=== PATIENT | female | born 1935 | race Caucasian/White ===

== ENCOUNTER → 2017-01-26 | Outpatient (CLI) | payer OTHER ==
[~2017-01-26] MED LIST: ASCA500 PO; ASPI-461 PO; CHOL100027 PO; CYAN500T PO; GLIP2.5T11 PO; HYDR50TA3 PO; INSDGIPEN SC; LISI-725 PO; LPT40 PO; LSN20 PO; METF1000 PO; METO25TA56 PO; OMEG5CAP PO; PLV75 PO; RANI150T2 PO; SITA1TAB27 PO; ZCRT/40 PO
[2017-01-26 12:43] LABS: BASO % 0.3 %; BASO ABS # 0.02 K/uL (0-0.2); COMPLETE YES; HEMATOCRIT 38.5 % (37-47); IG% 0.3 %; LYMPH % 19.2 %; LYMPH ABS # 1.53 K/uL (1.2-3.4); MEAN CELL VOLUME 87.3 fL (80-100); MEAN CORPUSCULAR HGB CONC 33.2 g/dl (32-36); MEAN PLATELET VOLUME 10.6 fL (7.4-10.4); MONO % 5.7 %; NEUT % 71.5 %; PLATELET COUNT 247 K/uL (130-400); RED BLOOD COUNT 4.41 M/uL (4.2-5.4); WHITE BLOOD COUNT 7.96 K/uL (4.8-10.8)
[2017-01-26 13:46] LABS: ALKALINE PHOSPHATASE 72 U/L (45-117); ALT/SGPT 26 U/L (12-78); AMYLASE 48 U/L (25-115); AST/SGOT 13 U/L (15-37)
== END | disposition home or self-care (01) ==
LOC: C.LAB 11:44
PROVIDERS: ATTEND Nurse Practitioner Family
DX: R07.89 Other chest pain (principal); R14.2 Eructation; R11.0 Nausea

== ENCOUNTER 2017-02-23 18:26 | Inpatient (IN) | payer OTHER ==
[~2017-02-23] VITALS: Ht 165.1 cm; Wt 109.9 kg
[~2017-02-23 18:26] MED LIST changes: -GLIP2.5T11 PO; -INSDGIPEN SC; -LPT40 PO; -LSN20 PO; -PLV75 PO; -RANI150T2 PO
[2017-02-23] MEDS ORDERED: SODIUM CHLORIDE 0.9% 1000ML 1,000 ML IV SCH ×2 (18:42→23:59)
[2017-02-23] MEDS ORDERED: RANI150T2 PO (18:54)
[2017-02-23] MEDS ORDERED: GLIP2.5T11 PO (18:54)
--- NOTE | 2017-02-23 18:55 | EMERGENCY ROOM VISIT NOTE ---
History Report prepared by Marla: Janeen Morrissey Under the Supervision of: Dr. Tobias Ruelas M.D. First contact with patient: 18:36 Chief Complaint: STROKE SYMPTOMS Stated Complaint: LOSS OF SIGHT IN RT EYE, CONFUSION, MEMORY LOSS Nursing Triage Summary: Pts states pt is having a TIA. states pt unable to recall children's names, parents names, wasn't making sense. Pt states blind spot in right eye, now resolved. Mild h/a, now resolved. Episode lasted approx 15 mins. History of Present Illness The patient is an 81 year old female who presents to the Emergency Room with complaints of stroke-like symptoms beginning 40 minutes ago that have resolved. The patient was with her and they were leaving their grandson's house. The patient developed blindness in her right eye that lasted for about 10-15 minutes. She initially thought this was due to the sun and states that she did not feel confused while she was experiencing these visual symptoms. Her blindness resolved, and that is when she became confused. Per , the patient could not remember her parent's names or her children's names. She could recall her birthday and her address. denies any facial droop or weakness while her symptoms lasted. The patient states that she feels better now , but still feels a little "strange" and not completely back to normal. She states that she is feeling weak and has a headache at the base of her head that she describes as "tightness." Her visual symptoms have completely resolved. The patient denies any back pain or abdominal pain. She does not have any personal history of strokes or TIAs. She takes daily aspirin but denies any other blood thinners. 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 Review of Systems All systems have been listed, reviewed, and are negative other than those previously mentioned. Please see Additional Medical History Sheet. Past Medical & Surgical Medical Problems: (1) Arthritis (2) Diabetes mellitus (3) Hypertension (4) Scoliosis (5) TIA (transient ischemic attack) Family History Non-pertinent due to advanced age. Social History Smoking Status: Former Smoker Marital Status: Housing Status: lives with significant other Occupation Status: unemployed Current/Historical Medications Scheduled Ascorbic Acid (Vitamin C), 1,000 MG PO QAM Aspirin (Aspirin), 2 TAB PO QAM Cholecalciferol (Vitamin D 1000 Unit), 1,000 INTER.UNIT PO BID Cyanocobalamin (Vitamin B-12), 1,000 MCG PO BID Glipizide (Glipizide Er), 2.5 MG PO DAILY Hydrochlorothiazide (Hctz), 50 MG PO QPM Lisinopril (Zestril), 20 MG PO QPM Metformin Hcl (Glucophage), 1,000 MG PO BID Metoprolol Tartrate (Lopressor) (Lopressor), 25 MG PO BID [place]-3 Fatty Acids (Fish Oil 1200 mg), 1 CAP PO BID Ranitidine HCl (Ranitidine HCl), 150 MG PO BID Simvastatin (Zocor), 40 MG PO QPM Allergies Coded Allergies: No Known Allergies (Verified , 05/25/16) Physical Exam Vital Signs Date Time Temp Pulse Resp B/P Pulse Ox O2 Delivery O2 Flow Rate FiO2 02/23/17 22:16 36.5 61 19 132/63 92 02/23/17 22:10 132/63 02/23/17 22:01 61 19 92 02/23/17 21:31 72 23 95 02/23/17 21:26 73 21 94 02/23/17 21:20 152/63 02/23/17 20:56 80 20 90 02/23/17 20:31 144/61 02/23/17 20:30 71 20 144/61 94 Room Air 02/23/17 20:26 69 22 95 02/23/17 20:02 136/61 02/23/17 20:00 66 16 136/61 93 Room Air 02/23/17 19:56 78 26 02/23/17 19:38 194/84 02/23/17 19:37 72 18 194/84 94 Room Air 02/23/17 19:30 183/88 02/23/17 19:26 69 19 02/23/17 19:03 74 02/23/17 19:02 Room Air 02/23/17 18:56 170/104 02/23/17 18:30 36.5 74 18 187/88 96 Room Air Physical Exam GENERAL: Patient awake, alert, oriented x 3. Patient follows commands. Patient does not appear toxic. Patient is adequately hydrated and well- nourished. SKIN: No erythema, pallor, cyanosis or rash HEENT: Normal head, pupils equal, reactive to light and accommodation. Oral cavity and posterior pharynx appear normal. Neck: Without adenopathy, no neck vein distention. LUNGS: Clear to auscultation. No wheezes, no rales, no rhonchi. HEART: No murmurs. No gallops. No rubs ABDOMEN: Obese, soft, nontender. EXTREMITIES: No signs of trauma. No pedal or pretibial edema. No calf or thigh tenderness. NEUROLOGIC: Cranial nerves II-XII within normal limits. No gross motor sensory function deficits. No focal deficits. Patient has no facial asymmetry. NIH 0. Medical Decision & Procedures ER Provider Diagnostic Interpretation: Radiology results as stated below per my review and radiologist interpretation: CT SCAN OF THE BRAIN WITHOUT IV CONTRAST CLINICAL HISTORY: Strokelike symptoms. COMPARISON STUDY: No priors. TECHNIQUE: Unenhanced axial CT scan of the brain is performed from the vertex to the skull base. CT DOSE: 709.48 mGy.cm FINDINGS: Brain parenchyma: There are age-related involutional changes noting [id number] patchy subcortical and periventricular microangiopathic change. There is no hemorrhage, mass effect, or evidence of acute territorial ischemia by CT criteria. Toth-white matter is preserved. No extra-axial fluid collection is seen. Ventricles, sulci, cisterns: Prominent secondary to involutional change. Intracranial vasculature: There is atherosclerotic calcification of the cavernous carotid and vertebral arteries. Calvarium: Unremarkable. Sinuses and mastoids: The visualized paranasal sinuses are clear. The mastoid air cells are well pneumatized. Orbits: The bony orbits are grossly intact. There are bilateral ocular lens implants. IMPRESSION: Senescent changes as above with no hemorrhage, mass effect, or evidence of acute territorial ischemia by CT criteria. Electronically signed by: Kevin Argueta M.D. 02/23/2017 6:56 PM Dictated Date/Time: 02/23/2017 6:54 PM Laboratory Results 02/23/17 19:10 Red Blood Count 4.36, Mean Corpuscular Volume 87.4, Mean Corpuscular Hemoglobin 28.2, Mean Corpuscular Hemoglobin Concent 32.3, Mean Platelet Volume 10.1, Neutrophils (%) (Auto) 50.8, Lymphocytes (%) (Auto) 36.3, Monocytes (%) (Auto) 8.0, Eosinophils (%) (Auto) 4.4, Basophils (%) (Auto) 0.2, Neutrophils # (Auto) 4.39, Lymphocytes # (Auto) 3.14, Monocytes # (Auto) 0.69, Eosinophils # (Auto) 0.38, Basophils # (Auto) 0.02 02/23/17 19:10 Test 02/23/17 18:59 02/23/17 19:10 Bedside Glucose 157 mg/dl (70-90) White Blood Count 8.65 K/uL (4.8-10.8) Red Blood Count 4.36 M/uL (4.2-5.4) Hemoglobin 12.3 g/dL (12.0-16.0) Hematocrit 38.1 % (37-47) Mean Corpuscular Volume 87.4 fL (80-100) Mean Corpuscular Hemoglobin 28.2 pg (25-34) Mean Corpuscular Hemoglobin Concent 32.3 g/dl (32-36) Platelet Count 242 K/uL (130-400) Mean Platelet Volume 10.1 fL (7.4-10.4) Neutrophils (%) (Auto) 50.8 % Lymphocytes (%) (Auto) 36.3 % Monocytes (%) (Auto) 8.0 % Eosinophils (%) (Auto) 4.4 % Basophils (%) (Auto) 0.2 % Neutrophils # (Auto) 4.39 K/uL (1.4-6.5) Lymphocytes # (Auto) 3.14 K/uL (1.2-3.4) Monocytes # (Auto) 0.69 K/uL (0.11-0.59) Eosinophils # (Auto) 0.38 K/uL (0-0.5) Basophils # (Auto) 0.02 K/uL (0-0.2) RDW Standard Deviation 44.0 fL (36.4-46.3) RDW Coefficient of Variation 13.9 % (11.5-14.5) Immature Granulocyte % (Auto) 0.3 % Immature Granulocyte # (Auto) 0.03 K/uL (0.00-0.02) Prothrombin Time 10.0 SECONDS (9.0-12.0) Prothromb Time International Ratio 0.9 (0.9-1.1) Activated Partial Thromboplast Time 23.6 SECONDS (21.0-31.0) Partial Thromboplastin Ratio 0.9 Anion Gap 7.0 mmol/L (3-11) Est Creatinine Clear Calc Drug Dose 58.5 ml/min Estimated GFR () 65.6 Estimated GFR (Non- 56.6 BUN/Creatinine Ratio 18.6 (10-20) Calcium Level 9.2 mg/dl (8.5-10.1) Total Creatine Kinase 142 U/L (26-192) Creatine Kinase MB 2.3 ng/ml (0.5-3.6) Creatine Kinase MB Ratio 1.6 (0-3.0) Troponin I 0.020 ng/ml (0-0.045) Laboratory results as stated above per my review. Medications Administered Medications (Trade) Dose Ordered Sig/Stuart Route Start Time Stop Time Status Last Admin Dose Admin Sodium Chloride (Nss 1000ml) 1,000 ml @ 50 mls/hr Q20H IV 02/23/17 18:42 03/25/17 18:41 02/23/17 19:40 50 MLS/HR Labetalol HCl (Normodyne IV) 10 mg ONE ONCE IV 02/23/17 19:45 02/23/17 19:46 DC 02/23/17 19:44 10 MG ECG Indication: altered mental status Rate (beats per minute): 69 Rhythm: sinus with SA Findings: no acute ischemic change, other (normal axis) ED Course 1835: Past medical records reviewed. The patient was evaluated in room B6. A complete history and physical examination was performed. A stroke alert was called in the ED and the patient was moved to room B1. 1841: NSS 1000 ml @ 50 mls/hr IV 8: I reassessed the patient at this time. She is resting comfortably. I discussed the results and treatment plan with the patient and her . I answered all pertaining questions that they had. They expressed understanding and verbalized agreement. 0: I spoke with Dr. Heaton. We discussed the patients results and treatment plan. The patient will be evaluated by the [facility] for further management. 1928: I updated the patient. She is still hypertensive. 1944: Labetalol HCl 10 mg IV Medical Decision Differential diagnoses includes CVA, TIA, complex migraine, dehydration, metabolic disorder. Medication Reconciliation: I attest that I have personally reviewed the patient' s current medication list. Blood Pressure Screening: Patient was found to have an elevated blood pressure and was referred to the hospitalist for recheck and further treatment. Multiple labs, EKG and imaging were obtained on a stat basis. Please see above. The patient is here with transient focal findings and confusion consistent with a TIA. CT was negative for a bleed. NIH stroke score was 0. Patient appears to have had a TIA with complete resolution. Patient's blood pressure was significantly elevated and she was given IV labetalol. She will require further evaluation and most likely carotid ultrasound/MRI. I discussed care with the hospitalist, the patient and her . Consults Time Called: 1909 Consulting Physician: Dr. Heaton Returned Call: [address] Heaton. We discussed the patients results and treatment plan. The patient will be evaluated by the [facility] for further management. Impression Primary Impression: TIA (transient ischemic attack) Critical Care I have personally spent greater than 35 minutes of critical care time in the direct management of this patient. This includes bedside care, interpretation of diagnostic studies, and testing, discussion with consultants, patient, and family members, and other required patient management activities. This 35 minutes is in excess of all separately billable procedures. Scribe Attestation The scribe's documentation has been prepared under my direction and personally reviewed by me in its entirety. I confirm that the note above accurately reflects all work, treatment, procedures, and medical decision making performed by me. Time Last Known Well 1800 Stroke t-PA Criteria Reviewed Does NOT meet criteria for t-PA Reason t-PA Not Given Treatment not indicated Strict Exclusion Criteria Complete resolution of symptoms (NI Departure Information Dispostion Being Evaluated By Hospitalist Referrals Pastor Membreno M.D. (PCP) Patient Instructions My [facility] Problem Qualifiers Primary Impression: TIA (transient ischemic attack) Transient cerebral ischemia type: unspecified Qualified Codes: G45.9 - Transient cerebral ischemic attack, unspecified
--- NOTE | 2017-02-23 18:58 | DIAGNOSTIC IMAGING REPORT ---
CT SCAN OF THE BRAIN WITHOUT IV CONTRAST CLINICAL HISTORY: Strokelike symptoms. COMPARISON STUDY: No priors. TECHNIQUE: Unenhanced axial CT scan of the brain is performed from the vertex to the skull base. CT DOSE: 709.48 mGy.cm FINDINGS: Brain parenchyma: There are age-related involutional changes noting [id number] patchy subcortical and periventricular microangiopathic change. There is no hemorrhage, mass effect, or evidence of acute territorial ischemia by CT criteria. Toth-white matter is preserved. No extra-axial fluid collection is seen. Ventricles, sulci, cisterns: Prominent secondary to involutional change. Intracranial vasculature: There is atherosclerotic calcification of the cavernous carotid and vertebral arteries. Calvarium: Unremarkable. Sinuses and mastoids: The visualized paranasal sinuses are clear. The mastoid air cells are well pneumatized. Orbits: The bony orbits are grossly intact. There are bilateral ocular lens implants. IMPRESSION: Senescent changes as above with no hemorrhage, mass effect, or evidence of acute territorial ischemia by CT criteria. Electronically signed by: Kevin Argueta M.D. 02/23/2017 6:56 PM Dictated Date/Time: 02/23/2017 6:54 PM
[2017-02-23 19:25] LABS: BASO % 0.2 %; BASO ABS # 0.02 K/uL (0-0.2); COMPLETE YES; EOS % 4.4 %; HEMATOCRIT 38.1 % (37-47); IG% 0.3 %; LYMPH % 36.3 %; LYMPH ABS # 3.14 K/uL (1.2-3.4); MEAN CELL VOLUME 87.4 fL (80-100); MEAN CORPUSCULAR HEMOGLOBIN 28.2 pg (25-34); MEAN CORPUSCULAR HGB CONC 32.3 g/dl (32-36); MEAN PLATELET VOLUME 10.1 fL (7.4-10.4); NEUT % 50.8 %; PLATELET COUNT 242 K/uL (130-400); RED BLOOD COUNT 4.36 M/uL (4.2-5.4); WHITE BLOOD COUNT 8.65 K/uL (4.8-10.8)
[2017-02-23 19:39] LABS: INR 0.9 (0.9-1.1); PARTIAL THROMBOPLASTIN RATIO 0.9
[2017-02-23 19:43] LABS: BUN/CREATININE RATIO 18.6 (10-20); CALCIUM 9.2 mg/dl (8.5-10.1); CREATININE 0.95 mg/dl (0.60-1.20)
[2017-02-23] MEDS ORDERED: LABETALOL HCL IV 5 MG/ML 20ML IV ONE (19:45)
[2017-02-23 19:48] LABS: CKMB/CK RATIO 1.6 (0-3.0)
[2017-02-23] MEDS ORDERED: ONDANSETRON INJ 2 MG/ML 2 ML VIAL IV PRN (21:00)
[2017-02-23] MEDS ORDERED: MoRPHine SULFATE 2 MG/ML CARP IV PRN (21:00)
[2017-02-23] MEDS ORDERED: PHARMACIST DISCHARGE MED REC CONSULT PRN (21:00)
[2017-02-23] MEDS ORDERED: NITROGLYCERIN 0.4 MG SL PER TAB CHARGE SL PRN (21:00)
--- NOTE | 2017-02-23 22:57 | DIAGNOSTIC IMAGING REPORT ---
MR ANGIOGRAM OF THE BRAIN CLINICAL HISTORY: Right-sided visual loss. COMPARISON STUDY: CT of the brain dated 02/23/2017. TECHNIQUE: 3-D [id number] MR angiography of the intracranial circulation is performed. 3-D tumble views are created and assessed. IV contrast was not administered for this examination. The Examination is degraded by motion artifact. FINDINGS: The internal carotid arteries are widely patent bilaterally, as are the anterior and middle cerebral arteries. There is atherosclerotic irregularity noted in the cavernous carotid region. The vertebrobasilar system and posterior cerebral arteries are widely patent. The vertebral arteries are codominant. There is no aneurysm, high-grade stenosis, or focal vessel cutoff seen throughout the intracranial circulation. IMPRESSION: Unremarkable MR angiogram of the brain noting a motion degraded examination. Electronically signed by: Kevin Argueta M.D. 02/23/2017 10:56 PM Dictated Date/Time: 02/23/2017 10:53 PM
[2017-02-23] MEDS ORDERED: GADAVIST IV PRN (23:30)
[2017-02-24] VITALS (14 sets, daily range): BP systolic 125–167; BP diastolic 65–112; PULSE 53–86; TEMP 36.6–36.8; O2SAT 94–96; BMI 40.8
--- NOTE | 2017-02-24 00:09 | History and Physical ---
History & Physical Date & Time of Service: February 23, 2017 at 23:50 Chief Complaint: Loss Of Sight In Rt Eye, Confusion, Memory Loss Primary Care Physician: Pastor Membreno M.D. 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 According to the patient she suddenly had a blind spot which 'it looked like a halo with jagged light" in her right eye. There was no accompanying headache and she has never had this before. This lasted approx 10-15 minutes and resolved. After this however she was having increasing difficulty "finding my words". She was asked the names of her children and basic questions and she was unable to do this. She had no weakness / numbness/ vertigo or presyncope during this time. There was concern for a stroke so she was quickly brought to the ED. By the time she arrived the symptoms completely resolved. She has no history of TIA/ Stroke/ AR. she has a history of DM, HTN, elevated chol and severe OA of the neck. A stroke alert was called in the ED and patient had a CT head done. This did not reflect any ischemia or hemorrhage. As symptoms had resolved TPa was deferred and plan was for further evaluation in the hospital. Past Medical/Surgical History Medical Problems: (1) Arthritis Status: Chronic (2) Diabetes mellitus Status: Chronic (3) Hypertension Status: Chronic (4) Scoliosis Status: Chronic Family History Diabetes mellitus Social History Smoking Status: Former Smoker Smokeless Tobacco Use: No Alcohol Use: socially Drug Use: none Marital Status: Housing status: lives with family Occupational Status: unemployed Immunizations History of Influenza Vaccine: N/A History of Tetanus Vaccine?: Yes History of Pneumococcal: Unknown History of Hepatitis B Vaccine: No Multi-Drug Resistant Organisms History of MDRO: No Allergies Coded Allergies: No Known Allergies (Verified , 05/25/16) Home Medications Scheduled Ascorbic Acid (Vitamin C), 1,000 MG PO QAM Aspirin (Aspirin), 2 TAB PO QAM Cholecalciferol (Vitamin D 1000 Unit), 1,000 INTER.UNIT PO BID Cyanocobalamin (Vitamin B-12), 1,000 MCG PO BID Glipizide (Glipizide Er), 2.5 MG PO DAILY Hydrochlorothiazide (Hctz), 50 MG PO QPM Lisinopril (Zestril), 20 MG PO QPM Metformin Hcl (Glucophage), 1,000 MG PO BID Metoprolol Tartrate (Lopressor) (Lopressor), 25 MG PO BID [place]-3 Fatty Acids (Fish Oil 1200 mg), 1 CAP PO BID Ranitidine HCl (Ranitidine HCl), 150 MG PO BID Simvastatin (Zocor), 40 MG PO QPM Review of Systems Constitutional: No fever Eyes: + worsening of vision ENT: No hearing loss Respiratory: No cough, No dyspnea at rest, No dyspnea on exertion, No shortness of breath, No sputum, No wheezing Cardiovascular: No chest pain Abdomen: No constipation, No diarrhea, No nausea, No pain, No vomiting Musculoskeletal: No joint pain, No muscle pain Genitourinary - Female: No dysuria, No hematuria Neurologic: No balance problems, No numbness/tingling, No weakness Psychiatric: No depression symptoms Endocrine: No fatigue Hematologic / Lymphatic: No abnormal bleeding/bruising Integumentary: No rash Physical Exam Vital Signs Date Time Temp Pulse Resp B/P Pulse Ox O2 Delivery O2 Flow Rate FiO2 02/23/17 22:16 36.5 61 19 132/63 92 02/23/17 22:10 132/63 02/23/17 22:01 61 19 92 02/23/17 21:31 72 23 95 02/23/17 21:26 73 21 94 02/23/17 21:20 152/63 02/23/17 20:56 80 20 90 02/23/17 20:31 144/61 02/23/17 20:30 71 20 144/61 94 Room Air 02/23/17 20:26 69 22 95 02/23/17 20:02 136/61 02/23/17 20:00 66 16 136/61 93 Room Air 02/23/17 19:56 78 26 02/23/17 19:38 194/84 02/23/17 19:37 72 18 194/84 94 Room Air 02/23/17 19:30 183/88 02/23/17 19:26 69 19 02/23/17 19:03 74 02/23/17 19:02 Room Air 02/23/17 18:56 170/104 02/23/17 18:30 36.5 74 18 187/88 96 Room Air General Appearance: no apparent distress Head: normocephalic, atraumatic Eyes: normal inspection, PERRL, EOMI, sclerae normal, + pertinent finding (no nystagmus) ENT: normal ENT inspection Neck: supple Respiratory/Chest: normal breath sounds, no respiratory distress, no accessory muscle use Cardiovascular: regular rate, rhythm, no murmur Abdomen/GI: normal bowel sounds, non tender, soft Back: normal inspection Extremities/Musculoskelatal: normal inspection, no calf tenderness, no pedal edema Neurologic/Psych: 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-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 nml as tested, no motor/sensory deficits, alert, normal mood/affect, normal reflexes, oriented x 3, + pertinent finding (no pronator drift, all extremities neurovascularly intact) Skin: normal color, warm/dry, no rash Lymphatic: no adenopathy Diagnostics Laboratory Results Results Past 24 Hours Test 02/23/17 18:59 02/23/17 19:10 Range/Units Bedside Glucose 157 70-90 mg/dl White Blood Count 8.65 4.8-10.8 K/uL Red Blood Count 4.36 4.2-5.4 M/uL Hemoglobin 12.3 12.0-16.0 g/dL Hematocrit 38.1 37-47 % Mean Corpuscular Volume 87.4 80-100 fL Mean Corpuscular Hemoglobin 28.2 25-34 pg Mean Corpuscular Hemoglobin Concent 32.3 32-36 g/dl Platelet Count 242 130-400 K/uL Mean Platelet Volume 10.1 7.4-10.4 fL Neutrophils (%) (Auto) 50.8 % Lymphocytes (%) (Auto) 36.3 % Monocytes (%) (Auto) 8.0 % Eosinophils (%) (Auto) 4.4 % Basophils (%) (Auto) 0.2 % Neutrophils # (Auto) 4.39 1.4-6.5 K/uL Lymphocytes # (Auto) 3.14 1.2-3.4 K/uL Monocytes # (Auto) 0.69 0.11-0.59 K/uL Eosinophils # (Auto) 0.38 0-0.5 K/uL Basophils # (Auto) 0.02 0-0.2 K/uL RDW Standard Deviation 44.0 36.4-46.3 fL RDW Coefficient of Variation 13.9 11.5-14.5 % Immature Granulocyte % (Auto) 0.3 % Immature Granulocyte # (Auto) 0.03 0.00-0.02 K/uL Prothrombin Time 10.0 9.0-12.0 SECONDS Prothromb Time International Ratio 0.9 0.9-1.1 Activated Partial Thromboplast Time 23.6 21.0-31.0 SECONDS Partial Thromboplastin Ratio 0.9 Sodium Level 141 136-145 mmol/L Potassium Level 4.0 3.5-5.1 mmol/L Chloride Level 107 98-107 mmol/L Carbon Dioxide Level 27 21-32 mmol/L Anion Gap 7.0 3-11 mmol/L Blood Urea Nitrogen 18 7-18 mg/dl Creatinine 0.95 0.60-1.20 mg/dl Est Creatinine Clear Calc Drug Dose 58.5 ml/min Estimated GFR () 65.6 Estimated GFR (Non- 56.6 BUN/Creatinine Ratio 18.6 10-20 Random Glucose 167 70-99 mg/dl Calcium Level 9.2 8.5-10.1 mg/dl Total Creatine Kinase 142 26-192 U/L Creatine Kinase MB 2.3 0.5-3.6 ng/ml Creatine Kinase MB Ratio 1.6 0-3.0 Troponin I 0.020 0-0.045 ng/ml Diagnostic Radiology CT SCAN OF THE BRAIN WITHOUT IV CONTRAST CLINICAL HISTORY: Strokelike symptoms. COMPARISON STUDY: No priors. TECHNIQUE: Unenhanced axial CT scan of the brain is performed from the vertex to the skull base. CT DOSE: 709.48 mGy.cm FINDINGS: Brain parenchyma: There are age-related involutional changes noting [id number] patchy subcortical and periventricular microangiopathic change. There is no hemorrhage, mass effect, or evidence of acute territorial ischemia by CT criteria. Toth-white matter is preserved. No extra-axial fluid collection is seen. Ventricles, sulci, cisterns: Prominent secondary to involutional change. Intracranial vasculature: There is atherosclerotic calcification of the cavernous carotid and vertebral arteries. Calvarium: Unremarkable. Sinuses and mastoids: The visualized paranasal sinuses are clear. The mastoid air cells are well pneumatized. Orbits: The bony orbits are grossly intact. There are bilateral ocular lens implants. IMPRESSION: Senescent changes as above with no hemorrhage, mass effect, or evidence of acute territorial ischemia by CT criteria. EKG Sinus rhythm with marked sinus arrhythmia Otherwise normal ECG When compared with ECG of 28-JAN-2016 12:20, Premature ventricular complexes are no longer Present Premature atrial complexes are no longer Present Nonspecific T wave abnormality no longer evident in Lateral leads Impression Assessment and Plan This is an 81 yo f with a h/o DM, HTN, elevated chol that is here for a TIA/ stroke evaluation. TIA; altered vision, aphasia - tele admission - Patient does take 162 mg of ASA daily - Echo - MRI/ MRA of H&N - HBA1C and FLP - Neurochecks per protocol - patient is currently on simvastatin - PT/OT/ Speech - neuro consult DMII - insulin ISS - HBA1C pending - Glipizide and metformin held HTN - continue lisinopril and HCTZ Hypercholesterolemia Will change simvastatin 40 to atorvastatin 40 GERD - cont ranitidine DVt prophylaxis SCD Level of Care Telemetry Resuscitation Status FULL RESUSCITATION VTE Prophylaxis VTE Risk Assessment Done? Y/N: Yes Risk Level: Moderate Given or contraindicated: SCD's Social Service Consult None Apply Note Total Time: Critical Care 30 - 74 minutes Additional Copies To Pastor Membreno M.D. Assessment and Plan Attending Addendum: I have physically seen and examined this patient, have directed their medical care, have supervised the medical residents activities, and agree with the H&P as noted above, with the following changes: NONE
[2017-02-24 06:30] LABS: BASO % 0.1 %; BASO ABS # 0.01 K/uL (0-0.2); COMPLETE YES; EOS % 4.9 %; HEMATOCRIT 32.9 % (37-47); IG% 0.1 %; LYMPH % 38.9 %; MEAN CELL VOLUME 87.3 fL (80-100); MEAN CORPUSCULAR HEMOGLOBIN 28.4 pg (25-34); MEAN CORPUSCULAR HGB CONC 32.5 g/dl (32-36); MEAN PLATELET VOLUME 10.1 fL (7.4-10.4); MONO % 9.3 %; NEUT % 46.7 %; PLATELET COUNT 215 K/uL (130-400); RED BLOOD COUNT 3.77 M/uL (4.2-5.4); WHITE BLOOD COUNT 6.68 K/uL (4.8-10.8)
[2017-02-24 06:37] LABS: ESTIMATED AVERAGE GLUCOSE 203 mg/dl; HA1C FLAG Normal (Normal)
[2017-02-24 07:00] LABS: BUN/CREATININE RATIO 21.3 (10-20); CALCIUM 8.6 mg/dl (8.5-10.1); CREATININE 0.71 mg/dl (0.60-1.20); POTASSIUM 3.5 mmol/L (3.5-5.1)
[2017-02-24 07:06] LABS: CHOLESTEROL/HDL RATIO 1.9
[2017-02-24] MEDS: INSULIN ASPART 100 UNITS/ML 3 ML PEN SC SCH ×4 (07:36→20:59)
--- NOTE | 2017-02-24 08:31 | DIAGNOSTIC IMAGING REPORT ---
NECK MRA HISTORY: Confusion. Stroke TECHNIQUE: [id number] and gadolinium-enhanced MRA of the neck was performed both before and after the intravenous administration of contrast. All measurements were calculated based on NASCET criteria. COMPARISON STUDY: None. FINDINGS: The aortic arch and proximal great vessels are widely patent. The bilateral common carotid and vertebral arteries are widely patent. Possible focal dissection within a 6 mm segment of the mid left internal carotid artery. There is also a slightly focal beaded appearance to the mid right internal carotid artery resulting in mild stenosis. The distal internal carotid arteries are widely patent. IMPRESSION: 1. Possible focal dissection within a 6 mm segment of the mid left internal carotid artery. However, the artery remains widely patent. 2. Slightly focal beaded appearance within the mid right internal carotid artery resulting in the mild stenosis. This favors atherosclerosis disease rather than a vasculitis. 3. Recommend follow-up neck CTA for further evaluation of the questionable left internal carotid artery focal dissection. Electronically signed by: Judson Holman M.D. 02/24/2017 8:30 AM Dictated Date/Time: 02/24/2017 8:19 AM
--- NOTE | 2017-02-24 08:41 | DIAGNOSTIC IMAGING REPORT ---
MRI OF THE BRAIN WITHOUT AND WITH IV CONTRAST CLINICAL HISTORY: Possible stroke. Loss of sight in right eye. Confusion. Memory loss. COMPARISON STUDY: Head CT February 23, 2017. TECHNIQUE: Utilizing a 1.5 Bruna magnet and dedicated coil, multiplanar, multiecho imaging of the brain was performed pre and postcontrast administration. IV administration of 11 mL of Gadavist contrast was uneventful. FINDINGS: This exam is mildly compromised by motion artifact. There are no areas of restricted diffusion. No acute intracranial hemorrhage, midline shift or mass effect is present. Brain volume is normal for age. Ventricular system is normal. Basilar cisterns are patent. There are no extra-axial collections. Flow-voids for the major intracranial vessels are present. There is no intracranial mass or pathologic enhancement. Scattered white matter T2 hyperintense foci suggest moderate small vessel disease. Calvarial signal is maintained. Orbits and sinuses are unremarkable. IMPRESSION: 1. No acute intracranial findings. 2. No intracranial mass or pathologic enhancement. 3. Moderate small vessel disease. 4. Study mildly compromised by motion artifact. Electronically signed by: Cory Alvarado M.D. 02/24/2017 8:39 AM Dictated Date/Time: 02/24/2017 8:36 AM
[2017-02-24] MEDS ORDERED: ASPIRIN 81 MG ECTAB PO SCH ×3 (09:00)
[2017-02-24] MEDS: ATORVASTATIN 40 MG TAB PO SCH (09:28)
[2017-02-24] MEDS: RANITIDINE HCL 150 MG TAB PO SCH ×2 (09:28→20:57)
[2017-02-24] MEDS: METOPROLOL TARTRATE 25 MG TAB PO SCH ×2 (09:28→20:58)
[2017-02-24] MEDS: ASCORBIC ACID 500 MG TAB PO SCH (09:28)
[2017-02-24] MEDS: CHOLECALCIFEROL 1000 INTER.UNIT TAB PO SCH ×2 (09:28→20:58)
[2017-02-24] MEDS: CYANOCOBALAMIN 500 MCG TAB (VIT B-12) PO SCH ×2 (09:28→20:57)
[2017-02-24] MEDS ORDERED: INSULIN GLARGINE SOLOSTAR 100 UNITS/ML 3 ML PEN SC ONE (09:47)
--- NOTE | 2017-02-24 10:15 | Neurology Consultation ---
Neurology Consultation Date of Consultation: February 24, 2017. Attending Physician: Niles Michel D.O. Primary Care Physician: Pastor Membreno M.D. Reason for Consultation: Patient is an 81-year-old, who was asked to see the request of Dr. Heaton and Dr. Carson, for neurologic consultation regarding presumed TIA. History of Present Illness Source: patient, caregiver, clinic records, hospital records This patient has a long-standing history of diabetes and hypertension (he is greater than 10 years) studies along with dyslipidemia and a remote history of atrial fibrillation. She saw Dr. Eckert, cardiology, in November 2016 who diagnosed premature atrial contractions and there was no evidence of atrial fibrillation recently. Patient has never had a stroke before. She has a remote history of some headaches but no true migraines in the past. These headaches disappeared after menopause. She's been on aspirin for the last 2 years. Patient was in her usual state of health when she had an episode sometime early afternoon of February 23 when she was standing in the kitchen and became sweaty for 20-30 minutes. Later that day she went to visit her new grandchild and was doing quite fine. The left somewhere between 4:30 and 5 PM and while driving she noted the sudden onset of some jagged bright lights in her right eye centrally. There was a bit of a halo effect to it and it lasted about 10 minutes. She did not cover one eye or the other to know for was solely in the right eye but she felt that it was in the right only. There was no double vision or loss of vision. The vision issue resolved and never returned. After the 10 minutes with the vision issue resolved she was in the car while her was talking with a friend and dosed off for probably 5-10 minutes. She was awoken by a tapping on the window and she was confused and was unable to figure out how to lower the window at first. For the next 30-45 minutes she had some difficulty getting words out. She was unsure of where she was (they drove to [employer] to get something to eat) and didn't recognize surroundings. She wasn't sure of the words coming out of her mouth sounded right and she was unsure of herself. She could understand what her was saying to her. She couldn't name her children or grandchildren well. Her then drove her to the emergency room where she arrived at 1830 hours. At the ER. Temperature was 36.5, pulse 74 and regular, respiratory rate 18, blood pressure 183/88 and O2 saturation 96%. Later on in the ER blood pressure was 170/104. In the emergency room her neurologic examination was described as unremarkable with no focal findings or mental status changes. Her speech was normal. She noted a headache at the base of her head while in the ER which persisted. She felt weak in general but no focal weakness or numbness. CT scan of the head showed some mild small vessel ischemic disease but no acute changes. EKG showed normal sinus rhythm with PACs. She has been in this rhythm her entire hospitalization and has not been in any atrial fibrillation rhythm. MRA of the brain was unremarkable. MRA of the neck showed a focal 6 mm segment in the left internal carotid artery with possible dissection versus other. MRI of the brain showed no acute stroke. There was mild to moderate generalized atrophy and some mild old vessel ischemic changes only. Profile and CBC were unremarkable except for glucose of 150s to 160s and a hemoglobin A1c of 8.7. Lipid profile was quite normal with a fasting cholesterol 139 this morning. This morning the patient feels back to baseline with symptoms resolved. She has slight frontal headache this morning but this is gone by now. Past Medical/Surgical History Hypertension Diabetes Dyslipidemia Osteoarthritis with cervical spondylosis History of scoliosis. Post bilateral cataract repair by Dr. Arellano in 2015. Left total knee replacement by Dr. Castro in March 2012 Colonic polyp removal, benign, in April [address] Horner Family History Mother age 83 had a stroke at age 75. Father age 81 of probable [place] and had diabetes Social History Patient quit cigarette smoking in 1968. She will have up to 3 drinks of alcohol per week mostly social in the evening. 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 She has 6 children ranging in age from 54-40, 11 grandchildren, and 2 great- grandchildren Smoking Status: Former smoker Smokeless Tobacco Use: No Alcohol Use: socially Drug Use: none Marital Status: Housing Status: lives with significant other Occupation Status: retired Allergies Coded Allergies: No Known Allergies (Verified , 05/25/16) Current Inpatient Medications Current Inpatient Medications Medications (Trade) Dose Ordered Sig/Stuart Route Start Time Stop Time Status Last Admin Dose Admin Ondansetron HCl (Zofran Inj) 4 mg Q6H PRN IV 02/23/17 21:00 03/25/17 20:59 Nitroglycerin (Nitrostat Tab) 0.4 mg UD PRN SL 02/23/17 21:00 03/25/17 20:59 Morphine Sulfate (MoRPHine SULFATE INJ) 2 mg Q30M PRN IV 02/23/17 21:00 03/09/17 20:59 Miscellaneous Information 1 ea 1 ea UD PRN N/A 02/23/17 21:00 03/25/17 20:59 Sodium Chloride (Nss 1000ml) 1,000 ml @ 100 mls/hr Q10H IV 02/23/17 23:59 03/25/17 23:58 02/24/17 00:44 100 MLS/HR Ascorbic Acid (Vitamin C Tab) 1,000 mg QAM PO 02/24/17 09:00 03/26/17 08:59 02/24/17 09:28 1,000 MG Cholecalciferol (Vitamin D Tab) 1,000 inter.unit BID PO 02/24/17 09:00 03/26/17 08:59 02/24/17 09:28 1,000 INTER.UNIT Cyanocobalamin (Vitamin B-12 Tab) 1,000 mcg BID PO 02/24/17 09:00 03/26/17 08:59 02/24/17 09:28 1,000 MCG Hydrochlorothiazide (Hydrochlorothiazide Tab) 50 mg QPM PO 02/24/17 21:00 03/26/17 20:59 Lisinopril (Zestril Tab) 20 mg QPM PO 02/24/17 21:00 03/26/17 20:59 Metoprolol Tartrate (Lopressor Tab) 25 mg BID PO 02/24/17 09:00 03/26/17 08:59 02/24/17 09:28 25 MG Ranitidine HCl (zANTac TAB) 150 mg BID PO 02/24/17 09:00 03/26/17 08:59 02/24/17 09:28 150 MG Insulin Aspart (novoLOG ASPART) SLIDING SCAL... ACHS SC 02/24/17 07:00 03/26/17 06:59 Gadobutrol (Gadavist) 11 mmol UD PRN IV 02/23/17 23:30 02/27/17 23:29 Aspirin (Ecotrin Tab) 162 mg QAM PO 02/24/17 09:00 03/26/17 08:59 02/24/17 09:28 162 MG Atorvastatin Calcium (Lipitor Tab) 40 mg QAM PO 02/24/17 09:00 03/26/17 08:59 02/24/17 09:28 40 MG Review of Systems Constitutional: No fatigue, No weakness Eyes: No diplopia, No worsening of vision ENT: + hearing loss, No tinnitus Respiratory: No cough, No shortness of breath Cardiovascular: No chest pain, No palpitations Abdomen: No nausea, No pain Musculoskeletal: No joint pain, No muscle pain Genitourinary - Female: No dysuria, No urinary incontinence Neurologic: No balance problems, No memory loss, No numbness/tingling, No vertigo, No weakness Psychiatric: No anxiety, No depression symptoms Endocrine: No fatigue Hematologic / Lymphatic: No abnormal bleeding/bruising Integumentary: No rash Allergic / Immunologic: No hives Physical Exam Vital Signs (Past 24 Hrs): Date Time Temp Pulse Resp B/P Pulse Ox O2 Delivery O2 Flow Rate FiO2 02/24/17 07:25 36.7 86 18 164/96 95 Room Air 02/24/17 04:00 95 Room Air 02/24/17 03:10 36.6 72 18 125/71 95 Room Air 02/24/17 00:50 36.7 70 149/65 96 Room Air 02/23/17 22:16 36.5 61 19 132/63 92 02/23/17 22:10 132/63 02/23/17 22:01 61 19 92 02/23/17 21:31 72 23 95 02/23/17 21:26 73 21 94 02/23/17 21:20 152/63 02/23/17 20:56 80 20 90 02/23/17 20:31 144/61 02/23/17 20:30 71 20 144/61 94 Room Air 02/23/17 20:26 69 22 95 02/23/17 20:02 136/61 02/23/17 20:00 66 16 136/61 93 Room Air 02/23/17 19:56 78 26 02/23/17 19:38 194/84 02/23/17 19:37 72 18 194/84 94 Room Air 02/23/17 19:30 183/88 02/23/17 19:26 69 19 02/23/17 19:03 74 02/23/17 19:02 Room Air 02/23/17 18:56 170/104 02/23/17 18:30 36.5 74 18 187/88 96 Room Air patient is left-handed. The patient is awake and alert. Speech is normal without aphasia or dysarthria. Mentation and thought processes are intact with orientation and normal fund of knowledge. Mood and affect are normal and appropriate. Appearance and grooming are normal. The discs are sharp with positive venous pulsations. There are no exudates, hemorrhages, or blood vessel changes seen. Pupils are 3mm bilaterally and reactive to light. Extraocular eye muscles are intact without nystagmus. Visual acuity and visual ruggiero seem normal grossly to confrontation. There are no deficits to sensation of the face bilaterally. Corneal reflexes are positive bilaterally. Facial strength and symmetry is normal bilaterally. Hearing seems decreased to voice and finger rub. Patient has hearing aids. Palate moves well without asymmetry. There is normal sternocleidomastoid and trapezius strength bilaterally. Tongue is midline with good strength bilaterally. Neck is with full range of motion without discomfort. There are no cervical bruits. There are no cranial or ocular bruits. Heart is without murmur. Cervical, thoracic, and lumbar spine are nontender to palpation. Gait is slow and cautious and she limps favoring her back and knees. Stance is reasonable eyes open. With outstretched arms there is no drift. There are no resting, postural, or action tremors. There is no ataxia with [id number] testing. There is good facility in the hands and legs. There are no abnormal involuntary movements noted. Motor strength is 5/5 diffusely in the arms bilaterally including deltoids, biceps, brachioradialis, wrist flexors and extensors, professor of biology, and intrinsic hand muscles. Motor strength is 5/5 diffusely in the legs bilaterally including hip flexors, quadriceps, hamstring, gastrocnemius, tibialis anterior, tibialis posterior, and peroneii muscles bilaterally. Toe extensors are normal and there is good bulk in the extensor digitorum brevis muscle bilaterally. The limbs have good tone without rigidity or spasticity, and there is no atrophy noted. Muscle bulk is normal, there is no tenderness, no myotonia noted to percussion, and no fasciculations seen. Sensory examination is intact to pin and touch throughout all four limbs. Reflexes are 1/4 in the biceps, triceps, brachioradialis, quadriceps, and Achilles tendons bilaterally. Toes are downgoing with plantar stimulation bilaterally. Peripheral pulses are present and of normal quality distally in all four limbs. There is no peripheral edema noted. Laboratory Results Past 24 Hours: 02/24/17 05:47 Red Blood Count 3.77, Mean Corpuscular Volume 87.3, Mean Corpuscular Hemoglobin 28.4, Mean Corpuscular Hemoglobin Concent 32.5, Mean Platelet Volume 10.1, Neutrophils (%) (Auto) 46.7, Lymphocytes (%) (Auto) 38.9, Monocytes (%) (Auto) 9.3, Eosinophils (%) (Auto) 4.9, Basophils (%) (Auto) 0.1, Neutrophils # (Auto) 3.11, Lymphocytes # (Auto) 2.60, Monocytes # (Auto) 0.62, Eosinophils # (Auto) 0.33, Basophils # (Auto) 0.01 02/24/17 05:47 Test 02/23/17 19:10 02/24/17 05:47 02/24/17 06:35 Prothrombin Time 10.0 SECONDS (9.0-12.0) Prothromb Time International Ratio 0.9 (0.9-1.1) Activated Partial Thromboplast Time 23.6 SECONDS (21.0-31.0) Partial Thromboplastin Ratio 0.9 Estimated Average Glucose 203 mg/dl Hemoglobin A1c 8.7 % (4.5-5.6) Total Creatine Kinase 142 U/L (26-192) Creatine Kinase MB 2.3 ng/ml (0.5-3.6) Creatine Kinase MB Ratio 1.6 (0-3.0) White Blood Count 6.68 K/uL (4.8-10.8) Red Blood Count 3.77 M/uL (4.2-5.4) Hemoglobin 10.7 g/dL (12.0-16.0) Hematocrit 32.9 % (37-47) Mean Corpuscular Volume 87.3 fL (80-100) Mean Corpuscular Hemoglobin 28.4 pg (25-34) Mean Corpuscular Hemoglobin Concent 32.5 g/dl (32-36) Platelet Count 215 K/uL (130-400) Mean Platelet Volume 10.1 fL (7.4-10.4) Neutrophils (%) (Auto) 46.7 % Lymphocytes (%) (Auto) 38.9 % Monocytes (%) (Auto) 9.3 % Eosinophils (%) (Auto) 4.9 % Basophils (%) (Auto) 0.1 % Neutrophils # (Auto) 3.11 K/uL (1.4-6.5) Lymphocytes # (Auto) 2.60 K/uL (1.2-3.4) Monocytes # (Auto) 0.62 K/uL (0.11-0.59) Eosinophils # (Auto) 0.33 K/uL (0-0.5) Basophils # (Auto) 0.01 K/uL (0-0.2) RDW Standard Deviation 44.6 fL (36.4-46.3) RDW Coefficient of Variation 14.0 % (11.5-14.5) Immature Granulocyte % (Auto) 0.1 % Immature Granulocyte # (Auto) 0.01 K/uL (0.00-0.02) Anion Gap 6.0 mmol/L (3-11) Est Creatinine Clear Calc Drug Dose 77.1 ml/min Estimated GFR () 93.2 Estimated GFR (Non- 80.4 BUN/Creatinine Ratio 21.3 (10-20) Calcium Level 8.6 mg/dl (8.5-10.1) Troponin I 0.024 ng/ml (0-0.045) Triglycerides Level 134 mg/dl (0-150) Cholesterol Level 139 mg/dl (0-200) HDL Cholesterol 73 mg/dl LDL Cholesterol, Calculated 39 mg/dl VLDL Cholesterol, Calculated 27 mg/dl Cholesterol/HDL Ratio 1.9 Bedside Glucose 117 mg/dl (70-90) Imaging MRI OF THE BRAIN WITHOUT AND WITH IV CONTRAST CLINICAL HISTORY: Possible stroke. Loss of sight in right eye. Confusion. Memory loss. COMPARISON STUDY: Head CT February 23, 2017. TECHNIQUE: Utilizing a 1.5 Bruna magnet and dedicated coil, multiplanar, multiecho imaging of the brain was performed pre and postcontrast administration. IV administration of 11 mL of Gadavist contrast was uneventful. FINDINGS: This exam is mildly compromised by motion artifact. There are no areas of restricted diffusion. No acute intracranial hemorrhage, midline shift or mass effect is present. Brain volume is normal for age. Ventricular system is normal. Basilar cisterns are patent. There are no extra-axial collections. Flow-voids for the major intracranial vessels are present. There is no intracranial mass or pathologic enhancement. Scattered white matter T2 hyperintense foci suggest moderate small vessel disease. Calvarial signal is maintained. Orbits and sinuses are unremarkable. IMPRESSION: 1. No acute intracranial findings. 2. No intracranial mass or pathologic enhancement. 3. Moderate small vessel disease. 4. Study mildly compromised by motion artifact. Electronically signed by: Cory Alvarado M.D. 02/24/2017 8:39 AM Dictated Date/Time: 02/24/2017 8:36 AM MR ANGIOGRAM OF THE BRAIN CLINICAL HISTORY: Right-sided visual loss. COMPARISON STUDY: CT of the brain dated 02/23/2017. TECHNIQUE: 3-D [id number] MR angiography of the intracranial circulation is performed. 3-D tumble views are created and assessed. IV contrast was not administered for this examination. The Examination is degraded by motion artifact. FINDINGS: The internal carotid arteries are widely patent bilaterally, as are the anterior and middle cerebral arteries. There is atherosclerotic irregularity noted in the cavernous carotid region. The vertebrobasilar system and posterior cerebral arteries are widely patent. The vertebral arteries are codominant. There is no aneurysm, high-grade stenosis, or focal vessel cutoff seen throughout the intracranial circulation. IMPRESSION: Unremarkable MR angiogram of the brain noting a motion degraded examination. Electronically signed by: Kevin Argueta M.D. 02/23/2017 10:56 PM NECK MRA HISTORY: Confusion. Stroke TECHNIQUE: [id number] and gadolinium-enhanced MRA of the neck was performed both before and after the intravenous administration of contrast. All measurements were calculated based on NASCET criteria. COMPARISON STUDY: None. FINDINGS: The aortic arch and proximal great vessels are widely patent. The bilateral common carotid and vertebral arteries are widely patent. Possible focal dissection within a 6 mm segment of the mid left internal carotid artery. There is also a slightly focal beaded appearance to the mid right internal carotid artery resulting in mild stenosis. The distal internal carotid arteries are widely patent. IMPRESSION: 1. Possible focal dissection within a 6 mm segment of the mid left internal carotid artery. However, the artery remains widely patent. 2. Slightly focal beaded appearance within the mid right internal carotid artery resulting in the mild stenosis. This favors atherosclerosis disease rather than a vasculitis. 3. Recommend follow-up neck CTA for further evaluation of the questionable left internal carotid artery focal dissection. Electronically signed by: Judson Holman M.D. 02/24/2017 8:30 AM Dictated Date/Time: 02/24/2017 8:19 AM Impression 1. Acute onset of neurologic symptoms February 23 consisting of visual changes followed by speech and language issues (and possibly some confusion). Overall this is consistent with a transient ischemic attack. MRI of the brain showed no evidence of actual stroke. A vasospasm with migraine phenomenon is possible as well. Risk factor for these possibilities would be hypertension. She also has diabetes which is a risk factor for cerebrovascular disease as well as her dyslipidemia and former cigarette smoking Clinically she is doing quite well with no focal neurologic findings, meningeal signs, or encephalopathy. 2. Abnormal left internal carotid artery MRA with possible focal dissection, versus other Otherwise she has no other vascular abnormalities or stenoses. There is no evidence for aneurysm. 3. History of atrial fibrillation in the past. This has not been a recent issue and she has been in normal sinus rhythm with PACs since admission. Plan 1. Awaiting echocardiogram results. 2. Obtain CT angiography of the neck to follow-up left ICA issue. 3. Control blood pressure shooting for mean arterial pressure of proximal Sellers 100 4. Improve fasting glucose and hemoglobin A1c (to less than 7) as able 5. If the patient needs an additional antihypertensive medication, I would strongly consider verapamil SR 180 mg daily. This has the added benefit of preventing vasospasm. 6. Consider clopidogrel 75 mg daily instead of aspirin. I spoke with Daylin Richmond PA-C, regarding his case including differential diagnosis and treatment options.
--- NOTE | 2017-02-24 10:32 | Hospitalist Progress Note ---
Hospitalist Progress Note Date of Service February 24, 2017. Subjective Pt evaluation today including: conversation w/ patient, conversation w/ family , physical exam, chart review, lab review, review of studies, conversation w/ natural remedy consultant (Neurology - Dr. Stern), review of inpatient medication list Patient seen and evaluated. Admitted overnight with resolved visual changes and word finding difficulties. Patient reported she developed jagged halo-like hazy deficit in R eye that was centrally located (has occurred in the past but resolved after cataract removal) After vision changes resolved she fell asleep in the care for approx 5-10 minutes and woke up and could not figure out how to open the car door/window and was aware that she felt like she didn't sound like she was answering her friends questions appropriately. She reports she continued to feel like she did not make sense when talking to her and didn't comprehend things. When in [place] her was asking her questions and she said she knew what she wanted to say but was unable to get the words out. Does not appear to have slurred speech. She does report history of migraines with periods but no chronic headaches/ migraines post-menopausally. Reports having difficulty controlling HTN and DM over the past couple months and difficulty losing weight. Also reporting increased gas and feels like after eating she feels distended and and constipated for a couple days then with have an adequate bowel movement. Constitutional: + sweats (one episode yesterday [employer] (unusual for her per patient)), No chills, No fever Eyes: + problem reported (visual deficits prior to admission resolved), No diplopia, No eye pain, No worsening of vision ENT: + hearing loss (chronic - has hearing aide), No sore throat Respiratory: No cough, No shortness of breath Cardiovascular: No chest pain, No palpitations Abdomen: + constipation (intermittent with increased gas), No diarrhea, No nausea, No pain, No vomiting Musculoskeletal: No calf pain, No swelling Female : No dysuria Neurologic: No balance problems, No memory loss, No numbness/tingling, No vertigo, No weakness Heme: No abnormal bleeding/bruising, No clotting problems Skin: No new/changing skin lesions, No rash Medications Current Inpatient Medications Medications (Trade) Dose Ordered Sig/Stuart Route Start Time Stop Time Status Last Admin Dose Admin Ondansetron HCl (Zofran Inj) 4 mg Q6H PRN IV 02/23/17 21:00 03/25/17 20:59 Nitroglycerin (Nitrostat Tab) 0.4 mg UD PRN SL 02/23/17 21:00 03/25/17 20:59 Morphine Sulfate (MoRPHine SULFATE INJ) 2 mg Q30M PRN IV 02/23/17 21:00 03/09/17 20:59 Miscellaneous Information 1 ea 1 ea UD PRN N/A 02/23/17 21:00 03/25/17 20:59 Sodium Chloride (Nss 1000ml) 1,000 ml @ 100 mls/hr Q10H IV 02/23/17 23:59 03/25/17 23:58 02/24/17 00:44 100 MLS/HR Ascorbic Acid (Vitamin C Tab) 1,000 mg QAM PO 02/24/17 09:00 03/26/17 08:59 02/24/17 09:28 1,000 MG Cholecalciferol (Vitamin D Tab) 1,000 inter.unit BID PO 02/24/17 09:00 03/26/17 08:59 02/24/17 09:28 1,000 INTER.UNIT Cyanocobalamin (Vitamin B-12 Tab) 1,000 mcg BID PO 02/24/17 09:00 03/26/17 08:59 02/24/17 09:28 1,000 MCG Hydrochlorothiazide (Hydrochlorothiazide Tab) 50 mg QPM PO 02/24/17 21:00 03/26/17 20:59 Lisinopril (Zestril Tab) 20 mg QPM PO 02/24/17 21:00 03/26/17 20:59 Metoprolol Tartrate (Lopressor Tab) 25 mg BID PO 02/24/17 09:00 03/26/17 08:59 02/24/17 09:28 25 MG Ranitidine HCl (zANTac TAB) 150 mg BID PO 02/24/17 09:00 03/26/17 08:59 02/24/17 09:28 150 MG Insulin Aspart (novoLOG ASPART) SLIDING SCAL... ACHS SC 02/24/17 07:00 03/26/17 06:59 Gadobutrol (Gadavist) 11 mmol UD PRN IV 02/23/17 23:30 02/27/17 23:29 Aspirin (Ecotrin Tab) 162 mg QAM PO 02/24/17 09:00 03/26/17 08:59 02/24/17 09:28 162 MG Atorvastatin Calcium (Lipitor Tab) 40 mg QAM PO 02/24/17 09:00 03/26/17 08:59 02/24/17 09:28 40 MG Insulin Glargine (Lantus Solostar Pen) 10 unit DAILY SC 02/25/17 09:00 03/27/17 08:59 UNV Insulin Glargine (Lantus Solostar Pen) 10 unit 0947 ONCE SC 02/24/17 09:47 02/24/17 09:48 UNV Objective Vital Signs Date Time Temp Pulse Resp B/P Pulse Ox O2 Delivery O2 Flow Rate FiO2 02/24/17 07:25 36.7 86 18 164/96 95 Room Air 02/24/17 04:00 95 Room Air 02/24/17 03:10 36.6 72 18 125/71 95 Room Air 02/24/17 00:50 36.7 70 149/65 96 Room Air 02/23/17 22:16 36.5 61 19 132/63 92 02/23/17 22:10 132/63 02/23/17 22:01 61 19 92 02/23/17 21:31 72 23 95 02/23/17 21:26 73 21 94 02/23/17 21:20 152/63 02/23/17 20:56 80 20 90 02/23/17 20:31 144/61 02/23/17 20:30 71 20 144/61 94 Room Air 02/23/17 20:26 69 22 95 02/23/17 20:02 136/61 02/23/17 20:00 66 16 136/61 93 Room Air 02/23/17 19:56 78 26 02/23/17 19:38 194/84 02/23/17 19:37 72 18 194/84 94 Room Air 02/23/17 19:30 183/88 02/23/17 19:26 69 19 02/23/17 19:03 74 02/23/17 19:02 Room Air 02/23/17 18:56 170/104 02/23/17 18:30 36.5 74 18 187/88 96 Room Air Physical Exam General Appearance: WD/WN, no apparent distress, + obese Eyes: PERRL, EOMI, sclerae normal ENT: pharynx normal Neck: supple, no JVD, trachea midline Respiratory/Chest: lungs clear, normal breath sounds, no respiratory distress, no accessory muscle use Cardiovascular: regular rate, rhythm, no gallop, no murmur Abdomen: normal bowel sounds, non tender, soft Extremities: no pedal edema, no calf tenderness Neurologic/Psychiatric: no motor/sensory deficits, alert, normal mood/affect, oriented x 3, + pertinent finding (facial movements symmetrical; romberg neg; strength equal bilat diffusely) Skin: normal color, warm/dry Laboratory Results Last 24 Hours Test 02/23/17 18:59 02/23/17 19:10 02/24/17 05:47 02/24/17 06:35 Bedside Glucose 157 mg/dl 117 mg/dl White Blood Count 8.65 K/uL 6.68 K/uL Red Blood Count 4.36 M/uL 3.77 M/uL Hemoglobin 12.3 g/dL 10.7 g/dL Hematocrit 38.1 % 32.9 % Mean Corpuscular Volume 87.4 fL 87.3 fL Mean Corpuscular Hemoglobin 28.2 pg 28.4 pg Mean Corpuscular Hemoglobin Concent 32.3 g/dl 32.5 g/dl Platelet Count 242 K/uL 215 K/uL Mean Platelet Volume 10.1 fL 10.1 fL Neutrophils (%) (Auto) 50.8 % 46.7 % Lymphocytes (%) (Auto) 36.3 % 38.9 % Monocytes (%) (Auto) 8.0 % 9.3 % Eosinophils (%) (Auto) 4.4 % 4.9 % Basophils (%) (Auto) 0.2 % 0.1 % Neutrophils # (Auto) 4.39 K/uL 3.11 K/uL Lymphocytes # (Auto) 3.14 K/uL 2.60 K/uL Monocytes # (Auto) 0.69 K/uL 0.62 K/uL Eosinophils # (Auto) 0.38 K/uL 0.33 K/uL Basophils # (Auto) 0.02 K/uL 0.01 K/uL RDW Standard Deviation 44.0 fL 44.6 fL RDW Coefficient of Variation 13.9 % 14.0 % Immature Granulocyte % (Auto) 0.3 % 0.1 % Immature Granulocyte # (Auto) 0.03 K/uL 0.01 K/uL Prothrombin Time 10.0 SECONDS Prothromb Time International Ratio 0.9 Activated Partial Thromboplast Time 23.6 SECONDS Partial Thromboplastin Ratio 0.9 Sodium Level 141 mmol/L 145 mmol/L Potassium Level 4.0 mmol/L 3.5 mmol/L Chloride Level 107 mmol/L 109 mmol/L Carbon Dioxide Level 27 mmol/L 30 mmol/L Anion Gap 7.0 mmol/L 6.0 mmol/L Blood Urea Nitrogen 18 mg/dl 15 mg/dl Creatinine 0.95 mg/dl 0.71 mg/dl Est Creatinine Clear Calc Drug Dose 58.5 ml/min 77.1 ml/min Estimated GFR () 65.6 93.2 Estimated GFR (Non- 56.6 80.4 BUN/Creatinine Ratio 18.6 21.3 Random Glucose 167 mg/dl 120 mg/dl Estimated Average Glucose 203 mg/dl Hemoglobin A1c 8.7 % Calcium Level 9.2 mg/dl 8.6 mg/dl Total Creatine Kinase 142 U/L Creatine Kinase MB 2.3 ng/ml Creatine Kinase MB Ratio 1.6 Troponin I 0.020 ng/ml 0.024 ng/ml Triglycerides Level 134 mg/dl Cholesterol Level 139 mg/dl HDL Cholesterol 73 mg/dl LDL Cholesterol, Calculated 39 mg/dl VLDL Cholesterol, Calculated 27 mg/dl Cholesterol/HDL Ratio 1.9 Assessment and Plan This is an 81 yo f with a h/o DM, HTN, elevated chol that is here for a TIA/ stroke evaluation. TIA - Visual Deficits and Aphasia: RESOLVED - ASA 162 mg daily - MRI/MRI of Head and Neck - reviewed - Neg for acute CVA, Neck with mid L ICA focal dissection possible but patent and mid R ICA mild stenosis - CTA Neck for further eval of L ICA - Echo - pending - Neuro checks and NIH scale - Neurology following - discussed with Dr. Stern - recommendations reviewed -- Consideration for Verapamil with added benefit of vasospasm prevention -- Consideration for Plavix instead of ASA therapy T2DM: A1c 8.7 - Reporting poor control over past month and struggling with weight gain - never used insulin in the past -- Reporting last A1c was in the 7s -- Previously on Januvia but D/C'd and started Glipizide approx. 1 month ago -- Has been on Metformin for long duration - Lantus 10 mg SC daily may be beneficial to add for basal coverage in addition to oral anti-diabetics - Resume Metformin 1000 mg BID and Glipizide ER 2.5 mg daily - SSI coverage Frequent PACs and Palpitations: - Question of possible A Fib - as patient reporting A Fib - no A Fib on monitor - EKG with sinus arrhythmia - Follows with Dr. Eckert - had Holter preformed with PACs, PVCs, non-sustained SVT but no documented A Fib/Flutter HTN: Poor Control - Metoprolol 25 mg BID and HCTZ 50 mg daily - Will increase Lisinopril from 20 mg to 40 mg daily Hypercholesterolemia: - Lipid panel showing good control - Changed Simvastatin 40 mg daily to Atorvastatin 40 mg daily GERD: - Zantac 150 mg BID DVT Prophylaxis: SCD Disposition: Pending further imaging results - if stable possible D/C tomorrow
--- NOTE | 2017-02-24 15:07 | DIAGNOSTIC IMAGING REPORT ---
NECK CTA HISTORY: Abnormal MRA. Possible carotid dissection. TECHNIQUE: Multiaxial CT images of the neck were performed following the intravenous administration of contrast to evaluate the major cervical vessels. Maximum intensity projection images were also obtained. All measurements were calculated based on NASCET criteria. COMPARISON STUDY: Neck MRA 02/23/2017. FINDINGS: The aortic arch and proximal great vessels are widely patent. Motion artifact. Mild calcified plaque within the bilateral carotid bifurcations. However, this no definite stenosis, occlusion, or aneurysm seen within the bilateral common carotid, internal carotid, or vertebral arteries. Tortuous bilateral mid internal carotid arteries. Degenerative changes within the cervical spine. IMPRESSION: No definite stenosis, occlusion, or dissection identified within the carotid or vertebral arteries. Electronically signed by: Judson Holman M.D. 02/24/2017 3:05 PM Dictated Date/Time: 02/24/2017 2:55 PM
[2017-02-24] MEDS: METFORMIN HCL 500 MG TAB PO SCH (16:41)
--- NOTE | 2017-02-24 17:46 | ECHOCARDIOGRAM REPORT ---
*NOTICE TO RECEIVING DEMOCRAT AGENCY This information is strictly Confidential and protected under [place] law. [place] law prohibits you from making any further disclosure of this information unless further disclosure is expressly permitted by the written consent of the person to whom it pertains or is authorized by law. A general authorization for the release of medical or other information is not sufficient for this purpose. Hospital accepts no responsibility if the information is made available to any other person, INCLUDING THE PATIENT. Interpretation Summary * Name: ELEAZAR MISTRY Study Date: 02/24/2017 06:45 AM BP: 125/71 mmHg * Patient Location: .2E\S\E205\S\1 HR: 72 * : 1935 (M/d/yyy) Gender: Female Height: 65 in * Age: 81 yrs Ethnicity: [place] Weight: 243 lb * Ordering Physician: Maryana Carson * Referring Physician: No Doctor, Assigned * Performed By: Tammy Howe RDCS * * Reason For Study: STROKE * BSA: 2.1 m2 * History: STROKE * Mild mitral and tricuspid regurgitation. * Mild pulmonary hypertension. * No cardiac source of emboli noted. * Normal bi-ventricular function * -- Conclusions -- * Aortic valve sclerosis mild, without significant aortic valvular stenosis. Procedure Details * A saline contrast injection was performed to assess for cardiac shunting. * The injection was performed through an intravenous line in the right arm. * The attending nurse who injected the saline contrast was JORDY BOOGIE RN. * A total of 20 cc of agitated saline was given. Left Ventricle * The left ventricle is normal in size. * There is normal left ventricular wall thickness. * Ejection Fraction = 60-65%. * Left ventricular systolic function is normal. * The left ventricular wall motion is normal. Right Ventricle * The right ventricle is normal in size and function. Atria * The left atrium is mildly dilated. * Right atrial size is normal. * Injection of contrast documented no interatrial shunt. Mitral Valve * There is mild to moderate mitral annular calcification. * There is no mitral valve stenosis. * There is mild mitral regurgitation. Tricuspid Valve * The tricuspid valve is normal. * There is no tricuspid stenosis. * There is mild tricuspid regurgitation. * Right ventricular systolic pressure is elevated at 40-50mmHg. Aortic Valve * The aortic valve is trileaflet. * The aortic valve opens well. * Aortic valve sclerosis mild, without significant aortic valvular stenosis. * Aortic stenosis is absent. * No aortic regurgitation is present. Pulmonic Valve * The pulmonic valve is not well visualized. * The pulmonary valve is inadequately visualized, but the Doppler data is adequate for interpretation. * There is no pulmonic valvular stenosis. * There is no significant pulmonary regurgitation. Great Vessels * The aortic root is normal size. Pericardium/Pleural * There is no pericardial effusion. Great Vessels * Normal inferior vena cava diameter and respiratory variation suggests normal central venous pressure. MMode 2D Measurements and Calculations IVSd 1.1 cm IVSs 1.7 cm LVIDd 3.9 cm LVIDs 2.7 cm LVPWd 1.1 cm LVPWs 1.7 cm IVS/LVPW 0.99 FS 30.7 % EDV(Teich) 66.2 ml ESV(Teich) 27.2 ml EF(Teich) 58.9 % EDV(cubed) 59.6 ml ESV(cubed) 19.8 ml EF(cubed) 66.7 % % IVS thick 55.0 % % LVPW thick 50.6 % LV mass(C)d 138.8 grams LV mass(C)dI 64.6 grams/m\S\2 LV mass(C)s 167.7 grams LV mass(C)sI 78.0 grams/m\S\2 SV(Teich) 39.0 ml SI(Teich) 18.1 ml/m\S\2 SV(cubed) 39.8 ml SI(cubed) 18.5 ml/m\S\2 Ao root diam 2.9 cm Ao root area 6.7 cm\S\2 LA dimension 4.8 cm LA/Ao 1.6 LVAd ap4 26.9 cm\S\2 LVLd ap4 7.4 cm EDV(MOD-sp4) 79.3 ml EDV(sp4-el) 82.7 ml LVAs ap4 15.3 cm\S\2 LVLs ap4 6.1 cm ESV(MOD-sp4) 34.0 ml ESV(sp4-el) 32.9 ml EF(MOD-sp4) 57.2 % EF(sp4-el) 60.2 % LVAd ap2 27.9 cm\S\2 LVLd ap2 7.3 cm EDV(MOD-sp2) 88.4 ml EDV(sp2-el) 90.0 ml LVAs ap2 16.2 cm\S\2 LVLs ap2 6.0 cm ESV(MOD-sp2) 36.8 ml ESV(sp2-el) 37.5 ml EF(MOD-sp2) 58.3 % EF(sp2-el) 58.3 % LVLd %diff -1.35 % EDV(MOD-bp) 85.3 ml LVLs %diff -1.46 % ESV(MOD-bp) 35.5 ml EF(MOD-bp) 58.4 % SV(MOD-sp4) 45.3 ml SI(MOD-sp4) 21.1 ml/m\S\2 SV(MOD-sp2) 51.6 ml SI(MOD-sp2) 24.0 ml/m\S\2 SV(MOD-bp) 49.8 ml SI(MOD-bp) 23.2 ml/m\S\2 SV(sp4-el) 49.8 ml SI(sp4-el) 23.2 ml/m\S\2 SV(sp2-el) 52.5 ml SI(sp2-el) 24.4 ml/m\S\2 Doppler Measurements and Calculations MV E max frank 118.1 cm/sec MV A max frank 102.3 cm/sec MV E/A 1.2 MV dec time 0.18 sec Ao V2 max 214.8 cm/sec Ao max PG 18.4 mmHg Ao max PG (full) 12.2 mmHg LV V1 max PG 6.2 mmHg LV V1 max 124.7 cm/sec TR max frank 300.8 cm/sec
[2017-02-24] MEDS ORDERED: LISINOPRIL 20 MG TAB PO SCH ×2 (21:00)
[2017-02-24] MEDS ORDERED: HYDROCHLOROTHIAZIDE 50 MG TAB PO SCH (21:00)
[2017-02-24] MEDS ORDERED: SIMVASTATIN 40 MG TAB PO SCH (21:00)
[2017-02-25] VITALS: BP 159/82; PULSE 69; TEMP 36.5; O2SAT 95
[2017-02-25 04:00] VITALS: BP 150/81; PULSE 70; TEMP 36.5; O2SAT 95
[2017-02-25 05:47] LABS: BASO % 0.3 %; BASO ABS # 0.02 K/uL (0-0.2); COMPLETE YES; EOS % 5.8 %; HEMATOCRIT 36.1 % (37-47); IG% 0.3 %; LYMPH % 38.2 %; LYMPH ABS # 2.89 K/uL (1.2-3.4); MEAN CELL VOLUME 87.4 fL (80-100); MEAN CORPUSCULAR HEMOGLOBIN 28.3 pg (25-34); MEAN CORPUSCULAR HGB CONC 32.4 g/dl (32-36); MONO % 8.3 %; NEUT % 47.1 %; PLATELET COUNT 238 K/uL (130-400); RED BLOOD COUNT 4.13 M/uL (4.2-5.4); WHITE BLOOD COUNT 7.56 K/uL (4.8-10.8)
[2017-02-25 06:23] LABS: BUN/CREATININE RATIO 15.3 (10-20); CREATININE 0.75 mg/dl (0.60-1.20); POTASSIUM 3.9 mmol/L (3.5-5.1)
[2017-02-25] MEDS: INSULIN ASPART 100 UNITS/ML 3 ML PEN SC SCH (07:00)
--- NOTE | 2017-02-25 07:15 | Medical Student: [facility] ---
Consultation Date of Consultation: February 24, 2017. Requesting Physician: Niles Michel MD Attending Physician: Aubrey Stern MD Reason for Consultation: TIA History of Present Illness Mrs. Schaffer is a left-handed 81-year-old woman who presented to the emergency department yesterday with vision changes and difficulty with language and memory. She was in her usual health yesterday until approximately 4:30pm when she noticed a bright light in her central vision in her right eye while she was a passenger in the car with her . She described it as a "blind spot." Mrs. Schaffer did not cover each eye separately to see if the "blind spot" was in her right, left, or both eyes. This visual disturbance lasted for 10-15 minutes , went away, and did not return. Her stopped by their friend's house while Mrs. Schaffer stayed in the car. She fell asleep for 5-10 minutes and was woken up by her friend tapping on the window. At this point, Mrs. Schaffer had trouble pushing buttons to open the door. After leaving their friend's house, she and her decided to go to [employer] before seeing a movie, but she could not recall what [employer] was or where she was along the car ride to [employer] until she read the sign for the restaurant. While sitting down, her asked her to remember her parents' names, which she could not remember. When asked to what the names of their six children were, she was sure of her oldest child's name but it "didn't sound right to her," remembered the second through fifth children's name, and knew her youngest child's name but could not say it. She denied any weakness, numbness/tingling and said her did not report any slurred speech or facial drooping. At that point, her took her to the emergency department. She had a mild headache in the emergency department that went away and a mild frontal headache this morning that has also subsided. She reports that by the time she was taken in for an MRI at 9:00pm her symptoms had almost fully resolved. Imaging Head CT revealed no acute hemorrahge. Brain MRI revealed no acute hemorrhage, midline shift, or mass effect. Radiology reports some small areas of hyperintense foci from small vessel disease likely due to hypertension. Neck MRA revealed a possible dissection within the left internal carotid artery and a beaded appearance within the right internal carotid artery causing mild stenosis. Brain MRA was unremarkable. Past Medical/Surgical History Medical History: Mrs. Schaffer has a past medical history of diabetes, hypertension, premature atrial contractions, osteoarthritis, and hearing impairment. She has had diabetes for at least 10 years, controlled with metformin. She tolerates metformin well, but reported that within the past month she has struggled to keep her blood sugar down, noting that it has lately ranged from 160-200 mg/dL up from her usual 140 mg/dL. In November 2016 she began seeing a reiki practitioner for what was thought to be atrial fibrillation but turned out to be PACs instead. Throughout her stay in the hospital she has been in sinus rhythm. While she is on lisinopril and hydrochlorothiazide, her blood pressures still remain high with her latest blood pressure at 164/69. Her hearing was adequate enough with hearing aids to carry a conversation with me at a normal volume. Surgical History: Mrs. Schaffer has a history of cataract surgery and total knee replacement. Family History Mrs. Schaffer's mother had a stroke at the age of 75 and "never fully recovered" from it. She at age 83. Her father and sister both have diabetes. 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) Review of Systems Constitutional: + sweats (episode of sweating during hospital stay) Eyes: + see HPI, No worsening of vision, No redness, No discharge, No problem reported Cardiac: + see HPI Neurologic: + see HPI Endo: + see HPI Allergies Coded Allergies: No Known Allergies (Verified , 05/25/16) Medications Current Inpatient Medications Medications (Trade) Dose Ordered Sig/Stuart Route Start Time Stop Time Status Last Admin Dose Admin Ondansetron HCl (Zofran Inj) 4 mg Q6H PRN IV 02/23/17 21:00 03/25/17 20:59 Nitroglycerin (Nitrostat Tab) 0.4 mg UD PRN SL 02/23/17 21:00 03/25/17 20:59 Morphine Sulfate (MoRPHine SULFATE INJ) 2 mg Q30M PRN IV 02/23/17 21:00 03/09/17 20:59 Miscellaneous Information 1 ea 1 ea UD PRN N/A 02/23/17 21:00 03/25/17 20:59 Sodium Chloride (Nss 1000ml) 1,000 ml @ 100 mls/hr Q10H IV 02/23/17 23:59 03/25/17 23:58 02/24/17 00:44 100 MLS/HR Ascorbic Acid (Vitamin C Tab) 1,000 mg QAM PO 02/24/17 09:00 03/26/17 08:59 02/24/17 09:28 1,000 MG Cholecalciferol (Vitamin D Tab) 1,000 inter.unit BID PO 02/24/17 09:00 03/26/17 08:59 02/24/17 09:28 1,000 INTER.UNIT Cyanocobalamin (Vitamin B-12 Tab) 1,000 mcg BID PO 02/24/17 09:00 03/26/17 08:59 02/24/17 09:28 1,000 MCG Hydrochlorothiazide (Hydrochlorothiazide Tab) 50 mg QPM PO 02/24/17 21:00 03/26/17 20:59 Lisinopril (Zestril Tab) 20 mg QPM PO 02/24/17 21:00 03/26/17 20:59 Metoprolol Tartrate (Lopressor Tab) 25 mg BID PO 02/24/17 09:00 03/26/17 08:59 02/24/17 09:28 25 MG Ranitidine HCl (zANTac TAB) 150 mg BID PO 02/24/17 09:00 03/26/17 08:59 02/24/17 09:28 150 MG Insulin Aspart (novoLOG ASPART) SLIDING SCAL... ACHS SC 02/24/17 07:00 03/26/17 06:59 Gadobutrol (Gadavist) 11 mmol UD PRN IV 02/23/17 23:30 02/27/17 23:29 Aspirin (Ecotrin Tab) 162 mg QAM PO 02/24/17 09:00 03/26/17 08:59 02/24/17 09:28 162 MG Atorvastatin Calcium (Lipitor Tab) 40 mg QAM PO 02/24/17 09:00 03/26/17 08:59 02/24/17 09:28 40 MG Physical Exam Date Time Temp Pulse Resp B/P Pulse Ox O2 Delivery O2 Flow Rate FiO2 02/24/17 07:25 36.7 86 18 164/96 95 Room Air 02/24/17 04:00 95 Room Air 02/24/17 03:10 36.6 72 18 125/71 95 Room Air 02/24/17 00:50 36.7 70 149/65 96 Room Air 02/23/17 22:16 36.5 61 19 132/63 92 02/23/17 22:10 132/63 02/23/17 22:01 61 19 92 02/23/17 21:31 72 23 95 02/23/17 21:26 73 21 94 02/23/17 21:20 152/63 02/23/17 20:56 80 20 90 02/23/17 20:31 144/61 02/23/17 20:30 71 20 144/61 94 Room Air 02/23/17 20:26 69 22 95 02/23/17 20:02 136/61 02/23/17 20:00 66 16 136/61 93 Room Air 02/23/17 19:56 78 26 02/23/17 19:38 194/84 02/23/17 19:37 72 18 194/84 94 Room Air 02/23/17 19:30 183/88 02/23/17 19:26 69 19 02/23/17 19:03 74 02/23/17 19:02 Room Air 02/23/17 18:56 170/104 02/23/17 18:30 36.5 74 18 187/88 96 Room Air General Appearance: no apparent distress, + obese Eyes: bilateral eyes normal inspection, bilateral eyes PERRL, bilateral eyes EOMI Mrs. Schaffer was alert and awake. She was very pleasant to talk to. Her speech was normal with no aphasia or dysarthria. Her memory and thought processes were intact. Affect was appropriate. CN II - Vision with corrective lenses was OD 20/50 and OS 20/70. Pupils were equally round and reactive to light. Intact direct and consensual response. CN III, IV, IV - Extraocular movements were intact. CN V and VII - Facial motor and sensory function were normal. Her face was symmetric. CN VIII - She could not hear me rubbing my fingers by her ears on either side and reported that was wearing her hearing aids. CN IX and X - Palate elevated. CN XI - Normal trapezius strength. CN XII - No trouble with tongue protrusion. Midline tongue, no deviation. Normal strength on lateral deviation bilaterally. Motor exam was normal with 5/5 strength in the biceps, triceps, intrinsic hand muscles, and deltoids and in the hip flexors, quadriceps, hamstrings, and tibialis anterior. Tone and bulk are both normal. Sensory exam was normal and symmetric. Patient could feel light touch bilaterally in the upper and lower extremities. Bilateral 2/4 reflexes were elicited in the biceps, brachioradialis, patellar, and Achilles tendon. Bilateral plantar reflex elicited. Finger to nose and heel to lentz testing were normal. She had some trouble with rapid alternating movements in the left hand more so than the right hand. No drift observed with outstretched supinated arms. Gait was slow but normal with toes pointing slightly outward. Patient has a walker and reports difficulty walking due to arthritis. Laboratory Results Last 24 Hours Test 02/23/17 18:59 02/23/17 19:10 02/24/17 05:47 02/24/17 06:35 Bedside Glucose 157 mg/dl 117 mg/dl White Blood Count 8.65 K/uL 6.68 K/uL Red Blood Count 4.36 M/uL 3.77 M/uL Hemoglobin 12.3 g/dL 10.7 g/dL Hematocrit 38.1 % 32.9 % Mean Corpuscular Volume 87.4 fL 87.3 fL Mean Corpuscular Hemoglobin 28.2 pg 28.4 pg Mean Corpuscular Hemoglobin Concent 32.3 g/dl 32.5 g/dl Platelet Count 242 K/uL 215 K/uL Mean Platelet Volume 10.1 fL 10.1 fL Neutrophils (%) (Auto) 50.8 % 46.7 % Lymphocytes (%) (Auto) 36.3 % 38.9 % Monocytes (%) (Auto) 8.0 % 9.3 % Eosinophils (%) (Auto) 4.4 % 4.9 % Basophils (%) (Auto) 0.2 % 0.1 % Neutrophils # (Auto) 4.39 K/uL 3.11 K/uL Lymphocytes # (Auto) 3.14 K/uL 2.60 K/uL Monocytes # (Auto) 0.69 K/uL 0.62 K/uL Eosinophils # (Auto) 0.38 K/uL 0.33 K/uL Basophils # (Auto) 0.02 K/uL 0.01 K/uL RDW Standard Deviation 44.0 fL 44.6 fL RDW Coefficient of Variation 13.9 % 14.0 % Immature Granulocyte % (Auto) 0.3 % 0.1 % Immature Granulocyte # (Auto) 0.03 K/uL 0.01 K/uL Prothrombin Time 10.0 SECONDS Prothromb Time International Ratio 0.9 Activated Partial Thromboplast Time 23.6 SECONDS Partial Thromboplastin Ratio 0.9 Sodium Level 141 mmol/L 145 mmol/L Potassium Level 4.0 mmol/L 3.5 mmol/L Chloride Level 107 mmol/L 109 mmol/L Carbon Dioxide Level 27 mmol/L 30 mmol/L Anion Gap 7.0 mmol/L 6.0 mmol/L Blood Urea Nitrogen 18 mg/dl 15 mg/dl Creatinine 0.95 mg/dl 0.71 mg/dl Est Creatinine Clear Calc Drug Dose 58.5 ml/min 77.1 ml/min Estimated GFR () 65.6 93.2 Estimated GFR (Non- 56.6 80.4 BUN/Creatinine Ratio 18.6 21.3 Random Glucose 167 mg/dl 120 mg/dl Estimated Average Glucose 203 mg/dl Hemoglobin A1c 8.7 % Calcium Level 9.2 mg/dl 8.6 mg/dl Total Creatine Kinase 142 U/L Creatine Kinase MB 2.3 ng/ml Creatine Kinase MB Ratio 1.6 Troponin I 0.020 ng/ml 0.024 ng/ml Triglycerides Level 134 mg/dl Cholesterol Level 139 mg/dl HDL Cholesterol 73 mg/dl LDL Cholesterol, Calculated 39 mg/dl VLDL Cholesterol, Calculated 27 mg/dl Cholesterol/HDL Ratio 1.9 Assessment & Plan Problem List: Diabetes mellitus Hypertension TIA (transient ischemic attack) Assessment 1. Transient ischemic attack This patient likely experienced a TIA. Risk factors include diabetes and hypertension that is not well-controlled. This is also likely given her transient language deficits and confusion with subsequent recovery. Additionally , no focal deficits were found on exam. Her differential diagnosis includes the following: -stroke, from which she may have recovered if it were minor. None were observed on MRI. -migraine, especially with her history of hypertension, which could have induced a vasospasm in a cerebral vessel, and HPI describing visual disturbances preceding onset of all other symptoms. While she does not have an explicit PMH of migraines, she reported having headaches before menopause during her menstrual cycle. Plan 1. Obtain a head CTA. A head CTA should be obtained to better visualize the stenosis and possible dissection in the right and left internal carotid arteries, respectively. As a TIA may herald a future stroke, it is imperative to further investigate possible contributors to a future CVA. 2. Switch from aspirin to clopidogrel. Patient is on 162 mg aspirin at home and should switch to clopidogrel, as it has been shown to be slightly more effective than aspirin in reducing stroke. Patient should not be on both - that would confer a greater risk of bleeding without a reduction in risk of experiencing a CVA. 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 Both are significant risk factors for both TIA and stroke, and given that neither are very well-controlled at the moment, she should work on maintaining lower and more stable blood sugars and lowering her blood pressure. 4. Continue with simvastatin 40 mg. Patient's lipid profile is good and she should continue with taking simvastatin 40 mg, a moderate dose statin. Statins are shown to reduce risk of stroke in patients with history of stroke or TIA due of atherosclerotic origin. However, she is not a candidate for high dose statins, given her age and cholesterol < 150 would increase her risk for intracranial hemorrhage on a high dose statin.
[2017-02-25 07:48] VITALS: BP 124/77; PULSE 86; TEMP 36.8; O2SAT 94
--- NOTE | 2017-02-25 08:37 | Neurology Progress Notes ---
Neurology Progress Note Date of Service Feb 25, 2017. Subjective Patient feels well with no further issues or spells. She has no new weakness or numbness, speech or mentation problems, confusion or dizziness, or incontinence. CT angiography of the neck was unremarkable with no significant carotid issues. There was no evidence for dissection, aneurysm, or stenosis. Echocardiogram was largely unremarkable. Laboratory studies reveal an unremarkable CBC and chem profile with a glucose of about 125. Objective Date Time Temp Pulse Resp B/P (MAP) Pulse Ox O2 Delivery O2 Flow Rate FiO2 02/25/17 07:48 36.8 86 16 124/77 (93) 94 Room Air 02/25/17 04:00 95 Room Air 02/25/17 04:00 36.5 70 22 150/81 (104) 95 Room Air 02/25/17 00:00 36.5 69 159/82 (107) 95 Room Air 02/25/17 00:00 95 Room Air 02/24/17 20:22 36.8 61 18 167/112 (130) 96 Room Air 02/24/17 20:06 95 Room Air 02/24/17 16:08 163/81 (108) 02/24/17 16:00 95 Room Air 02/24/17 15:45 66 156/109 (125) 95 Room Air 02/24/17 15:35 36.7 59 20 96 Room Air 02/24/17 15:35 66 95 02/24/17 14:00 143/69 (93) 02/24/17 12:36 36.7 53 18 167/71 (103) 94 Room Air 02/24/17 12:00 94 Room Air Last 24 Hours Test 02/24/17 11:10 02/24/17 16:12 02/24/17 20:07 02/25/17 05:21 Bedside Glucose 172 mg/dl 130 mg/dl 123 mg/dl White Blood Count 7.56 K/uL Red Blood Count 4.13 M/uL Hemoglobin 11.7 g/dL Hematocrit 36.1 % Mean Corpuscular Volume 87.4 fL Mean Corpuscular Hemoglobin 28.3 pg Mean Corpuscular Hemoglobin Concent 32.4 g/dl Platelet Count 238 K/uL Mean Platelet Volume 10.0 fL Neutrophils (%) (Auto) 47.1 % Lymphocytes (%) (Auto) 38.2 % Monocytes (%) (Auto) 8.3 % Eosinophils (%) (Auto) 5.8 % Basophils (%) (Auto) 0.3 % Neutrophils # (Auto) 3.56 K/uL Lymphocytes # (Auto) 2.89 K/uL Monocytes # (Auto) 0.63 K/uL Eosinophils # (Auto) 0.44 K/uL Basophils # (Auto) 0.02 K/uL RDW Standard Deviation 45.2 fL RDW Coefficient of Variation 14.2 % Immature Granulocyte % (Auto) 0.3 % Immature Granulocyte # (Auto) 0.02 K/uL Sodium Level 144 mmol/L Potassium Level 3.9 mmol/L Chloride Level 107 mmol/L Carbon Dioxide Level 31 mmol/L Anion Gap 6.0 mmol/L Blood Urea Nitrogen 11 mg/dl Creatinine 0.75 mg/dl Est Creatinine Clear Calc Drug Dose 73.2 ml/min Estimated GFR () 87.3 Estimated GFR (Non- 75.3 BUN/Creatinine Ratio 15.3 Random Glucose 125 mg/dl Calcium Level 9.0 mg/dl Test 02/25/17 06:33 Bedside Glucose 129 mg/dl Exam: Patient is awake and alert with normal speech and mentation. There is no evidence of aphasia or dysarthria. Extraocular eye muscles are intact without nystagmus. There is no facial droop. Tongue is midline. Without discharge is no drift. Strength is symmetrical. There are no abnormal involuntary movements. Current Inpatient Medications Medications (Trade) Dose Ordered Sig/Stuart Route Start Time Stop Time Status Last Admin Dose Admin Ondansetron HCl (Zofran Inj) 4 mg Q6H PRN IV 02/23/17 21:00 03/25/17 20:59 Nitroglycerin (Nitrostat Tab) 0.4 mg UD PRN SL 02/23/17 21:00 03/25/17 20:59 Morphine Sulfate (MoRPHine SULFATE INJ) 2 mg Q30M PRN IV 02/23/17 21:00 03/09/17 20:59 Miscellaneous Information (Pharmacist Discharge Med Rec Consult) 1 ea UD PRN N/A 02/23/17 21:00 03/25/17 20:59 Ascorbic Acid (Vitamin C Tab) 1,000 mg QAM PO 02/24/17 09:00 03/26/17 08:59 02/24/17 09:28 1,000 MG Cholecalciferol (Vitamin D Tab) 1,000 inter.unit BID PO 02/24/17 09:00 03/26/17 08:59 02/24/17 20:58 1,000 INTER.UNIT Cyanocobalamin (Vitamin B-12 Tab) 1,000 mcg BID PO 02/24/17 09:00 03/26/17 08:59 02/24/17 20:57 1,000 MCG Hydrochlorothiazide (Hydrochlorothiazide Tab) 50 mg QPM PO 02/24/17 21:00 03/26/17 20:59 02/24/17 20:58 50 MG Metoprolol Tartrate (Lopressor Tab) 25 mg BID PO 02/24/17 09:00 03/26/17 08:59 02/24/17 20:58 25 MG Ranitidine HCl (zANTac TAB) 150 mg BID PO 02/24/17 09:00 03/26/17 08:59 02/24/17 20:57 150 MG Insulin Aspart (novoLOG ASPART) SLIDING SCAL... ACHS SC 02/24/17 07:00 03/26/17 06:59 02/24/17 11:27 1 UNITS Gadobutrol (Gadavist) 11 mmol UD PRN IV 02/23/17 23:30 02/27/17 23:29 Atorvastatin Calcium (Lipitor Tab) 40 mg QAM PO 02/24/17 09:00 03/26/17 08:59 02/24/17 09:28 40 MG Insulin Glargine (Lantus Solostar Pen) 10 unit DAILY SC 02/25/17 09:00 03/27/17 08:59 Metformin HCl (Glucophage Tab) 1,000 mg BIDM PO 02/24/17 16:45 03/26/17 16:44 02/24/17 16:41 1,000 MG Glipizide (GlipiZIDE EXTENDED REL TAB) 2.5 mg QDB PO 02/25/17 07:30 03/27/17 07:29 Lisinopril (Zestril Tab) 40 mg QPM PO 02/24/17 21:00 03/26/17 20:59 02/24/17 20:59 40 MG Clopidogrel Bisulfate (plAVix TAB) 75 mg QAM PO 02/25/17 09:00 03/27/17 08:59 Impression 1. Acute onset of neurologic symptoms February 23 consisting of visual changes followed by speech and language issues (and possibly some confusion). She is currently asymptomatic and has been so for over 24 hours. Overall this is most consistent with a transient ischemic attack. MRI of the brain showed no evidence of actual stroke. A vasospasm with migraine phenomenon is possible as well. Risk factor for these possibilities would be hypertension. She also has diabetes which is a risk factor for cerebrovascular disease as well as her dyslipidemia and former cigarette smoking Clinically she is doing quite well with no focal neurologic findings, meningeal signs, or encephalopathy. 2. Abnormal left internal carotid artery seen on MRA with no abnormalities seen on CT angiography of the neck. Therefore, she has no vascular abnormalities or stenoses in the head or neck. 3. History of atrial fibrillation in the past. This has not been a recent issue and she has been in normal sinus rhythm with PACs since admission. Plan 1. Control blood pressure shooting for mean arterial pressure of about 100 2. Improve fasting glucose and hemoglobin A1c (to less than 7) as able 3. If the patient needs an additional antihypertensive medication, I would strongly consider verapamil SR 180 mg daily. This has the added benefit of preventing vasospasm. 4. Continue clopidogrel 75 mg daily instead of aspirin. I have no further neurologic testing or treatment recommendations to make at this time. Please contact me if I can be of further assistance on this case. I would be happy to follow up this patient as an outpatient, if desired.
[2017-02-25] MEDS: METOPROLOL TARTRATE 25 MG TAB PO SCH (08:51)
[2017-02-25] MEDS: METFORMIN HCL 500 MG TAB PO SCH (08:52)
[2017-02-25] MEDS: RANITIDINE HCL 150 MG TAB PO SCH (08:52)
[2017-02-25] MEDS: ATORVASTATIN 40 MG TAB PO SCH (08:52)
[2017-02-25] MEDS: ASCORBIC ACID 500 MG TAB PO SCH (08:52)
[2017-02-25] MEDS: CYANOCOBALAMIN 500 MCG TAB (VIT B-12) PO SCH (08:52)
[2017-02-25] MEDS ORDERED: INSULIN GLARGINE SOLOSTAR 100 UNITS/ML 3 ML PEN SC SCH (09:00)
[2017-02-25] MEDS ORDERED: CLOPIDOGREL BISULFATE 75 MG TAB PO SCH (09:00)
[2017-02-25] MEDS ORDERED: LPT40 PO (09:36)
[2017-02-25] MEDS ORDERED: LSN20 PO (09:36)
[2017-02-25] MEDS ORDERED: INSDGIPEN SC (09:36)
[2017-02-25] MEDS ORDERED: PLV75 PO (09:36)
--- NOTE | 2017-02-25 09:46 | Discharge Instructions ---
Discharge Instructions Date of Service Feb 25, 2017. Admission Reason for Admission: TIA Discharge Discharge Diagnosis / Problem: Transient Ischemic Attack Discharge Goals Goal(s): Decrease discomfort, Improve function, Increase independence Activity Recommendations Activity Limitations: resume your previous activity . Instructions / Follow-Up Instructions / Follow-Up TIA - Visual Deficits and Aphasia: RESOLVED - Stop your daily aspirin and take PLAVIX 75 MG DAILY - THIS IS AN ANTIPLATELET MEDICATION THAT HELPS THE PLATELETS (CLOTTING ELEMENTS) IN YOUR BLOOD FROM STICKING TOGETHER - Follow-up with Dr. Stern (neurologist) in one month T2DM: A1c 8.7 - Resume Metformin 1000 mg twice a day and Glipizide ER 2.5 mg daily - We have added Lantus 10 units injections daily - this is a basal insulin that will help control you sugars in addition to your oral anti-diabetic medications. -- This medication was chosen to help reduce the risk of low sugar readings which can be dangerous -- Make sure you rotate the site you use for the injection to make sure absorption is good. The abdomen is the best place to use for injections as absorption is the best. Make sure the injections go into the fat tissue and not muscle or just under the skin. - Recommend to continue to monitor your sugar levels and report these to your family doctor Frequent Premature Atrial Contractions and Palpitations: - Follow-up with your supervisor grower as necessary - continue your metoprolol as this will help with heart rate and can reduce the feelings of palpitations Hypertension: - Metoprolol 25 mg twice a day and HCTZ 50 mg daily needs to be continued - We increased your Lisinopril to 40 mg daily and should discuss this with your family doctor - Neurology recommended the addition of Verapamil SR 180 mg daily - discuss this as an option with your family doctor Hypercholesterolemia: - Changed Simvastatin 40 mg daily (STOP THIS MEDICATION) to Atorvastatin 40 mg daily as this has some better efficacy in regards to stroke prevention Follow-Up: - See your family doctor in 7-10 days - our community case manager will help set up an appointment - See neurology in one month for follow-up with Dr. Stern Risk Factors for Stroke: You can reduce your chances of stroke by working with your medical provider to adopt a healthy lifestyle. Some specific ways to lower your chance of stroke are: * If you are a smoker, now is the time to stop smoking cigarettes * If you are diabetic, improve the control of your blood sugars * Avoid excessive amounts of alcohol * Control high blood pressure * Lose weight if you are overweight * Be sure to lead an active lifestyle * Eat a healthy diet low in salt, cholesterol and fat You should know about other risk factors for stroke that you are unable to control. These include: * Age 55 years or older * Male gender * Certain racial groups: , or / * Family History of Stroke, Mini stroke or Heart Attack * Sickle Cell Disease Follow Up: It is important for you to keep your follow up appointments with your medical provider. Current Hospital Diet Patient's current hospital diet: Diabetes Type 2 Diet Discharge Diet Recommended Diet: Diabetes Type 2 Diet Pending Studies Studies pending at discharge: no Laboratory Results Hemoglobin A1c Test 02/23/17 19:10 Range/Units Estimated Average Glucose 203 mg/dl Hemoglobin A1c 8.7 H 4.5-5.6 % Lipid Panel Test 02/24/17 05:47 Range/Units Triglycerides Level 134 0-150 mg/dl Cholesterol Level 139 0-200 mg/dl HDL Cholesterol 73 mg/dl Cholesterol/HDL Ratio 1.9 LDL Cholesterol, Calculated 39 mg/dl Medical Emergencies . Who to Call and When: Medical Emergencies: Call 911 immediately if you experience any of the following warning signs and symptoms of Stroke: * Sudden numbness or weakness of the face, arm or leg, especially on one side of the body * Sudden confusion, trouble speaking or understanding * Sudden trouble seeing in one or both eyes * Sudden trouble walking, dizziness, loss of balance or coordination * Sudden severe headache with no cause Do not delay calling 911 if you experience any warning signs or symptoms of a stroke. Delay in seeking medical attention may affect what treatments can be given to you. . Non-Emergent Contact Non-Emergency issues call your: Primary Care Provider Call Non-Emergent contact if: you have a fever, your pain is concerning you, you have any medication questions . . "Provider Documentation" section prepared by Daylin Richmond. . Stroke Core Measures Reason no t-PA for Stroke: Treatment not indicated (symptoms resolving upon arrival to ED) Reason no antithrom by day 2: Treatment provided - N/A Reason no antithrom at D/C: Treatment provided - N/A Reason no statin at D/C: Treatment provided - N/A Reason no anticoag w/a fib: Treatment not indicated VTE Core Measure Inpt VTE Proph given/why not?: SCD's
[2017-02-25] MEDS: CHOLECALCIFEROL 1000 INTER.UNIT TAB PO SCH (10:00)
--- NOTE | 2017-02-25 10:42 | Pharmacy Progress Note ---
Pharmacist Stroke Counseling Date of Service Feb 25, 2017. Scope Pharmacy has been consulted to provide medication discharge counseling for this patient admitted with ischemic stroke/hemorrhagic stroke/ transient ischemic attack as per the Pharmacist Discharge Counseling for Stroke Patients Protocol. Medications on Discharge New Medications: Atorvastatin (Atorvastatin Calcium) 40 Mg Tab 40 MG PO QAM for 30 Days, #30 TAB Clopidogrel Bisulfate (Clopidogrel) 75 Mg Tab 75 MG PO QAM for 30 Days, #30 TAB Insulin Glargine (Lantus Solostar) 100 Unit/Ml Inj 10 UNIT SC DAILY for 30 Days, #1 BOX 2 Refills Lisinopril (Lisinopril) 20 Mg Tab 40 MG PO QPM for 30 Days, #30 TAB Continued Medications: Ascorbic Acid (Vitamin C) 500 Mg Tab 1000 MG PO QAM Cholecalciferol (Vitamin D 1000 Unit) 1,000 Unit Cap 1000 INTER.UNIT PO BID, CAP Cyanocobalamin (Vitamin B-12) 500 Mcg Tab 1000 MCG PO BID Glipizide (Glipizide Er) 2.5 Mg Tab 2.5 MG PO DAILY, #30 Hydrochlorothiazide (Hctz) 50 Mg Tab 50 MG PO QPM, TAB Metformin Hcl (Glucophage) 1,000 Mg Tab 1000 MG PO BID, TAB Metoprolol Tartrate (Lopressor) (Lopressor) 25 Mg Tab 25 MG PO BID [place]-3 Fatty Acids (Fish Oil 1200 mg) 1 Cap Cap 1 CAP PO BID Ranitidine HCl (Ranitidine HCl) 150 Mg Tab 150 MG PO BID, #60 Discontinued Medications: Aspirin (Aspirin) 81 Mg Tab 2 TAB PO QAM Lisinopril (Zestril) 20 Mg Tab 20 MG PO QPM, TAB Simvastatin (Zocor) 40 Mg Tab 40 MG PO QPM, TAB Action The above medications, specifically ones for stroke treatment/prophylaxis, have been reviewed in detail with the patient and/or patient authorization representative(s) prior to discharge. This includes indication, common adverse reactions, drug interactions, and medication administration. Medication counseling has been employed using the teach-back method to ensure understanding. Outcome The patient and/or patient authorization representative(s) have demonstrated understanding of the medications. Please note, they are aware that the pharmacist will call them within 72 hours post-discharge to confirm that the appropriate medications are being taken and answer any further medication related questions the patient might have at that time. Contact information Individual to be contacted: Richelle Schaffer Relationship to patient (if applicable): pt Phone number: [phone] Best time to call: Anytime Additional comments: none Thank you for allowing pharmacy to be involved in the care of this patient. Please call [phone] with any additional questions
[2017-02-25 11:29] VITALS: BP 140/71; PULSE 65; TEMP 36.6; O2SAT 93
[2017-02-25 12:48] VITALS: Ht 165.1 cm; Wt 109.9 kg
--- NOTE | 2017-02-25 15:45 | Discharge Summary ---
Discharge Summary Date of Service Feb 25, 2017. Discharge Summary Admission Date: February 23, 2017 at 21:13 Discharge Date: Feb 25, 2017 Discharge Disposition: Home Principal Diagnosis: Transient Ischemic Attack Problems/Secondary Diagnoses: 1. Type 2 Diabetes Mellitus 2. Hypertension 3. Hyperlipidemia 4. GERD 5. Premature Atrial Contractions and Palpitations Immunizations: Have You Had Influenza Vaccine: N/A History of Tetanus Vaccine?: Yes History of Pneumococcal: Unknown History of Hepatitis B Vaccine: No Procedures: 1. MRI OF THE BRAIN WITHOUT AND WITH IV CONTRAST FINDINGS: This exam is mildly compromised by motion artifact. There are no areas of restricted diffusion. No acute intracranial hemorrhage, midline shift or mass effect is present. Brain volume is normal for age. Ventricular system is normal. Basilar cisterns are patent. There are no extra-axial collections. Flow-voids for the major intracranial vessels are present. There is no intracranial mass or pathologic enhancement. Scattered white matter T2 hyperintense foci suggest moderate small vessel disease. Calvarial signal is maintained. Orbits and sinuses are unremarkable. IMPRESSION: 1. No acute intracranial findings. 2. No intracranial mass or pathologic enhancement. 3. Moderate small vessel disease. 4. Study mildly compromised by motion artifact. 2. NECK MRA FINDINGS: The aortic arch and proximal great vessels are widely patent. The bilateral common carotid and vertebral arteries are widely patent. Possible focal dissection within a 6 mm segment of the mid left internal carotid artery. There is also a slightly focal beaded appearance to the mid right internal carotid artery resulting in mild stenosis. The distal internal carotid arteries are widely patent. IMPRESSION: 1. Possible focal dissection within a 6 mm segment of the mid left internal carotid artery. However, the artery remains widely patent. 2. Slightly focal beaded appearance within the mid right internal carotid artery resulting in the mild stenosis. This favors atherosclerosis disease rather than a vasculitis. 3. Recommend follow-up neck CTA for further evaluation of the questionable left internal carotid artery focal dissection. 3. MR ANGIOGRAM OF THE BRAIN FINDINGS: The internal carotid arteries are widely patent bilaterally, as are the anterior and middle cerebral arteries. There is atherosclerotic irregularity noted in the cavernous carotid region. The vertebrobasilar system and posterior cerebral arteries are widely patent. The vertebral arteries are codominant. There is no aneurysm, high-grade stenosis, or focal vessel cutoff seen throughout the intracranial circulation. IMPRESSION: Unremarkable MR angiogram of the brain noting a motion degraded examination. 4. NECK CTA FINDINGS: The aortic arch and proximal great vessels are widely patent. Motion artifact. Mild calcified plaque within the bilateral carotid bifurcations. However, this no definite stenosis, occlusion, or aneurysm seen within the bilateral common carotid, internal carotid, or vertebral arteries. Tortuous bilateral mid internal carotid arteries. Degenerative changes within the cervical spine. IMPRESSION: No definite stenosis, occlusion, or dissection identified within the carotid or vertebral arteries. 5. ECHOCARDIOGRAM * Mild mitral and tricuspid regurgitation. * Mild pulmonary hypertension. * No cardiac source of emboli noted. * Normal bi-ventricular function - EF 60-65% * -- Conclusions -- * Aortic valve sclerosis mild, without significant aortic valvular stenosis. Consultations: 1. Neurology 2. PT/OT Medication Reconciliation New Medications: Atorvastatin (Atorvastatin Calcium) 40 Mg Tab 40 MG PO QAM for 30 Days, #30 TAB Clopidogrel Bisulfate (Clopidogrel) 75 Mg Tab 75 MG PO QAM for 30 Days, #30 TAB Insulin Glargine (Lantus Solostar) 100 Unit/Ml Inj 10 UNIT SC DAILY for 30 Days, #1 BOX 2 Refills Lisinopril (Lisinopril) 20 Mg Tab 40 MG PO QPM for 30 Days, #30 TAB Continued Medications: Ascorbic Acid (Vitamin C) 500 Mg Tab 1000 MG PO QAM Cholecalciferol (Vitamin D 1000 Unit) 1,000 Unit Cap 1000 INTER.UNIT PO BID, CAP Cyanocobalamin (Vitamin B-12) 500 Mcg Tab 1000 MCG PO BID Glipizide (Glipizide Er) 2.5 Mg Tab 2.5 MG PO DAILY, #30 Hydrochlorothiazide (Hctz) 50 Mg Tab 50 MG PO QPM, TAB Metformin Hcl (Glucophage) 1,000 Mg Tab 1000 MG PO BID, TAB Metoprolol Tartrate (Lopressor) (Lopressor) 25 Mg Tab 25 MG PO BID [place]-3 Fatty Acids (Fish Oil 1200 mg) 1 Cap Cap 1 CAP PO BID Ranitidine HCl (Ranitidine HCl) 150 Mg Tab 150 MG PO BID, #60 Discontinued Medications: Aspirin (Aspirin) 81 Mg Tab 2 TAB PO QAM Lisinopril (Zestril) 20 Mg Tab 20 MG PO QPM, TAB Simvastatin (Zocor) 40 Mg Tab 40 MG PO QPM, TAB Discharge Exam Review of Systems: Constitutional: No fever, No chills Eyes: No worsening of vision, No eye pain, No diplopia ENT: No nasal symptoms, No sore throat, No trouble swallowing Respiratory: No cough, No shortness of breath Cardiovascular: No chest pain, No palpitations Abdomen: No pain, No nausea, No vomiting, No diarrhea, No constipation Musculoskeletal: No swelling, No calf pain Genitourinary - Female: No dysuria Neurologic: No memory loss, No weakness, No numbness/tingling, No vertigo, No balance problems Hematologic / Lymphatic: No abnormal bleeding/bruising Integumentary: No rash Physical Exam: General Appearance: WD/WN, no apparent distress, + obese Eyes: sclerae normal ENT: hearing grossly normal Neck: supple, no JVD, trachea midline Respiratory/Chest: lungs clear, normal breath sounds, no respiratory distress, no accessory muscle use Cardiovascular: regular rate, rhythm, no gallop, no murmur Abdomen / GI: normal bowel sounds, non tender, soft Extremities: no calf tenderness, no pedal edema Neurologic/Psychiatric: no motor/sensory deficits, alert, normal mood/affect , oriented x 3 Skin: normal color, warm/dry Hospital Course ADMISSION: This is an 81 yo f that is presenting to us with stroke like symptoms which initially started approx 40 min [employer]. According to the patient she suddenly had a blind spot which 'it looked like a halo with jagged light" in her right eye. There was no accompanying headache and she has never had this before. This lasted approx 10-15 minutes and resolved. After this however she was having increasing difficulty "finding my words". She was asked the names of her children and basic questions and she was unable to do this. She had no weakness/ numbness/ vertigo or presyncope during this time. There was concern for a stroke so she was quickly brought to the ED. By the time she arrived the symptoms completely resolved. She has no history of TIA/ Stroke/ AK. she has a history of DM, HTN, elevated chol and severe OA of the neck. A stroke alert was called in the ED and patient had a CT head done. This did not reflect any ischemia or hemorrhage. As symptoms had resolved TPa was deferred and plan was for further evaluation in the hospital. HOSPITAL COURSE: Ms. Schaffer was admitted for TIA after stroke alert called in ED. Symptoms were largely resolved including aphasia and visual disturbance. Of note, these visual deficits have occurred in the past. Upon discharge, all symptoms resolved and she is alert/oriented without motor deficits/memory impairment. Her daily ASA was discontinued and Plavix 75 mg daily instituted. Her simvastatin was D/C'd and she was converted to Atorvastatin 40 mg daily. Patient reported poor control of DM and HTN over past several weeks. Given this TIA and co-morbidities she is at high risk for TIA reoccurrence vs CVA and would like to see better control of these two conditions. Her lisinopril was increased from 20 mg to 40 mg daily. Neurology recommended possible addition of Verapamil SR 180 mg daily for the added benefit of vasospasm control in regards to headaches. Did defer this addition to the PCP. Given good tolerance of Lisinopril it was reasonable to start here with adjustment. In regards to her DM , her A1c was 8.7 on Metformin and Glipizide. She was recently converted to Glipizide from Januvia. Reporting increased weight gain and poor control. Given patient's age, she was started on Lantus 10 units SC daily which produced better control in hospital. Basal insulin would be a safer choice in regards to prevention of hypoglycemia. This may need adjustment to obtain adequate glucose control. Will defer to PCP for further adjustments on glucose control. She will follow-up in neurology clinic in 1 month. She was provided a PCP appointment for hospital follow-up. Total Time Spent: Greater than 30 minutes This includes examination of the patient, discharge planning, medication reconciliation, and communication with other providers. Discharge Instructions Please refer to the electronic Patient Visit Report (Discharge Instructions) for additional information. Additional Copies To Pastor Membreno M.D.
--- NOTE | 2017-02-26 17:04 | Pharmacy Progress Note ---
Pharmacist Post D/C Phone Note Date of phone call: Feb 26, 2017. Individual with whom pharmacist spoke to: Richelle Schaffer (patient) The following questions were reviewed during the phone call with responses listed below each: Can you tell me the medications that you are currently taking as well as when and how you take each medication? - Medications Dose Route/Sig Max Daily Dose Days Date Category Lantus Solostar (Insulin Glargine) 100 Unit/Ml Inj 10 Unit SC DAILY 30 02/25/17 Rx Lisinopril 20 Mg Tab 40 Mg PO QPM 30 02/25/17 Rx Atorvastatin Calcium (Atorvastatin) 40 Mg Tab 40 Mg PO QAM 30 02/25/17 Rx Clopidogrel (Clopidogrel Bisulfate) 75 Mg Tab 75 Mg PO QAM 30 02/25/17 Rx Ranitidine HCl 150 Mg Tab 150 Mg PO BID 02/23/17 Reported Glipizide Er (Glipizide) 2.5 Mg Tab 2.5 Mg PO DAILY 02/23/17 Reported Vitamin C (Ascorbic Acid) 500 Mg Tab 240mg po daily 05/20/16 Reported Vitamin D 1000 Unit (Cholecalciferol) 1,000 Unit Cap 1,000 Inter.unit PO BID 05/20/16 Reported Lopressor (Metoprolol Tartrate) 25 Mg Tab 25 Mg PO BID 05/20/16 Reported Fish Oil 1200 mg ([place]-3 Fatty Acids) 1 Cap Cap 1 Cap PO BID 08/13/15 Reported Vitamin B-12 (Cyanocobalamin) 500 Mcg Tab 1500mcg po BID 08/13/15 Reported Hctz (Hydrochlorothiazide) 50 Mg Tab 50 Mg PO QPM 03/14/12 Reported Glucophage (Metformin Hcl) 1,000 Mg Tab 1,000 Mg PO BID 03/14/12 Reported When have you missed any doses of your medications? - Uses weekly pillbox. Very organized and aware of her medications. Denies any missed doses. What side effects are you having from your medications? - None What questions do you have about your medications? - None. Patient reads all package inserts. Sounds knowledgeable. What problems are you having obtaining your medications? - None. States Lantus is high-cost, but cheaper than Januvia, which she says was $300 When is your next appointment with your primary care doctor? - 03/03/17 Additional comments: - New start on insulin. Detailed education given on proper insulin administration technique, storage, etc. Reviewed how to treat hypos. Advised to monitor blood glucose and bring to PCP for adjustment of insulin. She is aware of 28 days expiration. She had a question about timing of Lantus as she read it should be bedtime. Advised her that it is 24 hours and she should pick a time that works best for her and take it consistently every day. She chooses 1100 AM. - Reports BG was 111 at bedtime yesterday, 156 this AM, and 153 earlier this afternoon. - She is using up her old Lisinopril tablets by taking 2x20mg to equal incr' dose of 40mg. She also has 40mg tablets. Aware not to take both. - She discarded her D/C'd medications (aspirin, Zocor, Januvia) As per the Pharmacist Discharge Counseling for Stroke Patients Protocol, this phone call has been completed within 72 hours of discharge. Thank you for allowing us to be involved in the care of this patient.
== END 2017-02-25 12:26 | disposition home or self-care (01) | DRG 69 ==
LOC: ENRESERVDT → ENRESERVTM → C.EDB 18:28 → C.2E 21:13
PROVIDERS: ADMIT Hospitalist; ATTEND Internal Medicine
DX: G45.9 Transient cerebral ischemic attack, unspecified (principal); R47.01 Aphasia; E11.9 Type 2 diabetes mellitus without complications; I10 Essential (primary) hypertension; E78.00 Pure hypercholesterolemia, unspecified; K21.9 Gastro-esophageal reflux disease without esophagitis; Z79.82 Long term (current) use of aspirin; Z79.84 Long term (current) use of oral hypoglycemic drugs; Z79.899 Other long term (current) drug therapy; Z87.891 Personal history of nicotine dependence; Z82.3 Family history of stroke; Z83.3 Family history of diabetes mellitus

== ENCOUNTER → 2017-08-25 | Outpatient (CLI) | payer OTHER ==
[~2017-08-25] MED LIST changes: -ASPI-461 PO; +GLIP2.5T11 PO; +INSDGIPEN SC; -LISI-725 PO; +LPT40 PO; +LSN20 PO; +PLV75 PO; +RANI150T2 PO; -SITA1TAB27 PO; -ZCRT/40 PO
--- NOTE | 2017-08-25 13:45 | MAMMOGRAPHY REPORT ---
BILATERAL DIGITAL SCREENING MAMMOGRAM TOMOSYNTHESIS WITH CAD: 08/25/2017 TECHNIQUE: Breast tomosynthesis in addition to standard 2D mammography was performed. Current study was also evaluated with a Computer Aided Detection (CAD) system. COMPARISON: Comparison is made to exams dated: 07/24/2016 mammogram, 01/04/2014 mammogram, 05/27/2012 mammogram, 05/26/2011 mammogram, 01/09/2010 mammogram - [facility], and 06/28/2007. BREAST COMPOSITION: The tissue of both breasts is almost entirely fatty. FINDINGS: No suspicious masses, calcifications, or areas of architectural distortion are noted in ei ther breast. There has been no significant interval change compared to prior exams. Scattered bilater al benign-appearing calcifications are not significantly changed. IMPRESSION: ACR BI-RADS CATEGORY 2: BENIGN There is no mammographic evidence of malignancy. A 1 year screening mammogram is recommended. The pa tient will receive written notification of the results. Approximately 10% of breast cancers are not detected with mammography. A negative mammographic report should not delay biopsy if a clinically suggestive mass is present. Sumi Mace M.D. /:08/25/2017 12:45:43 Infusion Pharmacist: Martina DEY(Maximino)(Elisabet), [facility] letter sent: Normal 1/2 BI-RADS Code: ACR BI-RADS Category 2: Benign
== END | disposition home or self-care (01) ==
LOC: C.MAMM 11:48
PROVIDERS: ATTEND Family Medicine
DX: Z12.31 Encounter for screening mammogram for malignant neoplasm of breast (principal)

== ENCOUNTER → 2018-04-19 | Outpatient (CLI) | payer OTHER ==
[~2018-04-19] VITALS: Ht 165.1 cm; Wt 107.8 kg
[~2018-04-19] MED LIST changes: +LISI-726 PO; -LSN20 PO
[2018-04-19 14:53] VITALS: BP 124/71; PULSE 77; Ht 165.1 cm; Wt 107.8 kg
== END | disposition home or self-care (01) ==
LOC: C.NEUR 14:15
PROVIDERS: ATTEND Internal Medicine Pulmonary Disease
DX: R06.83 Snoring (principal); R53.83 Other fatigue; E66.9 Obesity, unspecified

== ENCOUNTER 2025-06-20 13:35 | Inpatient (IN) ==
--- NOTE | 2025-06-20 14:38 | XRay Report ---
XR hip RT 2V w pelvis CLINICAL HISTORY: hip pain after fall, concern for fracture COMPARISON: 10/18/2024 FINDINGS: There is an acute minimally displaced and impacted fracture at the right femoral neck. No other fracture or dislocation seen. IMPRESSION: Acute fracture right femoral neck. ACT 112: Negative or not required by law. Electronically signed by: Fernando Rosado M.D. 06/20/2025 2:36 PM
[2025-06-20 16:08] LABS: Hematocrit (blood only) 32.7 % (37.0-47.0); Hemoglobin 10.5 g/dl (12.0-16.0); Immature Granulocytes # (auto) 0.07 K/uL (0.01-0.20); Immature Granulocytes % (auto) 0.7 %; Mean Corpuscular Hemoglobin 29.5 pg (25.0-34.0); Mean Corpuscular Volume 91.9 fL (80.0-100.0); Platelet Count 326 K/uL (130-400); RDW Standard Deviation 48.1 fL (36.4-46.3); Red Blood Count 3.56 M/uL (4.20-5.40); White Blood Count 9.40 K/ul (4.8-10.8)
[2025-06-20 16:27] LABS: Alanine Aminotransferase 13.0 U/L (7-52); Albumin Globulin Ratio 1.1 (0.9-2); Albumin Level 3.2 gm/dl (3.4-5.0); Alkaline Phosphatase 154.0 U/L (34-104); Anion Gap 7.0 (3-11); Bilirubin,Total 0.5 mg/dl (0.2-1.0); Blood Urea Nitrogen 30.0 mg/dl (6-23); Calcium 9.7 mg/dl (8.6-10.3); Carbon Dioxide 29.0 mmol/L (21-32); Chloride 101.0 mmol/L (98-107); Creatinine Clr Calc Pharmacy 33.1 ml/min; Globulin 2.9 gm/dl (2.5-4.0); Glucose 133.0 mg/dl (70-99(Fasting)); Potassium 4.8 mmol/L (3.5-5.1); Sodium 137.0 mmol/L (136-145); Total Protein 6.1 gm/dl (6.0-8.3)
--- NOTE | 2025-06-20 16:57 | Emergency Department Note ---
Impression & Plan Fracture of femoral neck, right, closed ED Provider Note NAME: ELEAZAR MISTRY AGE: 89 SEX: F : 1935 ARRIVES VIA: Ambulance INFORMANT: Patient, ED PROVIDER(S): Kriss Fuchs MD CHIEF COMPLAINT: Fall HPI: This is a 89-year-old female presenting after a fall. Patient was some to close her car trunk when she fell to her right side. She noted hip pain. Did not hit her head. She notes no pain to her abdomen, chest, shoulder. ROS: See above HPI for pertinent positives & negatives. A total of 10 systems reviewed and were otherwise negative. PAST MEDICAL HISTORY: See Below PAST SURGICAL HISTORY: See Below FAMILY HISTORY: See Below SOCIAL HISTORY: See Below HOME MEDICATIONS: See Below ALLERGIES: See Below VITALS: See Below PHYSICAL EXAMINATION: General: resting comfortably in no acute distress Head: Normocephalic and atraumatic Eyes: Normal inspection, extraocular muscles intact Ear, nose, throat: Normal external exam Neck: Normal range of motion Respiratory: lungs clear to auscultation bilaterally Cardiovascular: Regular rate/rhythm, no murmur GI: soft, nontender, no guarding or rebound Extremities: Left hip tenderness, limited motion due to pain, 2+ pulses Neuro: The patient awake and alert, appropriately conversive, no focal deficits, symmetric faces Skin: Warm, dry, and intact MEDICAL DECISION MAKING: This is an 89-year-old female presenting after a fall. Patient reports no pain to chest, abdomen. Only hip pain at this time. No head trauma, LOC. -Will do screening x-ray and basic blood work -Blood work reviewed showing hemoglobin 10.5. Creatinine 1.27. 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 Jewell. He does request discussion with orthopedic surgery at [facility] due to risk of spreading mets during surgery -Discussed with Dr. Castelan, ED physician. Will discuss with orthopedic surgery at [place]. -Orthopedic surgery at [facility] states they cannot provide recommendations over the phone and require evaluation. As orthopedic surgery here, Dr. Jewell, uncomfortable with surgery here, will transfer to [place] [facility]. - Family made aware of plan for transfer. They do not wish to go to [facility] at this time. They request surgery be done here as patient is 89 with metastatic cancer. They state they understand the risks. -Discussed care with Dr. Jewell who saw the patient at bedside and is agreeable to admission here and surgery. Differential diagnosis: Hip fracture, femur fracture, contusion Independent History obtained from: Diagnostics interpreted by me: ECG: None Cardiac Monitoring: An order was placed for continuous cardiac monitoring. The monitor shows a rate of 83 with sinus rhythm. Past Med/Surg History Problem List (Updated 06/20/25 @ 18:44 by Kriss Fuchs MD) Fracture of femoral neck, right, closed (Acute) Bronchitis Parotid tumor Upper respiratory disease Metastatic melanoma Fatigue Deep vein thrombosis (DVT) of left lower extremity DVT of axillary vein, acute left Hematuria Nocturnal leg cramps Hyperkalemia Near syncope Lumbar pain Leg pain Sinusitis Dysuria Gout Hematuria Gross hematuria Cardiomyopathy Dyspnea Migraine headache with aura Balance disorder Left rotator cuff tear Impingement of both shoulders Migraine aura occurring with and without headache Shoulder pain Abdominal pain 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 Eckert Hypertension (Chronic) Arthritis (Chronic) Scoliosis (Chronic) Medical History (Updated 06/20/25 @ 18:44 by Kriss Fuchs MD) Fractured sternum Encounter for pre-operative examination [facility]ospice care patient [facility] for esophageal ca Hematuria reason for upcoming procedure Cramping of hands fingers per pt Neuropathy hands / feet Balance disorder Stage 3b chronic kidney disease follows with Dr. Ramirez Scoliosis Renal mass reason for upcoming procedure Diabetes mellitus, type 2 HTN (hypertension) History of esophageal cancer diagnosed 2019--chemo/radiation in [place] > 2023 reoccurance, had 4-5 doses of immunotherapy > pt on hospice group ([facility]) Cardiomyopathy Gout DVT (deep venous thrombosis) LLE > dx early 2024 > Eliquis > (had been on Eliquis for Afib in the past, but had stopped it approx 6 mos or more, then resumed due to DVT) Atrial fibrillation dx approx 2018 > no pacer > Eliquis History of TIA (transient ischemic attack) prior to 2019 pt thinks, pt thinks it was related to ocular migraines Hx of bronchitis no recent issues Rotator cuff (capsule) sprain no sx > healed on own Verruca vulgaris Osteoarthritis On anticoagulant therapy eliquis daily Ocular migraine gets aura, gets several x per week in AM Diabetes mellitus IDDM Surgical History (Updated 05/24/25 @ 13:32 by Mariza Niño RN) H/O transurethral resection of bladder tumor (TURBT) 12/15/24 History of tooth extraction Hx of melanoma excision Left shoulder - wide excision 01/14/25 History of colonoscopy History of total left knee replacement (TKR) History of esophagogastroduodenoscopy (EGD) History of root canal procedure History of bilateral cataract extraction Family History Mother Diabetes Sister Diabetes Father Myocardial infarction Other Family history non-contributory No family history of adverse response to anesthesia Denies family history of Ovarian cancer Prostate cancer Breast cancer Colorectal cancer Social History (Updated 05/24/25 @ 13:33 by Mariza Niño RN) Smoking Status: Former smoker Tobacco Type: Cigarettes Age Started Using Tobacco: 17; Age Quit Using Tobacco: 34; packs per day: 1.5; Second Hand Exposure: No; Do You Dip or Chew Tobacco: No; Hx Alcohol Use: No Hx Substance Use: No Preferred Language: Stateless Communication Ability: Effective Visual Impairment: No Limitations Hearing Ability: Normal [employer] Required: No Beliefs That Will Affect Care: None marital status: Current Living Situation: Spouse current occupational status: retired How many Children do You have: 6 Feels Safe at Home: Yes Diet: regular caffeine: Yes during the past year weight has: increased > 10 lbs Dental Care, Regularly: No Physical Activity Frequency: Does not Exercise Seatbelt Use: always Sunscreen Use: Yes Assistive Devices: Walker Allergies Allergies Allergy/AdvReac Type Severity Reaction Status Date / Time No Known Drug Allergies Allergy Verified 05/24/25 13:22 Home Meds Home Medications Medication Instructions Recorded Confirmed cholecalciferol (vitamin D3) 50 50 mcg PO DAILY 10/14/22 05/24/25 mcg (2,000 unit) capsule allopurinol 100 mg tablet 100 mg PO QAM 12/07/24 05/24/25 vitamin C 45 mg-zinc citrate 4 1 tab PO BID 12/07/24 05/24/25 mg-elderberry 50 mg chewable tablet ([employer]) acetaminophen 300 mg-codeine 30 mg 1 tab PO Q4H PRN 04/05/25 05/24/25 tablet apixaban 2.5 mg tablet (Eliquis) 2.5 mg PO BID 05/24/25 bumetanide 1 mg tablet 1 mg PO DAILY 05/24/25 celecoxib 200 mg capsule (Celebrex) 200 mg PO BID 05/24/25 05/24/25 colchicine 0.6 mg tablet 0.6 mg PO .QOD 05/24/25 Previous Rx's Medication Instructions Recorded blood sugar diagnostic (Accu-Chek #100 ea 04/03/24 Guide test strips) bisoprolol fumarate 5 mg tablet 5 mg PO QAM #90 tabs 06/21/24 pen needle, diabetic 32 gauge x #100 ea 06/28/24 5/32" (BD Shante 2nd Gen Pen Needle) insulin glargine 100 unit/mL (3 25 unit (0.25 mL) subcut QDL #15 mL 01/11/25 mL) subcutaneous pen (Lantus Solostar U-100 Insulin) potassium chloride 10 mEq 10 meq PO DAILY #30 caps 04/03/25 capsule,extended release Results & Data (ED) Vital Signs Vital Signs - 24 hr 06/20/25 13:44 06/20/25 13:44 06/20/25 13:53 Temperature 36.6 C 36.6 C Temperature Source Oral Pulse Rate 103 H 103 H 96 H Pulse Rate [Right Finger] Respiratory Rate 16 16 Respiratory Effort / Characteristics Non-Labored Spontaneous Respiratory Depth Normal Respiratory Pattern Blood Pressure 114/96 114/96 Blood Pressure [Left Arm] Blood Pressure Mean 102 Blood Pressure Mean [Left Arm] Pulse Oximetry 93 93 Oxygen Delivery Method Room Air Room Air Oxygen Flow Rate 0 Sepsis Recent Fever Within 48 Hours No Sepsis New/Unexplained Change in Mental Status No Sepsis Action Taken by Nursing No Action Required 06/20/25 14:44 06/20/25 15:05 06/20/25 15:44 Temperature Temperature Source Pulse Rate Pulse Rate [Right Finger] 88 81 88 Respiratory Rate 16 16 16 Respiratory Effort / Characteristics Non-Labored Respiratory Depth Normal Respiratory Pattern Regular Blood Pressure Blood Pressure [Left Arm] 94/52 L 94/52 L 107/64 Blood Pressure Mean Blood Pressure Mean [Left Arm] 66 66 78 Pulse Oximetry 92 91 96 Oxygen Delivery Method Room Air Room Air Oxygen Flow Rate Sepsis Recent Fever Within 48 Hours Sepsis New/Unexplained Change in Mental Status Sepsis Action Taken by Nursing 06/20/25 15:44 06/20/25 16:44 06/20/25 17:00 Temperature Temperature Source Pulse Rate Pulse Rate [Right Finger] 86 87 87 Respiratory Rate 18 16 16 Respiratory Effort / Characteristics Respiratory Depth Respiratory Pattern Blood Pressure Blood Pressure [Left Arm] 107/64 124/86 124/86 Blood Pressure Mean Blood Pressure Mean [Left Arm] 78 98 98 Pulse Oximetry 94 94 94 Oxygen Delivery Method Room Air Room Air Oxygen Flow Rate Sepsis Recent Fever Within 48 Hours Sepsis New/Unexplained Change in Mental Status Sepsis Action Taken by Nursing 06/20/25 17:44 06/20/25 17:49 Temperature Temperature Source Pulse Rate 83 Pulse Rate [Right Finger] 95 H Respiratory Rate 16 Respiratory Effort / Characteristics Respiratory Depth Respiratory Pattern Blood Pressure Blood Pressure [Left Arm] 156/79 H Blood Pressure Mean Blood Pressure Mean [Left Arm] 104 Pulse Oximetry 98 Oxygen Delivery Method Room Air Oxygen Flow Rate Sepsis Recent Fever Within 48 Hours Sepsis New/Unexplained Change in Mental Status Sepsis Action Taken by Nursing Laboratory Data 06/20/25 15:52 06/20/25 15:52 Lab Results 06/20/25 Range/Units 15:52 WBC 9.40 (4.8-10.8) K/ul RBC 3.56 L (4.20-5.40) M/uL Hgb 10.5 L (12.0-16.0) g/dl Hct 32.7 L (37.0-47.0) % MCV 91.9 (80.0-100.0) fL MCH 29.5 (25.0-34.0) pg MCHC 32.1 (32.0-36.0) g/dL RDW Std Deviation 48.1 H (36.4-46.3) fL RDW Coeff of Marlene 14.4 (11.5-14.5) % Plt Count 326 (130-400) K/uL MPV 9.7 (9.4-12.4) fL Immature Gran % (Auto) 0.7 % Neut % (Auto) 77.3 % Lymph % (Auto) 12.1 % [place] % (Auto) 9.0 % Eos % (Auto) 0.6 % Baso % (Auto) 0.3 % Neut # (Auto) 7.25 H (1.40-6.50) K/uL Lymph # (Auto) 1.14 L (1.20-3.40) K/uL [place] # (Auto) 0.85 H (0.11-0.59) K/uL Eos # (Auto) 0.06 (0.00-0.50) K/uL Baso # (Auto) 0.03 (0.00-0.20) K/uL Immature Gran # (Auto) 0.07 (0.01-0.20) K/uL Sodium 137 (136-145) mmol/L Potassium 4.8 (3.5-5.1) mmol/L Chloride 101 (98-107) mmol/L Carbon Dioxide 29 (21-32) mmol/L Anion Gap 7 (3-11) BUN 30 H (6-23) mg/dl Creatinine 1.27 H (0.6-1.2) mg/dl Est Cr Clr Drug Dosing 33.1 ml/min eGFR 40.42 BUN/Creatinine Ratio 23.6 H (10-20) Glucose 133 H (70-99(Fasting)) mg/dl Calcium 9.7 (8.6-10.3) mg/dl Total Bilirubin 0.5 (0.2-1.0) mg/dl AST 27 (13-39) U/L ALT 13 (7-52) U/L Alkaline Phosphatase 154 H (34-104) U/L Total Protein 6.1 (6.0-8.3) gm/dl Albumin 3.2 L (3.4-5.0) gm/dl Globulin 2.9 (2.5-4.0) gm/dl Albumin/Globulin Ratio 1.1 (0.9-2) Imaging Data Radiologist's Impression: Hip/Pelvis X-Ray 06/20/25 13:44 XR hip RT 2V w pelvis CLINICAL HISTORY: hip pain after fall, concern for fracture COMPARISON: 10/18/2024 FINDINGS: There is an acute minimally displaced and impacted fracture at the right femoral neck. No other fracture or dislocation seen. IMPRESSION: Acute fracture right femoral neck. ACT 112: Negative or not required by law. Electronically signed by: Fernando Rosado M.D. 06/20/2025 2:36 PM Discharge Plan Visit Data Chief Complaint: Trauma Stated Complaint: FALL, HIP PAIN ED Provider: Kriss Fuchs Discharge Problem: Fracture of femoral neck, right, closed Patient Disposition: Transfer Acute Care Hospital Condition: Fair Forms Stand Alone Forms: My [facility] Prescriptions Prescriptions: No Action Eliquis 2.5 mg tablet 2.5 mg PO BID bumetanide 1 mg tablet 1 mg PO DAILY colchicine 0.6 mg tablet 0.6 mg PO .QOD celecoxib [Celebrex] 200 mg capsule 200 mg PO BID (DME) Accu-Chek Guide test strips Strip See Rx Instructions .Route Qty: 100 1RF Rx Instructions: TESTING 1 TIME DAILY bisoprolol fumarate 5 mg tablet 5 mg PO QAM Qty: 90 3RF (DME) pen needle, diabetic [BD Shante 2nd Gen Pen Needle] 32 gauge x 5/32" needle See Rx Instructions .ROUTE .MEDSUPPLY Qty: 100 3RF Rx Instructions: As directed insulin glargine [Lantus Solostar U-100 Insulin] 100 unit/mL (3 mL) insulin pen 25 unit subcut QDL Qty: 15 11RF potassium chloride 10 mEq capsule, extended release 10 meq PO DAILY Qty: 30 2RF cholecalciferol (vitamin D3) 50 mcg (2,000 unit) capsule 50 mcg PO DAILY acetaminophen-codeine 300-30 mg tablet 1 tab PO Q4H PRN [employer] 45-4-50 mg Tablet,Chewable 1 tab PO BID allopurinol 100 mg tablet 100 mg PO QAM Referrals Referrals: Tyson Hernandez MD [Primary Care Provider] - Discharge Problem: Fracture of femoral neck, right, closed Qualifiers: Encounter type: initial encounter Qualified Code(s): S72.001A - Fracture of unspecified part of neck of right femur, initial encounter for closed fracture
[2025-06-20] MEDS: HYDROmorphone INJ 0.5 MG/0.5 ML SYR IV STA (18:49)
--- NOTE | 2025-06-20 19:23 | Orthopedic Consultation ---
Date of Consultation June 20, 2025 Assessment & Plan (1) Fracture of femoral neck, right, closed: Right transcervical femoral neck fracture, likely secondary to osteoporosis, possibly also secondary to metastatic disease -I do not see obvious metastatic disease on her x-ray images obtained today. I did review the report from the PET scan dated 05/16/2025 which notes multiple lesions in the bone primarily in the left acromion, left femur, left humeral head, left psoas. There is no mention of any right hip or femur lesions. Medically this patient is frail, she is at increased risk for complications in my opinion, but for palliative reasons she would benefit from surgical treatment for pain control, mobility, and comfort. I discussed non operative options, the patient and family do not feel ready to accept non surgical treatment and the associated risks and care involved. -We discussed the risk of 1 year mortality of about 25%, we discussed the recovery process can be extensive and that she will likely have trouble with overall recovery given the degree of metastatic disease she has. -I expressed with the family the nature of the injury, plan for a right hip hemiarthroplasty to be performed on 06/21/2025. I did discuss with them the risks, benefits, and alternatives to this treatment which include but are not limited to infection, pain, bleeding, scarring, nerve and blood vessel damage, weakness, wound problems, stiffness, periprosthetic fractures, intraoperative fractures, incomplete relief of symptoms, tendon or ligament injury, blood clots, embolisms, heart attack, stroke, and even . The patient and family expressed understanding of these risks and elected to proceed with surgery. - Will plan for a right hip cemented hemiarthroplasty on 06/21/2025. Recommend Multimodal pain control, ice hip PRN Bedrest, non-weightbearing to affected lower extremity until after surgery Admit to [facility] under hospitalist service OR planned for 06/21/2025 Preoperative labs, EKG, chest x-ray obtained. Will obtain full-length femur films for further evaluation and preoperative planning NPO and hold any anticoagulation for procedure Informed consent for surgery will be obtained day of surgery Patient may require rehab placement postoperatively Perioperative antibiotics ordered. Will not order TXA given recent DVT I had a discussion with the patient, her daughter, and her on the telephone regarding her injury. We had an extensive discussion regarding her history of cancer with metastatic disease. I did discuss with them in depth that she is at increased risk for perioperative complications including morbidity and mortality due to her overall medical status. They state that they were understanding of this, and that she is "living on borrowed time". Initially I recommended that she be transferred to a tertiary care facility given her overall medical status and metastatic disease. The family would like her to receive care here at [facility] and not be transferred due to limited ability to visit her if she were transferred to another facility, they are understanding of the potential risks and that she would possibly benefit from being treated at a tertiary care facility. At this time they would like to proceed with receiving care here with an understanding of risks including things such as worsening overall medical status, blood clots, postoperative bleeding, tiara-implant fractures, approximate 25% morbidity within 1 year of hip fracture. History of Present Illness History of Present Illness This patient is an 89-year-old female history of metastatic melanoma, history of esophageal cancer. Currently she has multiple metastatic lesions throughout her body from her melanoma. She is on immunotherapy, and also has palliative radiation occurring for left upper extremity numbness. Cancer has been ongoing for many years. Initially she was diagnosed with esophageal cancer in 2019. Melanoma was found at her back after that, she was found to have metastatic disease. About a year ago she was told she had 3 months to live. Today the patient came to the ER with having suffered a mechanical ground-level fall. She was closing her trunk lid when the trunk knocked her over she fell directly onto her right side. She had immediate right sided hip pain. Currently she complains of pain in her right hip. She denies any pain about her left lower extremity and bilateral upper extremities. She denies striking her head or loss of consciousness. She denies any numbness or tingling about the right lower extremity. She does have an extensive history including blood clots, Atrial fibrillation, hypertension, diabetes, chronic kidney disease, cardiomyopathy she is currently on Eliquis. She did not take Eliquis this morning. Allergies Allergy/AdvReac Type Severity Reaction Status Date / Time No Known Drug Allergies Allergy Verified 05/24/25 13:22 Home Medications Medication Instructions Recorded Confirmed Type cholecalciferol (vitamin D3) 50 50 mcg PO DAILY 10/14/22 05/24/25 History mcg (2,000 unit) capsule blood sugar diagnostic (Accu-Chek #100 ea 04/03/24 04/12/25 Rx Guide test strips) bisoprolol fumarate 5 mg tablet 5 mg PO QAM #90 tabs 06/21/24 05/24/25 Rx pen needle, diabetic 32 gauge x #100 ea 06/28/24 04/12/25 Rx 5/32" (BD Shante 2nd Gen Pen Needle) allopurinol 100 mg tablet 100 mg PO QAM 12/07/24 05/24/25 History vitamin C 45 mg-zinc citrate 4 1 tab PO BID 12/07/24 05/24/25 History mg-elderberry 50 mg chewable tablet (Ufora) insulin glargine 100 unit/mL (3 25 unit (0.25 mL) subcut QDL #15 mL 01/11/25 05/24/25 Rx mL) subcutaneous pen (Lantus Solostar U-100 Insulin) potassium chloride 10 mEq 10 meq PO DAILY #30 caps 04/03/25 05/24/25 Rx capsule,extended release acetaminophen 300 mg-codeine 30 mg 1 tab PO Q4H PRN 04/05/25 05/24/25 History tablet apixaban 2.5 mg tablet (Eliquis) 2.5 mg PO BID 05/24/25 History bumetanide 1 mg tablet 1 mg PO DAILY 05/24/25 History celecoxib 200 mg capsule (Celebrex) 200 mg PO BID 05/24/25 05/24/25 History colchicine 0.6 mg tablet 0.6 mg PO .QOD 05/24/25 History Patient History Medical History Fractured sternum Encounter for pre-operative examination Hospice care patient [facility] for esophageal ca Hematuria reason for upcoming procedure Cramping of hands fingers per pt Neuropathy hands / feet Balance disorder Stage 3b chronic kidney disease follows with Dr. Ramirez Scoliosis Renal mass reason for upcoming procedure Diabetes mellitus, type 2 HTN (hypertension) History of esophageal cancer diagnosed 2019--chemo/radiation in [place] > 2023 reoccurance, had 4-5 doses of immunotherapy > pt on hospice group ([facility]) Cardiomyopathy Gout DVT (deep venous thrombosis) LLE > dx early 2024 > Eliquis > (had been on Eliquis for Afib in the past, but had stopped it approx 6 mos or more, then resumed due to DVT) Atrial fibrillation dx approx 2019 > no pacer > Eliquis History of TIA (transient ischemic attack) prior to 2019 pt thinks, pt thinks it was related to ocular migraines Hx of bronchitis no recent issues Rotator cuff (capsule) sprain no sx > healed on own Verruca vulgaris Osteoarthritis On anticoagulant therapy eliquis daily Ocular migraine gets aura, gets several x per week in AM Diabetes mellitus IDDM Surgical History H/O transurethral resection of bladder tumor (TURBT) 12/15/24 History of tooth extraction Hx of melanoma excision Left shoulder - wide excision 01/14/25 History of colonoscopy History of total left knee replacement (TKR) History of esophagogastroduodenoscopy (EGD) History of root canal procedure History of bilateral cataract extraction Family History Mother Diabetes Sister Diabetes Father Myocardial infarction Other Family history non-contributory No family history of adverse response to anesthesia Denies family history of Ovarian cancer Prostate cancer Breast cancer Colorectal cancer Social History Smoking Status: Former smoker Tobacco Type: Cigarettes Age Started Using Tobacco: 17; Age Quit Using Tobacco: 34; packs per day: 1.5; Second Hand Exposure: No; Do You Dip or Chew Tobacco: No; Hx Alcohol Use: No Hx Substance Use: No Preferred Language: Lithuanian Communication Ability: Effective Visual Impairment: No Limitations Hearing Ability: Normal Manager Cable Required: No Beliefs That Will Affect Care: None marital status: Current Living Situation: Spouse current occupational status: retired How many Children do You have: 6 Feels Safe at Home: Yes Diet: regular caffeine: Yes during the past year weight has: increased > 10 lbs Dental Care, Regularly: No Physical Activity Frequency: Does not Exercise Seatbelt Use: always Sunscreen Use: Yes Assistive Devices: Walker Physical Exam Physical Exam: General: Patient is an 89-year-old female who appears stated age. She is resting comfortably in bed. Pain seems well-controlled. She is in no acute distress. Musculoskeletal: Right lower extremity: - Skin about the right lower extremity i s clean, dry, intact. She does have erythema which I believe is associated with venous stasis about the right lower leg. Tenderness to palpation about the lateral right hip No tenderness to palpation about the right knee, ankle, or foot L4-S1: Sensation intact to light touch EHL/FHL/GS/TA grossly intact motor function DP/PT pulses palpable Compartments soft & compressible, no pain with passive extension Leg shortened and externally rotated Pain with log roll and any attempted hip passive range of motion A brief secondary survey was performed. The patient has no significant tenderness to palpation about the major joints or long bones of the left lower extremity and bilateral upper extremities. She is able to perform active range of motion of bilateral upper extremities and left lower extremity without any pain. Results & Data Vital Signs (Past 12 Hours) Vital Signs Temp Pulse Pulse Resp BP BP Pulse Ox 06/20/25 18:44 98 H 16 135/76 94 06/20/25 17:49 83 06/20/25 17:44 95 H 16 156/79 H 98 06/20/25 17:00 87 16 124/86 94 06/20/25 16:44 87 16 124/86 94 06/20/25 15:44 86 18 107/64 94 06/20/25 15:44 88 16 107/64 96 06/20/25 15:05 81 16 94/52 L 91 06/20/25 14:44 88 16 94/52 L 92 06/20/25 13:53 96 H 06/20/25 13:44 36.6 C 103 H 16 114/96 93 06/20/25 13:44 36.6 C 103 H 16 114/96 93 O2 Del Method O2 Flow Rate 06/20/25 18:44 Room Air 06/20/25 17:49 06/20/25 17:44 Room Air 06/20/25 17:00 Room Air 06/20/25 16:44 Room Air 06/20/25 15:44 06/20/25 15:44 Room Air 06/20/25 15:05 06/20/25 14:44 Room Air 06/20/25 13:53 06/20/25 13:44 Room Air 0 06/20/25 13:44 Room Air Diagnostic Findings AP pelvis, AP and crosstable lateral x-rays of the right hip obtained today 06/20/2025 independently reviewed by myself. There is a right comminuted femoral neck fracture which is displaced, varus angulated. There is question of diminished cortical opacity in the region of the femoral lesser trochanter. This may represent metastatic lesion. (1) Fracture of femoral neck, right, closed Encounter type: initial encounter Qualified Code(s): S72.001A - Fracture of unspecified part of neck of right femur, initial encounter for closed fracture
--- NOTE | 2025-06-20 19:41 | History & Physical Report ---
Date of Service June 20, 2025 Assessment & Plan (1) Fracture of femoral neck, right, closed: (2) Fall: (3) Metastatic melanoma: Plan Patient is an 89-year-old female with a past medical history including metastatic melanoma with mets to bone and bladder, type II DM on insulin, DVT on Eliquis, A-fib, cardiomyopathy, stage IIIb CKD.. She is currently undergoing palliative radiation therapy and chemotherapy. Patient was closing her car trunk 06/20 when she fell on her right side resulting in a right femoral neck fracture. She is being admitted to undergo surgical management 06/21. #right femoral neck fracture/fall/trauma - S/p ground-level fall, - HS or LOC. hip/pelvis XR showed acute fracture of right femoral neck. Neurovascularly and hemodynamically intact at time of admission. - ortho consulted - planning for surgical management 06/21. Last dose of Eliquis p.m. 06/19. - n.p.o. after midnight - Azevedo catheter ordered - pre-op CXR and EKG ordered - fluid resuscitation with LR at 80 mL/hour x 2 L - IV Tylenol prn and Morphine 2/4 for breakthrough pain; avoid Toradol with CKD - Zofran as needed - Incentive spirometry - sacral wound precautions Bowel regimen as needed ordered - will likely need PT/OT evals prior to discharge; defer on admission until after surgical management #AnemiaHgb 10.5 at time of admission, at baseline. Trend CBC postop #CKDcreatinine 1.27 on admission, at baseline. Avoid nephrotoxic agents #Metastatic melanoma with mets to bladder and boneon current chemotherapy every 28 days and palliative RT. #A-fibholding Eliquis with surgical management and bisoprolol preoperatively. #Cardiomyopathyhold Bumex preoperatively with potassium #Type II DMcontinue home Lantus 26U every morning. #Goutcontinue colchicine and allopurinol #History of DVTholding Eliquis preoperatively VTE ppx: SCDs with surgical management - Resume chemical PPx with home Eliquis when able as patient is at high risk with history of DVT and current cancer Dispo: PCU as patient was a trauma alert Admission and Anticipated Discharge Date Admission Date: 06/20/25 History of Present Illness Chief Complaint: trauma Primary Care Provider: Tyson Hernandez MD Patient is an 89-year-old female with a past medical history including metastatic melanoma with mets to bone and bladder, type II DM on insulin, DVT on Eliquis, A-fib, cardiomyopathy, stage IIIb CKD.. She is currently undergoing palliative radiation therapy and chemotherapy. Patient was closing her car trunk 06/20 when she fell on her right side resulting in a right femoral neck fracture. She is being admitted to undergo surgical management 06/21. Patient seen at bedside with her daughter and her present. She states she has been some pain in her trunk when she went to close it and fell onto her right side. She denies any head strike or loss of consciousness. Her pain is well-controlled at 3/10 after Dilaudid 0.5 mg IV in the ED. She is neurovascularly intact and denies any sensory deficits of her right lower extremity. She denies any pain elsewhere. She denies any headaches, chest pain, shortness of breath, abdominal pain. 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 She is undergoing radiation therapy for this and missed her therapy today 06/20. Last dose of chemotherapy was 2 weeks ago. Patient is very concerned about her bowel regimen as she got constipated with previous admissions. She did not take any of her home medications today, she is on Lantus 26 units which she takes around noon. She wishes to be DNR/DNI. She denies any nicotine or alcohol use. Allergies Allergy/AdvReac Type Severity Reaction Status Date / Time No Known Drug Allergies Allergy Verified 05/24/25 13:22 Home Medications Medication Instructions Recorded Confirmed Type cholecalciferol (vitamin D3) 50 50 mcg PO DAILY 10/14/22 05/24/25 History mcg (2,000 unit) capsule blood sugar diagnostic (Accu-Chek #100 ea 04/03/24 04/12/25 Rx Guide test strips) bisoprolol fumarate 5 mg tablet 5 mg PO QAM #90 tabs 06/21/24 05/24/25 Rx pen needle, diabetic 32 gauge x #100 ea 06/28/24 04/12/25 Rx 5/32" (BD Shante 2nd Gen Pen Needle) allopurinol 100 mg tablet 100 mg PO QAM 12/07/24 05/24/25 History vitamin C 45 mg-zinc citrate 4 1 tab PO BID 12/07/24 05/24/25 History mg-elderberry 50 mg chewable tablet ([employer]) insulin glargine 100 unit/mL (3 25 unit (0.25 mL) subcut QDL #15 mL 01/11/25 05/24/25 Rx mL) subcutaneous pen (Lantus Solostar U-100 Insulin) potassium chloride 10 mEq 10 meq PO DAILY #30 caps 04/03/25 05/24/25 Rx capsule,extended release acetaminophen 300 mg-codeine 30 mg 1 tab PO Q4H PRN 04/05/25 05/24/25 History tablet apixaban 2.5 mg tablet (Eliquis) 2.5 mg PO BID 05/24/25 History bumetanide 1 mg tablet 1 mg PO DAILY 05/24/25 History celecoxib 200 mg capsule (Celebrex) 200 mg PO BID 05/24/25 05/24/25 History colchicine 0.6 mg tablet 0.6 mg PO .QOD 05/24/25 History Past Med/Surg History Problem List Fall Fracture of femoral neck, right, closed (Acute) Bronchitis Parotid tumor Upper respiratory disease Metastatic melanoma Fatigue Deep vein thrombosis (DVT) of left lower extremity DVT of axillary vein, acute left Hematuria Nocturnal leg cramps Hyperkalemia Near syncope Lumbar pain Leg pain Sinusitis Dysuria Gout Hematuria Gross hematuria Cardiomyopathy Dyspnea Migraine headache with aura Balance disorder Left rotator cuff tear Impingement of both shoulders Migraine aura occurring with and without headache Shoulder pain Abdominal pain Stage 3b chronic kidney disease (CKD) Diabetes mellitus with neuropathy Hyperlipidemia Renal mass Osteoarthritis of right knee Recurrent left knee instability Dysphagia Esophageal cancer diagnosed 2019--chemo/radiation in [place] Atrial fibrillation (Chronic) on eliquis daily--follows with Dr. Eckert Hypertension (Chronic) Arthritis (Chronic) Scoliosis (Chronic) Medical History Fractured sternum Encounter for pre-operative examination Hospice care patient [facility] for esophageal ca Hematuria reason for upcoming procedure Cramping of hands fingers per pt Neuropathy hands / feet Balance disorder Stage 3b chronic kidney disease follows with Dr. Ramirez Scoliosis Renal mass reason for upcoming procedure Diabetes mellitus, type 2 HTN (hypertension) History of esophageal cancer diagnosed 2019--chemo/radiation in [place] > 2023 reoccurance, had 4-5 doses of immunotherapy > pt on hospice group ([facility]) Cardiomyopathy Gout DVT (deep venous thrombosis) LLE > dx early 2024 > Eliquis > (had been on Eliquis for Afib in the past, but had stopped it approx 6 mos or more, then resumed due to DVT) Atrial fibrillation dx approx 2019 > no pacer > Eliquis History of TIA (transient ischemic attack) prior to 2019 pt thinks, pt thinks it was related to ocular migraines Hx of bronchitis no recent issues Rotator cuff (capsule) sprain no sx > healed on own Verruca vulgaris Osteoarthritis On anticoagulant therapy eliquis daily Ocular migraine gets aura, gets several x per week in AM Diabetes mellitus IDDM Surgical History H/O transurethral resection of bladder tumor (TURBT) 12/15/24 History of tooth extraction Hx of melanoma excision Left shoulder - wide excision 01/14/25 History of colonoscopy History of total left knee replacement (TKR) History of esophagogastroduodenoscopy (EGD) History of root canal procedure History of bilateral cataract extraction Family History Mother Diabetes Sister Diabetes Father Myocardial infarction Other Family history non-contributory No family history of adverse response to anesthesia Denies family history of Ovarian cancer Prostate cancer Breast cancer Colorectal cancer Social History Smoking Status: Former smoker Tobacco Type: Cigarettes Age Started Using Tobacco: 17; Age Quit Using Tobacco: 34; packs per day: 1.5; Second Hand Exposure: No; Do You Dip or Chew Tobacco: No; Hx Alcohol Use: Yes Alcohol type: other Alcohol Intake Frequency: 2-4 x/Month Hx Substance Use: No Preferred Language: Armenian Communication Ability: Effective Visual Impairment: No Limitations Hearing Ability: Normal Manager Chemistry Required: No Beliefs That Will Affect Care: None marital status: Current Living Situation: Spouse current occupational status: retired How many Children do You have: 6 Feels Safe at Home: Yes Safety Concerns: Feels Safe At This Time Diet: regular caffeine: Yes during the past year weight has: increased > 10 lbs Dental Care, Regularly: No Physical Activity Frequency: Does not Exercise Seatbelt Use: always Sunscreen Use: Yes Assistive Devices: None Review of Systems Review of Systems: see HPI Physical Exam Physical Exam: The patient is awake, alert and oriented 3, well developed and well nourished, normocephalic and atraumatic, in no acute distress. Non-toxic appearing. HEENT- EOMI, mucous membranes moist. Hearing grossly intact. Heart-normal S1 and S2. No murmurs, rubs or gallops. Lungs-clear bilaterally, no respiratory distress, no accessory muscle use. Abdomen-normal bowel sounds and soft. No ascites noted. Non-tender. Extremities- no clubbing, cyanosis, or edema. Psychiatric-normal affect. Results & Data Results & Data Vital Signs (Past 12 Hours) Vital Signs Temp Pulse Pulse Resp BP BP Pulse Ox 06/20/25 19:00 85 20 99/76 L 93 06/20/25 18:44 98 H 16 135/76 94 06/20/25 17:49 83 06/20/25 17:44 95 H 16 156/79 H 98 06/20/25 17:00 87 16 124/86 94 06/20/25 16:44 87 16 124/86 94 06/20/25 15:44 86 18 107/64 94 06/20/25 15:44 88 16 107/64 96 06/20/25 15:05 81 16 94/52 L 91 06/20/25 14:44 88 16 94/52 L 92 06/20/25 13:53 96 H 06/20/25 13:44 36.6 C 103 H 16 114/96 93 06/20/25 13:44 36.6 C 103 H 16 114/96 93 O2 Del Method O2 Flow Rate 06/20/25 19:00 Room Air 06/20/25 18:44 Room Air 06/20/25 17:49 06/20/25 17:44 Room Air 06/20/25 17:00 Room Air 06/20/25 16:44 Room Air 06/20/25 15:44 06/20/25 15:44 Room Air 06/20/25 15:05 06/20/25 14:44 Room Air 06/20/25 13:53 06/20/25 13:44 Room Air 0 06/20/25 13:44 Room Air Laboratory Results Lab Results 06/20/25 Range/Units 15:52 WBC 9.40 (4.8-10.8) K/ul RBC 3.56 L (4.20-5.40) M/uL Hgb 10.5 L (12.0-16.0) g/dl Hct 32.7 L (37.0-47.0) % MCV 91.9 (80.0-100.0) fL MCH 29.5 (25.0-34.0) pg MCHC 32.1 (32.0-36.0) g/dL RDW Std Deviation 48.1 H (36.4-46.3) fL RDW Coeff of Marlene 14.4 (11.5-14.5) % Plt Count 326 (130-400) K/uL MPV 9.7 (9.4-12.4) fL Immature Gran % (Auto) 0.7 % Neut % (Auto) 77.3 % Lymph % (Auto) 12.1 % [place] % (Auto) 9.0 % Eos % (Auto) 0.6 % Baso % (Auto) 0.3 % Neut # (Auto) 7.25 H (1.40-6.50) K/uL Lymph # (Auto) 1.14 L (1.20-3.40) K/uL [place] # (Auto) 0.85 H (0.11-0.59) K/uL Eos # (Auto) 0.06 (0.00-0.50) K/uL Baso # (Auto) 0.03 (0.00-0.20) K/uL Immature Gran # (Auto) 0.07 (0.01-0.20) K/uL Sodium 137 (136-145) mmol/L Potassium 4.8 (3.5-5.1) mmol/L Chloride 101 (98-107) mmol/L Carbon Dioxide 29 (21-32) mmol/L Anion Gap 7 (3-11) BUN 30 H (6-23) mg/dl Creatinine 1.27 H (0.6-1.2) mg/dl Est Cr Clr Drug Dosing 33.1 ml/min eGFR 40.42 BUN/Creatinine Ratio 23.6 H (10-20) Glucose 133 H (70-99(Fasting)) mg/dl Calcium 9.7 (8.6-10.3) mg/dl Total Bilirubin 0.5 (0.2-1.0) mg/dl AST 27 (13-39) U/L ALT 13 (7-52) U/L Alkaline Phosphatase 154 H (34-104) U/L Total Protein 6.1 (6.0-8.3) gm/dl Albumin 3.2 L (3.4-5.0) gm/dl Globulin 2.9 (2.5-4.0) gm/dl Albumin/Globulin Ratio 1.1 (0.9-2) Diagnostic Findings reviewed hip xr Medications Administered ed - Dilaudid 0.5 mg IV ECG Additional Comments: ordered Code Status & VTE Plan Code Status dnr/dni VTE Prophylaxis Plan VTE Prophylaxis will be ordered: Yes Supervising Physician Co-Signing Physician Notes Attending addendum: I have physically seen this patient, have supervised the PAPO's activities, and agree with the H&P unless as otherwise noted. Assessment and Plan: The patient is an 89-year-old female with past medical history including metastatic melanoma to bone and bladder, diabetes mellitus type 2 on insulin, DVT/A-fib on Eliquis, cardiomyopathy, and CKD stage IIIb. She is presently undergoing palliative radiation therapy and chemotherapy. Patient reports that she was closing her car trunk when she fell on her right side, resulting in immediate right hip and thigh pain. X-rays in the emergency department revealed a right femoral neck fracture, and patient was then referred to the [facility] for [facility]. Right femoral neck fracture- Ground-level fall N.p.o. after midnight Azevedo catheter in place Geriatric hip Fracture protocol order set Acetaminophen 1 g IV every 8 hours as needed for mild pain or fever Morphine 2 mg IV every 3 hours as needed moderate pain Morphine 4 mg IV every 3 hours as needed for severe pain Zofran 4 mg IV every 6 hours as needed Incentive spirometry Sacral wound precautions Bowel regimen ordered Anemia- Hemoglobin 10.5 admission, and is at baseline Follow serially CKD- Creatinine 1.27 on admission is at baseline Follow serially Metastatic melanoma with mets to bladder and bone- Chemotherapy every 28 days and palliative RT A-fib/cardiomyopathy/hypertension- Hold Eliquis and Bumex anticipation of surgery- May need IV Lopressor during the interval Remaining orders and notations as noted PG Care Time/CCT Total # of Minutes Spent Total Time Spent with Patient: Total time spent is greater than 50% in coordination of care (as documented) at patient's floor/unit and/or counseling patient: Coding Level of Care Code 97337 INT INP/OBS CARE MIN Diagnoses Fracture of femoral neck, right, closed S72.001A Encounter type: initial encounter Fall W19.XXXA Metastatic melanoma C43.9 (1) Fracture of femoral neck, right, closed Encounter type: initial encounter Qualified Code(s): S72.001A - Fracture of unspecified part of neck of right femur, initial encounter for closed fracture
[2025-06-20] MEDS ORDERED: NALOXONE HCL 0.4 MG/1 ML VIAL/CARP IV PRN ×2 (19:59→22:17)
[2025-06-20] MEDS: ACETAMINOPHEN 325 MG TAB PO STA (20:19)
[2025-06-20 20:59] LABS: Appearance Urine Clear (Clear); Bacteria Urine Automated None Seen (None Seen); Cast Urine Automated 0-2 /lpf (0-2); Epithelial Cell Urine Auto 0-2 /hpf (0-2); Glucose Urine UA Negative (Negative); RBC Urine Automated 0-2 /hpf (0-2); WBC Urine Automated 0-5 /hpf (0-5)
[2025-06-20 21:15] LABS: INR 1.1 (0.9-1.1); Partial Thromboplastin Time 28 Seconds (21-31); Prothrombin Time 11.4 Seconds (9.0-12.0)
[2025-06-20] MEDS ORDERED: GLUCAGON FOR INJ 1 MG VIAL SQ PRN (22:17)
[2025-06-20] MEDS ORDERED: CARBOHYDRATES FOR HYPOGLYCEMIA PO PRN (22:17)
[2025-06-20] MEDS ORDERED: GLUCOSE 40% GEL 15 GM TUBE PO PRN (22:17)
[2025-06-20] MEDS ORDERED: DEXTROSE 50% 50 ML SYRINGE IV PRN (22:17)
[2025-06-20] MEDS ORDERED: GLUCOSE 10 TAB/TUBE PO PRN (22:17)
[2025-06-20] MEDS: INSULIN ASPART PER UNIT CHARGE SC SCH (22:19)
[2025-06-20] MEDS: LACTATED RINGER'S 1,000 ML IV SCH (22:58)
--- NOTE | 2025-06-20 23:11 | XRay Report ---
Exam(s): XR RIGHT FEMUR, 2 views EXAM: XR Right Femur, 2 Views CLINICAL HISTORY: Reason for exam: Preoperative planning. TECHNIQUE: Frontal and lateral views of the right femur. COMPARISON: No relevant prior studies available. FINDINGS: Bones/joints: There is a fracture of the right femoral neck.. No dislocation. There are hypertrophic degenerative changes. Soft tissues: Vascular calcifications are seen.. IMPRESSION: There is a fracture of the right femoral neck. Hypertrophic degenerative changes. Electronically signed by: Steven Taylor MD 06/20/25 23:10 PM
--- NOTE | 2025-06-20 23:12 | XRay Report ---
Exam(s): XR CXR 1 VIEW EXAM: XR Chest, 1 View CLINICAL HISTORY: Reason for exam: trauma, pre-op. TECHNIQUE: Frontal view of the chest. COMPARISON: 10/05/2024. FINDINGS: There is a poor inspiratory effort. Lungs: No consolidation. Pleural space: No pleural effusion is seen. No pneumothorax. Heart: Heart is top normal in size.. 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 Bones/joints: There is a scoliosis the spine with degenerative changes.. IMPRESSION: No acute pulmonary disease. Electronically signed by: Steven Taylor MD 06/20/25 23:11 PM
[2025-06-21] MEDS ORDERED: Nursing to Pharmacy Communication SCH ×2 (01:30→10:00)
[2025-06-21] MEDS: MoRPHine SULFATE 2 MG/ML CARP IV PRN (02:45)
[2025-06-21] MEDS: ACETAMINOPHEN 1,000 MG/100 ML VIAL IV PRN (04:15)
[2025-06-21] MEDS: MoRPHine SULFATE 4 MG/ML 1 ML CARP\\VIAL IV PRN (05:20)
[2025-06-21] MEDS: INSULIN ASPART PER UNIT CHARGE SC SCH ×2 (05:25→20:50)
[2025-06-21 06:30] LABS: Hematocrit (blood only) 28.6 % (37.0-47.0); Hemoglobin 9.7 g/dl (12.0-16.0); Immature Granulocytes # (auto) 0.04 K/uL (0.01-0.20); Immature Granulocytes % (auto) 0.5 %; Mean Corpuscular Hemoglobin 30.9 pg (25.0-34.0); Mean Corpuscular Volume 91.1 fL (80.0-100.0); Platelet Count 277 K/uL (130-400); RDW Standard Deviation 47.0 fL (36.4-46.3); Red Blood Count 3.14 M/uL (4.20-5.40); White Blood Count 8.40 K/ul (4.8-10.8)
[2025-06-21 07:11] LABS: Alanine Aminotransferase 11.0 U/L (7-52); Albumin Globulin Ratio 1.1 (0.9-2); Albumin Level 2.8 gm/dl (3.4-5.0); Alkaline Phosphatase 135.0 U/L (34-104); Bilirubin,Total 0.6 mg/dl (0.2-1.0); Globulin 2.5 gm/dl (2.5-4.0); Total Protein 5.3 gm/dl (6.0-8.3)
--- NOTE | 2025-06-21 07:13 | Anesthesiology Consultation ---
Date of Service June 21, 2025 Assessment & Plan Chart Review Chart Review: Acceptable Risk for Surgery and Patient NOT seen in Pre Admission Testing History Surgery Operation Date: 06/21/25 08:20 Proposed Procedures p Right Total Hip Arthroplasty Cemented - Reg Jewell DO Height/Weight Height: 5 ft 4 in Weight: 92.1 kg Allergies Allergy/AdvReac Type Severity Reaction Status Date / Time No Known Drug Allergies Allergy Verified 05/24/25 13:22 Medications Home Medications Medication Instructions Recorded Confirmed Last Taken cholecalciferol (vitamin D3) 50 50 mcg PO DAILY 10/14/22 05/24/25 12/13/24 08:00 mcg (2,000 unit) capsule blood sugar diagnostic (Accu-Chek #100 ea 04/03/24 04/12/25 Unknown Guide test strips) bisoprolol fumarate 5 mg tablet 5 mg PO QAM #90 tabs 06/21/24 05/24/25 12/13/24 08:00 pen needle, diabetic 32 gauge x #100 ea 06/28/24 04/12/25 Unknown 32" (BD Shante 2nd Gen Pen Needle) allopurinol 100 mg tablet 100 mg PO QAM 12/07/24 05/24/25 12/13/24 08:00 vitamin C 45 mg-zinc citrate 4 1 tab PO BID 12/07/24 05/24/25 12/13/24 08:00 mg-elderberry 50 mg chewable tablet ([employer]) insulin glargine 100 unit/mL (3 25 unit (0.25 mL) subcut QDL #15 mL 01/11/25 05/24/25 Unknown mL) subcutaneous pen (Lantus Solostar U-100 Insulin) potassium chloride 10 mEq 10 meq PO DAILY #30 caps 04/03/25 05/24/25 Unknown capsule,extended release acetaminophen 300 mg-codeine 30 mg 1 tab PO Q4H PRN 04/05/25 05/24/25 Unknown tablet apixaban 2.5 mg tablet (Eliquis) 2.5 mg PO BID 05/24/25 Unknown bumetanide 1 mg tablet 1 mg PO DAILY 05/24/25 Unknown celecoxib 200 mg capsule (Celebrex) 200 mg PO BID 05/24/25 05/24/25 Unknown colchicine 0.6 mg tablet 0.6 mg PO .QOD 05/24/25 Unknown Active Medications Generic Name Dose Route Start Last Admin Trade Name Freq PRN Reason Stop Dose Admin Lactated Ringer's 1,000 mls @ 80 mls/hr 06/20/25 22:17 06/20/25 22:58 Lr IV 06/21/25 10:46 80 mls/hr .[id number] KATARINA Administration Acetaminophen 1,000 mg in 100 mls @ 400 mls/hr 06/21/25 02:00 06/21/25 04:30 Ofirmev IV 06/24/25 01:59 Infused Q8H PRN Infusion Pain or Fever Insulin Aspart 0 units 06/21/25 06:00 06/21/25 05:25 Insulin Aspart Per Unit Charge SC 07/21/25 05:59 Not Given Q6 KATARINA Morphine Sulfate 4 mg 06/20/25 22:17 06/21/25 05:20 Morphine Sulfate 4 Mg/Ml 1 Ml Carp\\Vial IV 07/04/25 22:16 4 mg Q6H PRN Administration Severe Pain (Scale 7, 8, 9,10) Morphine Sulfate 2 mg 06/20/25 22:17 06/21/25 02:45 Morphine Sulfate 2 Mg/Ml Carp IV 07/04/25 22:16 2 mg Q6H PRN Administration Moderate Pain (Scale 4, 5, 6) Past Medical History Medical History Fractured sternum Encounter for pre-operative examination Hospice care patient [facility] for esophageal ca Hematuria reason for upcoming procedure Cramping of hands fingers per pt Neuropathy hands / feet Balance disorder Stage 3b chronic kidney disease follows with Dr. Ramirez Scoliosis Renal mass reason for upcoming procedure Diabetes mellitus, type 2 HTN (hypertension) History of esophageal cancer diagnosed 2019--chemo/radiation in [place] > 2023 reoccurance, had 4-5 doses of immunotherapy > pt on hospice group ([facility]) Cardiomyopathy Gout DVT (deep venous thrombosis) LLE > dx early 2024 > Eliquis > (had been on Eliquis for Afib in the past, but had stopped it approx 6 mos or more, then resumed due to DVT) Atrial fibrillation dx approx 2018 > no pacer > Eliquis History of TIA (transient ischemic attack) prior to 2019 pt thinks, pt thinks it was related to ocular migraines Hx of bronchitis no recent issues Rotator cuff (capsule) sprain no sx > healed on own Verruca vulgaris Osteoarthritis On anticoagulant therapy eliquis daily Ocular migraine gets aura, gets several x per week in AM Diabetes mellitus IDDM Past Family History Family History Mother Diabetes Sister Diabetes Father Myocardial infarction Other Family history non-contributory No family history of adverse response to anesthesia Denies family history of Ovarian cancer Prostate cancer Breast cancer Colorectal cancer Past Surgical History Surgical History H/O transurethral resection of bladder tumor (TURBT) 12/15/24 History of tooth extraction Hx of melanoma excision Left shoulder - wide excision 01/14/25 History of colonoscopy History of total left knee replacement (TKR) History of esophagogastroduodenoscopy (EGD) History of root canal procedure History of bilateral cataract extraction Social History Smoking Status: Former smoker Do You Dip or Chew Tobacco: No Hx Alcohol Use: Yes Alcohol type: other alcohol intake frequency: holidays/special occasions only Hx Substance Use: No substance use type: does not use Substance Use Type Other:: elderberry supplement Physical Exam Vital Signs Last Vital Signs Temp 36.9 C 06/21/25 03:56 Pulse 101 H 06/21/25 05:26 Resp 20 06/21/25 03:56 BP 112/75 06/21/25 05:26 Pulse Ox 92 06/21/25 05:26 O2 Del Method Room Air 06/21/25 05:26 O2 Flow Rate 0 06/20/25 13:44 Testing Laboratory Results 06/21/25 06:06 PT 11.4 Seconds (9.0-12.0) 06/20/25 15:52 INR 1.1 (0.9-1.1) 06/20/25 15:52 APTT 28 Seconds (21-31) 06/20/25 15:52 Urine Color Yellow 06/20/25 20:42 Urine Appearance Clear (Clear) 06/20/25 20:42 Urine pH 7.0 (4.5-7.5) 06/20/25 20:42 Ur Specific [place] 1.016 (1.000-1.030) 06/20/25 20:42 Urine Protein Trace (Negative) H 06/20/25 20:42 Urine Glucose (UA) Negative (Negative) 06/20/25 20:42 Urine Ketones 1+ (Negative) H 06/20/25 20:42 Urine Nitrite Negative (Negative) 06/20/25 20:42 Ur Leukocyte Esterase Trace (Negative) H 06/20/25 20:42 Urine WBC (Auto) 0-5 /hpf (0-5) 06/20/25 20:42 Urine RBC (Auto) 0-2 /hpf (0-2) 06/20/25 20:42 U Hyaline Cast (Auto) 0-2 /lpf (0-2) 06/20/25 20:42 U Epithel Cells (Auto) 0-2 /hpf (0-2) 06/20/25 20:42 Urine Bacteria (Auto) None Seen (None Seen) 06/20/25 20:42 Blood Type O Positive 06/21/25 06:06 Antibody Screen NEGATIVE 06/21/25 06:06 06/21/25 06/20/25 05:24 22:11 POC Glucose 135 H 129 H
[2025-06-21 07:29] LABS: INR 1.1 (0.9-1.1); Partial Thromboplastin Time 30 Seconds (21-31); Prothrombin Time 11.5 Seconds (9.0-12.0)
--- NOTE | 2025-06-21 08:40 | Hospitalist Progress Note ---
"Date of Service June 21, 2025 Assessment & Plan (1) Fracture of femoral neck, right, closed: (2) Fall: (3) Metastatic melanoma: Plan Patient is an 89-year-old female with a past medical history including metastatic melanoma with mets to bone and bladder, type II DM on insulin, DVT on Eliquis, A-fib, cardiomyopathy, stage IIIb CKD.. She is currently undergoing palliative radiation therapy and chemotherapy. Patient was closing her car trunk 06/20 when she fell on her right side resulting in a right femoral neck fracture. She is being admitted to undergo surgical management 06/21. #Right femoral neck fracture/fall/trauma alert S/p ground-level fall, - HS or LOC Hip/pelvis XR showed acute fracture of right femoral neck Neurovascularly and hemodynamically intact at time of admission. Orthopedic surgery consult appreciated Planning for surgical management 06/21 Last dose of Eliquis p.m. 06/19. N.p.o. prior to surgery [place] catheter care Preop CXR and EKG ordered Additional XR imaging of the right ankle/tibia/fibia revealed no acute abnor malities IVF with LR at 80 mL/hour x 2 L IV Tylenol prn and Morphine 2/4 for breakthrough pain; avoid Toradol with CKD Zofran PRN Incentive spirometry Sacral wound precautions Bowel regimen: MiraLAX as needed, magnesium hydroxide as needed, Colace twice daily Will likely need PT/OT evals prior to discharge; defer on admission until after surgical management #Anemia Hb trend 10.5 -> 9.7 pre-operatively Trend CBC postop #CKDcreatinine 1.27 on admission, at baseline. Avoid nephrotoxic agents where possible #Metastatic melanoma with mets to bladder and bone On current chemotherapy every 28 days and palliative RT Per family request, reached out to patient's oncologist (Dr. Bonner) to update him on hospitalization #A-fib with RVR | history of SVT Held Eliquis with surgical management Held bisoprolol preoperatively Per PACU nursing staff, patient went into rapid rate of 140 to 150 bpm following her surgery, but this returned to a normal rhythm after metoprolol to tartrate 5 mg IV was administered Additional metoprolol tartrate 5 mg IV q30m PRN powder monkey for A fib RVR with HR >130bpm Will plan to restart Eliquis/bisoprolol on 06/22 pending a.m. lab work #Cardiomyopathy Hold Bumex + K supp preoperatively #Type II DM Last A1c 9.4% on 10/05/2024 BSG q6h while NPO, then ACHS Lantus 13u BID SSI with goal range 110-140, CF 30 Adjust regimen as needed AM A1c #Gout Continue colchicine and allopurinol #History of DVT Noted; holding Eliquis preoperatively VTE ppx: SCDs with surgical management - Resume chemical PPx with home Eliquis when able as patient is at high risk with history of DVT and current cancer Dispo: PCU as patient was a trauma alert Admission and Anticipated Discharge Date Admission Date: June 20, 2025 Supervising Physician Co-Signing Physician Notes Attending Attestation: Chart reviewed, care plan d/w WILLY Nair. I agree w/ the loza components of his documentation. Nigel Rice MD Subjective Mrs. Schaffer reports she is feeling somewhat overwhelmed with everything going on today. Her right hip only hurts with movement; no pain at rest. However, she is having constant pain in her right lentz/foot. Patient reports her pain is well-controlled on the IV Dilaudid. Patient recites her history at bedside of the fall; fall was strictly mechanical; she went to place her walker in the trunk of her car, and was closing the car trunk when she pulled on and fell onto her right side. She does not believe she was dizzy or lightheaded before falling. Patient started oxycodone for her pain a couple days ago, but does not feel this contributed to her fall. Patient last took Eliquis on 06/19. She does have a history of DVT, as well as atrial fibrillation. No prior history of ME, CHF, stroke, or CKD. Both patient and patient's (Kevyn) at bedside confirm that they understand the risks/benefits of undergoing surgery to repair her right hip, and acknowledged that she is a high risk candidate for surgery. They would not want transfer to any tertiary care facilities; they voiced come to [facility] and trusts the care; they also report that they have 6 children, who [place] and would need to fly into [place] to visit their mother in the hospital. Family requesting to see their oncologist while patient is in the hospital. ROS: Patient endorses right hip pain with movements, and right lentz/ankle pain. Patient denies fever, chills, night sweats, chest pain, SOB, cough, abdominal pain, N/V/D, changes in urinary/bowel habits, or numbness or tingling going on the right leg. Addendum at 1600: Patient is seen in the PACU following her procedure. She is slow to respond and questioning, and nods when asked if she is feeling disoriented/groggy. However, she is A&O x 3 and responsive to commands. She reports she feels nauseous and endorses ongoing pain in her right hip. PACU nurse also reported an episode of tachycardia around 140-150bpm, that returned to normal range after being given metoprolol 5 mg IV. Review of Systems Review of Systems: See HPI above Physical Exam Physical Exam: Tertiary survey performed approximately 24 hours after patient was admitted as a trauma alert: Physical Exam: General: - Alert: Yes - Oriented: Yes - GCS 15: Yes HEENT: - No pain/tenderness to palpation . - No lacerations/abrasions apprec iated. - PERRLA. Normal Visual Acuity. N o visual field cuts. No nystagmus. No contact lenses. Normal hearing. No relative afferent pupillary defect. No facial asymmetry. Normal palatal elevation, uvula midline. Midline tongue protrusion. Shoulder shrug with 4/5 strength bilaterally. - Mucous membranes moist. Neck: - Midline Tenderness: No - Patient demonstrates ability to rotate neck left and right without unilateral deficits or eliciting pain in the neck or shoulder - Cleared C-Spine: Yes Thorax: - Pain/Tenderness: None - Lacerations/Abrasions: None - Swelling/Ecchymosis: None - Air/Bony Crepitus: None Cardiopulmonary: - Irregularly irregular rhythm ar ound 85-90 bpm. No murmurs, rubs or gallops. - Breath sounds CTAB. No wheezes, rales, or rhonchi. - Symmetrical Chest Rise Abdomen - Pain/Tenderness: None - Lacerations/Abrasions: None - No abdominal distension - Abdominal rigidity/guarding: No ne - Bowel Sounds: Present, normal - Pelvis stable Back/Spine - Patient exhibits difficulty wit h rolling in bed, however, no lacerations or abrasions noted on the flanks bilaterally Extremities: - RUE: No deformity. No laceratio ns/abrasions. No swelling/ecchymosis. No pain/tenderness. Full active and passive range of motion. Baggage Porter strength, elbow flexion/extension, shoulder flexion/extension/abduction/adduction/external rotation/internal rotation intact with 5/5 strength. Sensation intact to soft touch without deficit. Radial pulse intact, unable to assess cap refill based on patient's fingernail fijian. - LUE: No deformity. No laceratio ns/abrasions. No swelling/ecchymosis. No pain/tenderness. Full active and passive range of motion. Decreased career resource technician strength at 3/5 when compared to the right. Elbow flexion/extension, shoulder flexion/extension/abduction/adduction/external rotation/internal rotation intact with 4/5 strength. Sensation intact to soft touch without deficit. Radial pulse intact, unable to assess cap refill based on patient's fingernail fijian. - LLE: No deformity. No laceratio ns/abrasions. No swelling/ecchymosis. No pain/tenderness. Full active and passive range of motion. Ankle dorsiflexion/plantarflexion with 3/5 strength. Patient reports she feels too w eak to perform hip flexion/extension or knee flexion/extension. Sensation intact to soft touch without deficit. PT pulse intact to palpation, unable to assess cap refill based on patient's toenail fijian. - RLE: Right lower extremity shor tened and externally rotated. No lacerations/abrasions. The right lentz is tender to palpation and erythematous. She exhibits the ability to plantar/dorsiflex at the ankles with 3/5 strength. Patient unable to perform hip flexion/extension. Patient unable to perform knee flexion/extension. She reports sensation is diminished in the right lower e xtremity when compared to the left. PT pulse intact to palpation, unable to assess cap refill based on patient's toenail fijian. Mental status Adequate for Full Exam: Yes C-Spine Cleared (Radiologically AND Clinically): Yes Results & Data Results & Data Vital Signs (Past 12 Hours) Vital Signs Temp Pulse Pulse Resp BP Pulse Ox O2 Del Method 06/21/25 05:26 101 H 112/75 92 Room Air 06/21/25 03:56 36.9 C 92 H 20 107/71 90 Room Air 06/21/25 00:00 85 06/20/25 22:22 36.4 C L 91 H 18 107/68 93 Room Air 06/20/25 20:46 93 H 20 110/64 92 Room Air PG Care Time/CCT Total # of Minutes Spent Total Time Spent with Patient: Total time spent is greater than 50% in coordination of care (as documented) at patient's floor/unit and/or counseling patient: Coding [place] [address] SUB INP/OBS CARE 3/50MIN Patient Type Established Medical Decision Making High Complexity Diagnoses Fracture of femoral neck, right, closed S72.001A Encounter type: initial encounter Fall W19.XXXA Metastatic melanoma C43.9 (1) Fracture of femoral neck, right, closed Encounter type: initial encounter Qualified Code(s): S72.001A - Fracture of unspecified part of neck of right femur, initial encounter for closed fracture"
[2025-06-21 09:56] LABS: Anion Gap 9.0 (3-11); Blood Urea Nitrogen 28.0 mg/dl (6-23); Calcium 9.3 mg/dl (8.6-10.3); Carbon Dioxide 26.0 mmol/L (21-32); Chloride 103.0 mmol/L (98-107); Creatinine Clr Calc Pharmacy 33.8 ml/min; Glucose 122.0 mg/dl (70-99(Fasting)); Potassium 4.8 mmol/L (3.5-5.1); Sodium 138.0 mmol/L (136-145)
--- NOTE | 2025-06-21 10:17 | Orthopedic Progress Note ---
Date of Service June 21, 2025 Assessment & Plan (1) Fracture of femoral neck, right, closed: Plan: Right transcervical femoral neck fracture, likely secondary to osteoporosis, possibly also secondary to metastatic disease -I do not see obvious metastatic disease on her x-ray images. I have reviewed the report from the PET scan dated 05/16/2025 which notes multiple lesions in the bone primarily in the left acromion, left femur, left humeral head, left psoas. There is no mention of any right hip or femur lesions. - Medically, this patient is at increased risk for complications in my opinion. She is frail, she has diffuse metastatic disease throughout her body. I do think that for palliative reasons she could benefit from surgical treatment for pain control, mobility and comfort. I am concerned however that there is a possibility she would not survive surgery. I discussed with her this morning that she can possibly benefit from more palliative type care without surgery. I have discussed non operative options with the patient and her family yesterday and again with the patient today, the patient and family do not feel ready to accept non surgical treatment and the associated risks and care involved. -We have discussed the risk of 1 year mortality of about 25%, we discussed the recovery process can be extensive and that she will likely have trouble with overall recovery given the degree of metastatic disease she has. -I expressed with the family the nature of the injury, possibility for a right hip hemiarthroplasty to be performed on 06/21/2025. I do have concerns about this patient surviving surgery. I have discussed this with anesthesia, they feel that she is at increased risk but it is acceptable. I do have some hesitance to proceed with a right hip hemiarthroplasty, especially with potential to use a cemented prosthesis. -Due to my concerns regarding her potential for a positive outcome, I have asked Momo Brown MD to provide a second opinion to the family regarding her injury and treatment options. He has agreed to see the patient, please see his separate note as appropriate. - Will tentatively continue to plan for a right hip cemented hemiarthroplasty on 06/21/2025. Recommend Multimodal pain control, ice hip PRN Bedrest, non-weightbearing to affected lower extremity until after surgery NPO and hold any anticoagulation for procedure. She has not taken Eliquis since 06/19/2025. Perioperative antibiotics have been ordered. Will not order TXA given recent DVT Admission and Anticipated Discharge Date Admission Date: June 20, 2025 Subjective Patient was seen and evaluated at bedside this morning. She is resting comfortably. Her pain is well-controlled as long as she does not move her right lower extremity. She denies chest pain or shortness of breath. We discussed that I did hear back from her oncologist Dr. Bonner last night, he did recommend that she be transferred. I had discussed this with her last night and he stated that he did not want her to be transferred to a tertiary care facility and would like her to receive care here. I discussed with the patient this morning these recommendations, she states that she feels comfortable staying here in this hospital for care and has excepted that she is at high risk for having mortality related to this injury and/or the surgery. Physical Exam Physical Exam: General: Patient is awake, alert, in no acute distress. She is resting comfortably in bed. Her pain is well-controlled. She is afebrile she is tachycardic at 103 bpm otherwise vital signs stable. MSK: Right lower Extremity: Skin is clean and intact, no evidence of open fracture. No wounds, lacerations, or abrasions are present. Continues to have tenderness to palpation about the lateral right hip No tenderness to palpation about the right knee, ankle, or foot Sensation is intact to light touch in the L4-S1 dermatomes. EHL/FHL/GS/TA grossly motor intact DP/PT pulses faintly palpable Compartments soft & compressible. Pain with log roll and PROM Results & Data Vital Signs (Past 12 Hours) Vital Signs Temp Pulse Pulse Resp BP Pulse Ox O2 Del Method 06/21/25 09:12 103 H 06/21/25 08:42 37.0 C 90 18 114/76 90 Room Air 06/21/25 05:26 101 H 112/75 92 Room Air 06/21/25 03:56 36.9 C 92 H 20 107/71 90 Room Air 06/21/25 00:00 85 06/20/25 22:22 36.4 C L 91 H 18 107/68 93 Room Air (1) Fracture of femoral neck, right, closed Encounter type: initial encounter Qualified Code(s): S72.001A - Fracture of unspecified part of neck of right femur, initial encounter for closed fracture
--- NOTE | 2025-06-21 11:04 | Orthopedic Consultation ---
Date of Consultation June 21, 2025 Assessment & Plan (1) Fracture of femoral neck, right, closed: I had a long discussion with the patient and her . I agree with Dr. Jewell that she is a high risk surgical candidate. However it is reasonable to proceed with the surgery to allow her to possibly regain the ability to walk and for pain control. Patient and her understand the risks of surgery. They elected proceed with surgery. I told them that I am in the operating room today and I am happy to help out given that Dr. Jewell has a full OR schedule today. They are in agreement with me performing the surgery. I signed her surgical site and obtain informed consent from the patient. She has been n.p.o. since midnight. Proceed to the operating room today. Readmit to the hospitalist service after surgery. Will need tight glucose control and nutritional supplementation to help her wound heal. Plan to resume Eliquis tomorrow for DVT prophylaxis. History of Present Illness Attending Physician: Nigel Rice MD History of Present Illness I was asked by my partner to provide a second opinion on the patient regarding her right femoral neck fracture. She has metastatic malignant melanoma on chemotherapy and radiation. She fell yesterday at home onto her right hip. Unable to walk afterwards. At baseline she does walk with a walker. There was some discussion yesterday about transferring her to a tertiary care facility however family preference was to stay here. Patient was seen and examined at the bedside with her . She says she is getting some pain in her calf in addition to her right hip. She cannot tell if her back hurts or not. Denies any previous hip pain. She does normally take Eliquis but did not take her dose yesterday. 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 Allergies Allergy/AdvReac Type Severity Reaction Status Date / Time No Known Drug Allergies Allergy Verified 05/24/25 13:22 Home Medications Medication Instructions Recorded Confirmed Type cholecalciferol (vitamin D3) 50 50 mcg PO DAILY 10/14/22 05/24/25 History mcg (2,000 unit) capsule blood sugar diagnostic (Accu-Chek #100 ea 04/03/24 04/12/25 Rx Guide test strips) bisoprolol fumarate 5 mg tablet 5 mg PO QAM #90 tabs 06/21/24 05/24/25 Rx pen needle, diabetic 32 gauge x #100 ea 06/28/24 04/12/25 Rx 5/32" (BD Shante 2nd Gen Pen Needle) allopurinol 100 mg tablet 100 mg PO QAM 12/07/24 05/24/25 History vitamin C 45 mg-zinc citrate 4 1 tab PO BID 12/07/24 05/24/25 History mg-elderberry 50 mg chewable tablet (Sevence) insulin glargine 100 unit/mL (3 25 unit (0.25 mL) subcut QDL #15 mL 01/11/25 05/24/25 Rx mL) subcutaneous pen (Lantus Solostar U-100 Insulin) potassium chloride 10 mEq 10 meq PO DAILY #30 caps 04/03/25 05/24/25 Rx capsule,extended release acetaminophen 300 mg-codeine 30 mg 1 tab PO Q4H PRN 04/05/25 05/24/25 History tablet apixaban 2.5 mg tablet (Eliquis) 2.5 mg PO BID 05/24/25 History bumetanide 1 mg tablet 1 mg PO DAILY 05/24/25 History celecoxib 200 mg capsule (Celebrex) 200 mg PO BID 05/24/25 05/24/25 History colchicine 0.6 mg tablet 0.6 mg PO .QOD 05/24/25 History Patient History Medical History Fractured sternum Encounter for pre-operative examination Hospice care patient [facility] for esophageal ca Hematuria reason for upcoming procedure Cramping of hands fingers per pt Neuropathy hands / feet Balance disorder Stage 3b chronic kidney disease follows with Dr. Ramirez Scoliosis Renal mass reason for upcoming procedure Diabetes mellitus, type 2 HTN (hypertension) History of esophageal cancer diagnosed 2019--chemo/radiation in [place] > 2023 reoccurance, had 4-5 d oses of immunotherapy > pt on hospice group ([facility]) Cardiomyopathy Gout DVT (deep venous thrombosis) LLE > dx early 2024 > Eliquis > (had been on Eliquis for Afib in the past, but had stopped it approx 6 mos or more, then resumed due to DVT) Atrial fibrillation dx approx 2018 > no pacer > Eliquis History of TIA (transient ischemic attack) prior to 2019 pt thinks, pt thinks it was related to ocular migraines Hx of bronchitis no recent issues Rotator cuff (capsule) sprain no sx > healed on own Verruca vulgaris Osteoarthritis On anticoagulant therapy eliquis daily Ocular migraine gets aura, gets several x per week in AM Diabetes mellitus IDDM Surgical History H/O transurethral resection of bladder tumor (TURBT) 12/15/24 History of tooth extraction Hx of melanoma excision Left shoulder - wide excision 01/14/25 History of colonoscopy History of total left knee replacement (TKR) History of esophagogastroduodenoscopy (EGD) History of root canal procedure History of bilateral cataract extraction Family History Mother Diabetes Sister Diabetes Father Myocardial infarction Other Family history non-contributory No family history of adverse response to anesthesia Denies family history of Ovarian cancer Prostate cancer Breast cancer Colorectal cancer Social History Smoking Status: Former smoker Tobacco Type: Cigarettes Age Started Using Tobacco: 17; Age Quit Using Tobacco: 34; packs per day: 1.5; Second Hand Exposure: No; Do You Dip or Chew Tobacco: No; Hx Alcohol Use: Yes Alcohol type: other Alcohol Intake Frequency: 2-4 x/Month Hx Substance Use: No Preferred Language: Montserratian Communication Ability: Effective Visual Impairment: No Limitations Hearing Ability: Normal Field Service Supervisor Required: No Beliefs That Will Affect Care: None marital status: Current Living Situation: Spouse current occupational status: retired How many Children do You have: 6 Feels Safe at Home: Yes Safety Concerns: Feels Safe At This Time Diet: regular caffeine: Yes during the past year weight has: increased > 10 lbs Dental Care, Regularly: No Physical Activity Frequency: Does not Exercise Seatbelt Use: always Sunscreen Use: Yes Assistive Devices: Denture - Upper, Glasses and Hearing Aid - Bilateral Physical Exam Physical Exam: She is sitting in bed, appears comfortable and in no acute distress. Alert and oriented x 3. She is morbidly obese with a body mass index of 35. Right leg exam shows the patient have lymphedema changes in the lower leg above her ankle. Toes are warm and well-perfused. Palpable dorsalis pedis and posterior tibial pulses. Range of motion exam deferred secondary to the fracture. Skin is intact over the lateral hip. Results & Data Vital Signs (Past 12 Hours) Vital Signs Temp Pulse Pulse Resp BP Pulse Ox O2 Del Method 06/21/25 09:12 103 H 06/21/25 08:42 37.0 C 90 18 114/76 90 Room Air 06/21/25 05:26 101 H 112/75 92 Room Air 06/21/25 03:56 36.9 C 92 H 20 107/71 90 Room Air 06/21/25 00:00 85 (1) Fracture of femoral neck, right, closed Encounter type: initial encounter Qualified Code(s): S72.001A - Fracture of unspecified part of neck of right femur, initial encounter for closed fracture
[2025-06-21] MEDS ORDERED: PROPOFOL IV EMULSION 10 MG/ML 20 ML VIAL IV ONE (11:53)
[2025-06-21] MEDS ORDERED: LIDOCAINE 2% 2 ML VIAL/AMP(20MG/ML) INFIL ONE (11:53)
[2025-06-21] MEDS ORDERED: KETAMINE HCL 10MG/ML SYR ONE (11:53)
[2025-06-21] MEDS ORDERED: ATROPINE SULFATE 0.1 MG/ML 10ML SYR IV PRN (13:25)
[2025-06-21] MEDS ORDERED: ONDANSETRON INJ 2 MG/ML 2 ML VIAL IV PRN ×2 (13:27→15:40)
[2025-06-21] MEDS ORDERED: HYDROmorphone INJ 1 MG/ML SYRINGE IV PRN (13:27)
[2025-06-21] MEDS ORDERED: PROMETHAZINE HCL 6.25 MG in SODIUM CHLORIDE 0.9% 50 ML IV PRN (13:27)
[2025-06-21] MEDS ORDERED: TRANEXAMIC ACID / 0.7% NACL 1000MG/100ML BAG IV ONE ×2 (14:06→14:09)
[2025-06-21] MEDS: TRANEXAMIC ACID 100 MG/ML 10 ML VIAL IV ONE (14:08)
[2025-06-21] MEDS ORDERED: PHENYLEPHRINE 100MCG/ML 5ML SYR ONE ×2 (14:46→14:47)
[2025-06-21] MEDS ORDERED: ePHEDrine sulfate 50 MG/5 ML SYR ONE (14:47)
[2025-06-21] MEDS ORDERED: ONDANSETRON INJ 2 MG/ML 2 ML VIAL ONE (14:47)
[2025-06-21] MEDS: TRANEXAMIC ACID / 0.7% NACL 1000MG/100ML BAG IV ONE (14:59)
[2025-06-21] MEDS: ROPIVACAINE 0.5% HCL/PF 246 MG, Ketorolac (*for OR use only*) 30 MG, EPINEPHrine 30MG/3... INFIL SCH (15:00)
[2025-06-21] MEDS ORDERED: ceFAZolin 330 MG/ML 1 GM VIAL ONE (15:15)
--- NOTE | 2025-06-21 15:28 | Operative Report ---
Post Operative Report Pre & Post Diagnosis Operation Date: 06/21/25 08:20 Preoperative diagnosis: Displaced right femoral neck fracture Postoperative diagnosis: Displaced right femoral neck fracture I identified the patient and participated in the time-out.: Yes Procedure Operation Date: 06/21/25 08:20 Right hip cemented hemiarthroplasty Surgeon Momo Brown MD [employer] BETHANIE Box PA-C. No resident or fellow was available to assist. Estimated Blood Loss 100 Findings Consistent with Post-Op Diagnosis Specimens Right femoral head Anesthesia Type General Complications none Disposition Disposition: Recovery Room Indications 89-year-old female, medical history significant for metastatic malignant melanoma on chemotherapy and radiation, atrial fibrillation on Eliquis, DVT, cardiomyopathy, and other medical comorbidities. Fell at home yesterday. Severe right hip pain and inability to ambulate. Was brought to the emergency room where x-rays demonstrated displaced right femoral neck fracture. There was discussion about transferring her to a tertiary Medical Center because of her multiple medical comorbidities, however the family decided they would like to stay here. My partner Dr. Jewell saw her yesterday and this morning. He asked for me to provide another opinion. I spoke with the patient and her about her diagnosis and treatment options. Discussed the risks and benefits of surgery, alternatives to surgery, and expected outcomes. After reviewing all of her options she elected to proceed with surgery. All questions were answered. Informed consent was signed. Description of Procedure Patient was identified in the preoperative holding area where her surgical site was marked. She was brought back to the operating room where general anesthesia was administered on the hospital bed. She was then carefully moved onto the operating room table and turned up in the lateral decubitus position. Axillary roll was placed. All bony prominences were padded. Perioperative antibiotics and 1 g of IV tranexamic acid were administered. She was prepped and draped in usual sterile fashion. Prior to incision a multidisciplinary timeout was called. All in the room in agreement. I began by making a 12 cm long incision for a posterior approach to the hip. I dissected all the subcutaneous tissues to level the fascia. Subcu tissues were elevated off the fascia to facilitate closure at the end of the case. The fascia was then incised in line with the incision. Charnley bow was placed. Fatty tissue was swept off of the piriformis short external rotators and quadratus femoris. An L-shaped capsulotomy was then made to include the piriformis short external region rotators and posterior capsule. The leg was internally rotated to expose the fractured femoral neck. Angle cutting guide was used to liz out the appropriate place for femoral neck osteotomy. A saw was used to make this. Acetabulum was then exposed. A corkscrew was used to remove the femoral head. Ligamentum teres was removed with electrocautery. I irrigated out the acetabulum. Cartilage was intact. A size 48 trial was placed. This gave us a nice suction fit. Trial was removed and we turned our attention toward the femur. Box osteotome was used to remove the lateral neck. Intramedullary guide was used followed by the lateralizing reamer. I broached up to a size 4. We used a standard offset with a +5 head and reduced the hip. This reproduced her leg lengths which were symmetric, she was stable in extension and external rotation, stable in the sleeper position, at 90 degrees hip flexion she could be internally rotated approximately 65 degrees before levering out of the cup which I was happy with. Femoral trial was then removed. Cement restrictor was placed distally. I irrigated and dried the femoral canal while the cement was mixed on the back table. Cement was then injected into the femoral canal and pressurized with my thumbs. I then inserted the femoral prosthesis and removed excess cement. The femur was held in approximately 20 degrees of anteversion while the cement cured. The bipolar head was assembled on the back table. Once cement was dried I then tapped the bipolar head onto the trunnion and atraumatically reduced the hip. At this point the wound was irrigated with copious amounts normal saline. Periarticular injection cocktail was used for postoperative pain control. Piriformis and short external rotators were repaired through bone tunnels using #2 Vicryl. Fascia was run with a looped #1 PDS. Subcutaneous layer was closed with running O PDS suture in 2 layers. Skin was closed with 3-0 Vicryl in the deep dermis. Zipline and Dermabond was used for the skin followed by a Silverlon dressing and a compressive dressing. Patient was then carefully calvin d supine, extubated, and transferred to the cover room in stable condition. Postoperative course: Patient will be readmitted to the hospital under the hospitalist service. She will be weightbearing as tolerated with max assist and fall precautions with a walker. Posterior hip precautions. Resume Eliquis tomorrow for DVT prophylaxis. Chemotherapy is going to need to be delayed for 6 weeks to allow her wound to heal. I attest to the content of the Intraoperative Record and any orders documented therein. Any exceptions are noted below.
--- NOTE | 2025-06-21 15:36 | Operative Report ---
Post Operative Report Pre & Post Diagnosis Operation Date: 06/21/25 08:20 Pre-Op Diagnosis: Closed Fracture of Right femoral neck Post-Op Diagnosis: Closed Fracture of Right femoral neck I identified the patient and participated in the time-out.: Yes Procedure Operation Date: 06/21/25 08:20 Actual Procedures p Right Hip Hemiarthroplasty(Right) - Momo Brown MD Surgeon Momo Brown MD [employer] BETHANIE Box PA-C. No resident or fellow was available to assist. Estimated Blood Loss 100 Findings Consistent with Post-Op Diagnosis Specimens femoral head Description of Procedure I was present during the entire case assisting with positioning, prepping, draping, wound retraction, wound closure, dressing and abduction pillow p lacement. No fellow present. Please see Dr. Brown operative note for specifics of the case. I attest to the content of the Intraoperative Record and any orders documented therein. Any exceptions are noted below.
[2025-06-21] MEDS: METOPROLOL TARTRATE 1 MG/ML VIAL IV STA (15:37)
[2025-06-21] MEDS ORDERED: NALOXONE HCL 0.4 MG/1 ML VIAL/CARP IV PRN (15:40)
[2025-06-21] MEDS ORDERED: METOCLOPRAMIDE HCL INJ 5 MG/ML 2 ML VIAL IV PRN (15:40)
[2025-06-21] MEDS ORDERED: diphenhydrAMINE 50 MG/ML VIAL IV PRN (15:40)
[2025-06-21] MEDS ORDERED: MAGNESIUM HYDROXIDE SUSP 30 ML UDC PO PRN (15:40)
[2025-06-21] MEDS ORDERED: PHARMACY GLYCEMIC MGMT CONSULT PRN (15:40)
[2025-06-21] MEDS ORDERED: ALUMINUM/MAGNESIUM SUSP 30 ML UDC PO PRN (15:40)
--- NOTE | 2025-06-21 16:25 | Anesthesiology Progress Note ---
Date of Service June 21, 2025 Anesthesia Post Procedure Vital Signs Vital Signs: Temp Pulse Pulse Pulse Resp BP BP 06/21/25 16:20 98 H 13 06/21/25 16:10 108 H 16 06/21/25 16:00 36.5 C 92 H 15 06/21/25 15:50 105 H 13 06/21/25 15:40 103 H 14 06/21/25 15:37 155 H 117/95 06/21/25 15:33 36.3 C L 145 H 14 06/21/25 12:26 36.8 C 98 H 20 104/64 06/21/25 12:06 36.7 C 95 H 18 134/83 06/21/25 09:12 103 H 06/21/25 08:42 37.0 C 90 18 114/76 06/21/25 05:26 101 H 112/75 06/21/25 03:56 36.9 C 92 H 20 107/71 06/21/25 00:00 85 06/20/25 22:22 36.4 C L 91 H 18 107/68 06/20/25 20:46 93 H 20 110/64 06/20/25 20:00 89 18 121/65 06/20/25 19:00 85 20 99/76 L 06/20/25 18:44 98 H 16 135/76 06/20/25 17:49 83 06/20/25 17:44 95 H 16 156/79 H 06/20/25 17:00 87 16 124/86 06/20/25 16:44 87 16 124/86 BP Pulse Ox O2 Del Method O2 Flow Rate 06/21/25 16:20 127/71 96 Nasal Cannula 2 06/21/25 16:10 115/62 96 Nasal Cannula 2 06/21/25 16:00 124/63 98 Nasal Cannula 2 06/21/25 15:50 103/84 98 Oxymask 4 06/21/25 15:40 122/77 97 Oxymask 7 06/21/25 15:37 06/21/25 15:33 117/95 97 Oxymask 7 06/21/25 12:26 90 Room Air 06/21/25 12:06 94 Room Air 06/21/25 09:12 06/21/25 08:42 90 Room Air 06/21/25 05:26 92 Room Air 06/21/25 03:56 90 Room Air 06/21/25 00:00 06/20/25 22:22 93 Room Air 06/20/25 20:46 92 Room Air 06/20/25 20:00 92 Room Air 06/20/25 19:00 93 Room Air 06/20/25 18:44 94 Room Air 06/20/25 17:49 06/20/25 17:44 98 Room Air 06/20/25 17:00 94 Room Air 06/20/25 16:44 94 Room Air Pain Intensity Right Hip: Pain Intensity: 2 Transfer of Care Handoff Completed per policy Notes Mental Status: alert / awake / arousable and participated in evaluation Patient Amnestic to Procedure: Yes Nausea / Vomiting: adequately controlled Pain: adequately controlled Airway Patency, RR, SpO2: stable & adequate BP & HR: stable & adequate Hydration State: stable & adequate Anesthetic Complications: no major complications apparent and Pt Satisfied with anesthetic care
--- NOTE | 2025-06-21 16:45 | XRay Report ---
EXAMINATION: X-ray tibia-fibula right 2 view CLINICAL HISTORY: Right lower extremity pain, status post fall PRIORS: None TECHNIQUE: Frontal and lateral view leg FINDINGS: Mild osseous demineralization noted. Advanced degenerative change of the knee medial and lateral compartments in the [id number]. Note tibia fibula displaced fracture. No cortical destruction or periosteal reaction. Moderate diffuse edema present throughout the entire leg. Vascular calcifications noted. IMPRESSION: No plain film evidence of an acute osseous abnormality. Electronically signed by Светлана Edgar 06-21-2025 4:44 PM
--- NOTE | 2025-06-21 16:45 | XRay Report ---
EXAMINATION: X-ray ankle right 2 view CLINICAL HISTORY: Fall, pain PRIORS: None TECHNIQUE: Frontal and lateral moderate osseous demineralization noted. FINDINGS: Bone stock and alignment maintained. Ankle mortise preserved. Allowing for positioning, no acute fracture or dislocation. No ankle joint effusion. Mild diffuse degenerative change of the ankle noted. Diffuse subcutaneous edema noted throughout the [id number]. IMPRESSION: No plain film evidence of an acute osseous abnormality. Electronically signed by Светлана Edgar 06-21-2025 4:44 PM
[2025-06-21] MEDS ORDERED: METOPROLOL TARTRATE 1 MG/ML VIAL IV PRN (16:46)
--- NOTE | 2025-06-21 16:46 | XRay Report ---
EXAMINATION: X-ray hip 1 view right with pelvis CLINICAL HISTORY: Fall, PRIORS: None TECHNIQUE: AP view pelvis and crosstable lateral view right hip. FINDINGS: Large body habitus greatly diminishes image quality. Crosstable lateral view is extremely limited due to body habitus. Allowing for this, a right total hip arthroplasty is present with no displaced fracture or dislocation. Obturator ring and pubic symphysis are unremarkable. No displaced fracture of the 1 view of the left hip. IMPRESSION: No plain film evidence of an acute osseous abnormality. Electronically signed by Светлана Edgar 06-21-2025 4:46 PM
[2025-06-21] MEDS: COLCHICINE 0.6 MG TAB PO SCH (17:29)
[2025-06-21] MEDS: METOPROLOL TARTRATE 1 MG/ML VIAL IV ONE (17:29)
[2025-06-21] MEDS: SODIUM CHLORIDE 0.9% 1,000 ML IV SCH (17:45)
[2025-06-21] MEDS: ONDANSETRON INJ 2 MG/ML 2 ML VIAL IV STA (17:46)
[2025-06-21] MEDS: KETOROLAC TROMETHAMINE 15 MG/ML VIAL IV SCH (17:49)
[2025-06-21] MEDS: APIXABAN 2.5 MG TAB PO SCH (20:21)
[2025-06-21] MEDS: DOCUSATE SODIUM 100 MG CAP PO SCH ×2 (20:22→20:26)
[2025-06-21] MEDS: SENNA 8.6 MG TAB PO SCH (20:26)
[2025-06-21] MEDS ORDERED: LANTUS PER UNIT CHARGE SQ SCH (21:00)
[2025-06-21] MEDS ORDERED: CeleBREX 200 MG CAP PO SCH (21:00)
[2025-06-21] MEDS: ACETAMINOPHEN 500 MG TAB PO SCH (21:55)
[2025-06-21] MEDS: LANTUS PER UNIT CHARGE SC ONE (21:56)
[2025-06-21] MEDS: LANTUS PER UNIT CHARGE SQ SCH (23:19)
[2025-06-22 06:53] LABS: Anion Gap 7.0 (3-11); Blood Urea Nitrogen 33.0 mg/dl (6-23); Carbon Dioxide 26.0 mmol/L (21-32); Chloride 104.0 mmol/L (98-107); Potassium 5.2 mmol/L (3.5-5.1); Sodium 137.0 mmol/L (136-145)
[2025-06-22 06:54] LABS: Calcium 8.8 mg/dl (8.6-10.3); Creatinine Clr Calc Pharmacy 26.8 ml/min; Glucose 123.0 mg/dl (70-99(Fasting))
[2025-06-22 07:41] LABS: Hematocrit (blood only) 27.6 % (37.0-47.0); Hemoglobin 8.9 g/dl (12.0-16.0); Immature Granulocytes # (auto) 0.07 K/uL (0.01-0.20); Immature Granulocytes % (auto) 0.7 %; Mean Corpuscular Hemoglobin 29.7 pg (25.0-34.0); Mean Corpuscular Volume 92.0 fL (80.0-100.0); Platelet Count 248 K/uL (130-400); RDW Standard Deviation 48.4 fL (36.4-46.3); Red Blood Count 3.00 M/uL (4.20-5.40); White Blood Count 10.43 K/ul (4.8-10.8)
--- NOTE | 2025-06-22 08:33 | Hospitalist Progress Note ---
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 She is currently undergoing palliative radiation therapy and chemotherapy. Patient was closing her car trunk 06/20 when she fell on her right side resulting in a right femoral neck fracture. She is being admitted to undergo surgical management 06/21. #Right femoral neck fracture/fall/trauma alert S/p ground-level fall, - HS or LOC Hip/pelvis XR showed acute fracture of right femoral neck Neurovascularly and hemodynamically intact at time of admission Additional XR imaging of the right ankle/tibia/fibia revealed no acute abnormalities Orthopedic surgery consult appreciated Underwent right hip hemiarthroplasty with Dr. Brown on 06/21 Continue Daily Azevedo catheter care IVF with LR at 80 mL/hour x 2 L IV Tylenol prn and Morphine 2/4 for breakthrough pain; avoid Toradol with CKD Zofran PRN Incentive spirometry Sacral wound precautions Bowel regimen: MiraLAX as needed, magnesium hydroxide as needed, Colace twice daily Will likely need PT/OT evals prior to discharge; defer on admission until after surgical management #Acute blood loss anemia Hb trend 10.5 -> 9.7 -> 8.9 Expected drop perioperatively Clinically, no signs of active bleeding on physical exam Trend H&H #CKDcreatinine baseline ~1.12 Creatinine mildly bumped at 1.57 on 06/22 (continue to monitor) Avoid nephrotoxic agents where possible #Metastatic melanoma with mets to bladder and bone On current chemotherapy every 28 days and palliative RT #A-fib with RVR | history of DVT Held Eliquis with surgical management Held bisoprolol preoperatively Per PACU nursing staff, patient went into rapid rate of 140 to 150 bpm following her surgery, but this returned to a normal rhythm after metoprolol to tartrate 5 mg IV was administered Additional 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 BID #Cardiomyopathy Hold Bumex + K supp preoperatively #Type II DM Last A1c 9.4% on 10/05/2024 BSG q6h while NPO, then ACHS Lantus 13u BID SSI with goal range 110-140, CF 30 Adjust regimen as needed AM A1c #Gout Continue colchicine and allopurinol #Hyperkalemia Mild; K 5.2 on 06/22 Low potassium diet Continue to monitor with daily BMP VTE ppx: Eliquis 2.5 mg p.o. BID Dispo: Continued stay on PCU telemetry Admission and Anticipated Discharge Date Admission Date: June 20, 2025 Supervising Physician Co-Signing Physician Notes Attending Attestation: Chart reviewed, care plan d/w PA Judson Nair. I agree w/ the loza components of his documentation. Nigel Rice MD Subjective Mrs. Schaffer is feeling very fatigued on POD #1, but overall reports she is doing very well. She denies any pain in her right hip while she remains at rest. She also reports no pain in her left shoulder. 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 Patient did miss her last therapy session on Wednesday, but would prefer to skip it again today due to her extreme fatigue. She also endorses nausea, and has not been eating or drinking much since the surgery. ROS: Patient endorses generalized fatigue and nausea. Patient denies fever, chest pain, pleuritic CP, SOB, abdominal pain, vomiting, right hip pain, numbness and tingling going on the right leg, or left shoulder pain. Review of Systems Review of Systems: See HPI above Physical Exam Physical Exam: General: no acute distress; lethargic/somnolent; non-toxic appearing; cooperative; SpO2 98% on RA HEENT: normocephalic, atraumatic; PERRLA; vision and hearing intact Neck: supple; trachea midline; patient demonstrates ability to rotate neck bilaterally without unilateral deficits Skin: warm, dry without signs of tenting; no cyanosis; no rashes, bruising, lesions, or erythema noted CV: chest wall NTP; RRR; S1/S2 normal; no murmurs/rubs/gallops; pulses intact and symmetric at radial, DP, and PT Lungs: no acute respiratory distress; symmetrical chest wall expansion; clear breath sounds across all lung ruggiero w/o adventitious sounds; no wheezing ABD: Soft, NTP; BS present; no rebound/guarding; no distention MSK: no tics or fasciculations; no edema noted in the LEs b/l, nonerythematous LEs: Patient demonstrates ability to wiggle toes, plantar/dorsiflex bilaterally with 3/5 strength; patient can bend her right knee around 1015 degrees before this elicits pain; minimal difficulty with bending her left knee Neuro: A&Ox3; normal mood and affect; fluent speech; sensation intact and symmetric in the LEs b/l Results & Data Results & Data Vital Signs (Past 12 Hours) Vital Signs Temp Pulse Resp BP Pulse Ox O2 Del Method O2 Flow Rate 06/22/25 03:41 36.4 C L 90 18 91/59 L 98 Nasal Cannula 2.0 06/22/25 00:44 Room Air 2 06/21/25 23:20 36.5 C 97 H 18 91/58 L 91 Nasal Cannula 2.0 PG Care Time/CCT Total # of Minutes Spent Total Time Spent with Patient: Total time spent is greater than 50% in coordination of care (as documented) at patient's floor/unit and/or counseling patient: Coding Level of Care Code 52095 SUB INP/OBS CARE 3/50MIN Diagnoses Fracture of femoral neck, right, closed S72.001A Encounter type: initial encounter Fall W19.XXXA Metastatic melanoma C43.9 (1) Fracture of femoral neck, right, closed Encounter type: initial encounter Qualified Code(s): S72.001A - Fracture of unspecified part of neck of right femur, initial encounter for closed fracture"
[2025-06-22 08:37] LABS: Hemoglobin A1C 7.0 % (4.5-5.6)
[2025-06-22] MEDS: MULTIVITAMIN TAB PO SCH (08:48)
--- NOTE | 2025-06-22 10:13 | Orthopedic Progress Note ---
Date of Service June 22, 2025 Assessment & Plan (1) Status post hemiarthroplasty of right hip: Plan: PT/OT Ice with easy wrap Pain control with p.o. medication DVT prophylaxis with her Eliquis and SHAKIRA stockings Keep Silverlon dressing in place Abduction pillow use x 6 weeks Total hip precautions reviewed Weightbearing as tolerated with walker assistance Patient will most likely need to go to either a half-way facility or inpatient rehab upon discharge Patient will need a 2-week postoperative follow-up visit in our clinic. A message will be sent to teams for this. With questions contact our clinic at [phone] Admission and Anticipated Discharge Date Admission Date: June 20, 2025 Subjective This 89-year-old female who is day 1 status post cemented right hip hemiarthroplasty for right femoral neck fracture. Patient states she is doing very well this morning. She states that her pain is well-controlled with the pain medication she is receiving. She is currently sitting up in bed eating breakfast. Patient denies chest pain, shortness of breath, fever, chills, sweats, nausea, vomiting, diarrhea or numbness or tingling in her right lower extremity. She currently has a urinary catheter in place. Review of Systems Review of Systems: All systems reviewed & are unremarkable except as noted in Subjective Physical Exam Physical Exam: Right hip: Outer dressing is removed. Silverlon is clean dry and intact left in place. Patient is unable to perform active straight leg raise test. She is able to actively dorsi and plantarflex her foot. She tolerates passive hip flexion near 80 degrees and has no discomfort with light passive internal or external rotation. Logroll testing causes no discomfort. She is able to detect light sensation to touch over the pads of all digits. Her peripheral pulses are 2+. She is neurovascularly intact in the right lower extremity. Results & Data Vital Signs (Past 12 Hours) Vital Signs Temp Pulse Pulse Resp BP BP Pulse Ox 06/22/25 07:40 37.0 C 100 H 16 90/59 L 96 06/22/25 03:41 36.4 C L 90 18 91/59 L 98 06/22/25 00:44 06/21/25 23:20 36.5 C 97 H 18 91/58 L 91 O2 Del Method O2 Flow Rate 06/22/25 07:40 Nasal Cannula 2 06/22/25 03:41 Nasal Cannula 2.0 06/22/25 00:44 Room Air 2 06/21/25 23:20 Nasal Cannula 2.0 Diagnostic Findings Laboratory Results WBC 10.43 K/ul (4.8-10.8) 06/22/25 05:44 RBC 3.00 M/uL (4.20-5.40) L 06/22/25 05:44 Hgb 8.9 g/dl (12.0-16.0) L 06/22/25 05:44 Hct 27.6 % (37.0-47.0) L 06/22/25 05:44 MCV 92.0 fL (80.0-100.0) 06/22/25 05:44 MCH 29.7 pg (25.0-34.0) 06/22/25 05:44 MCHC 32.2 g/dL (32.0-36.0) 06/22/25 05:44 RDW Std Deviation 48.4 fL (36.4-46.3) H 06/22/25 05:44 RDW Coeff of Marlene 14.6 % (11.5-14.5) H 06/22/25 05:44 Plt Count 248 K/uL (130-400) 06/22/25 05:44 MPV 10.9 fL (9.4-12.4) 06/22/25 05:44 Immature Gran % (Auto) 0.7 % 06/22/25 05:44 Neut % (Auto) 80.7 % 06/22/25 05:44 Lymph % (Auto) 8.1 % 06/22/25 05:44 [facility] % (Auto) 9.1 % 06/22/25 05:44 Eos % (Auto) 1.1 % 06/22/25 05:44 Baso % (Auto) 0.3 % 06/22/25 05:44 Neut # (Auto) 8.43 K/uL (1.40-6.50) H 06/22/25 05:44 Lymph # (Auto) 0.84 K/uL (1.20-3.40) L 06/22/25 05:44 [facility] # (Auto) 0.95 K/uL (0.11-0.59) H 06/22/25 05:44 Eos # (Auto) 0.11 K/uL (0.00-0.50) 06/22/25 05:44 Baso # (Auto) 0.03 K/uL (0.00-0.20) 06/22/25 05:44 Immature Gran # (Auto) 0.07 K/uL (0.01-0.20) 06/22/25 05:44 PT 11.5 Seconds (9.0-12.0) 06/21/25 06:06 INR 1.1 (0.9-1.1) 06/21/25 06:06 APTT 30 Seconds (21-31) 06/21/25 06:06 PTT Ratio 1.1 06/21/25 06:06 Sodium 137 mmol/L (136-145) 06/22/25 05:44 Potassium 5.2 mmol/L (3.5-5.1) H 06/22/25 05:44 Chloride 104 mmol/L (98-107) 06/22/25 05:44 Carbon Dioxide 26 mmol/L (21-32) 06/22/25 05:44 Anion Gap 7 (3-11) 06/22/25 05:44 BUN 33 mg/dl (6-23) H 06/22/25 05:44 Creatinine 1.57 mg/dl (0.6-1.2) H D 06/22/25 05:44 Est Cr Clr Drug Dosing 26.8 ml/min 06/22/25 05:44 eGFR 31.34 06/22/25 05:44 BUN/Creatinine Ratio 21.0 (10-20) H 06/22/25 05:44 Glucose 123 mg/dl (70-99(Fasting)) H 06/22/25 05:44 POC Glucose 128 mg/dl (70-99) H 06/22/25 08:25 Estimat Average Glucose 154 mg/dl 06/22/25 05:44 Hemoglobin A1c 7.0 % (4.5-5.6) H 06/22/25 05:44 Calcium 8.8 mg/dl (8.6-10.3) 06/22/25 05:44 Total Bilirubin 0.6 mg/dl (0.2-1.0) 06/21/25 06:06 AST 22 U/L (13-39) 06/21/25 06:06 ALT 11 U/L (7-52) 06/21/25 06:06 Alkaline Phosphatase 135 U/L (34-104) H 06/21/25 06:06 Total Protein 5.3 gm/dl (6.0-8.3) L 06/21/25 06:06 Albumin 2.8 gm/dl (3.4-5.0) L 06/21/25 06:06 Globulin 2.5 gm/dl (2.5-4.0) 06/21/25 06:06 Albumin/Globulin Ratio 1.1 (0.9-2) 06/21/25 06:06 Urine Color Yellow 06/20/25 20:42 Urine Appearance Clear (Clear) 06/20/25 20:42 Urine pH 7.0 (4.5-7.5) 06/20/25 20:42 Ur Specific [place] 1.016 (1.000-1.030) 06/20/25 20:42 Urine Protein Trace (Negative) H 06/20/25 20:42 Urine Glucose (UA) Negative (Negative) 06/20/25 20:42 Urine Ketones 1+ (Negative) H 06/20/25 20:42 Urine Blood Negative (Negative) 06/20/25 20:42 Urine Nitrite Negative (Negative) 06/20/25 20:42 Urine Bilirubin Negative (Negative) 06/20/25 20:42 Urine Urobilinogen Negative (Negative) 06/20/25 20:42 Ur Leukocyte Esterase Trace (Negative) H 06/20/25 20:42 Urine WBC (Auto) 0-5 /hpf (0-5) 06/20/25 20:42 Urine RBC (Auto) 0-2 /hpf (0-2) 06/20/25 20:42 U Hyaline Cast (Auto) 0-2 /lpf (0-2) 06/20/25 20:42 U Epithel Cells (Auto) 0-2 /hpf (0-2) 06/20/25 20:42 Urine Bacteria (Auto) None Seen (None Seen) 06/20/25 20:42 Urine Comment 06/20/25 20:42 Blood Type O Positive 06/21/25 06:06 Antibody Screen NEGATIVE 06/21/25 06:06 Impressions Chest X-Ray 06/20/25 19:58 Exam(s): XR CXR 1 VIEW EXAM: XR Chest, 1 View CLINICAL HISTORY: Reason for exam: trauma, pre-op. TECHNIQUE: Frontal view of the chest. COMPARISON: 10/05/2024. FINDINGS: There is a poor inspiratory effort. Lungs: No consolidation. Pleural space: No pleural effusion is seen. No pneumothorax. Heart: Heart is top normal in size.. 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 Bones/joints: There is a scoliosis the spine with degenerative changes.. IMPRESSION: No acute pulmonary disease. Electronically signed by: Steven Taylor MD 06/20/25 23:11 PM Femur X-Ray 06/20/25 20:01 Exam(s): XR RIGHT FEMUR, 2 views EXAM: XR Right Femur, 2 Views CLINICAL HISTORY: Reason for exam: Preoperative planning. TECHNIQUE: Frontal and lateral views of the right femur. COMPARISON: No relevant prior studies available. FINDINGS: Bones/joints: There is a fracture of the right femoral neck.. No dislocation. There are hypertrophic degenerative changes. Soft tissues: Vascular calcifications are seen.. IMPRESSION: There is a fracture of the right femoral neck. Hypertrophic degenerative changes. Electronically signed by: Steven Taylor MD 06/20/25 23:10 PM Ankle X-Ray 06/21/25 14:41 EXAMINATION: X-ray ankle right 2 view CLINICAL HISTORY: Fall, pain PRIORS: None TECHNIQUE: Frontal and lateral moderate osseous demineralization noted. FINDINGS: Bone stock and alignment maintained. Ankle mortise preserved. Allowing for positioning, no acute fracture or dislocation. No ankle joint effusion. Mild diffuse degenerative change of the ankle noted. Diffuse subcutaneous edema noted throughout the [id number]. IMPRESSION: No plain film evidence of an acute osseous abnormality. Electronically signed by Светлана Edgar 06-21-2025 4:44 PM Tibia/Fibula X-Ray 06/21/25 14:41 EXAMINATION: X-ray tibia-fibula right 2 view CLINICAL HISTORY: Right lower extremity pain, status post fall PRIORS: None TECHNIQUE: Frontal and lateral view leg FINDINGS: Mild osseous demineralization noted. Advanced degenerative change of the knee medial and lateral compartments in the [id number]. Note tibia fibula displaced fracture. No cortical destruction or periosteal reaction. Moderate diffuse edema present throughout the entire leg. Vascular calcifications noted. IMPRESSION: No plain film evidence of an acute osseous abnormality. Electronically signed by Светлана Edgar 06-21-2025 4:44 PM Hip/Pelvis X-Ray 06/21/25 15:40 EXAMINATION: X-ray hip 1 view right with pelvis CLINICAL HISTORY: Fall, PRIORS: None TECHNIQUE: AP view pelvis and crosstable lateral view right hip. FINDINGS: Large body habitus greatly diminishes image quality. Crosstable lateral view is extremely limited due to body habitus. Allowing for this, a right total hip arthroplasty is present with no displaced fracture or dislocation. Obturator ring and pubic symphysis are unremarkable. No displaced fracture of the 1 view of the left hip. IMPRESSION: No plain film evidence of an acute osseous abnormality. Electronically signed by Светлана Edgar 06-21-2025 4:46 PM
[2025-06-22] MEDS: ONDANSETRON INJ 2 MG/ML 2 ML VIAL IV PRN (10:45)
--- NOTE | 2025-06-22 14:06 | Pharmacy Report ---
Pharmacy Glycemic Short Note 2 - Date of Service June 22, 2025 - Glycemic Short BSG Results (Last 24 hours): 06/21/25 06/21/25 06/22/25 15:37 20:26 00:13 Glucose POC Glucose 124 H 178 H 157 H 06/22/25 06/22/25 06/22/25 05:36 05:44 08:25 Glucose 123 H POC Glucose 135 H 128 H 06/22/25 12:18 Glucose POC Glucose 135 H OUTPATIENT ANTIDIABETIC REGIMEN: * Lantus 25 units SQ daily at lunch HbA1c: 7% on 06/22/25 ASSESSMENT: * Richelle is an 89 year old female who was admitted 06/20 for a right femoral neck fracture s/p ground-level fall. Surgical management completed 06/21. Pharmacy was consulted for glycemic management postop. * BSG was in the goal range until HS last evening. At that time BSG was 178mg/dL. Lantus 8 units SQ x 1 was ordered at that time and a weight based bolus insulin regimen with a stress of ~2 was started. * Fasting BSG was in goal range this morning. A Lantus scale (0,5,or 10 units depending on BSG) was added for HS and the bolus insulin regimen will be continued without change. PLAN FOR INPATIENT GLYCEMIC CONTROL: * Hold outpatient diabetes medications * Basal insulin * Lantus 8 units SQ x 1 postop last evening, then Lantus scale (0, 5, or 10 units depending on BSG) at HS * Bolus insulin * NovoLog per scale ACHS or Q6hrs while NPO * Goal Range: Low 110 mg/dL - High 140 mg/dL * Correction Factor: 30 mg/dL/unit * Nutritional / Prandial insulin per carb ratio of 1 unit per 8 grams CHO consumed
[2025-06-22] MEDS: LANTUS PER UNIT CHARGE SC SCH (20:46)
[2025-06-23 05:57] LABS: Hematocrit (blood only) 25.8 % (37.0-47.0); Hemoglobin 8.7 g/dl (12.0-16.0); Immature Granulocytes # (auto) 0.05 K/uL (0.01-0.20); Immature Granulocytes % (auto) 0.5 %; Mean Corpuscular Hemoglobin 30.7 pg (25.0-34.0); Mean Corpuscular Volume 91.2 fL (80.0-100.0); Platelet Count 250 K/uL (130-400); RDW Standard Deviation 47.4 fL (36.4-46.3); Red Blood Count 2.83 M/uL (4.20-5.40); White Blood Count 9.97 K/ul (4.8-10.8)
[2025-06-23 06:15] LABS: Anion Gap 7.0 (3-11); Blood Urea Nitrogen 39.0 mg/dl (6-23); Calcium 9.1 mg/dl (8.6-10.3); Carbon Dioxide 27.0 mmol/L (21-32); Chloride 104.0 mmol/L (98-107); Creatinine Clr Calc Pharmacy 27.7 ml/min; Glucose 124.0 mg/dl (70-99(Fasting)); Magnesium 1.8 mg/dl (1.7-2.4); Potassium 5.0 mmol/L (3.5-5.1); Sodium 138.0 mmol/L (136-145)
--- NOTE | 2025-06-23 06:22 | Orthopedic Progress Note ---
Date of Service June 23, 2025 Assessment & Plan (1) Status post hemiarthroplasty of right hip: Plan: Discussed with patient the importance of nutrition after surgery not only for healing her surgical wound but also because of her underlying cancer. Dayannatyler ged her to use the antinausea medications that are prescribed. If these are not effective hospitalist service to evaluate for other medical treatments for her nausea. PT/OT Ice with easy wrap Pain control with p.o. medication DVT prophylaxis with her Eliquis and SHAKIRA stockings Keep Silverlon dressing in place Abduction pillow use x 6 weeks Posterior hip precautions Weightbearing as tolerated with walker, max assistance Patient will most likely need to go to either a care home facility upon discharge Patient will need a 2-week postoperative follow-up visit in our clinic. A message will be sent to teams for this. With questions contact our clinic at [phone] Admission and Anticipated Discharge Date Admission Date: June 20, 2025 Subjective Patient seen and examined on a.m. rounds. Postop day 2 following right hip cemented hemiarthroplasty for femoral neck fracture. She reports that she has not had much of an appetite and has been nauseated since the surgery. Is not vomiting however. I spoke with her nurse and she told me the patient's inte rmittently refused the Zofran because she is not vomiting. Did not have radiation therapy to her left shoulder yesterday because she felt too fatigued. Denies any pain in her right hip. Physical Exam Physical Exam: On exam she is resting comfortably in bed in no acute distress. Right hip exam shows her Silverlon dressing to be clean dry and intact. Distally neurovascularly intact. Results & Data Vital Signs (Past 12 Hours) Vital Signs Temp Pulse Pulse Resp BP Pulse Ox O2 Del Method 06/23/25 04:00 36.6 C 102 H 18 99/65 L 94 Nasal Cannula 06/23/25 00:00 36.6 C 92 H 16 99/65 L 97 Nasal Cannula 06/22/25 22:04 89 06/22/25 20:00 37 C 105 H 20 92/63 L 91 Room Air O2 Flow Rate 06/23/25 04:00 1 06/23/25 00:00 1 06/22/25 22:04 06/22/25 20:00
[2025-06-23] MEDS ORDERED: PROCHLORPERAZINE 5 MG in SYRINGE 4 ML IV PRN (08:16)
--- NOTE | 2025-06-23 11:09 | Hospitalist Progress Note ---
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 She is currently undergoing palliative radiation therapy and chemotherapy. Patient was closing her car trunk 06/20 when she fell on her right side resulting in a right femoral neck fracture. She is being admitted to undergo surgical management 06/21. #Right femoral neck fracture/fall/trauma alert S/p ground-level fall, - HS or LOC Hip/pelvis XR showed acute fracture of right femoral neck Neurovascularly and hemodynamically intact at time of admission Additional XR imaging of the right ankle/tibia/fibia revealed no acute abnormalities Orthopedic surgery consult appreciated Underwent right hip hemiarthroplasty with Dr. Brown on 06/21 Continue Daily Azevedo catheter care IVF with LR at 80 mL/hour x 2 L IV Tylenol prn and Morphine 2/4 for breakthrough pain; avoid Toradol with CKD Zofran PRN Incentive spirometry Sacral wound precautions Bowel regimen: MiraLAX as needed, magnesium hydroxide as needed, Colace twice daily PT/OT evaluations appreciated Recommending inpatient rehab stay upon discharge; not safe to return home in current state #Intermittent hypoxia Patient reportedly dropping down to 88-89% on RA on 06/23 SpO2 97% on 2L NC Clinically, patient denies respiratory symptoms (no SOB, cough, or wheezing) Repeat CXR revealed no acute changes Suspect secondary to oxycodone use while in the hospital Decrease oxycodone tablets from 10->5mg PRN q4h as needed for severe breakthrough pain (scale 7-10) Wean off supplemental oxygen as tolerated #Acute blood loss anemia Hgb trend 10.5 -> 9.7 -> 8.9 -> 8.7 (stable) Expected drop perioperatively Clinically, no signs of active bleeding on physical exam Trend H&H #CKDcreatinine baseline ~1.12 Creatinine mildly bumped at 1.52 on 06/23 (continue to monitor) Avoid nephrotoxic agents where possible #Metastatic melanoma with mets to bladder and bone On current chemotherapy every 28 days and palliative RT #A-fib with RVR | history of DVT Held Eliquis with surgical management Held bisoprolol preoperatively Per PACU nursing staff, patient went into rapid rate of 140 to 150 bpm following her surgery, but this returned to a normal rhythm after metoprolol to tartrate 5 mg IV was administered Additional metoprolol tartrate 5 mg IV 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 BID #Cardiomyopathy Hold Bumex + K supp preoperatively #Type II DM Last A1c 9.4% on 10/05/2024 BSG q6h while NPO, then ACHS Lantus 13u BID SSI with goal range 110-140, CF 30 Adjust regimen as needed AM A1c #Gout Continue colchicine and allopurinol VTE ppx: Eliquis 2.5 mg p.o. BID Dispo: Continued stay on PCU telemetry; patient will require rehab upon discharge Admission and Anticipated Discharge Date Admission Date: June 20, 2025 Supervising Physician Co-Signing Physician Notes Attending Attestation: Chart reviewed, care plan d/w PA Judson Nair. I agree w/ the loza components of his documentation. Nigel Rice MD Subjective Mrs. Schaffer is having a difficult time finding a comfortable position in the bed. She believes that her nausea is mainly due to oxycodone use. While she is not having any right hip pain at this time, she has difficulty bending her right knee and feels like she is having "pressure" behind her right knee. She will also occasionally have a "sharp" pain behind her right breast. Patient has been eating and drinking well this morning; for breakfast she had yogurt and peaches (about three fourths of her breakfast). She does not use supplemental oxygen at baseline or CPAP at night, but denies any breathing difficulties at this time despite being on supplemental oxygen. ROS: Patient endorses generalized fatigue, pressure behind the right knee, and some pain/achiness in her right thigh and left shoulder. Patient denies fever, CP, SOB, pleuritic CP, cough, abdominal pain, or changes in urinary/bowel habits. Patient's requesting that the patient have a blood transfusion today to help increase her energy levels. Explained that patient's hemoglobin level is currently stable at 8.7 (most recently hemoglobin was 8.9 the day prior). Patient does not meet threshold criteria for blood transfusion at this time. She currently denies any active cardiac or respiratory symptoms. Provided additional information regarding blood transfusions to both the patient and her : The most part, blood transfusions are very safe. However, every unit we transfuse inherently comes with some risk; for instance, the patient is currently requiring supplemental oxygen. Transfusing unit of blood may potentially worsen her respiratory status (such as in a case of TACO or TRALI). Reassured that we will continue to monitor her hemoglobin levels very closely, and transfuse blood when medically indicated. Review of Systems Review of Systems: See HPI above Physical Exam Physical Exam: General: no acute distress; lethargic/somnolent; non-toxic appearing; cooperative; SpO2 97% on 2 L NC HEENT: normocephalic, atraumatic; PERRLA; vision and hearing intact Neck: supple; trachea midline; patient demonstrates ability to rotate neck bilaterally without unilateral deficits Skin: warm, dry without signs of tenting; no cyanosis; no rashes, bruising, lesions, or erythema noted CV: chest wall NTP; RRR; S1/S2 normal; no murmurs/rubs/gallops; pulses intact and symmetric at radial, DP, and PT Lungs: no acute respiratory distress; symmetrical chest wall expansion; clear breath sounds across all lung ruggiero w/o adventitious sounds; no wheezing ABD: Soft, NTP; BS present; no rebound/guarding; no distention MSK: no tics or fasciculations; no edema noted in the LEs b/l, nonerythematous LEs: Patient demonstrates ability to wiggle toes, plantar/dorsiflex bilaterally with 3/5 strength; patient can bend her right knee around 1015 degrees before this elicits pain; minimal difficulty with bending her left knee Neuro: A&Ox3; normal mood and affect; fluent speech; sensation intact and symmetric in the LEs b/l Results & Data Results & Data Vital Signs (Past 12 Hours) Vital Signs Temp Pulse Pulse Resp BP Pulse Ox O2 Del Method 06/23/25 08:09 93 H 06/23/25 07:39 Nasal Cannula 06/23/25 07:34 36.6 C 102 H 20 114/81 90 Nasal Cannula 06/23/25 04:00 36.6 C 102 H 18 99/65 L 94 Nasal Cannula 06/23/25 00:00 36.6 C 92 H 16 99/65 L 97 Nasal Cannula O2 Flow Rate 06/23/25 08:09 06/23/25 07:39 2 06/23/25 07:34 2 06/23/25 04:00 1 06/23/25 00:00 1 PG Care Time/CCT Total # of Minutes Spent Total Time Spent with Patient: Total time spent is greater than 50% in coordination of care (as documented) at patient's floor/unit and/or counseling patient: Coding [place] [address] SUB INP/OBS CARE 3/50MIN Patient Type Established Medical Decision Making High Complexity Diagnoses Fall W19.XXXA Fracture of femoral neck, right, closed S72.001A Encounter type: initial encounter Status post hemiarthroplasty of right hip Z96.641 Metastatic melanoma C43.9 Hypoxia R09.02 (2) Fracture of femoral neck, right, closed Encounter type: initial encounter Qualified Code(s): S72.001A - Fracture of unspecified part of neck of right femur, initial encounter for closed fracture
--- NOTE | 2025-06-23 12:21 | XRay Report ---
EXAM: Radiograph of the Chest 1 View INDICATION: Hypoxia TECHNIQUE: Frontal view of the chest. COMPARISON: 06/20/2025 FINDINGS: Lungs and pleural spaces: No consolidation or pulmonary edema. No pleural effusion or pneumothorax. Heart: Stable large cardiac shadow. Mediastinum: Normal contour. Bones/joints: No fracture, erosion or dislocation. Soft tissues: No abnormality noted. No radiopaque foreign body noted. Upper abdomen: No abnormality noted. IMPRESSION: No acute change noted. ACT 112: N/A Electronically signed by Anika Montejo 06-23-2025 12:21 PM
[2025-06-23] MEDS: MELATONIN 3 MG TAB PO PRN (21:26)
[2025-06-24 05:46] LABS: Hematocrit (blood only) 26.6 % (37.0-47.0); Hemoglobin 8.4 g/dl (12.0-16.0); Immature Granulocytes # (auto) 0.04 K/uL (0.01-0.20); Immature Granulocytes % (auto) 0.4 %; Mean Corpuscular Hemoglobin 29.4 pg (25.0-34.0); Mean Corpuscular Volume 93.0 fL (80.0-100.0); Platelet Count 252 K/uL (130-400); RDW Standard Deviation 48.2 fL (36.4-46.3); Red Blood Count 2.86 M/uL (4.20-5.40); White Blood Count 9.52 K/ul (4.8-10.8)
[2025-06-24 06:00] LABS: Anion Gap 6.0 (3-11); Blood Urea Nitrogen 38.0 mg/dl (6-23); Calcium 9.1 mg/dl (8.6-10.3); Carbon Dioxide 26.0 mmol/L (21-32); Chloride 104.0 mmol/L (98-107); Creatinine Clr Calc Pharmacy 31.0 ml/min; Glucose 97.0 mg/dl (70-99(Fasting)); Potassium 4.7 mmol/L (3.5-5.1); Sodium 136.0 mmol/L (136-145)
--- NOTE | 2025-06-24 10:22 | Hospitalist Progress Note ---
"Date of Service June 24, 2025 Assessment & Plan (1) Fall: (2) Fracture of femoral neck, right, closed: (3) Status post hemiarthroplasty of right hip: (4) Metastatic melanoma: (5) Hypoxia: (6) Dehydration: Plan Patient is an 89-year-old female with a past medical history including metastatic melanoma with mets to bone and bladder, type II DM on insulin, DVT on Eliquis, A-fib, cardiomyopathy, stage IIIb CKD.. She is currently undergoing palliative radiation therapy and chemotherapy. Patient was closing her car trunk 06/20 when she fell on her right side resulting in a right femoral neck fracture. She is being admitted to undergo surgical management 06/21. #Right femoral neck fracture/fall/trauma alert S/p ground-level fall, - HS or LOC Hip/pelvis XR showed acute fracture of right femoral neck Neurovascularly and hemodynamically intact at time of admission Additional XR imaging of the right ankle/tibia/fibia revealed no acute abnormalities Orthopedic surgery consult appreciated Underwent right hip hemiarthroplasty with Dr. Brown on 06/21 Continue Daily Azevedo catheter care IVF with LR at 80 mL/hour x 2 L IV Tylenol prn and Morphine 2/4 for breakthrough pain; avoid Toradol with CKD Zofran PRN Incentive spirometry Sacral wound precautions Bowel regimen: MiraLAX as needed, magnesium hydroxide as needed, Colace twice daily PT/OT evaluations appreciated Recommending inpatient rehab stay upon discharge; not safe to return home in current state #Intermittent hypoxia Patient reportedly dropping down to 88-89% on RA on 06/23 SpO2 97% on 2L NC Clinically, patient denies respiratory symptoms (no SOB, cough, or wheezing) Repeat CXR revealed no acute changes Suspect secondary to oxycodone use while in the hospital Decrease oxycodone tablets from 10->5mg PRN q4h as needed for severe breakthrough pain (scale 7-10) Wean off supplemental oxygen as tolerated #Decreased urinary output | dehydration Patient reportedly had decreased urine output (around 100 cc) on 06/23 Mild tachycardia at 108 bpm and soft BP at 106/68 on the morning of 06/24 Suspect dehydration in the setting of poor p.o. intake Trial of NSS at 60mL/hr x 500mL and reassess Dietitian consult appreciated for nutritional assessment #Acute blood loss anemia Hgb trend 10.5 -> 9.7 -> 8.9 -> 8.7 -> 8.4 (stable) Expected drop perioperatively Clinically, no signs of active bleeding on physical exam Trend H&H #CKDcreatinine baseline ~1.12 Creatinine mildly bumped at 1.52 on 06/23 (continue to monitor) Avoid nephrotoxic agents where possible #Metastatic melanoma with mets to bladder and bone On current chemotherapy every 28 days and palliative RT #A-fib with RVR | history of DVT Held Eliquis with surgical management Held bisoprolol preoperatively Per PACU nursing staff, patient went into rapid rate of 140 to 150 bpm following her surgery, but this returned to a normal rhythm after metoprolol to tartrate 5 mg IV was administered Additional metoprolol tartrate 5 mg IV q30m PRN concrete smoother for A fib 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 BID #Cardiomyopathy Hold Bumex + K supp preoperatively #Type II DM Last A1c 7.0% on 06/22/2025 BSG q6h while NPO, then ACHS Lantus 13u BID SSI with goal range 110-140, CF 30 Adjust regimen as needed #Gout Continue colchicine every other day Continue allopurinol VTE ppx: Eliquis 2.5 mg p.o. BID Dispo: Continued stay on PCU telemetry; patient will require rehab upon discharge CM has referral out to [facility], with plan follow-up on Monday 06/25 Admission and Anticipated Discharge Date Admission Date: June 20, 2025 Supervising Physician Co-Signing Physician Notes Attending Attestation: Chart reviewed, care plan d/w WILLY Nair. I agree w/ the loza components of his documentation. Nigel Rice MD Subjective Mrs. Schaffer is in good spirits this morning. She reports her nausea from yesterday is largely resolved. She is currently sitting up in her chair surrounded by family. While she needed significant help to get up from the bed to her chair, she reports that she is not having any right hip pain at rest. She was able to eat some yogurt this morning and drink some water, but does report poor p.o. intake over the past 24 hours. While she denies any numbness or tingling going down her right leg, she does report that she has tenderness in her right thigh and right lentz bone. She denies any respiratory symptoms; while she had some cough which she related to her nausea, she denies SOB/cough at this time. ROS: Patient endorses right hip tenderness, and swelling in the left upper extremity (chronic). Patient denies fever overnight, lightheadedness, chest pain, SOB at rest, [place], cough, abdominal pain, or N/V/D. Review of Systems Review of Systems: See HPI above Physical Exam Physical Exam: General: no acute distress; pleasant affect; sitting upright in her chair; surrounded by family; more awake today compared to the day prior; non-toxic appearing; cooperative; SpO2 95% on 2 L NC HEENT: normocephalic, atraumatic; PERRLA; vision and hearing intact Neck: supple; trachea midline; patient demonstrates ability to rotate neck bilaterally without unilateral deficits Skin: warm, dry without signs of tenting; no cyanosis; no rashes, bruising, lesions, or erythema noted CV: chest wall NTP; RRR around 100-105 bpm; S1/S2 normal; no murmurs/rubs/gallops; pulses intact and symmetric at radial, DP, and PT Lungs: no acute respiratory distress; symmetrical chest wall expansion; clear breath sounds across all lung ruggiero w/o adventitious sounds; no wheezing ABD: Soft, NTP; BS present; no rebound/guarding; no distention MSK: no tics or fasciculations; +1 pitting edema in lower extremities bilaterally extending from the ankles up to the knees LEs: Right hip, thigh, and lentz are mildly TTP; patient demonstrates ability to wiggle toes, plantar/dorsiflex bilaterally with 3/5 strength; patient can bend her right knee around 35 to 40 degrees with passive ROM; this does not elicit pain response Neuro: A&Ox3; normal mood and affect; fluent speech; patient reports sensation is intact and symmetric in the lower extremities bilateral Results & Data Results & Data Vital Signs (Past 12 Hours) Vital Signs Temp Pulse Pulse Pulse Resp BP Pulse Ox 06/24/25 07:38 36.6 C 108 H 19 106/68 95 06/24/25 07:14 06/24/25 07:02 90 06/24/25 03:15 36.5 C 96 H 20 93/59 L 93 06/23/25 23:53 36.4 C L 97 H 18 99/64 L 92 O2 Del Method O2 Flow Rate 06/24/25 07:38 Nasal Cannula 2 06/24/25 07:14 Nasal Cannula 2 06/24/25 07:02 06/24/25 03:15 Nasal Cannula 2 06/23/25 23:53 Room Air PG Care Time/CCT Total # of Minutes Spent Total Time Spent with Patient: Total time spent is greater than 50% in coordination of care (as documented) at patient's floor/unit and/or counseling patient: C[place] [address] SUB INP/OBS CARE 3/50MIN Patient Type Established Medical Decision Making High Complexity Diagnoses Fall W19.XXXA Fracture of femoral neck, right, closed S72.001A Encounter type: initial encounter Status post hemiarthroplasty of right hip Z96.641 Metastatic melanoma C43.9 Hypoxia R09.02 Dehydration E86.0 (2) Fracture of femoral neck, right, closed Encounter type: initial encounter Qualified Code(s): S72.001A - Fracture of unspecified part of neck of right femur, initial encounter for closed fracture"
[2025-06-24] MEDS: SODIUM CHLORIDE 0.9% 500 ML IV SCH (10:46)
[2025-06-25 05:48] LABS: Hematocrit (blood only) 26.2 % (37.0-47.0); Hemoglobin 8.4 g/dl (12.0-16.0); Immature Granulocytes # (auto) 0.04 K/uL (0.01-0.20); Immature Granulocytes % (auto) 0.5 %; Mean Corpuscular Hemoglobin 30.1 pg (25.0-34.0); Mean Corpuscular Volume 93.9 fL (80.0-100.0); Platelet Count 285 K/uL (130-400); RDW Standard Deviation 49.3 fL (36.4-46.3); Red Blood Count 2.79 M/uL (4.20-5.40); White Blood Count 8.58 K/ul (4.8-10.8)
[2025-06-25 06:02] LABS: Anion Gap 3.0 (3-11); Blood Urea Nitrogen 39.0 mg/dl (6-23); Calcium 9.1 mg/dl (8.6-10.3); Carbon Dioxide 28.0 mmol/L (21-32); Chloride 103.0 mmol/L (98-107); Creatinine Clr Calc Pharmacy 34.7 ml/min; Glucose 104.0 mg/dl (70-99(Fasting)); Potassium 4.8 mmol/L (3.5-5.1); Sodium 134.0 mmol/L (136-145)
--- NOTE | 2025-06-25 06:19 | Electrocardiogram Report ---
Test Reason : Blood Pressure : */* mmHG Vent. Rate : 83 BPM Atrial Rate : * BPM P-R Int : * ms QRS Dur : 76 ms QT Int : 396 ms P-R-T Axes : * 47 38 degrees QTcB Int : 465 ms Atrial fibrillation Abnormal ECG When compared with ECG of 04-Jun-2025 13:41, QRS axis Shifted left Confirmed by Christiano Anaya ([id number]) on 06/25/2025 6:19:06 AM Referred By: REFERRED SELF Confirmed By: Christiano Anaya
--- NOTE | 2025-06-25 07:52 | Hospitalist Progress Note ---
Date of Service June 25, 2025 Assessment & Plan (1) Fracture of femoral neck, right, closed: (2) Status post hemiarthroplasty of right hip: (3) Metastatic melanoma: Plan In summary this is an 89-year-old female who is admitted to [facility] after ground-level fall resulting in pathologic right hip fracture now postoperative day 4 without further complication. #Right femoral neck fracture secondary to ground level fall Postoperative day 4; transient atrial fibrillation that responded well to intravenous beta-blockade in PACU, no recurrent episodes since that time. Continue analgesic regimen Continue bowel regimen Azevedo catheter was placed at the time of admission given the anticipated surgical intervention, void trial on 06/25 #Postoperative anemia Acute blood loss anemia in the setting of surgical intervention Without signs or symptoms of anemia at this time, no further indication to trend hemoglobin #Metastatic melanoma with osseous and bladder lesions The patient does have scheduled radiation therapy for management of symptoms associated with osseous metastatic disease; scheduled appointment for 06/25, this will be performed while the patient is admitted Anticipate discharge to intermediate facility pending insurance authorization Admission and Anticipated Discharge Date Admission Date: June 20, 2025 Subjective Ms. 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 No acute overnight events, the patient feels well this morning and is hopeful for discharge to intermediate facility soon. Review of Systems Review of Systems: Reviewed constitutional, gastrointestinal, genitourinary, musculoskeletal, cardiovascular, pulmonary systems was unremarkable Physical Exam Physical Exam: General: Elderly female in no acute distress Vital Signs: Requiring 2 L by nasal cannula to maintain O2 saturation greater than 95% HEENT: Moist mucous membranes; pupils equally round reactive to light, extraocular motion intact Pulmonary: Symmetric chest wall excursion without restriction; clear to auscultation bilaterally Cardiovascular: Regular rate and rhythm without murmurs, rubs, or gallops; S1 and S2 normal; left radial pulse 2+ with brisk capillary refill; trace pitting edema of the left upper extremity compared to right Gastrointestinal: Soft, nontender Genitourinary: Azevedo catheter in place with approximately 125 mL of ann urine without sediment Neurologic: Cranial nerves II through XII grossly intact Results & Data Results & Data Vital Signs (Past 12 Hours) Vital Signs Temp Pulse Pulse Resp BP Pulse Ox O2 Del Method 06/25/25 03:00 36.9 C 96 H 20 102/76 96 Nasal Cannula 06/24/25 23:00 36.9 C 93 H 20 94/65 L 97 Nasal Cannula 06/24/25 21:43 67 06/24/25 20:00 Nasal Cannula O2 Flow Rate 06/25/25 03:00 2 06/24/25 23:00 2 06/24/25 21:43 06/24/25 20:00 2 PG Care Time/CCT Total # of Minutes Spent Total Time Spent with Patient: Total time spent is greater than 50% in coordination of care (as documented) at patient's floor/unit and/or counseling patient: Coding Level of Care Code 58925 SUB INP/OBS CARE 2/35MIN Diagnoses Fracture of femoral neck, right, closed S72.001A Encounter type: initial encounter Status post hemiarthroplasty of right hip Z96.641 Metastatic melanoma C43.9 (1) Fracture of femoral neck, right, closed Encounter type: initial encounter Qualified Code(s): S72.001A - Fracture of unspecified part of neck of right femur, initial encounter for closed fracture
--- NOTE | 2025-06-25 12:55 | Pharmacy Report ---
Pharmacy Glycemic Short Note 2 - Date of Service June 25, 2025 - Glycemic Short BSG Results (Last 24 hours): 06/24/25 06/24/25 06/25/25 16:34 20:24 05:24 Glucose 104 H POC Glucose 123 H 174 H 06/25/25 06/25/25 08:14 12:23 Glucose POC Glucose 114 H 169 H OUTPATIENT ANTIDIABETIC REGIMEN: * Lantus 25 units SQ daily at lunch HbA1c: 7% on 06/22/25 ASSESSMENT: 06/25: * Richelle received a total of 14 units of insulin yesterday (5 units were basal and 9 units were bolus). BSGs were mostly within the goal range. * Fasting BSG was 114mg/dL. Will continue HS Lantus scale and current bolus insulin regimen without change as her blood glucose appears to be fairly well controlled. 06/22: * Richelle is an 89 year old female who was admitted 06/20 for a right femoral neck fracture s/p ground-level fall. Surgical management completed 06/21. Pharmacy was consulted for glycemic management postop. * BSG was in the goal range until HS last evening. At that time BSG was 178mg/dL. Lantus 8 units SQ x 1 was ordered at that time and a weight based bolus insulin regimen with a stress of ~2 was started. * Fasting BSG was in goal range this morning. A Lantus scale (0,5,or 10 units depending on BSG) was added for HS and the bolus insulin regimen will be continued without change. PLAN FOR INPATIENT GLYCEMIC CONTROL: * Hold outpatient diabetes medications * Basal insulin * Lantus scale (0, 5, or 10 units depending on BSG) at HS * Bolus insulin * NovoLog per scale ACHS or Q6hrs while NPO * Goal Range: Low 110 mg/dL - High 140 mg/dL * Correction Factor: 30 mg/dL/unit * Nutritional / Prandial insulin per carb ratio of 1 unit per 8 grams CHO consumed
[2025-06-25] MEDS ORDERED: IRON SUCROSE 400 MG in SODIUM CHLORIDE 0.9% 250 ML IV SCH (16:45)
[2025-06-25] MEDS: IRON SUCROSE 200 MG in SODIUM CHLORIDE 0.9% 100 ML IV SCH (18:22)
--- NOTE | 2025-06-26 07:33 | Hospitalist Progress Note ---
Date of Service June 26, 2025 Assessment & Plan (1) Fracture of femoral neck, right, closed: (2) Status post hemiarthroplasty of right hip: (3) Metastatic melanoma: Plan In summary this is an 89-year-old female who is admitted to [facility] after ground-level fall resulting in pathologic right hip fracture now postoperative day 4 without further complication. #Right femoral neck fracture secondary to ground level fall Postoperative day 5; transient atrial fibrillation that responded well to intravenous beta-blockade in PACU, no recurrent episodes since that time. Continue analgesic regimen Continue bowel regimen Azevedo catheter was placed at the time of admission given the anticipated surgical intervention, successful void trial on 06/25 #Postoperative anemia Acute blood loss anemia in the setting of surgical intervention in addition to daily laboratory assessment; daily labs have been discontinued. Attempted iron infusion after discussion at bedside with the patient, their spouse, and narcisa brandon. This was initiated but unfortunately the patient's peripheral access infiltrated during the first infusion, and they requested no further IVs be placed. Without signs or symptoms of anemia at this time, no further indication to trend hemoglobin #Metastatic melanoma with osseous and bladder lesions The patient does have scheduled radiation therapy for management of symptoms associated with osseous metastatic disease; the patient's SNF requested completion of the patient's radiation therapies prior to discharge, and will not accept until completed Anticipate discharge to nursing home facility pending insurance authorization Admission and Anticipated Discharge Date Admission Date: June 20, 2025 Subjective Ms. 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 No acute overnight events; peripheral access was lost in the evening 06/25 during intravenous iron infusion, the patient requested no additional peripheral IVs be placed unless absolutely necessary. The patient feels well this morning and is hopeful for discharge to nursing home facility soon. Review of Systems Review of Systems: Reviewed constitutional, gastrointestinal, genitourinary, musculoskeletal, cardiovascular, pulmonary systems was unremarkable Physical Exam Physical Exam: General: Elderly female in no acute distress Vital Signs: Requiring 2 L by nasal cannula to maintain O2 saturation greater than 95% HEENT: Moist mucous membranes; pupils equally round reactive to light, extraocular motion intact Pulmonary: Symmetric chest wall excursion without restriction; clear to auscultation bilaterally Cardiovascular: Regular rate and rhythm without murmurs, rubs, or gallops; S1 and S2 normal; left radial pulse 2+ with brisk capillary refill; trace pitting edema of the left upper extremity compared to right Gastrointestinal: Soft, nontender Neurologic: Cranial nerves II through XII grossly intact Results & Data Results & Data Vital Signs (Past 12 Hours) Vital Signs Temp Pulse Pulse Resp BP Pulse Ox O2 Del Method 06/26/25 03:10 36.6 C 96 H 18 107/66 94 Room Air 06/25/25 23:29 36.8 C 95 H 16 98/66 L 93 Room Air 06/25/25 23:00 83 06/25/25 20:06 37.1 C 94 H 18 108/73 94 Room Air 06/25/25 19:46 Room Air PG Care Time/CCT Total # of Minutes Spent Total Time Spent with Patient: Total time spent is greater than 50% in coordination of care (as documented) at patient's floor/unit and/or counseling patient: Coding Level of Care Code 56559 SUB INP/OBS CARE 2/35MIN Diagnoses Fracture of femoral neck, right, closed S72.001A Encounter type: initial encounter Status post hemiarthroplasty of right hip Z96.641 Metastatic melanoma C43.9 (1) Fracture of femoral neck, right, closed Encounter type: initial encounter Qualified Code(s): S72.001A - Fracture of unspecified part of neck of right femur, initial encounter for closed fracture
[2025-06-26] MEDS: COLCHICINE 0.6 MG TAB PO SCH (09:24)
--- NOTE | 2025-06-26 09:33 | Orthopedic Progress Note ---
Date of Service June 26, 2025 Assessment & Plan (1) Status post hemiarthroplasty of right hip: Plan: Discussed with patient the importance of nutrition after surgery not only for healing her surgical wound but also because of her underlying cancer. Armond ged her to use the antinausea medications that are prescribed. If these are not effective hospitalist service to evaluate for other medical treatments for her nausea. PT/OT Ice with easy wrap Pain control with p.o. medication DVT prophylaxis with her Eliquis and SHAKIRA stockings Keep Silverlon dressing in place Abduction pillow use x 6 weeks Posterior hip precautions Weightbearing as tolerated with walker, max assistance Patient will most likely will need to go to a prison facility upon discharge Patient will need a 2-week postoperative follow-up visit in our clinic. Noted in Discharge. With questions contact our clinic at [phone] Admission and Anticipated Discharge Date Admission Date: June 20, 2025 Subjective This 89-year-old female is 5 days status post cemented right hip hemiarthroplasty. Patient states that her pain is well-controlled. She states that she has only been able to transition from her bed to the bedside commode. She is unable to ambulate with the assistance assistance of her walker without maximum assistance. She states her has been speaking with case management about placement. She states that it is her understanding that she may be going to [facility]. Currently she denies chest pain, shortness of breath, fever, chills, sweats, nausea, vomiting, diarrhea, numbness or tingling in her right lower extremity. She states that previously she was a little nauseous and they treated with IV medication. Review of Systems Review of Systems: All systems reviewed & are unremarkable except as noted in Subjective Physical Exam Physical Exam: Right hip: Silverlon is clean dry and intact left in place. Patient is unable to perform active straight leg raise test. She is able to actively dorsi and plantarflex her foot. She tolerates passive hip flexion near 80 degrees and has no discomfort with light passive internal or external rotation. Logroll testing causes minimal discomfort. She is able to detect light sensation to touch over the pads of all digits. Her peripheral pulses are 2+. She is neurovascularly intact in the right lower extremity. Results & Data Vital Signs (Past 12 Hours) Vital Signs Temp Pulse Pulse Pulse Resp BP Pulse Ox 06/26/25 08:22 36.7 C 90 20 105/69 96 06/26/25 07:47 89 06/26/25 03:10 36.6 C 96 H 18 107/66 94 06/25/25 23:29 36.8 C 95 H 16 98/66 L 93 06/25/25 23:00 83 O2 Del Method 06/26/25 08:22 Room Air 06/26/25 07:47 06/26/25 03:10 Room Air 06/25/25 23:29 Room Air 06/25/25 23:00 Diagnostic Findings Laboratory Results WBC 8.58 K/ul (4.8-10.8) 06/25/25 05:24 RBC 2.79 M/uL (4.20-5.40) L 06/25/25 05:24 Hgb 8.4 g/dl (12.0-16.0) L 06/25/25 05:24 Hct 26.2 % (37.0-47.0) L 06/25/25 05:24 MCV 93.9 fL (80.0-100.0) 06/25/25 05:24 MCH 30.1 pg (25.0-34.0) 06/25/25 05:24 MCHC 32.1 g/dL (32.0-36.0) 06/25/25 05:24 RDW Std Deviation 49.3 fL (36.4-46.3) H 06/25/25 05:24 RDW Coeff of Marlene 14.5 % (11.5-14.5) 06/25/25 05:24 Plt Count 285 K/uL (130-400) 06/25/25 05:24 MPV 10.1 fL (9.4-12.4) 06/25/25 05:24 Immature Gran % (Auto) 0.5 % 06/25/25 05:24 Neut % (Auto) 70.4 % 06/25/25 05:24 Lymph % (Auto) 11.2 % 06/25/25 05:24 [place] % (Auto) 13.6 % 06/25/25 05:24 Eos % (Auto) 4.1 % 06/25/25 05:24 Baso % (Auto) 0.2 % 06/25/25 05:24 Neut # (Auto) 6.04 K/uL (1.40-6.50) 06/25/25 05:24 Lymph # (Auto) 0.96 K/uL (1.20-3.40) L 06/25/25 05:24 [place] # (Auto) 1.17 K/uL (0.11-0.59) H 06/25/25 05:24 Eos # (Auto) 0.35 K/uL (0.00-0.50) 06/25/25 05:24 Baso # (Auto) 0.02 K/uL (0.00-0.20) 06/25/25 05:24 Immature Gran # (Auto) 0.04 K/uL (0.01-0.20) 06/25/25 05:24 PT 11.5 Seconds (9.0-12.0) 06/21/25 06:06 INR 1.1 (0.9-1.1) 06/21/25 06:06 APTT 30 Seconds (21-31) 06/21/25 06:06 PTT Ratio 1.1 06/21/25 06:06 Sodium 134 mmol/L (136-145) L 06/25/25 05:24 Potassium 4.8 mmol/L (3.5-5.1) 06/25/25 05:24 Chloride 103 mmol/L (98-107) 06/25/25 05:24 Carbon Dioxide 28 mmol/L (21-32) 06/25/25 05:24 Anion Gap 3 (3-11) 06/25/25 05:24 BUN 39 mg/dl (6-23) H 06/25/25 05:24 Creatinine 1.23 mg/dl (0.6-1.2) H 06/25/25 05:24 Est Cr Clr Drug Dosing 34.7 ml/min 06/25/25 05:24 eGFR 42.01 06/25/25 05:24 BUN/Creatinine Ratio 31.7 (10-20) H 06/25/25 05:24 Glucose 104 mg/dl (70-99(Fasting)) H 06/25/25 05:24 POC Glucose 101 mg/dl (70-99) H 06/26/25 07:45 Estimat Average Glucose 154 mg/dl 06/22/25 05:44 Hemoglobin A1c 7.0 % (4.5-5.6) H 06/22/25 05:44 Calcium 9.1 mg/dl (8.6-10.3) 06/25/25 05:24 Magnesium 1.8 mg/dl (1.7-2.4) 06/23/25 05:27 Total Bilirubin 0.6 mg/dl (0.2-1.0) 06/21/25 06:06 AST 22 U/L (13-39) 06/21/25 06:06 ALT 11 U/L (7-52) 06/21/25 06:06 Alkaline Phosphatase 135 U/L (34-104) H 06/21/25 06:06 Total Protein 5.3 gm/dl (6.0-8.3) L 06/21/25 06:06 Albumin 2.8 gm/dl (3.4-5.0) L 06/21/25 06:06 Globulin 2.5 gm/dl (2.5-4.0) 06/21/25 06:06 Albumin/Globulin Ratio 1.1 (0.9-2) 06/21/25 06:06 Urine Color Yellow 06/20/25 20:42 Urine Appearance Clear (Clear) 06/20/25 20:42 Urine pH 7.0 (4.5-7.5) 06/20/25 20:42 Ur Specific Bart[place] 1.016 (1.000-1.030) 06/20/25 20:42 Urine Protein Trace (Negative) H 06/20/25 20:42 Urine Glucose (UA) Negative (Negative) 06/20/25 20:42 Urine Ketones 1+ (Negative) H 06/20/25 20:42 Urine Blood Negative (Negative) 06/20/25 20:42 Urine Nitrite Negative (Negative) 06/20/25 20:42 Urine Bilirubin Negative (Negative) 06/20/25 20:42 Urine Urobilinogen Negative (Negative) 06/20/25 20:42 Ur Leukocyte Esterase Trace (Negative) H 06/20/25 20:42 Urine WBC (Auto) 0-5 /hpf (0-5) 06/20/25 20:42 Urine RBC (Auto) 0-2 /hpf (0-2) 06/20/25 20:42 U Hyaline Cast (Auto) 0-2 /lpf (0-2) 06/20/25 20:42 U Epithel Cells (Auto) 0-2 /hpf (0-2) 06/20/25 20:42 Urine Bacteria (Auto) None Seen (None Seen) 06/20/25 20:42 Urine Comment 06/20/25 20:42 Blood Type O Positive 06/21/25 06:06 Antibody Screen NEGATIVE 06/21/25 06:06 Impressions Femur X-Ray 06/20/25 20:01 Exam(s): XR RIGHT FEMUR, 2 views EXAM: XR Right Femur, 2 Views CLINICAL HISTORY: Reason for exam: Preoperative planning. TECHNIQUE: Frontal and lateral views of the right femur. COMPARISON: No relevant prior studies available. FINDINGS: Bones/joints: There is a fracture of the right femoral neck.. No dislocation. There are hypertrophic degenerative changes. Soft tissues: Vascular calcifications are seen.. IMPRESSION: There is a fracture of the right femoral neck. Hypertrophic degenerative changes. Electronically signed by: Steven Taylor MD 06/20/25 23:10 PM Ankle X-Ray 06/21/25 14:41 EXAMINATION: X-ray ankle right 2 view CLINICAL HISTORY: Fall, pain PRIORS: None TECHNIQUE: Frontal and lateral moderate osseous demineralization noted. FINDINGS: Bone stock and alignment maintained. Ankle mortise preserved. Allowing for positioning, no acute fracture or dislocation. No ankle joint effusion. Mild diffuse degenerative change of the ankle noted. Diffuse subcutaneous edema noted throughout the [id number]. IMPRESSION: No plain film evidence of an acute osseous abnormality. Electronically signed by Светлана Edgar 06-21-2025 4:44 PM Tibia/Fibula X-Ray 06/21/25 14:41 EXAMINATION: X-ray tibia-fibula right 2 view CLINICAL HISTORY: Right lower extremity pain, status post fall PRIORS: None TECHNIQUE: Frontal and lateral view leg FINDINGS: Mild osseous demineralization noted. Advanced degenerative change of the knee medial and lateral compartments in the [id number]. Note tibia fibula displaced fracture. No cortical destruction or periosteal reaction. Moderate diffuse edema present throughout the entire leg. Vascular calcifications noted. IMPRESSION: No plain film evidence of an acute osseous abnormality. Electronically signed by Светлана Edgar 06-21-2025 4:44 PM Hip/Pelvis X-Ray 06/21/25 15:40 EXAMINATION: X-ray hip 1 view right with pelvis CLINICAL HISTORY: Fall, PRIORS: None TECHNIQUE: AP view pelvis and crosstable lateral view right hip. FINDINGS: Large body habitus greatly diminishes image quality. Crosstable lateral view is extremely limited due to body habitus. Allowing for this, a right total hip arthroplasty is present with no displaced fracture or dislocation. Obturator ring and pubic symphysis are unremarkable. No displaced fracture of the 1 view of the left hip. IMPRESSION: No plain film evidence of an acute osseous abnormality. Electronically signed by Светлана Edgar 06-21-2025 4:46 PM Chest X-Ray 06/23/25 11:40 EXAM: Radiograph of the Chest 1 View INDICATION: Hypoxia TECHNIQUE: Frontal view of the chest. COMPARISON: 06/20/2025 FINDINGS: Lungs and pleural spaces: No consolidation or pulmonary edema. No pleural effusion or pneumothorax. Heart: Stable large cardiac shadow. Mediastinum: Normal contour. Bones/joints: No fracture, erosion or dislocation. Soft tissues: No abnormality noted. No radiopaque foreign body noted. Upper abdomen: No abnormality noted. IMPRESSION: No acute change noted. ACT 112: N/A Electronically signed by Anika Montejo 06-23-2025 12:21 PM
--- NOTE | 2025-06-26 13:07 | Pharmacy Report ---
Pharmacy Glycemic Short Note 2 - Date of Service June 26, 2025 - Glycemic Short BSG Results (Last 24 hours): 06/25/25 06/25/25 06/25/25 15:00 17:21 20:27 POC Glucose 174 H 169 H 169 H 06/26/25 06/26/25 07:45 11:39 POC Glucose 101 H 133 H OUTPATIENT ANTIDIABETIC REGIMEN: * Lantus 25 units SQ daily at lunch HbA1c: 7% on 06/22/25 ASSESSMENT: 06/26: * Richelle received a total of only 6 units of insulin yesterday (5 units were basal and 1 unit was bolus). * Fasting BSG was 101mg/dL this morning and patient with minimal intake so will d/c Lantus scale at HS for now. * Will continue bolus insulin regimen as previously ordered. 06/25: * Richelle received a total of 14 units of insulin yesterday (5 units were basal and 9 units were bolus). BSGs were mostly within the goal range. * Fasting BSG was 114mg/dL. Will continue HS Lantus scale and current bolus insulin regimen without change as her blood glucose appears to be fairly well controlled. 06/22: * Richelle is an 89 year old female who was admitted 06/20 for a right femoral neck fracture s/p ground-level fall. Surgical management completed 06/21. Pharmacy was consulted for glycemic management postop. * BSG was in the goal range until HS last evening. At that time BSG was 178mg/dL. Lantus 8 units SQ x 1 was ordered at that time and a weight based bolus insulin regimen with a stress of ~2 was started. * Fasting BSG was in goal range this morning. A Lantus scale (0,5,or 10 units depending on BSG) was added for HS and the bolus insulin regimen will be continued without change. PLAN FOR INPATIENT GLYCEMIC CONTROL: * Hold outpatient diabetes medications * Basal insulin * none * Bolus insulin * NovoLog per scale ACHS or Q6hrs while NPO * Goal Range: Low 110 mg/dL - High 140 mg/dL * Correction Factor: 30 mg/dL/unit * Nutritional / Prandial insulin per carb ratio of 1 unit per 8 grams CHO consumed
[2025-06-26 14:59] LABS: Hematocrit (blood only) 27.1 % (37.0-47.0); Hemoglobin 8.8 g/dl (12.0-16.0)
[2025-06-26] MEDS: IRON SUCROSE 200 MG in SODIUM CHLORIDE 0.9% 100 ML IV SCH (18:31)
[2025-06-27] MEDS: MAGNESIUM HYDROXIDE SUSP 30 ML UDC PO PRN (06:39)
--- NOTE | 2025-06-27 08:18 | Pharmacy Report ---
Pharmacy Glycemic Short Note 2 - Date of Service June 27, 2025 - Glycemic Short BSG Results (Last 24 hours): 06/26/25 06/26/25 06/26/25 11:39 17:04 21:10 POC Glucose 133 H 109 H 145 H 06/27/25 07:55 POC Glucose 123 H OUTPATIENT ANTIDIABETIC REGIMEN: * Lantus 25 units SC daily at lunch * HbA1c: 7% on 06/22/25 ASSESSMENT: 06/27: * Patient received 5 units of insulin yesterday, all bolus. BSGs were: [phone] mg/dL. * Fasting BSG this AM was 123 mg/dL. Continue to hold basal insulin. * No changes necessary to Novolog as BSGs have been well controlled and no stressors. 06/26: * Richelle received a total of only 6 units of insulin yesterday (5 units were basal and 1 unit was bolus). * Fasting BSG was 101mg/dL this morning and patient with minimal intake so will d/c Lantus scale at HS for now. * Will continue bolus insulin regimen as previously ordered. 06/25: * Richelle received a total of 14 units of insulin yesterday (5 units were basal and 9 units were bolus). BSGs were mostly within the goal range. * Fasting BSG was 114mg/dL. Will continue HS Lantus scale and current bolus insulin regimen without change as her blood glucose appears to be fairly well controlled. 06/22: * Richelle is an 89 year old female who was admitted 06/20 for a right femoral neck fracture s/p ground-level fall. Surgical management completed 06/21. Pharmacy was consulted for glycemic management postop. * BSG was in the goal range until HS last evening. At that time BSG was 178mg/dL. Lantus 8 units SQ x 1 was ordered at that time and a weight based bolus insulin regimen with a stress of ~2 was started. * Fasting BSG was in goal range this morning. A Lantus scale (0,5,or 10 units depending on BSG) was added for HS and the bolus insulin regimen will be continued without change. PLAN FOR INPATIENT GLYCEMIC CONTROL: * Basal insulin * None * Bolus insulin * NovoLog per scale ACHS or Q6hrs while NPO * Goal Range: Low 110 mg/dL - High 140 mg/dL * Correction Factor: 30 mg/dL/unit * Nutritional / Prandial insulin per carb ratio of 1 unit per 8 grams CHO consumed
--- NOTE | 2025-06-27 14:00 | Hospitalist Progress Note ---
"Date of Service June 27, 2025 Assessment & Plan (1) Fall: (2) Fracture of femoral neck, right, closed: (3) Status post hemiarthroplasty of right hip: (4) Metastatic melanoma: (5) Hypoxia: (6) Dehydration: Plan This is an 89 year old female who was admitted to [facility] after she sustained a ground level fall with subsequent pathologic right hip fracture. She is now post operative day #6. She has had no complications post-operatively with plan for d/c to rehab. 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 BID ##Constipation -has not received narcotics since 06/23 -in postoperative period with recent general anesthesia -has been received Senna HS, MOM x1 today, Dulcolax supp today -KUB VTE ppx: Eliquis 2.5 mg p.o. BID Dispo: Continued stay on PCU telemetry; patient will require rehab upon discharge with slated plan for d/c to [facility] 06/28/25 Admission and Anticipated Discharge Date Admission Date: June 20, 2025 Subjective Ms. 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 She completed radiation treatment this am for metastatic melanoma. Overall feels tired from treatment. Appetite has been fair with adequate oral hydration. Concerned that it has been several days since she has moved her bowels. Per review of chart she has not had BM since 06/19/25. Hx of bowel impaction requiring manual disimpaction. Has been taking Senna, Miralax without results. Dulcolax supp and Milk of Magnesia today. Passing gas. Feels pressure to move bowels. Did have iron infusion last evening. IV access had infiltrated yesterday and there was a request to have no further IV access establishment per patient and family, however she did end up having new IV placement with subsequent infusion. Concerns relayed by and daughter at bedside about being transferred to [facility] today and stability of blood count. Review of Systems Review of Systems: All systems reviewed & are unremarkable except as noted in Subjective Physical Exam Physical Exam: GENERAL APPEARANCE: A&O. Sitting upright in chart eating. NAD. SKIN: Normal color without rashes or lesions. Normal turgor. Silverlon dressing present to right lateral aspect of hip. HEENT: Head AT/NC. Buccal mucosa is moist and pink. NECK: No jugular venous distention. No thyroid enlargement. There is no lymphadenopathy. HEART: RRR without m/g/r LUNGS: Normal inspiratory effort. CTA without w/r/r. ABDOMEN: No guarding or rigidity. Normoactive BS in all four quadrants. Abdomen soft with slight distention. MSK: No bony gross/deformities throughout. ROM intact. EXTREMITIES: No edema, No peripheral cyanosis. Neuro: CN 2-12 grossly intact. No focal neuro deficits. Results & Data Results & Data Vital Signs (Past 12 Hours) Vital Signs Temp Pulse Pulse Pulse Resp BP Pulse Ox 06/27/25 12:32 87 06/27/25 12:24 36.6 C 94 H 19 135/83 96 06/27/25 07:43 36.6 C 81 18 121/77 97 06/27/25 07:35 06/27/25 02:33 36.5 C 87 18 108/72 96 O2 Del Method 06/27/25 12:32 06/27/25 12:24 Room Air 06/27/25 07:43 Room Air 06/27/25 07:35 Room Air 06/27/25 02:33 Room Air PG Care Time/CCT Total # of Minutes Spent Total Time Spent with Patient: Total time spent is greater than 50% in coordination of care (as documented) at patient's floor/unit and/or counseling patient: Coding Level of Care Code 11052 SUB INP/OBS CARE MIN Diagnoses Fall W19.XXXA Fracture of femoral neck, right, closed S72.001A Encounter type: initial encounter Status post hemiarthroplasty of right hip Z96.641 Metastatic melanoma C43.9 Hypoxia R09.02 Dehydration E86.0 (2) Fracture of femoral neck, right, closed Encounter type: initial encounter Qualified Code(s): S72.001A - Fracture of unspecified part of neck of right femur, initial encounter for closed fracture"
[2025-06-27 14:14] LABS: Hematocrit (blood only) 28.2 % (37.0-47.0); Hemoglobin 9.8 g/dl (12.0-16.0)
--- NOTE | 2025-06-27 14:20 | XRay Report ---
KUB HISTORY: No BM since 06/19/25 COMPARISON STUDY: 10/18/2024 FINDINGS: There is moderate retained stool. No bowel obstruction seen. No gross free air. Stable scol iosis and right hip prosthesis. IMPRESSION: No acute findings. ACT 112: Negative or not required by law. The above report was generated using voice recognition software. It may contain grammatical, syntax o r spelling errors. Electronically signed by: Fernando Rosado M.D. 06/27/2025 2:19 PM
[2025-06-27] MEDS: POLYETHYLENE (MIRALAX) 17 GM PACK PO PRN (14:28)
[2025-06-27] MEDS: POLYETHYLENE (MIRALAX) 17 GM PACK PO SCH (16:44)
[2025-06-27] MEDS: SOD PHOSPHATE/SOD BIPHOSPHATE ENEMA 132 ML BTL PR ONE (16:45)
[2025-06-28 10:14] LABS: Hematocrit (blood only) 28.5 % (37.0-47.0); Hemoglobin 9.3 g/dl (12.0-16.0); Immature Granulocytes # (auto) 0.13 K/uL (0.01-0.20); Immature Granulocytes % (auto) 1.3 %; Mean Corpuscular Hemoglobin 30.0 pg (25.0-34.0); Mean Corpuscular Volume 91.9 fL (80.0-100.0); Platelet Count 383 K/uL (130-400); RDW Standard Deviation 49.9 fL (36.4-46.3); Red Blood Count 3.10 M/uL (4.20-5.40); White Blood Count 10.28 K/ul (4.8-10.8)
[2025-06-28 11:03] LABS: Anion Gap 8.0 (3-11); Blood Urea Nitrogen 25.0 mg/dl (6-23); Calcium 9.2 mg/dl (8.6-10.3); Carbon Dioxide 25.0 mmol/L (21-32); Chloride 100.0 mmol/L (98-107); Creatinine Clr Calc Pharmacy 39.5 ml/min; Glucose 151.0 mg/dl (70-99(Fasting)); Potassium 4.7 mmol/L (3.5-5.1); Sodium 133.0 mmol/L (136-145)
--- NOTE | 2025-06-28 11:27 | XRay Report ---
XR chest 2V PA/lateral CLINICAL HISTORY: fever COMPARISON STUDY: 06/23/2025 FINDINGS: Stable mild cardiomegaly without pulmonary vascular congestion. No consolidation or pleural effusion seen. No pneumothorax. IMPRESSION: No acute findings. ACT 112: Negative or not required by law. Electronically signed by: Fernando Rosado M.D. 06/28/2025 11:25 AM
--- NOTE | 2025-06-28 12:16 | XRay Report ---
KUB HISTORY: r/o SBO, nausea, small emesis this am COMPARISON STUDY: 06/27/2025 FINDINGS: There is mild retained stool. No bowel obstruction seen. No gross free air. IMPRESSION: No bowel obstruction seen. ACT 112: Negative or not required by law. The above report was generated using voice recognition software. It may contain grammatical, syntax o r spelling errors. Electronically signed by: Fernando Rosado M.D. 06/28/2025 12:15 PM
[2025-06-28] MEDS: BISOPROLOL FUMARATE 5 MG TAB PO SCH (12:28)
[2025-06-28 13:17] LABS: Appearance Urine Clear (Clear); Bacteria Urine Automated None Seen (None Seen); Epithelial Cell Urine Auto 0-2 /hpf (0-2); Glucose Urine UA Negative (Negative); WBC Urine Automated 21-50 /hpf (0-5)
--- NOTE | 2025-06-28 15:47 | Hospitalist Progress Note ---
Date of Service June 28, 2025 Assessment & Plan (1) Fall: (2) Fracture of femoral neck, right, closed: (3) Status post hemiarthroplasty of right hip: (4) Metastatic melanoma: (5) Hypoxia: (6) Dehydration: Plan This is an 89 year old female who was admitted to [facility] after she sustained a ground level fall with subsequent pathologic right hip fracture. She is now post operative day #7. She has had no complications post-operatively with plan for d/c to rehab. She did have an isolated documented temperature elevation last evening of 39.8 without reported constitutional symptoms. 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 BID ##Constipation -has not received narcotics since 06/23 -in postoperative period with recent general anesthesia -receiving Senna HS routinely, MOM x1 06/27/25, Dulcolax supp 06/27/25 with favorable results, 3 documented BMs, Miralax changed to routine daily dosing -KUB 06/27/25 with mod retained stool and no bowel obstruction -repeat KUB 06/28/25 with mild retained stool and no bowel obstruction VTE ppx: Eliquis 2.5 mg p.o. BID Dispo: Continued stay on PCU telemetry; patient will require rehab upon discharge with slated plan for d/c to [facility] 06/29/25 Admission and Anticipated Discharge Date Admission Date: June 20, 2025 Subjective at the bedside. Reports she has moved her bowels three times since yesterday. Still doesn't have a great appetite because "food doesn't taste good". Had peaches this am with breakfast and got slightly nauseous causing her to gag up some mucous. Hydrating adequately. Reported one isolated elevated temperature of 39.8C last evening (06/27/25) at 2254. She denies fever, chills, dysuria, abdominal pain, SOB, cough, flank pain or M[place]ICK. Review of Systems Review of Systems: All systems reviewed & are unremarkable except as noted in Subjective Physical Exam Physical Exam: GENERAL APPEARANCE: A&O. Sitting upright in bedside chair. NAD. SKIN: Normal color without rashes or lesions.Normal turgor. Silverlon dressing present to right lateral aspect of hip without drainage. HEENT: Head AT/NC. Buccal mucosa is moist and pink. NECK: No jugular venous distention. No thyroid enlargement. There is no lymphadenopathy. HEART: Irregularly irregular without m/g/r LUNGS: Normal inspiratory effort. CTA without w/r/r. ABDOMEN: No guarding or rigidity. Normoactive BS in all four quadrants. Abdomen soft/NT to palpation. MSK: No bony gross/deformities throughout. ROM intact. EXTREMITIES: No edema, No peripheral cyanosis. Neuro: CN 2-12 grossly intact. No focal neuro deficits. Results & Data Results & Data Vital Signs (Past 12 Hours) Vital Signs Temp Pulse Pulse Resp BP Pulse Ox O2 Del Method 06/28/25 14:24 100 H 06/28/25 09:38 144 H 06/28/25 07:15 Room Air 06/28/25 07:00 36.6 C 96 H 16 105/68 95 Room Air Laboratory Results labs reviewed PG Care Time/CCT Total # of Minutes Spent Total Time Spent with Patient: 50 minutes spent with patient Coding Level of Care Code 56474 SUB INP/OBS CARE 3/50MIN Diagnoses Fall W19.XXXA Fracture of femoral neck, right, closed S72.001A Encounter type: initial encounter Status post hemiarthroplasty of right hip Z96.641 Metastatic melanoma C43.9 Hypoxia R09.02 Dehydration E86.0 (2) Fracture of femoral neck, right, closed Encounter type: initial encounter Qualified Code(s): S72.001A - Fracture of unspecified part of neck of right femur, initial encounter for closed fracture
[2025-06-28] MEDS ORDERED: cefTRIAXone SODIUM 1,000 MG/50 ML BAG IV STA (16:00)
[2025-06-28] MEDS ORDERED: cefTRIAXone SODIUM 2,000 MG/50 ML BAG IV SCH (16:30)
[2025-06-28] MEDS: cefTRIAXone SODIUM 2,000 MG/50 ML BAG IV STA (16:46)
--- NOTE | 2025-06-29 09:31 | Pharmacy Report ---
Pharmacy Glycemic Short Note 2 - Date of Service June 29, 2025 - Glycemic Short BSG Results (Last 24 hours): 06/28/25 06/28/25 06/28/25 09:41 11:51 17:00 Glucose 151 H POC Glucose 137 H 158 H 06/28/25 06/29/25 20:23 07:53 Glucose POC Glucose 237 H 131 H OUTPATIENT ANTIDIABETIC REGIMEN: * Lantus 25 units SC daily at lunch * HbA1c: 7% on 06/22/25 ASSESSMENT: 06/29: * Richelle received 9 units of insulin yesterday, all were bolus. BSGs were 951-189-502-237mg/dL. * Fasting BSG was 131mg/dL this morning. Continue to hold basal insulin for now. * Will tighten carb ratio this morning to prevent hyperglycemia as seen last evening 06/27: * Patient received 5 units of insulin yesterday, all bolus. BSGs were: 279-270-341-145 mg/dL. * Fasting BSG this AM was 123 mg/dL. Continue to hold basal insulin. * No changes necessary to Novolog as BSGs have been well controlled and no stressors. 06/26: * Richelle received a total of only 6 units of insulin yesterday (5 units were basal and 1 unit was bolus). * Fasting BSG was 101mg/dL this morning and patient with minimal intake so will d/c Lantus scale at HS for now. * Will continue bolus insulin regimen as previously ordered. 06/25: * Richelle received a total of 14 units of insulin yesterday (5 units were basal and 9 units were bolus). BSGs were mostly within the goal range. * Fasting BSG was 114mg/dL. Will continue HS Lantus scale and current bolus insulin regimen without change as her blood glucose appears to be fairly well controlled. 06/22: * Richelle is an 89 year old female who was admitted 06/20 for a right femoral neck fracture s/p ground-level fall. Surgical management completed 06/21. Pharmacy was consulted for glycemic management postop. * BSG was in the goal range until HS last evening. At that time BSG was 178mg/dL. Lantus 8 units SQ x 1 was ordered at that time and a weight based bolus insulin regimen with a stress of ~2 was started. * Fasting BSG was in goal range this morning. A Lantus scale (0,5,or 10 units depending on BSG) was added for HS and the bolus insulin regimen will be continued without change. PLAN FOR INPATIENT GLYCEMIC CONTROL: * Basal insulin * None * Bolus insulin * NovoLog per scale ACHS or Q6hrs while NPO * Goal Range: Low 110 mg/dL - High 140 mg/dL * Correction Factor: 30 mg/dL/unit * Nutritional / Prandial insulin per carb ratio of 1 unit per 10 grams CHO consumed
--- NOTE | 2025-06-29 09:41 | Orthopedic Progress Note ---
Date of Service June 29, 2025 Assessment & Plan (1) Status post hemiarthroplasty of right hip: Plan: Discussed with patient the importance of nutrition after surgery not only for healing her surgical wound but also because of her underlying cancer. Encouraged her to use the antinausea medications that are prescribed. If these are not effective hospitalist service to evaluate for other medical treatments for her nausea. PT/OT Ice with easy wrap Pain control with p.o. medication DVT prophylaxis with her Eliquis and SHAKIRA stockings Keep Silverlon dressing in place Abduction pillow use x 6 weeks Posterior hip precautions Weightbearing as tolerated with walker, max assistance Patient will most likely will need to go to a [facility] facility upon discharge Patient will need a 2-week postoperative follow-up visit in our clinic. Noted in Discharge. With questions contact our clinic at [phone] Admission and Anticipated Discharge Date Admission Date: June 20, 2025 Subjective This 89-year-old female is 8 days status post cemented right hip hemiarthroplasty. Patient states that her pain is well-controlled. Patient states that she was not feeling well yesterday but is much better this morning. She states that 2 days ago she was able to walk approximately 40 feet from her bed to the nurses station and back with a break in between. She still requires maximum assistance. There is a possibility that she will be discharged to [facility] later today. Currently she denies chest pain, shortness of breath, fever, chills, sweats, nausea, vomiting, diarrhea, numbness or tingling in her right lower extremity. She states that previously she was a little nauseous and they treated with IV medication. Review of Systems Review of Systems: All systems reviewed & are unremarkable except as noted in Subjective Physical Exam Physical Exam: Right hip: Vargaslon is clean dry and intact left in place. Patient is unable to perform active straight leg raise test. She is able to actively dorsi and plantarflex her foot. She tolerates passive hip flexion near 80 degrees and has no discomfort with light passive internal or external rotation. Logroll testing causes minimal discomfort. She is able to detect light sensation to touch over the pads of all digits. Her peripheral pulses are 2+. She is neurovascularly intact in the right lower extremity. Results & Data Vital Signs (Past 12 Hours) Vital Signs Temp Pulse Resp BP Pulse Ox O2 Del Method 06/29/25 07:55 36.4 C L 84 18 98/66 L 95 Room Air 06/29/25 04:09 36.4 C L 91 H 16 107/72 95 Room Air 06/28/25 23:34 36.4 C L 78 16 103/61 96 Room Air Diagnostic Findings Laboratory Results WBC 10.28 K/ul (4.8-10.8) 06/28/25 09:46 RBC 3.10 M/uL (4.20-5.40) L 06/28/25 09:46 Hgb 9.3 g/dl (12.0-16.0) L 06/28/25 09:46 Hct 28.5 % (37.0-47.0) L 06/28/25 09:46 MCV 91.9 fL (80.0-100.0) 06/28/25 09:46 MCH 30.0 pg (25.0-34.0) 06/28/25 09:46 MCHC 32.6 g/dL (32.0-36.0) 06/28/25 09:46 RDW Std Deviation 49.9 fL (36.4-46.3) H 06/28/25 09:46 RDW Coeff of Marlene 15.4 % (11.5-14.5) H 06/28/25 09:46 Plt Count 383 K/uL (130-400) 06/28/25 09:46 MPV 10.0 fL (9.4-12.4) 06/28/25 09:46 Immature Gran % (Auto) 1.3 % 06/28/25 09:46 Neut % (Auto) 80.6 % 06/28/25 09:46 Lymph % (Auto) 8.5 % 06/28/25 09:46 Bonner % (Auto) 8.9 % 06/28/25 09:46 Eos % (Auto) 0.5 % 06/28/25 09:46 Baso % (Auto) 0.2 % 06/28/25 09:46 Neut # (Auto) 8.29 K/uL (1.40-6.50) H 06/28/25 09:46 Lymph # (Auto) 0.87 K/uL (1.20-3.40) L 06/28/25 09:46 Bonner # (Auto) 0.92 K/uL (0.11-0.59) H 06/28/25 09:46 Eos # (Auto) 0.05 K/uL (0.00-0.50) 06/28/25 09:46 Baso # (Auto) 0.02 K/uL (0.00-0.20) 06/28/25 09:46 Immature Gran # (Auto) 0.13 K/uL (0.01-0.20) 06/28/25 09:46 Absolute Nucleated RBC 0.03 K/uL (0.00-0.12) 06/28/25 09:46 Nucleated RBC % (auto) 0.3 % 06/28/25 09:46 PT 11.5 Seconds (9.0-12.0) 06/21/25 06:06 INR 1.1 (0.9-1.1) 06/21/25 06:06 APTT 30 Seconds (21-31) 06/21/25 06:06 PTT Ratio 1.1 06/21/25 06:06 Sodium 133 mmol/L (136-145) L 06/28/25 09:41 Potassium 4.7 mmol/L (3.5-5.1) 06/28/25 09:41 Chloride 100 mmol/L (98-107) 06/28/25 09:41 Carbon Dioxide 25 mmol/L (21-32) 06/28/25 09:41 Anion Gap 8 (3-11) 06/28/25 09:41 BUN 25 mg/dl (6-23) H 06/28/25 09:41 Creatinine 1.07 mg/dl (0.6-1.2) 06/28/25 09:41 Est Cr Clr Drug Dosing 39.5 ml/min 06/28/25 09:41 eGFR 49.65 06/28/25 09:41 BUN/Creatinine Ratio 23.4 (10-20) H 06/28/25 09:41 Glucose 151 mg/dl (70-99(Fasting)) H 06/28/25 09:41 POC Glucose 131 mg/dl (70-99) H 06/29/25 07:53 Estimat Average Glucose 154 mg/dl 06/22/25 05:44 Hemoglobin A1c 7.0 % (4.5-5.6) H 06/22/25 05:44 Calcium 9.2 mg/dl (8.6-10.3) 06/28/25 09:41 Magnesium 1.8 mg/dl (1.7-2.4) 06/23/25 05:27 Total Bilirubin 0.6 mg/dl (0.2-1.0) 06/21/25 06:06 AST 22 U/L (13-39) 06/21/25 06:06 ALT 11 U/L (7-52) 06/21/25 06:06 Alkaline Phosphatase 135 U/L (34-104) H 06/21/25 06:06 Total Protein 5.3 gm/dl (6.0-8.3) L 06/21/25 06:06 Albumin 2.8 gm/dl (3.4-5.0) L 06/21/25 06:06 Globulin 2.5 gm/dl (2.5-4.0) 06/21/25 06:06 Albumin/Globulin Ratio 1.1 (0.9-2) 06/21/25 06:06 Urine Color Dark Yellow 06/28/25 Unknown Urine Appearance Clear (Clear) 06/28/25 Unknown Urine pH 5.5 (4.5-7.5) 06/28/25 Unknown Ur Specific [place] 1.024 (1.000-1.030) 06/28/25 Unknown Urine Protein 1+ (Negative) H 06/28/25 Unknown Urine Glucose (UA) Negative (Negative) 06/28/25 Unknown Urine Ketones 1+ (Negative) H 06/28/25 Unknown Urine Blood Negative (Negative) 06/28/25 Unknown Urine Nitrite Negative (Negative) 06/28/25 Unknown Urine Bilirubin Negative (Negative) 06/28/25 Unknown Urine Urobilinogen Negative (Negative) 06/28/25 Unknown Ur Leukocyte Esterase 2+ (Negative) H 06/28/25 Unknown Urine WBC (Auto) 21-50 /hpf (0-5) H 06/28/25 Unknown Urine RBC (Auto) 3-5 /hpf (0-2) H 06/28/25 Unknown U Hyaline Cast (Auto) 3-5 /lpf (0-2) H 06/28/25 Unknown U Epithel Cells (Auto) 0-2 /hpf (0-2) 06/28/25 Unknown Urine Bacteria (Auto) None Seen (None Seen) 06/28/25 Unknown Urine Comment 06/28/25 Unknown Blood Type O Positive 06/21/25 06:06 Antibody Screen NEGATIVE 06/21/25 06:06 Impressions Femur X-Ray 06/20/25 20:01 Exam(s): XR RIGHT FEMUR, 2 views EXAM: XR Right Femur, 2 Views CLINICAL HISTORY: Reason for exam: Preoperative planning. TECHNIQUE: Frontal and lateral views of the right femur. COMPARISON: No relevant prior studies available. FINDINGS: Bones/joints: There is a fracture of the right femoral neck.. No dislocation. There are hypertrophic degenerative changes. Soft tissues: Vascular calcifications are seen.. IMPRESSION: There is a fracture of the right femoral neck. Hypertrophic degenerative changes. Electronically signed by: Steven Taylor MD 06/20/25 23:10 PM Ankle X-Ray 06/21/25 14:41 EXAMINATION: X-ray ankle right 2 view CLINICAL HISTORY: Fall, pain PRIORS: None TECHNIQUE: Frontal and lateral moderate osseous demineralization noted. FINDINGS: Bone stock and alignment maintained. Ankle mortise preserved. Allowing for positioning, no acute fracture or dislocation. No ankle joint effusion. Mild diffuse degenerative change of the ankle noted. Diffuse subcutaneous edema noted throughout the [id number]. IMPRESSION: No plain film evidence of an acute osseous abnormality. Electronically signed by Светлана Edgar 06-21-2025 4:44 PM Tibia/Fibula X-Ray 06/21/25 14:41 EXAMINATION: X-ray tibia-fibula right 2 view CLINICAL HISTORY: Right lower extremity pain, status post fall PRIORS: None TECHNIQUE: Frontal and lateral view leg FINDINGS: Mild osseous demineralization noted. Advanced degenerative change of the knee medial and lateral compartments in the [id number]. Note tibia fibula displaced fracture. No cortical destruction or periosteal reaction. Moderate diffuse edema present throughout the entire leg. Vascular calcifications noted. IMPRESSION: No plain film evidence of an acute osseous abnormality. Electronically signed by Светлана Edgar 06-21-2025 4:44 PM Hip/Pelvis X-Ray 06/21/25 15:40 EXAMINATION: X-ray hip 1 view right with pelvis CLINICAL HISTORY: Fall, PRIORS: None TECHNIQUE: AP view pelvis and crosstable lateral view right hip. FINDINGS: Large body habitus greatly diminishes image quality. Crosstable lateral view is extremely limited due to body habitus. Allowing for this, a right total hip arthroplasty is present with no displaced fracture or dislocation. Obturator ring and pubic symphysis are unremarkable. No displaced fracture of the 1 view of the left hip. IMPRESSION: No plain film evidence of an acute osseous abnormality. Electronically signed by Светлана Edgar 06-21-2025 4:46 PM Chest X-Ray 06/28/25 09:27 XR chest 2V PA/lateral CLINICAL HISTORY: fever COMPARISON STUDY: 06/23/2025 FINDINGS: Stable mild cardiomegaly without pulmonary vascular congestion. No consolidation or pleural effusion seen. No pneumothorax. IMPRESSION: No acute findings. ACT 112: Negative or not required by law. Electronically signed by: Fernando Rosado M.D. 06/28/2025 11:25 AM KUB X-Ray 06/28/25 11:31 KUB HISTORY: r/o SBO, nausea, small emesis this am COMPARISON STUDY: 06/27/2025 FINDINGS: There is mild retained stool. No bowel obstruction seen. No gross free air. IMPRESSION: No bowel obstruction seen. ACT 112: Negative or not required by law. The above report was generated using voice recognition software. It may contain grammatical, syntax or spelling errors. Electronically signed by: Fernando Rosado M.D. 06/28/2025 12:15 PM
--- NOTE | 2025-06-29 16:51 | Hospitalist Progress Note ---
"Date of Service June 29, 2025 Assessment & Plan (1) Fall: (2) Fracture of femoral neck, right, closed: (3) Status post hemiarthroplasty of right hip: (4) Metastatic melanoma: (5) Hypoxia: (6) Dehydration: Plan This is an 89 year old female who was admitted to [facility] after she sustained a ground level fall with subsequent pathologic right hip fracture. She is now post operative day #7. She has had no complications post-operatively with plan for d/c to rehab. #Right femoral neck fracture s/p hemiarthroplasty of right hip on 06/21/25 Continue routine Tylenol as ordered routinely Continue bowel regimen Cont PT ##Questionable fever with documented isolated increased temperature of 39.8 on 06/28/25 -no additional documented febrile measurements -CBC with no leukocytosis -2V chest x-ray-no acute findings -UA suspicious for UTI with reflex to culture, treated empirically with Ceftriaxone 1GM IV -Keflex 500mg BID pending UC #Postoperative anemia Without signs or symptoms of anemia -received IV iron on 06/26/25, 06/28/25 -discussion at bedside and daughter concerning trends will elect to check H/H #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 BID ##Constipation-has moved bowels with daily Miralax regimen -has not received narcotics since 06/23 -in postoperative period with recent general anesthesia -receiving Senna HS routinely, MOM x1 06/27/25, Dulcolax supp 06/27/25 with favorable results, 3 documented BMs, Miralax changed to routine daily dosing -KUB 06/27/25 with mod retained stool and no bowel obstruction -repeat KUB 06/28/25 with mild retained stool and no bowel obstruction ##Nausea/belching -intermittent nausea relieved with antiemetics (utilizing Zofran) -start Protonix VTE ppx: Eliquis 2.5 mg p.o. BID Dispo: downgrade to med/surg; patient disposition pending based on conversation with palliative care and determination of transitional care vs hospice Admission and Anticipated Discharge Date Admission Date: June 20, 2025 Subjective Saw patient this am with reports of intermittent nausea and belching. Reports destinee morales is tolerating liquids and small amounts of food without vomiting. Took Zofran last evening which helped her nausea. Did drink a milkshake as well last evening. States she is willing to go to rehab this afternoon. Has been moving bowels. Denies dysuria, hematuria or urinary frequency. After evaluation this morning, patient verbalized to nursing staff she was electing to not go to rehab and wanted to go home. Says she feels like she is going going to soon because her cancer has progressed. She denies a sensation of impending doom. Conflicted about her wishes at this time and follow up care. Spoke with daughter and regarding patient disposition and patient's wishes regarding her follow up with not going to rehab. Discussion with family regarding in home care and possible hospice care. Agreeable to meeting with palliative care providers to have further discussion regarding goals of care related to cancer diagnosis. Review of Systems Review of Systems: All systems reviewed & are unremarkable except as noted in Subjective Physical Exam Physical Exam: GENERAL APPEARANCE: A&O. Sitting up in bed. NAD. SKIN: Normal color without rashes or lesions. Normal turgor. Right hip silverlon dressing present without drainage. HEENT: Head AT/NC. Buccal mucosa is moist and pink. NECK: No jugular venous distention. No thyroid enlargement. There is no lymphadenopathy. HEART: Irregulary irregular without m/g/r. LUNGS: Normal inspiratory effort. CTA without w/r/r. ABDOMEN: No guarding or rigidity. Normoactive BS in all four quadrants. Abdomen soft, mild tenderness to epigastric palpation. MSK: No bony gross/deformities throughout. ROM intact. EXTREMITIES: Trace pedal edema. No peripheral cyanosis. Neuro: CN 2-12 grossly intact. No focal neuro deficits. Results & Data Results & Data Vital Signs (Past 12 Hours) Vital Signs Temp Pulse Pulse Resp BP Pulse Ox O2 Del Method 06/29/25 14:40 94 H 06/29/25 11:44 100 H 06/29/25 11:00 36.5 C 79 18 92/64 L 97 Room Air 06/29/25 07:55 36.4 C L 84 18 98/66 L 95 Room Air PG Care Time/CCT Total # of Minutes Spent Total Time Spent with Patient: 60 minutes total time spent with patient Coding Level of Care Code 41397 SUB INP/OBS CARE 3/50MIN Diagnoses Fall W19.XXXA Fracture of femoral neck, right, closed S72.001A Encounter type: initial encounter Status post hemiarthroplasty of right hip Z96.641 Metastatic melanoma C43.9 Hypoxia R09.02 Dehydration E86.0 (2) Fracture of femoral neck, right, closed Encounter type: initial encounter Qualified Code(s): S72.001A - Fracture of unspecified part of neck of right femur, initial encounter for closed fracture"
--- NOTE | 2025-06-30 09:25 | Palliative Care Consultation ---
Date of Consultation June 30, 2025 Assessment & Plan (1) Advanced care planning/counseling discussion: A 70 min face to face ACP meeting was held at bedside with pt, her Karime and Jeovany Kirby from primary team. Course of illness to date was reviewed. Mrs Schaffer, who likes to be called Vance, shares that she just started to feel "I'm not going to make it through this one, and I don't want to keep doing this with hospitals and nursing homes. I want to be home and with my family.That's what I want." She then went on to tell me "And I can go back to cancer clinic for my infusion next week and see what else they want to do or maybe can do." We discussed the difference between home health and hospice. I provided education about the hospice benefit: an interdisciplinary program offered by nurses, nurses aides, social workers, chaplains and a biomedical engineering supervisor for patients with a terminal condition and a life expectancy of less than 6 months. This is covered by Medicare at 100%/no out of pocket expense to patient and all meds/supplies needed by patient for the reason they are on hospice are paid for/covered by hospice. The goal is assure quality of life of the patient in their home setting (home, [place] [facility], inpatient hospice setting) by providing symptoms management, psychosocial and spiritual support. However, they cannot offer 24 hours care and if the family is unable to provide that care, they will have to consider personal care with out of pocket cost vs. [place] [facility] [place] placement. We discussed the goals of hospice as a patient service and the goals of care; we discussed EOL trajectories and transitions laxmi the emotional impact of realizing mortality as a concrete reality from prior abstract considerations. Pt was reassured that no matter where they are along this trajectory, they are not alone - their medical team will remain by their side through their journey. Discussed the pros/cons of accepting help when especially weakened and distressed by pain-which would also help provide relief/decrease caregiver burden/strain. I also advised hospice would mean we would not continue cancer directed therapies as the focus of her care would pivot to comfort and QOL. I advised her that if desiring cancer care mgt/more infusion then perhaps home health/transitional care would be better fit: Transitional care is a pre-hospice program designed to advanced illness patients the care they want at home and keep them out of the hospital. Transitional care addresses the needs of patients in a declining state of health who are not yet ready to enter hospice care. Patients may continue to receive life-prolonging treatments in additional to palliative care that focuses on comfort measures and pain relief. Studies demonstrate these Palliative therapies can have a positive effect on a patients mobility, happiness and overall quality of life. In Transitional care programs, nurses and other members of the home care and hospice team will regularly visit patients at home to teach them how to better manage their diseases, advance care planning and when necessary, end of life care. Providers will review and modify medication regimen to assure patient is not getting any unnecessary medications. Unlike hospice care, patients in this program don't need to have a prognosis of six months or less to live, and they can continue getting treatment that is aimed at curing their illnesses, not just treating symptoms. Transitional care programs are useful for patients who may be at or nearing the point where they starting to realize there disease is becoming more end stage/advanced and medical modalities have been maximized but no longer provide the relief they once did when patients' disease was not so severe. The overall goal of transitional care is to help our patients through this process so it's not filled with chaos. Advised there are 2 choices for transitional care in this area: [facility] and [facility] - Dr Schaffer states one of those was the hospice they had and he does not want the same agency - he will check with their daughter "she handles all of these things for us." A very lengthy discussion ensued about goals. Vance is tired and starting to feel the effects of her cancer , its treatment and now the progression. She ad mits she did not know anything specific about her Apr [address] scan results other than "i think the cancer was getting worse." i reviewed findings with her and specifically the uterinae changes which are likely to be what explains the post menopausal bleeding she has been dealing with in recent months. I asked her what is important to her and she replied being home and with family..She states she does not want to be a [place] [facility] [place] or away from home. She is less sure about not having more chemo/ICI and I advised her this is best left to oncology to address as far as what would be the risks/benefits to her at this junction to keep going with those tx in setting of disease progression, weakness, declining PS and recent acute fracture. Dr. Schaffer stated "As her of 64 years, I would like for her to go to rehab and get stronger, keep going with the chemo and immunotherapy and get better, stick around longer." I encouraged them to have more discussion bc it is clear they are not on the same (proverbial) page as far as goals. I gently encouraged Dr Schaffer to consider what Vance is saying and to try and keep in mind that everything being done is being done to Vance and she is the one dealing with its side effects and toxicities. Patients can feel the changes happening in their body and often have a sharp intuition of when things are changing and their end is nearing. My aim is to align care with her wishes/preferences and desires, whether with hospice or home health. I suggested for now they consider dc home with transitional care bc I am unclear they both want hospice. Dr Schaffer feels after a few weeks of [place] [facility] health support, he can manage most of Vance's needs and stated he feels he needs to have their master bath shower modified so there is nothing to step over to get into the shower which would make things much easier for Vance. That being noted, for right now with her limited mobility and his need to ambulate with cane, he would prefer nursing support for her personal care. He is very vocal about the negative experience with hospice and very vocal he does not want to engage hospice again, if ever. Vance listened but appeared weary with the conversation and could reiterate she just wants to be home and not in a nursing facility. There is no clear decision on dispo for now. I encouraged them to have more talks between themselves. Dr Schaffer advised us that their daughter who handles all their medical needs "is presently speaking with care [facility] about what she knows we need and I am sure she will get it sorted out because that is what she does for us." She was not able to be present for this discussion. I offered to follow up over the weekend by telemed for any urgent needs or my team can follow up next week, Wednesday, - will be with Rosmery GABRIEL as I will be at [facility] 07/02 and 07/03. They were both very appreciative of the time spent discussing these issues [place]. [place] Schaffer noted he is willing to hire and pay for private nursing care OOP - I encouraged him to followup with care mgt for a list of agencies that can accommodate this care in their area (2) Palliative care by specialist: Introduced Palliative Medicine and explained our role in patient's care. Patient and/or family were receptive to palliative services for goals of care discussions. Reviewed we are different from hospice, a home health nurse visiting service. Plan ACP as above Thank you for allowing us to participate in the ongoing care of this patient. Please page with any additional concerns. 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 Followed by cancer clinic Recent petct +progression incl uterine malignancy appearance with +uterine bleeding requring recent er eval. this admission was for a fall and hip fracture. surgically repaired. she was planned for snf rehab ([facility] declined) She had an acute status change this AM and dc was cancelled. further work up initiated. she feels better this afternoon but decided she does not want to go to rehab and desired home with hospice she shares a year ago when met melanoma was dx at [facility], "they told me i had 3 mos to live and to go get on hospice, so i was set up on hospice and they were not helpful. 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 Per staff discussions, this urgent palll med consullt was requested to bring clarity to goals of care, family remain divided and while pt is asking for home with hospice, other family members have not been in agreement and/or 'are pressuring her to go to rehab.' Allergies Allergy/AdvReac Type Severity Reaction Status Date / Time No Known Drug Allergies Allergy Verified 05/24/25 13:22 Home Medications Medication Instructions Recorded Confirmed Type cholecalciferol (vitamin D3) 50 50 mcg PO DAILY 10/14/22 05/24/25 History mcg (2,000 unit) capsule blood sugar diagnostic (Accu-Chek #100 ea 04/03/24 04/12/25 Rx Guide test strips) bisoprolol fumarate 5 mg tablet 5 mg PO QAM #90 tabs 06/21/24 05/24/25 Rx pen needle, diabetic 32 gauge x #100 ea 06/28/24 04/12/25 Rx 5/32" (BD Shante 2nd Gen Pen Needle) allopurinol 100 mg tablet 100 mg PO QAM 12/07/24 05/24/25 History vitamin C 45 mg-zinc citrate 4 1 tab PO BID 12/07/24 05/24/25 History mg-elderberry 50 mg chewable tablet (Desura) insulin glargine 100 unit/mL (3 25 unit (0.25 mL) subcut QDL #15 mL 01/11/25 05/24/25 Rx mL) subcutaneous pen (Lantus Solostar U-100 Insulin) potassium chloride 10 mEq 10 meq PO DAILY #30 caps 04/03/25 05/24/25 Rx capsule,extended release acetaminophen 300 mg-codeine 30 mg 1 tab PO Q4H PRN 04/05/25 05/24/25 History tablet apixaban 2.5 mg tablet (Eliquis) 2.5 mg PO BID 05/24/25 History bumetanide 1 mg tablet 1 mg PO DAILY 05/24/25 History celecoxib 200 mg capsule (Celebrex) 200 mg PO BID 05/24/25 05/24/25 History colchicine 0.6 mg tablet 0.6 mg PO .QOD 05/24/25 History bisacodyl 5 mg tablet 5 mg PO DAILY PRN constipation #30 06/29/25 Rx tabs cephalexin 250 mg capsule 250 mg PO BID 3 days #6 caps 06/29/25 Rx ondansetron 4 mg disintegrating 4 mg PO Q6H PRN nausea and 06/29/25 Rx tablet vomiting #30 tabs pantoprazole 40 mg tablet,delayed 40 mg PO DAILY #30 tabs 06/29/25 Rx release (Protonix) polyethylene glycol 3350 17 17 g PO DAILY #119 grams 06/29/25 Rx gram/dose oral powder Patient History Medical History Fractured sternum Encounter for pre-operative examination Hospice care patient [facility] for esophageal ca Hematuria reason for upcoming procedure Cramping of hands fingers per pt Neuropathy hands / feet Balance disorder Stage 3b chronic kidney disease follows with Dr. Ramirez Scoliosis Renal mass reason for upcoming procedure Diabetes mellitus, type 2 HTN (hypertension) History of esophageal cancer diagnosed 2019--chemo/radiation in [place] > 2023 reoccurance, had 4-5 doses of immunotherapy > pt on hospice group ([facility]) Cardiomyopathy Gout DVT (deep venous thrombosis) LLE > dx early 2024 > Eliquis > (had been on Eliquis for Afib in the past, but had stopped it approx 6 mos or more, then resumed due to DVT) Atrial fibrillation dx approx 2018 > no pacer > Eliquis History of TIA (transient ischemic attack) prior to 2019 pt thinks, pt thinks it was related to ocular migraines Hx of bronchitis no recent issues Rotator cuff (capsule) sprain no sx > healed on own Verruca vulgaris Osteoarthritis On anticoagulant therapy eliquis daily Ocular migraine gets aura, gets several x per week in AM Diabetes mellitus IDDM Surgical History H/O transurethral resection of bladder tumor (TURBT) 12/15/24 History of tooth extraction Hx of melanoma excision Left shoulder - wide excision 01/14/25 History of colonoscopy History of total left knee replacement (TKR) History of esophagogastroduodenoscopy (EGD) History of root canal procedure History of bilateral cataract extraction Family History Mother Diabetes Sister Diabetes Father Myocardial infarction Other Family history non-contributory No family history of adverse response to anesthesia Denies family history of Ovarian cancer Prostate cancer Breast cancer Colorectal cancer Social History Smoking Status: Former smoker Tobacco Type: Cigarettes Age Started Using Tobacco: 17; Age Quit Using Tobacco: 34; packs per day: 1.5; Second Hand Exposure: No; Do You Dip or Chew Tobacco: No; Hx Alcohol Use: Yes Alcohol type: other Alcohol Intake Frequency: 2-4 x/Month Hx Substance Use: No Preferred Language: Bulgarian Communication Ability: Effective Visual Impairment: No Limitations Hearing Ability: Normal Barrel Driller Required: No Beliefs That Will Affect Care: None marital status: Current Living Situation: Spouse current occupational status: retired How many Children do You have: 6 Feels Safe at Home: Yes Diet: regular caffeine: Yes during the past year weight has: increased > 10 lbs Dental Care, Regularly: No Physical Activity Frequency: Does not Exercise Seatbelt Use: always Sunscreen Use: Yes Assistive Devices: None Review of Systems Review of Systems: All systems reviewed & are unremarkable except as noted in Subjective Physical Exam Physical Exam: OOB to chair mobility limited 1-2 person assist for transfers (1 person max, 2 person modified) No resp distress No conversational dyspnea trace BLE edema skin warm/pink no cyanosis or clubbing Results & Data Vital Signs (Past 12 Hours) Vital Signs Temp Pulse Pulse Resp BP Pulse Ox O2 Del Method 06/30/25 07:41 36.3 C L 84 22 90/61 L 95 Room Air 06/30/25 03:13 36.8 C 78 18 134/77 93 Room Air 06/29/25 22:42 36.9 C 86 18 95/63 L 96 Room Air Laboratory Results 06/30/25 06/29/25 06/29/25 Range/Units 08:13 19:59 16:47 WBC (4.8-10.8) K/ul RBC (4.20-5.40) M/uL Hgb (12.0-16.0) g/dl Hct (37.0-47.0) % MCV (80.0-100.0) fL MCH (25.0-34.0) pg MCHC (32.0-36.0) g/dL RDW Std Deviation (36.4-46.3) fL RDW Coeff of Marlene (11.5-14.5) % Plt Count (130-400) K/uL MPV (9.4-12.4) fL Immature Gran % (Auto) % Neut % (Auto) % Lymph % (Auto) % [place] % (Auto) % Eos % (Auto) % Baso % (Auto) % Neut # (Auto) (1.40-6.50) K/uL Lymph # (Auto) (1.20-3.40) K/uL [place] # (Auto) (0.11-0.59) K/uL Eos # (Auto) (0.00-0.50) K/uL Baso # (Auto) (0.00-0.20) K/uL Immature Gran # (Auto) (0.01-0.20) K/uL Absolute Nucleated RBC (0.00-0.12) K/uL Nucleated RBC % (auto) % Sodium (136-145) mmol/L Potassium (3.5-5.1) mmol/L Chloride (98-107) mmol/L Carbon Dioxide (21-32) mmol/L Anion Gap (3-11) BUN (6-23) mg/dl Creatinine (0.6-1.2) mg/dl Est Cr Clr Drug Dosing ml/min eGFR BUN/Creatinine Ratio (10-20) Glucose (70-99(Fasting)) mg/dl POC Glucose 138 H 111 H 133 H (70-99) mg/dl Calcium (8.6-10.3) mg/dl Urine Color Urine Appearance (Clear) Urine pH (4.5-7.5) Ur Specific Rufe (1.000-1.030) Urine Protein (Negative) Urine Glucose (UA) (Negative) Urine Ketones (Negative) Urine Blood (Negative) Urine Nitrite (Negative) Urine Bilirubin (Negative) Urine Urobilinogen (Negative) Ur Leukocyte Esterase (Negative) Urine WBC (Auto) (0-5) /hpf Urine RBC (Auto) (0-2) /hpf U Hyaline Cast (Auto) (0-2) /lpf U Epithel Cells (Auto) (0-2) /hpf Urine Bacteria (Auto) (None Seen) Urine Comment 06/29/25 06/29/25 06/28/25 Range/Units 11:47 07:53 Unknown WBC (4.8-10.8) K/ul RBC (4.20-5.40) M/uL Hgb (12.0-16.0) g/dl Hct (37.0-47.0) % MCV (80.0-100.0) fL MCH (25.0-34.0) pg MCHC (32.0-36.0) g/dL RDW Std Deviation (36.4-46.3) fL RDW Coeff of Marlene (11.5-14.5) % Plt Count (130-400) K/uL MPV (9.4-12.4) fL Immature Gran % (Auto) % Neut % (Auto) % Lymph % (Auto) % [place] % (Auto) % Eos % (Auto) % Baso % (Auto) % Neut # (Auto) (1.40-6.50) K/uL Lymph # (Auto) (1.20-3.40) K/uL [place] # (Auto) (0.11-0.59) K/uL Eos # (Auto) (0.00-0.50) K/uL Baso # (Auto) (0.00-0.20) K/uL Immature Gran # (Auto) (0.01-0.20) K/uL Absolute Nucleated RBC (0.00-0.12) K/uL Nucleated RBC % (auto) % Sodium (136-145) mmol/L Potassium (3.5-5.1) mmol/L Chloride (98-107) mmol/L Carbon Dioxide (21-32) mmol/L Anion Gap (3-11) BUN (6-23) mg/dl Creatinine (0.6-1.2) mg/dl Est Cr Clr Drug Dosing ml/min eGFR BUN/Creatinine Ratio (10-20) Glucose (70-99(Fasting)) mg/dl POC Glucose 136 H 131 H (70-99) mg/dl Calcium (8.6-10.3) mg/dl Urine Color Dark Yellow Urine Appearance Clear (Clear) Urine pH 5.5 (4.5-7.5) Ur Specific Rufe 1.024 (1.000-1.030) Urine Protein 1+ H (Negative) Urine Glucose (UA) Negative (Negative) Urine Ketones 1+ H (Negative) Urine Blood Negative (Negative) Urine Nitrite Negative (Negative) Urine Bilirubin Negative (Negative) Urine Urobilinogen Negative (Negative) Ur Leukocyte Esterase 2+ H (Negative) Urine WBC (Auto) 21-50 H (0-5) /hpf Urine RBC (Auto) 3-5 H (0-2) /hpf U Hyaline Cast (Auto) 3-5 H (0-2) /lpf U Epithel Cells (Auto) 0-2 (0-2) /hpf Urine Bacteria (Auto) None Seen (None Seen) Urine Comment 06/28/25 06/28/25 06/28/25 Range/Units 20:23 17:00 11:51 WBC (4.8-10.8) K/ul RBC (4.20-5.40) M/uL Hgb (12.0-16.0) g/dl Hct (37.0-47.0) % MCV (80.0-100.0) fL MCH (25.0-34.0) pg MCHC (32.0-36.0) g/dL RDW Std Deviation (36.4-46.3) fL RDW Coeff of Marlene (11.5-14.5) % Plt Count (130-400) K/uL MPV (9.4-12.4) fL Immature Gran % (Auto) % Neut % (Auto) % Lymph % (Auto) % [place] % (Auto) % Eos % (Auto) % Baso % (Auto) % Neut # (Auto) (1.40-6.50) K/uL Lymph # (Auto) (1.20-3.40) K/uL [place] # (Auto) (0.11-0.59) K/uL Eos # (Auto) (0.00-0.50) K/uL Baso # (Auto) (0.00-0.20) K/uL Immature Gran # (Auto) (0.01-0.20) K/uL Absolute Nucleated RBC (0.00-0.12) K/uL Nucleated RBC % (auto) % Sodium (136-145) mmol/L Potassium (3.5-5.1) mmol/L Chloride (98-107) mmol/L Carbon Dioxide (21-32) mmol/L Anion Gap (3-11) BUN (6-23) mg/dl Creatinine (0.6-1.2) mg/dl Est Cr Clr Drug Dosing ml/min eGFR BUN/Creatinine Ratio (10-20) Glucose (70-99(Fasting)) mg/dl POC Glucose 237 H 158 H 137 H (70-99) mg/dl Calcium (8.6-10.3) mg/dl Urine Color Urine Appearance (Clear) Urine pH (4.5-7.5) Ur Specific Rufe (1.000-1.030) Urine Protein (Negative) Urine Glucose (UA) (Negative) Urine Ketones (Negative) Urine Blood (Negative) Urine Nitrite (Negative) Urine Bilirubin (Negative) Urine Urobilinogen (Negative) Ur Leukocyte Esterase (Negative) Urine WBC (Auto) (0-5) /hpf Urine RBC (Auto) (0-2) /hpf U Hyaline Cast (Auto) (0-2) /lpf U Epithel Cells (Auto) (0-2) /hpf Urine Bacteria (Auto) (None Seen) Urine Comment 06/28/25 06/28/25 06/28/25 Range/Units 09:46 09:41 07:33 WBC 10.28 (4.8-10.8) K/ul RBC 3.10 L (4.20-5.40) M/uL Hgb 9.3 L (12.0-16.0) g/dl Hct 28.5 L (37.0-47.0) % MCV 91.9 (80.0-100.0) fL MCH 30.0 (25.0-34.0) pg MCHC 32.6 (32.0-36.0) g/dL RDW Std Deviation 49.9 H (36.4-46.3) fL RDW Coeff of Marlene 15.4 H (11.5-14.5) % Plt Count 383 (130-400) K/uL MPV 10.0 (9.4-12.4) fL Immature Gran % (Auto) 1.3 % Neut % (Auto) 80.6 % Lymph % (Auto) 8.5 % [place] % (Auto) 8.9 % Eos % (Auto) 0.5 % Baso % (Auto) 0.2 % Neut # (Auto) 8.29 H (1.40-6.50) K/uL Lymph # (Auto) 0.87 L (1.20-3.40) K/uL [place] # (Auto) 0.92 H (0.11-0.59) K/uL Eos # (Auto) 0.05 (0.00-0.50) K/uL Baso # (Auto) 0.02 (0.00-0.20) K/uL Immature Gran # (Auto) 0.13 (0.01-0.20) K/uL Absolute Nucleated RBC 0.03 (0.00-0.12) K/uL Nucleated RBC % (auto) 0.3 % Sodium 133 L (136-145) mmol/L Potassium 4.7 (3.5-5.1) mmol/L Chloride 100 (98-107) mmol/L Carbon Dioxide 25 (21-32) mmol/L Anion Gap 8 (3-11) BUN 25 H (6-23) mg/dl Creatinine 1.07 (0.6-1.2) mg/dl Est Cr Clr Drug Dosing 39.5 ml/min eGFR 49.65 BUN/Creatinine Ratio 23.4 H (10-20) Glucose 151 H (70-99(Fasting)) mg/dl POC Glucose 130 H (70-99) mg/dl Calcium 9.2 (8.6-10.3) mg/dl Urine Color Urine Appearance (Clear) Urine pH (4.5-7.5) Ur Specific Rufe (1.000-1.030) Urine Protein (Negative) Urine Glucose (UA) (Negative) Urine Ketones (Negative) Urine Blood (Negative) Urine Nitrite (Negative) Urine Bilirubin (Negative) Urine Urobilinogen (Negative) Ur Leukocyte Esterase (Negative) Urine WBC (Auto) (0-5) /hpf Urine RBC (Auto) (0-2) /hpf U Hyaline Cast (Auto) (0-2) /lpf U Epithel Cells (Auto) (0-2) /hpf Urine Bacteria (Auto) (None Seen) Urine Comment 06/27/25 06/27/25 06/27/25 Range/Units 20:28 16:23 13:45 WBC (4.8-10.8) K/ul RBC (4.20-5.40) M/uL Hgb 9.8 L (12.0-16.0) g/dl Hct 28.2 L (37.0-47.0) % MCV (80.0-100.0) fL MCH (25.0-34.0) pg MCHC (32.0-36.0) g/dL RDW Std Deviation (36.4-46.3) fL RDW Coeff of Marlene (11.5-14.5) % Plt Count (130-400) K/uL MPV (9.4-12.4) fL Immature Gran % (Auto) % Neut % (Auto) % Lymph % (Auto) % [place] % (Auto) % Eos % (Auto) % Baso % (Auto) % Neut # (Auto) (1.40-6.50) K/uL Lymph # (Auto) (1.20-3.40) K/uL [place] # (Auto) (0.11-0.59) K/uL Eos # (Auto) (0.00-0.50) K/uL Baso # (Auto) (0.00-0.20) K/uL Immature Gran # (Auto) (0.01-0.20) K/uL Absolute Nucleated RBC (0.00-0.12) K/uL Nucleated RBC % (auto) % Sodium (136-145) mmol/L Potassium (3.5-5.1) mmol/L Chloride (98-107) mmol/L Carbon Dioxide (21-32) mmol/L Anion Gap (3-11) BUN (6-23) mg/dl Creatinine (0.6-1.2) mg/dl Est Cr Clr Drug Dosing ml/min eGFR BUN/Creatinine Ratio (10-20) Glucose (70-99(Fasting)) mg/dl POC Glucose 117 H 127 H (70-99) mg/dl Calcium (8.6-10.3) mg/dl Urine Color Urine Appearance (Clear) Urine pH (4.5-7.5) Ur Specific Rufe (1.000-1.030) Urine Protein (Negative) Urine Glucose (UA) (Negative) Urine Ketones (Negative) Urine Blood (Negative) Urine Nitrite (Negative) Urine Bilirubin (Negative) Urine Urobilinogen (Negative) Ur Leukocyte Esterase (Negative) Urine WBC (Auto) (0-5) /hpf Urine RBC (Auto) (0-2) /hpf U Hyaline Cast (Auto) (0-2) /lpf U Epithel Cells (Auto) (0-2) /hpf Urine Bacteria (Auto) (None Seen) Urine Comment 06/27/25 06/27/25 06/26/25 Range/Units 12:10 07:55 21:10 WBC (4.8-10.8) K/ul RBC (4.20-5.40) M/uL Hgb (12.0-16.0) g/dl Hct (37.0-47.0) % MCV (80.0-100.0) fL MCH (25.0-34.0) pg MCHC (32.0-36.0) g/dL RDW Std Deviation (36.4-46.3) fL RDW Coeff of Marlene (11.5-14.5) % Plt Count (130-400) K/uL MPV (9.4-12.4) fL Immature Gran % (Auto) % Neut % (Auto) % Lymph % (Auto) % [place] % (Auto) % Eos % (Auto) % Baso % (Auto) % Neut # (Auto) (1.40-6.50) K/uL Lymph # (Auto) (1.20-3.40) K/uL [place] # (Auto) (0.11-0.59) K/uL Eos # (Auto) (0.00-0.50) K/uL Baso # (Auto) (0.00-0.20) K/uL Immature Gran # (Auto) (0.01-0.20) K/uL Absolute Nucleated RBC (0.00-0.12) K/uL Nucleated RBC % (auto) % Sodium (136-145) mmol/L Potassium (3.5-5.1) mmol/L Chloride (98-107) mmol/L Carbon Dioxide (21-32) mmol/L Anion Gap (3-11) BUN (6-23) mg/dl Creatinine (0.6-1.2) mg/dl Est Cr Clr Drug Dosing ml/min eGFR BUN/Creatinine Ratio (10-20) Glucose (70-99(Fasting)) mg/dl POC Glucose 99 123 H 145 H (70-99) mg/dl Calcium (8.6-10.3) mg/dl Urine Color Urine Appearance (Clear) Urine pH (4.5-7.5) Ur Specific Rufe (1.000-1.030) Urine Protein (Negative) Urine Glucose (UA) (Negative) Urine Ketones (Negative) Urine Blood (Negative) Urine Nitrite (Negative) Urine Bilirubin (Negative) Urine Urobilinogen (Negative) Ur Leukocyte Esterase (Negative) Urine WBC (Auto) (0-5) /hpf Urine RBC (Auto) (0-2) /hpf U Hyaline Cast (Auto) (0-2) /lpf U Epithel Cells (Auto) (0-2) /hpf Urine Bacteria (Auto) (None Seen) Urine Comment 06/26/25 06/26/25 06/26/25 Range/Units 17:04 14:37 11:39 WBC (4.8-10.8) K/ul RBC (4.20-5.40) M/uL Hgb 8.8 L (12.0-16.0) g/dl Hct 27.1 L (37.0-47.0) % MCV (80.0-100.0) fL MCH (25.0-34.0) pg MCHC (32.0-36.0) g/dL RDW Std Deviation (36.4-46.3) fL RDW Coeff of Marlene (11.5-14.5) % Plt Count (130-400) K/uL MPV (9.4-12.4) fL Immature Gran % (Auto) % Neut % (Auto) % Lymph % (Auto) % [place] % (Auto) % Eos % (Auto) % Baso % (Auto) % Neut # (Auto) (1.40-6.50) K/uL Lymph # (Auto) (1.20-3.40) K/uL [place] # (Auto) (0.11-0.59) K/uL Eos # (Auto) (0.00-0.50) K/uL Baso # (Auto) (0.00-0.20) K/uL Immature Gran # (Auto) (0.01-0.20) K/uL Absolute Nucleated RBC (0.00-0.12) K/uL Nucleated RBC % (auto) % Sodium (136-145) mmol/L Potassium (3.5-5.1) mmol/L Chloride (98-107) mmol/L Carbon Dioxide (21-32) mmol/L Anion Gap (3-11) BUN (6-23) mg/dl Creatinine (0.6-1.2) mg/dl Est Cr Clr Drug Dosing ml/min eGFR BUN/Creatinine Ratio (10-20) Glucose (70-99(Fasting)) mg/dl POC Glucose 109 H 133 H (70-99) mg/dl Calcium (8.6-10.3) mg/dl Urine Color Urine Appearance (Clear) Urine pH (4.5-7.5) Ur Specific Rufe (1.000-1.030) Urine Protein (Negative) Urine Glucose (UA) (Negative) Urine Ketones (Negative) Urine Blood (Negative) Urine Nitrite (Negative) Urine Bilirubin (Negative) Urine Urobilinogen (Negative) Ur Leukocyte Esterase (Negative) Urine WBC (Auto) (0-5) /hpf Urine RBC (Auto) (0-2) /hpf U Hyaline Cast (Auto) (0-2) /lpf U Epithel Cells (Auto) (0-2) /hpf Urine Bacteria (Auto) (None Seen) Urine Comment 06/26/25 06/25/25 06/25/25 Range/Units 07:45 20:27 17:21 WBC (4.8-10.8) K/ul RBC (4.20-5.40) M/uL Hgb (12.0-16.0) g/dl Hct (37.0-47.0) % MCV (80.0-100.0) fL MCH (25.0-34.0) pg MCHC (32.0-36.0) g/dL RDW Std Deviation (36.4-46.3) fL RDW Coeff of Marlene (11.5-14.5) % Plt Count (130-400) K/uL MPV (9.4-12.4) fL Immature Gran % (Auto) % Neut % (Auto) % Lymph % (Auto) % [place] % (Auto) % Eos % (Auto) % Baso % (Auto) % Neut # (Auto) (1.40-6.50) K/uL Lymph # (Auto) (1.20-3.40) K/uL [place] # (Auto) (0.11-0.59) K/uL Eos # (Auto) (0.00-0.50) K/uL Baso # (Auto) (0.00-0.20) K/uL Immature Gran # (Auto) (0.01-0.20) K/uL Absolute Nucleated RBC (0.00-0.12) K/uL Nucleated RBC % (auto) % Sodium (136-145) mmol/L Potassium (3.5-5.1) mmol/L Chloride (98-107) mmol/L Carbon Dioxide (21-32) mmol/L Anion Gap (3-11) BUN (6-23) mg/dl Creatinine (0.6-1.2) mg/dl Est Cr Clr Drug Dosing ml/min eGFR BUN/Creatinine Ratio (10-20) Glucose (70-99(Fasting)) mg/dl POC Glucose 101 H 169 H 169 H (70-99) mg/dl Calcium (8.6-10.3) mg/dl Urine Color Urine Appearance (Clear) Urine pH (4.5-7.5) Ur Specific Rufe (1.000-1.030) Urine Protein (Negative) Urine Glucose (UA) (Negative) Urine Ketones (Negative) Urine Blood (Negative) Urine Nitrite (Negative) Urine Bilirubin (Negative) Urine Urobilinogen (Negative) Ur Leukocyte Esterase (Negative) Urine WBC (Auto) (0-5) /hpf Urine RBC (Auto) (0-2) /hpf U Hyaline Cast (Auto) (0-2) /lpf U Epithel Cells (Auto) (0-2) /hpf Urine Bacteria (Auto) (None Seen) Urine Comment 06/25/25 06/25/25 06/25/25 Range/Units 15:00 12:23 08:14 WBC (4.8-10.8) K/ul RBC (4.20-5.40) M/uL Hgb (12.0-16.0) g/dl Hct (37.0-47.0) % MCV (80.0-100.0) fL MCH (25.0-34.0) pg MCHC (32.0-36.0) g/dL RDW Std Deviation (36.4-46.3) fL RDW Coeff of Marlene (11.5-14.5) % Plt Count (130-400) K/uL MPV (9.4-12.4) fL Immature Gran % (Auto) % Neut % (Auto) % Lymph % (Auto) % [place] % (Auto) % Eos % (Auto) % Baso % (Auto) % Neut # (Auto) (1.40-6.50) K/uL Lymph # (Auto) (1.20-3.40) K/uL [place] # (Auto) (0.11-0.59) K/uL Eos # (Auto) (0.00-0.50) K/uL Baso # (Auto) (0.00-0.20) K/uL Immature Gran # (Auto) (0.01-0.20) K/uL Absolute Nucleated RBC (0.00-0.12) K/uL Nucleated RBC % (auto) % Sodium (136-145) mmol/L Potassium (3.5-5.1) mmol/L Chloride (98-107) mmol/L Carbon Dioxide (21-32) mmol/L Anion Gap (3-11) BUN (6-23) mg/dl Creatinine (0.6-1.2) mg/dl Est Cr Clr Drug Dosing ml/min eGFR BUN/Creatinine Ratio (10-20) Glucose (70-99(Fasting)) mg/dl POC Glucose 174 H 169 H 114 H (70-99) mg/dl Calcium (8.6-10.3) mg/dl Urine Color Urine Appearance (Clear) Urine pH (4.5-7.5) Ur Specific Rufe (1.000-1.030) Urine Protein (Negative) Urine Glucose (UA) (Negative) Urine Ketones (Negative) Urine Blood (Negative) Urine Nitrite (Negative) Urine Bilirubin (Negative) Urine Urobilinogen (Negative) Ur Leukocyte Esterase (Negative) Urine WBC (Auto) (0-5) /hpf Urine RBC (Auto) (0-2) /hpf U Hyaline Cast (Auto) (0-2) /lpf U Epithel Cells (Auto) (0-2) /hpf Urine Bacteria (Auto) (None Seen) Urine Comment 06/25/25 06/24/25 06/24/25 Range/Units 05:24 20:24 16:34 WBC 8.58 (4.8-10.8) K/ul RBC 2.79 L (4.20-5.40) M/uL Hgb 8.4 L (12.0-16.0) g/dl Hct 26.2 L (37.0-47.0) % MCV 93.9 (80.0-100.0) fL MCH 30.1 (25.0-34.0) pg MCHC 32.1 (32.0-36.0) g/dL RDW Std Deviation 49.3 H (36.4-46.3) fL RDW Coeff of Marlene 14.5 (11.5-14.5) % Plt Count 285 (130-400) K/uL MPV 10.1 (9.4-12.4) fL Immature Gran % (Auto) 0.5 % Neut % (Auto) 70.4 % Lymph % (Auto) 11.2 % [place] % (Auto) 13.6 % Eos % (Auto) 4.1 % Baso % (Auto) 0.2 % Neut # (Auto) 6.04 (1.40-6.50) K/uL Lymph # (Auto) 0.96 L (1.20-3.40) K/uL [place] # (Auto) 1.17 H (0.11-0.59) K/uL Eos # (Auto) 0.35 (0.00-0.50) K/uL Baso # (Auto) 0.02 (0.00-0.20) K/uL Immature Gran # (Auto) 0.04 (0.01-0.20) K/uL Absolute Nucleated RBC (0.00-0.12) K/uL Nucleated RBC % (auto) % Sodium 134 L (136-145) mmol/L Potassium 4.8 (3.5-5.1) mmol/L Chloride 103 (98-107) mmol/L Carbon Dioxide 28 (21-32) mmol/L Anion Gap 3 (3-11) BUN 39 H (6-23) mg/dl Creatinine 1.23 H (0.6-1.2) mg/dl Est Cr Clr Drug Dosing 34.7 ml/min eGFR 42.01 BUN/Creatinine Ratio 31.7 H (10-20) Glucose 104 H (70-99(Fasting)) mg/dl POC Glucose 174 H 123 H (70-99) mg/dl Calcium 9.1 (8.6-10.3) mg/dl Urine Color Urine Appearance (Clear) Urine pH (4.5-7.5) Ur Specific Rufe (1.000-1.030) Urine Protein (Negative) Urine Glucose (UA) (Negative) Urine Ketones (Negative) Urine Blood (Negative) Urine Nitrite (Negative) Urine Bilirubin (Negative) Urine Urobilinogen (Negative) Ur Leukocyte Esterase (Negative) Urine WBC (Auto) (0-5) /hpf Urine RBC (Auto) (0-2) /hpf U Hyaline Cast (Auto) (0-2) /lpf U Epithel Cells (Auto) (0-2) /hpf Urine Bacteria (Auto) (None Seen) Urine Comment 06/24/25 06/24/25 06/24/25 Range/Units 11:57 08:07 05:11 WBC 9.52 (4.8-10.8) K/ul RBC 2.86 L (4.20-5.40) M/uL Hgb 8.4 L (12.0-16.0) g/dl Hct 26.6 L (37.0-47.0) % MCV 93.0 (80.0-100.0) fL MCH 29.4 (25.0-34.0) pg MCHC 31.6 L (32.0-36.0) g/dL RDW Std Deviation 48.2 H (36.4-46.3) fL RDW Coeff of Marlene 14.4 (11.5-14.5) % Plt Count 252 (130-400) K/uL MPV 10.3 (9.4-12.4) fL Immature Gran % (Auto) 0.4 % Neut % (Auto) 73.6 % Lymph % (Auto) 10.9 % [place] % (Auto) 11.4 % Eos % (Auto) 3.5 % Baso % (Auto) 0.2 % Neut # (Auto) 7.00 H (1.40-6.50) K/uL Lymph # (Auto) 1.04 L (1.20-3.40) K/uL [place] # (Auto) 1.09 H (0.11-0.59) K/uL Eos # (Auto) 0.33 (0.00-0.50) K/uL Baso # (Auto) 0.02 (0.00-0.20) K/uL Immature Gran # (Auto) 0.04 (0.01-0.20) K/uL Absolute Nucleated RBC (0.00-0.12) K/uL Nucleated RBC % (auto) % Sodium 136 (136-145) mmol/L Potassium 4.7 (3.5-5.1) mmol/L Chloride 104 (98-107) mmol/L Carbon Dioxide 26 (21-32) mmol/L Anion Gap 6 (3-11) BUN 38 H (6-23) mg/dl Creatinine 1.38 H (0.6-1.2) mg/dl Est Cr Clr Drug Dosing 31.0 ml/min eGFR 36.59 BUN/Creatinine Ratio 27.5 H (10-20) Glucose 97 (70-99(Fasting)) mg/dl POC Glucose 156 H 114 H (70-99) mg/dl Calcium 9.1 (8.6-10.3) mg/dl Urine Color Urine Appearance (Clear) Urine pH (4.5-7.5) Ur Specific Rufe (1.000-1.030) Urine Protein (Negative) Urine Glucose (UA) (Negative) Urine Ketones (Negative) Urine Blood (Negative) Urine Nitrite (Negative) Urine Bilirubin (Negative) Urine Urobilinogen (Negative) Ur Leukocyte Esterase (Negative) Urine WBC (Auto) (0-5) /hpf Urine RBC (Auto) (0-2) /hpf U Hyaline Cast (Auto) (0-2) /lpf U Epithel Cells (Auto) (0-2) /hpf Urine Bacteria (Auto) (None Seen) Urine Comment 06/23/25 06/23/25 06/23/25 Range/Units 20:33 16:51 12:22 WBC (4.8-10.8) K/ul RBC (4.20-5.40) M/uL Hgb (12.0-16.0) g/dl Hct (37.0-47.0) % MCV (80.0-100.0) fL MCH (25.0-34.0) pg MCHC (32.0-36.0) g/dL RDW Std Deviation (36.4-46.3) fL RDW Coeff of Marlene (11.5-14.5) % Plt Count (130-400) K/uL MPV (9.4-12.4) fL Immature Gran % (Auto) % Neut % (Auto) % Lymph % (Auto) % [place] % (Auto) % Eos % (Auto) % Baso % (Auto) % Neut # (Auto) (1.40-6.50) K/uL Lymph # (Auto) (1.20-3.40) K/uL [place] # (Auto) (0.11-0.59) K/uL Eos # (Auto) (0.00-0.50) K/uL Baso # (Auto) (0.00-0.20) K/uL Immature Gran # (Auto) (0.01-0.20) K/uL Absolute Nucleated RBC (0.00-0.12) K/uL Nucleated RBC % (auto) % Sodium (136-145) mmol/L Potassium (3.5-5.1) mmol/L Chloride (98-107) mmol/L Carbon Dioxide (21-32) mmol/L Anion Gap (3-11) BUN (6-23) mg/dl Creatinine (0.6-1.2) mg/dl Est Cr Clr Drug Dosing ml/min eGFR BUN/Creatinine Ratio (10-20) Glucose (70-99(Fasting)) mg/dl POC Glucose 131 H 128 H 152 H (70-99) mg/dl Calcium (8.6-10.3) mg/dl Urine Color Urine Appearance (Clear) Urine pH (4.5-7.5) Ur Specific Rufe (1.000-1.030) Urine Protein (Negative) Urine Glucose (UA) (Negative) Urine Ketones (Negative) Urine Blood (Negative) Urine Nitrite (Negative) Urine Bilirubin (Negative) Urine Urobilinogen (Negative) Ur Leukocyte Esterase (Negative) Urine WBC (Auto) (0-5) /hpf Urine RBC (Auto) (0-2) /hpf U Hyaline Cast (Auto) (0-2) /lpf U Epithel Cells (Auto) (0-2) /hpf Urine Bacteria (Auto) (None Seen) Urine Comment Diagnostic Findings Hip/Pelvis X-Ray 06/20/25 13:44 XR hip RT 2V w pelvis CLINICAL HISTORY: hip pain after fall, concern for fracture COMPARISON: 10/18/2024 FINDINGS: There is an acute minimally displaced and impacted fracture at the right femoral neck. No other fracture or dislocation seen. IMPRESSION: Acute fracture right femoral neck. ACT 112: Negative or not required by law. Electronically signed by: Fernando Rosado M.D. 06/20/2025 2:36 PM Chest X-Ray 06/20/25 19:58 Exam(s): XR CXR 1 VIEW EXAM: XR Chest, 1 View CLINICAL HISTORY: Reason for exam: trauma, pre-op. TECHNIQUE: Frontal view of the chest. COMPARISON: 10/05/2024. FINDINGS: There is a poor inspiratory effort. Lungs: No consolidation. Pleural space: No pleural effusion is seen. No pneumothorax. Heart: Heart is top normal in size.. 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 Bones/joints: There is a scoliosis the spine with degenerative changes.. IMPRESSION: No acute pulmonary disease. Electronically signed by: Steven Taylor MD 06/20/25 23:11 PM Femur X-Ray 06/20/25 20:01 Exam(s): XR RIGHT FEMUR, 2 views EXAM: XR Right Femur, 2 Views CLINICAL HISTORY: Reason for exam: Preoperative planning. TECHNIQUE: Frontal and lateral views of the right femur. COMPARISON: No relevant prior studies available. FINDINGS: Bones/joints: There is a fracture of the right femoral neck.. No dislocation. There are hypertrophic degenerative changes. Soft tissues: Vascular calcifications are seen.. IMPRESSION: There is a fracture of the right femoral neck. Hypertrophic degenerative changes. Electronically signed by: Steven Taylor MD 06/20/25 23:10 PM Ankle X-Ray 06/21/25 14:41 EXAMINATION: X-ray ankle right 2 view CLINICAL HISTORY: Fall, pain PRIORS: None TECHNIQUE: Frontal and lateral moderate osseous demineralization noted. FINDINGS: Bone stock and alignment maintained. Ankle mortise preserved. Allowing for positioning, no acute fracture or dislocation. No ankle joint effusion. Mild diffuse degenerative change of the ankle noted. Diffuse subcutaneous edema noted throughout the [id number]. IMPRESSION: No plain film evidence of an acute osseous abnormality. Electronically signed by Светлана Edgar 06-21-2025 4:44 PM Tibia/Fibula X-Ray 06/21/25 14:41 EXAMINATION: X-ray tibia-fibula right 2 view CLINICAL HISTORY: Right lower extremity pain, status post fall PRIORS: None TECHNIQUE: Frontal and lateral view leg FINDINGS: Mild osseous demineralization noted. Advanced degenerative change of the knee medial and lateral compartments in the [id number]. Note tibia fibula displaced fracture. No cortical destruction or periosteal reaction. Moderate diffuse edema present throughout the entire leg. Vascular calcifications noted. IMPRESSION: No plain film evidence of an acute osseous abnormality. Electronically signed by Светлана Edgar 06-21-2025 4:44 PM Hip/Pelvis X-Ray 06/21/25 15:40 EXAMINATION: X-ray hip 1 view right with pelvis CLINICAL HISTORY: Fall, PRIORS: None TECHNIQUE: AP view pelvis and crosstable lateral view right hip. FINDINGS: Large body habitus greatly diminishes image quality. Crosstable lateral view is extremely limited due to body habitus. Allowing for this, a right total hip arthroplasty is present with no displaced fracture or dislocation. Obturator ring and pubic symphysis are unremarkable. No displaced fracture of the 1 view of the left hip. IMPRESSION: No plain film evidence of an acute osseous abnormality. Electronically signed by Светлана Edgar 06-21-2025 4:46 PM Chest X-Ray 06/23/25 11:40 EXAM: Radiograph of the Chest 1 View INDICATION: Hypoxia TECHNIQUE: Frontal view of the chest. COMPARISON: 06/20/2025 FINDINGS: Lungs and pleural spaces: No consolidation or pulmonary edema. No pleural effusion or pneumothorax. Heart: Stable large cardiac shadow. Mediastinum: Normal contour. Bones/joints: No fracture, erosion or dislocation. Soft tissues: No abnormality noted. No radiopaque foreign body noted. Upper abdomen: No abnormality noted. IMPRESSION: No acute change noted. ACT 112: N/A Electronically signed by Anika Montejo 06-23-2025 12:21 PM KUB X-Ray 06/27/25 00:00 KUB HISTORY: No BM since 06/19/25 COMPARISON STUDY: 10/18/2024 FINDINGS: There is moderate retained stool. No bowel obstruction seen. No gross free air. Stable scoliosis and right hip prosthesis. IMPRESSION: No acute findings. ACT 112: Negative or not required by law. The above report was generated using voice recognition software. It may contain grammatical, syntax or spelling errors. Electronically signed by: Fernando Rosado M.D. 06/27/2025 2:19 PM Chest X-Ray 06/28/25 09:27 XR chest 2V PA/lateral CLINICAL HISTORY: fever COMPARISON STUDY: 06/23/2025 FINDINGS: Stable mild cardiomegaly without pulmonary vascular congestion. No consolidation or pleural effusion seen. No pneumothorax. IMPRESSION: No acute findings. ACT 112: Negative or not required by law. Electronically signed by: Fernando Rosado M.D. 06/28/2025 11:25 AM KUB X-Ray 06/28/25 11:31 KUB HISTORY: r/o SBO, nausea, small emesis this am COMPARISON STUDY: 06/27/2025 FINDINGS: There is mild retained stool. No bowel obstruction seen. No gross free air. IMPRESSION: No bowel obstruction seen. ACT 112: Negative or not required by law. The above report was generated using voice recognition software. It may contain grammatical, syntax or spelling errors. Electronically signed by: Fernando Rosado M.D. 06/28/2025 12:15 PM Femur X-Ray 06/20/25 20:01 Exam(s): XR RIGHT FEMUR, 2 views EXAM: XR Right Femur, 2 Views CLINICAL HISTORY: Reason for exam: Preoperative planning. TECHNIQUE: Frontal and lateral views of the right femur. COMPARISON: No relevant prior studies available. FINDINGS: Bones/joints: There is a fracture of the right femoral neck.. No dislocation. There are hypertrophic degenerative changes. Soft tissues: Vascular calcifications are seen.. IMPRESSION: There is a fracture of the right femoral neck. Hypertrophic degenerative changes. Electronically signed by: Steven Taylor MD 06/20/25 23:10 PM Ankle X-Ray 06/21/25 14:41 EXAMINATION: X-ray ankle right 2 view CLINICAL HISTORY: Fall, pain PRIORS: None TECHNIQUE: Frontal and lateral moderate osseous demineralization noted. FINDINGS: Bone stock and alignment maintained. Ankle mortise preserved. Allowing for positioning, no acute fracture or dislocation. No ankle joint effusion. Mild diffuse degenerative change of the ankle noted. Diffuse subcutaneous edema noted throughout the [id number]. IMPRESSION: No plain film evidence of an acute osseous abnormality. Electronically signed by Светлана Edgar 06-21-2025 4:44 PM Tibia/Fibula X-Ray 06/21/25 14:41 EXAMINATION: X-ray tibia-fibula right 2 view CLINICAL HISTORY: Right lower extremity pain, status post fall PRIORS: None TECHNIQUE: Frontal and lateral view leg FINDINGS: Mild osseous demineralization noted. Advanced degenerative change of the knee medial and lateral compartments in the [id number]. Note tibia fibula displaced fracture. No cortical destruction or periosteal reaction. Moderate diffuse edema present throughout the entire leg. Vascular calcifications noted. IMPRESSION: No plain film evidence of an acute osseous abnormality. Electronically signed by Светлана Edgar 06-21-2025 4:44 PM Hip/Pelvis X-Ray 06/21/25 15:40 EXAMINATION: X-ray hip 1 view right with pelvis CLINICAL HISTORY: Fall, PRIORS: None TECHNIQUE: AP view pelvis and crosstable lateral view right hip. FINDINGS: Large body habitus greatly diminishes image quality. Crosstable lateral view is extremely limited due to body habitus. Allowing for this, a right total hip arthroplasty is present with no displaced fracture or dislocation. Obturator ring and pubic symphysis are unremarkable. No displaced fracture of the 1 view of the left hip. IMPRESSION: No plain film evidence of an acute osseous abnormality. Electronically signed by Светлана Edgar 06-21-2025 4:46 PM Chest X-Ray 06/28/25 09:27 XR chest 2V PA/lateral CLINICAL HISTORY: fever COMPARISON STUDY: 06/23/2025 FINDINGS: Stable mild cardiomegaly without pulmonary vascular congestion. No consolidation or pleural effusion seen. No pneumothorax. IMPRESSION: No acute findings. ACT 112: Negative or not required by law. Electronically signed by: Fernando Rosado M.D. 06/28/2025 11:25 AM KUB X-Ray 06/28/25 11:31 KUB HISTORY: r/o SBO, nausea, small emesis this am COMPARISON STUDY: 06/27/2025 FINDINGS: There is mild retained stool. No bowel obstruction seen. No gross free air. IMPRESSION: No bowel obstruction seen. ACT 112: Negative or not required by law. The above report was generated using voice recognition software. It may contain grammatical, syntax or spelling errors. Electronically signed by: Fernando Rosado M.D. 06/28/2025 12:15 PM PG Care Time/CCT Total # of Minutes Spent Total Time Spent with Patient: Total time spent is greater than 50% in coordination of care (as documented) at patient's floor/unit and/or counseling patient: I spent 135 minutes overall addressing this case: 20 min in medical data review/discussion with referring provider(s) and/or preparation for the visit 15 min in direct interaction with the patient/exam 70 min in Advance Care Planning/Goals of Care discussions as detailed above in note (must be >16min) 15 min in subsequent review and synthesis of assessment and plan 15 min communicating with other providers regarding the patient's case: Advanced Care Planning 00353 Advanced Care Planning Additional 30 [place] [address] IN/OBS CONSULT LVL 4,60M (25 - SIGNIFICANT, SEPARATELY IDENTIFIABLE ) Patient Type New Medical Decision Making High Complexity Diagnoses Advanced care planning/counseling discussion Z71.89 Palliative care by specialist Z51.5 Additional Codes Advanced Care Planning - 80175 Advanced Care Planning Additional 30 Min: 73965 Advanced Care Planning Additional 30 Min ([id number]) Comment [id number], [id number]
[2025-06-30] MEDS: LANTUS PER UNIT CHARGE SC SCH (09:57)
--- NOTE | 2025-06-30 17:07 | Hospitalist Progress Note ---
"Date of Service June 30, 2025 Assessment & Plan (1) Fall: (2) Fracture of femoral neck, right, closed: (3) Status post hemiarthroplasty of right hip: (4) Metastatic melanoma: Plan This is an 89 year old female with metastatic melanoma admitted with pathologic right hip fracture after a ground level fall. #Pathologic right femoral neck fracture s/p hemiarthroplasty of right hip on 06/21/25 Continue acetaminophen Continue bowel regimen - having regular stools Cont PT - today 23 feet x 2 with CGA --PT recommending rehab, however, she plans home with home health, hospice in the future pending discussion with Dr. Bonner #Questionable fever with documented isolated increased temperature of 39.8 on 06/28/25 -no additional documented febrile measurements -CBC with no leukocytosis -2V chest x-ray-no acute findings -Possible UTI treated with ceftriaxone --> keflex. Culture with skin jennie. 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 Bonner has been out of town this past week -just started the current treatment with Opdualag mid-may so too early to know whether this will have good effect -encouraged to discuss with Dr. Bonner - I will contact Wednesday if she is still here #A-fib with RVR | history of DVT -rates well controlled past 48h -continue bisoprolol and apixaban #Constipation-has moved bowels with daily Miralax regimen -KUB 06/27/25 with mod retained stool and no bowel obstruction -repeat KUB 06/28/25 with mild retained stool and no bowel obstruction -having daily BMs since 06/28 -continue senna and miralax #Nausea/belching -intermittent nausea relieved with antiemetics (utilizing Zofran) -started Protonix -no symptoms today, ate really well this AM VTE ppx: Eliquis 2.5 mg p.o. BID Probably home with home health - her family is working on home set up right now and two daughters are here from out of town Wishes to be home because her cancer is worsening and time may be short Considering hospice, will discuss with Dr. Bonner regarding her prognosis, assess response to new immunotherapy DNR/DNI Admission and Anticipated Discharge Date Admission Date: June 20, 2025 [address]ive Mrs. Schaffer reports that she feels much better this morning. Yesterday she had an episode after her PT session where she felt terrible and felt like she was dying. She still desires to go home, with home health. Today she is not having hip pain while sitting in bed for bfast. She does have some pain in left lower abdominal wall associated with her known soft tissue metastases. She has LUE pain and numbness of her hand that has been progressive, also related to mets. No shortness of breath and no nausea right now. Previous episodes of emesis were after a pill and the zofran did help. Physical Exam Physical Exam: Last 24h vitals reviewed GEN: no acute distress, sitting up in bed eating - has eaten most of breakfast tray HEENT: pupils equal, sclerae anicteric, moist MM RESP: normal WOB CV: ABD: nondistended : no case SKIN: warm and dry, no generalized rashes NEURO: AOx person, place, and situation. Face symmetric, speech normal, moves 4 ext spontaneously and equally Results & Data Results & Data Vital Signs (Past 12 Hours) Vital Signs Temp Pulse Resp BP BP Pulse Ox O2 Del Method 06/30/25 15:52 36.7 C 87 16 113/72 97 Room Air 06/30/25 11:55 36.5 C 86 23 96/68 L 98 Room Air 06/30/25 07:41 36.3 C L 84 22 90/61 L 95 Room Air PG Care Time/CCT Total # of Minutes Spent Total Time Spent with Patient: Total time spent is greater than 50% in coordination of care (as documented) at patient's floor/unit and/or counseling patient: Coding Level of Care Code 49598 SUB INP/OBS CARE 2/35MIN Diagnoses Fall W19.XXXA Fracture of femoral neck, right, closed S72.001A Encounter type: initial encounter Status post hemiarthroplasty of right hip Z96.641 Metastatic melanoma C43.9 (2) Fracture of femoral neck, right, closed Encounter type: initial encounter Qualified Code(s): S72.001A - Fracture of unspecified part of neck of right femur, initial encounter for closed fracture"
--- NOTE | 2025-07-01 17:30 | Hospitalist Progress Note ---
"Date of Service July 01, 2025 Assessment & Plan (1) Fall: (2) Fracture of femoral neck, right, closed: (3) Status post hemiarthroplasty of right hip: (4) Metastatic melanoma: Plan This is an 89 year old female with metastatic melanoma admitted with pathologic right hip fracture after a ground level fall. #Pathologic right femoral neck fracture s/p hemiarthroplasty of right hip on 06/21/25 Continue acetaminophen Continue bowel regimen - having regular stools Cont PT - 06/30 23 feet x 2 with CGA --PT recommending rehab, however, family still considering home with home health vs rehab #Questionable fever with documented isolated increased temperature of 39.8 on 06/28/25 -no additional documented febrile measurements -CBC with no leukocytosis -2V chest x-ray-no acute findings -Possible UTI treated with ceftriaxone --> keflex. Culture with skin jennie. #Postoperative anemia -received IV iron on 06/26/25, 06/28/25 -Hg 9.8, 9.3 last two checks #Metastatic melanoma with mets to bladder and bone -On current immunotherapy with checkpoint inhibitor every 28 days and palliative RT -completed radiation therapy on 06/27/25 -palliative care not available weekends but can consult Wednesday if desired -just started the current treatment with Opdualag mid-may -discussed with Vance and her at bedside today - will update Dr. Bonner tomorrow and discuss when/if next infusion will be done and prognosis. #A-fib with RVR | history of DVT -rates well controlled past 48h -continue bisoprolol and apixaban #Constipation-has moved bowels with daily Miralax regimen -KUB 06/27/25 with mod retained stool and no bowel obstruction -repeat KUB 06/28/25 with mild retained stool and no bowel obstruction -having daily BMs since 06/28 -continue senna and miralax #Nausea/belching -intermittent nausea relieved with antiemetics (utilizing Zofran) -started Protonix -sx may be improved VTE ppx: Eliquis 2.5 mg p.o. BID Admission and Anticipated Discharge Date Admission Date: June 20, 2025 Subjective She has been feeling ok past 24h. No dyspnea. Abdominal wall pain on L wrapping around to back unchanged. No T-spine pain or tenderness R hip pain has been well controlled on APAP Family still deciding home with HH vs SNF Physical Exam Physical Exam: Last 24h vitals reviewed GEN: sitting up in room by window HEENT: pupils equal, sclerae anicteric, moist MM RESP: normal WOB, CTAB CV: reg no mrg ABD: nondistended : no case EXT: R hip incision dressed, no ecchymosis, LE wwp with 2+ edema which she says is chronic SKIN: warm and dry, no generalized rashes NEURO: AOx person, place, and situation. Face symmetric, speech normal, moves 4 ext spontaneously and equally Results & Data Results & Data Vital Signs (Past 12 Hours) Vital Signs Temp Pulse Resp BP Pulse Ox O2 Del Method 07/01/25 15:27 36.6 C 70 17 96/66 L 98 Room Air 07/01/25 07:20 36.4 C L 83 16 108/72 99 Room Air PG Care Time/CCT Total # of Minutes Spent Total Time Spent with Patient: Total time spent is greater than 50% in coordination of care (as documented) at patient's floor/unit and/or counseling patient: Coding Level of Care Code 63557 SUB INP/OBS CARE 2/35MIN Diagnoses Fall W19.XXXA Fracture of femoral neck, right, closed S72.001A Encounter type: initial encounter Status post hemiarthroplasty of right hip Z96.641 Metastatic melanoma C43.9 (2) Fracture of femoral neck, right, closed Encounter type: initial encounter Qualified Code(s): S72.001A - Fracture of unspecified part of neck of right femur, initial encounter for closed fracture"
[2025-07-02] MEDS: BUMETANIDE 1 MG in SYRINGE 0 ML IV ONE (09:17)
--- NOTE | 2025-07-02 10:36 | Ultrasound Report ---
RIGHT LOWER EXTREMITY VENOUS DOPPLER CLINICAL HISTORY: Right calf pain and edema. COMPARISON STUDY: Right lower extremity venous Doppler ultrasound May 24, 2025. PET/CT May 16, 2025. TECHNIQUE: Sonography of the deep venous system of the right lower extremity was performed. Compress ion and augmentation were evaluated. FINDINGS: The right common femoral, superficial femoral and popliteal veins were compressible. Augme ntation was normal. Flow was shown within the deep calf vessels. An enlarged right inguinal lymph nod e has a thickened cortex. This now measures 2.9 x 2.2 x 2 cm. This node was shown on PET/CT of May 16, 2025. IMPRESSION: 1. No evidence of deep venous thrombus within the right lower extremity. 2. Redemonstration of a pathologically enlarged right inguinal lymph node, as shown on PET/CT of 2024. ACT 112: Negative or not required by law. Electronically signed by: Cory Alvarado M.D. 07/02/2025 10:35 AM
[2025-07-02 11:18] LABS: Hematocrit (blood only) 27.5 % (37.0-47.0); Hemoglobin 8.8 g/dl (12.0-16.0); Mean Corpuscular Hemoglobin 30.7 pg (25.0-34.0); Mean Corpuscular Volume 95.8 fL (80.0-100.0); Platelet Count 285 K/uL (130-400); RDW Standard Deviation 55.2 fL (36.4-46.3); Red Blood Count 2.87 M/uL (4.20-5.40); White Blood Count 11.80 K/ul (4.8-10.8)
[2025-07-02 11:23] LABS: Anion Gap 6.0 (3-11); Blood Urea Nitrogen 20.0 mg/dl (6-23); Calcium 9.0 mg/dl (8.6-10.3); Carbon Dioxide 24.0 mmol/L (21-32); Chloride 102.0 mmol/L (98-107); Creatinine Clr Calc Pharmacy 40.7 ml/min; Glucose 152.0 mg/dl (70-99(Fasting)); Potassium 4.4 mmol/L (3.5-5.1); Sodium 132.0 mmol/L (136-145)
--- NOTE | 2025-07-02 17:26 | Palliative Family Discussion ---
Date of Service July 02, 2025 Patient Directed Conference Time of Meetin:15-11:45 Participants: Rosmery Luna AGACNP Patient participation: yes Patient Support System: spouse, 6 adult children Other Healthcare Provider Participation: CM Meeting Location: bedside Advanced Directive available: no If yes, descriptors: The patient's surrogate medical decision maker participated: spouse Legally authorized health care proxy: spouse A family meeting was held for Richelle Schaffer. This meeting was necessary for determining the appropriate course of treatment. The following summarizes the discussion: reviewed HPI and admission course. Topics of Discussion Topics of Discussion: 1. Opportunity given for participants to speak and ask questions. 2. Participants were assured of attention to patient comfort. 3. Reassurance provided. 4. Support was provided for informed, good-isreal decisions. 5. Emotions expressed by family were acknowledged and addressed. 6. Follow-up Outpatient: n/a 7. Plan of Care: DNR/DNI, continue all other life prolonging therapies Met with patient at bedside, no visitors present. One on one discussion with patient reviewed previous discussions re: patient's acute and chronic medical conditions, general prognosis, treatment options, and goals of care. Discussed feasibility of attending rehab. Discussed what goals/wishes would be if rehab goes poorly. Pt reinforced wish to return home, and desire for rehab stay to optimize her strength and functional independence prior to return or go directly home. We will sign off on this patient as goals of care are clearly established for DNR/DNI but continue all other life prolonging therapies Thank you for including Palliative Care in the management of this patient. Please call with any questions or concerns regarding this consultation. Time Involved in Meeting: I spent 50 minutes overall addressing this case: 5 in medical data review/discussion with referring provider(s) and/or preparation for the visit 30 in direct interaction with the patient 30 Advance Care Planning/Goals of Care discussions as detailed above in note (must be >16min) 5 in subsequent review and synthesis of assessment and plan 10 in communicating with other providers regarding the patient's case: CM, attending, BSRN.
--- NOTE | 2025-07-02 17:40 | Hospitalist Progress Note ---
"Date of Service July 02, 2025 Assessment & Plan (1) Fall: (2) Fracture of femoral neck, right, closed: (3) Status post hemiarthroplasty of right hip: (4) Metastatic melanoma: Plan This is an 89 year old female with metastatic melanoma admitted with pathologic right hip fracture after a ground level fall. #Pathologic right femoral neck fracture s/p hemiarthroplasty of right hip on 06/21/25 Continue acetaminophen Cont PT - 06/30 23 feet x 2 with CGA --after ongoing discussions she will do rehab stay -follow up with ortho #Metastatic melanoma with mets to bladder and bone -On current immunotherapy with checkpoint inhibitor every 28 days and palliative RT -completed radiation therapy on 06/27/25 -palliative care not available weekends but can consult Wednesday if desired -just started the current treatment with Opdualag mid-may -Discussed with Dr. 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 Bumex has been held this admission -AM BMP, assess response to IV bumex #Postoperative anemia -received IV iron on 06/26/25, 06/28/25 -Hg 8.8 #Questionable fever with documented isolated increased temperature of 39.8 on 06/28/25 -no additional documented febrile measurements -CBC with no leukocytosis -2V chest x-ray-no acute findings -Possible UTI treated with ceftriaxone --> keflex. Culture with skin jennie. -leukocytosis today of unknown significance 11.8 - monitor for s/sx infection #A-fib with RVR | history of DVT -rates well controlled -continue bisoprolol and apixaban #Constipation-has moved bowels with daily Miralax regimen -KUB 06/27/25 with mod retained stool and no bowel obstruction -repeat KUB 06/28/25 with mild retained stool and no bowel obstruction -having daily BMs since 06/28 -continue senna and miralax #Nausea/belching -intermittent nausea relieved with antiemetics (utilizing Zofran) -started Protonix -sx may be improved VTE ppx: Eliquis 2.5 mg p.o. BID I updated Steve and her Dr. Schaffer at bedside this AM Admission and Anticipated Discharge Date Admission Date: June 20, 2025 Subjective RLE painful today, R leg to R great toe. Pain seems to be radiating UP from toe Same pain L abdominal wall radiating around toward back LUE pain and hand numbness unchanged R hip pain from surgery present but not as prominent as above Physical Exam 2 Physical Exam: Last 24h vitals reviewed GEN: sitting up in the chair HEENT: pupils equal, sclerae anicteric, moist MM RESP: normal WOB, CTAB CV: reg no mrg ABD: nondistended. Tspine nad Lspine nontender to palpation : no case EXT: R hip incision dressed, no ecchymosis, LE wwp with 2+ edema - worse on R where there is some weeping SKIN: warm and dry, no generalized rashes NEURO: AOx person, place, and situation. Face symmetric, speech normal, moves 4 ext spontaneously and equally Results & Data Results & Data Vital Signs (Past 12 Hours) Vital Signs Temp Pulse Resp BP Pulse Ox O2 Del Method 07/02/25 14:38 36.4 C L 88 16 110/67 97 Room Air 07/02/25 08:06 92 H 113/75 98 Room Air 07/02/25 07:13 36.7 C 87 16 91/60 L 98 Room Air 07/02/25 06:32 82 96 Room Air Laboratory Results 07/02/25 10:34 07/02/25 10:34 PG Care Time/CCT Total # of Minutes Spent Total Time Spent with Patient: I personally spent: 55 minutes today on clinical care activities including: reviewing chart notes and vital signs reviewing labs reviewing studies discussion with surgical consultant(s) discussion with healthcare associate examining and counseling the patient counseling the patient's family writing orders documentation Coding Level of Care Code 15840 SUB INP/OBS CARE 3/50MIN Diagnoses Fall W19.XXXA Fracture of femoral neck, right, closed S72.001A Encounter type: initial encounter Status post hemiarthroplasty of right hip Z96.641 Metastatic melanoma C43.9 (2) Fracture of femoral neck, right, closed Encounter type: initial encounter Qualified Code(s): S72.001A - Fracture of unspecified part of neck of right femur, initial encounter for closed fracture"
[2025-07-02] MEDS: GABAPENTIN 100 MG CAP PO SCH (21:35)
[2025-07-03 07:03] LABS: Anion Gap 5.0 (3-11); Blood Urea Nitrogen 20.0 mg/dl (6-23); Calcium 9.0 mg/dl (8.6-10.3); Carbon Dioxide 26.0 mmol/L (21-32); Chloride 103.0 mmol/L (98-107); Creatinine Clr Calc Pharmacy 41.1 ml/min; Glucose 111.0 mg/dl (70-99(Fasting)); Potassium 4.5 mmol/L (3.5-5.1); Sodium 134.0 mmol/L (136-145)
[2025-07-03] MEDS: BUMETANIDE 1 MG in SYRINGE 0 ML IV ONE (11:18)
[2025-07-03 15:10] VITALS: RESP 18
--- NOTE | 2025-07-03 16:33 | Hospitalist Progress Note ---
"Date of Service July 03, 2025 Assessment & Plan (1) Fracture of femoral neck, right, closed: (2) Status post hemiarthroplasty of right hip: (3) Metastatic melanoma: (4) Cancer related pain: (5) Stage 3b chronic kidney disease: Plan This is an 89 year old female with metastatic melanoma admitted with pathologic right hip fracture after a ground level fall. #Pathologic right femoral neck fracture s/p hemiarthroplasty of right hip on 06/21/25 Continue acetaminophen Cont PT OT - planning SNF rehab at [facility] likely tomorrow -follow up with ortho #Metastatic melanoma with mets to bladder and bone -On current immunotherapy with checkpoint inhibitor every 28 days and palliative RT - immunotherapy held pending rehab from fracture -completed radiation therapy on 06/27/25 -palliative care consulted this admission -Dr. Bonner spoke with her 07/02 - she plans rehab stay and after that when strong enough may continue her immunotherapy -added low dose gabapentin 100 mg at HS seems to be helping cancer-related neuropathic pain #RLE swelling and pain, bilateral LE edema - R lower leg pain prominent 07/02 - potentially cancer related pain, possibly radicular or sciatic pain but no prominent spinal pain -hx DVT so obtained LE duplex neg for DVT -improved with elevation, bumex 1 mg IV on 07/02, repeated 07/03. BMP reviewed - no hypokalemia and Cr at baseline -pain and weeping edema improved -AM BMP, ordered bumex 1 mg po daily #hyponatremia - Na decreased to 132. Improved to 134 after bumex. #Postoperative anemia -received IV iron on 06/26/25, 06/28/25 -Hg 8.8 #Questionable fever with documented isolated increased temperature of 39.8 on 06/28/25 -no additional documented febrile measurements -CBC with no leukocytosis -2V chest x-ray-no acute findings -Possible UTI treated with ceftriaxone --> keflex. Culture with skin jennie. -leukocytosis of unknown significance 11.8 - monitor for s/sx infection #A-fib with RVR | history of DVT -rates well controlled -continue bisoprolol and apixaban #Constipation-has moved bowels with daily Miralax regimen -KUB 06/27/25 with mod retained stool and no bowel obstruction -repeat KUB 06/28/25 with mild retained stool and no bowel obstruction -having daily BMs since 06/28 -continue senna and miralax #Nausea/belching -intermittent nausea relieved with antiemetics (utilizing Zofran) -started Protonix -sx may be improved VTE ppx: Eliquis 2.5 mg p.o. BID Admission and Anticipated Discharge Date Admission Date: June 20, 2025 Subjective pain improved overnight and this AM: R lower leg, left abdominal wall, LUE was able to sleep very well had 1st dose gabapentin 100 mg last night leg edema improved Physical Exam 2 Physical Exam: Last 24h vitals reviewed GEN: sitting up in the bed HEENT: pupils equal, sclerae anicteric, moist MM RESP: normal WOB, CTAB CV: reg no mrg ABD: nondistended. : no case EXT: R hip incision dressed, 1-2+ bilateral LE edema - definitely improved, mild weeping persists R posterior ankle area SKIN: warm and dry, no generalized rashes NEURO: AOx person, place, and situation. Face symmetric, speech normal, moves 4 ext spontaneously and equally Results & Data Results & Data Vital Signs (Past 12 Hours) Vital Signs Temp Pulse Resp BP Pulse Ox O2 Del Method 07/03/25 15:04 76 18 90/60 L 07/03/25 15:00 36.4 C L 92 H 16 89/51 L 94 Room Air 07/03/25 07:37 36.6 C 88 16 122/67 97 Room Air Laboratory Results 07/02/25 10:34 07/03/25 06:04 PG Care Time/CCT Total # of Minutes Spent Total Time Spent with Patient: Total time spent is greater than 50% in coordination of care (as documented) at patient's floor/unit and/or counseling patient: Coding Level of Care Code 79770 SUB INP/OBS CARE 2MIN Diagnoses Fracture of femoral neck, right, closed S72.001A Encounter type: initial encounter Status post hemiarthroplasty of right hip Z96.641 Metastatic melanoma C43.9 Cancer related pain G89.3 Stage 3b chronic kidney disease N18.32 (1) Fracture of femoral neck, right, closed Encounter type: initial encounter Qualified Code(s): S72.001A - Fracture of unspecified part of neck of right femur, initial encounter for closed fracture"
[2025-07-04 07:25] LABS: Anion Gap 9.0 (3-11); Blood Urea Nitrogen 20.0 mg/dl (6-23); Calcium 8.9 mg/dl (8.6-10.3); Carbon Dioxide 23.0 mmol/L (21-32); Chloride 103.0 mmol/L (98-107); Creatinine Clr Calc Pharmacy 37.1 ml/min; Glucose 104.0 mg/dl (70-99(Fasting)); Potassium 4.2 mmol/L (3.5-5.1); Sodium 135.0 mmol/L (136-145)
[2025-07-04 08:01] VITALS: BP 118/70; PULSE 109; TEMP 97.7; O2SAT 95
[2025-07-04] MEDS: BUMETANIDE 1 MG TAB PO SCH (09:01)
--- NOTE | 2025-07-04 17:09 | Discharge Summary ---
Discharge Summary Date of Service July 04, 2025 Principal Dx & Hospital Course #1 = Principal Diagnosis (1) Status post hemiarthroplasty of right hip: (2) Metastatic melanoma: (3) Cancer related pain: Plan In summary this is an 89-year-old female who was admitted to the [facility] after ground-level fall resulting in pathologic right hip fracture now postoperative day 12. With regard to the patient's right femoral neck fracture; this was complicated by transient atrial fibrillation in PACU which responded well to intravenous beta-blockade with no recurrent episodes; she had a successful void trial after Azevedo catheter removal on 06/25 Patient did have noted acute postoperative anemia in the setting of their surgical intervention; they did undergo multiple intravenous iron infusions during their hospitalization given suspected iron deficiency which was confirmed with laboratory assessment from prior as well as multiple packed red blood cell infusions that the patient responded well to with expected resolution of their anemia With regard to the patient's metastatic melanoma with osseous and bladder lesions they did undergo continued radiation therapy during her hospitalization as was previously established prior to their fall and fracture; they did have care provided by palliative medicine, who, after goals of care discussion signed off as the patient was not interested in hospice at this point in time. Admission HPI Per Admitting Provider Patient is an 89-year-old female with a past medical history including metastatic melanoma with mets to bone and bladder, type II DM on insulin, DVT on Eliquis, A-fib, cardiomyopathy, stage IIIb CKD.. She is currently undergoing palliative radiation therapy and chemotherapy. Patient was closing her car trunk 06/20 when she fell on her right side resulting in a right femoral neck fracture. She is being admitted to undergo surgical management 06/21. Patient seen at bedside with her daughter and her present. She states she has been some pain in her trunk when she went to close it and fell onto her right side. She denies any head strike or loss of consciousness. Her pain is well-controlled at 3/10 after Dilaudid 0.5 mg IV in the ED. She is neurovascularly intact and denies any sensory deficits of her right lower extremity. She denies any pain elsewhere. She denies any headaches, chest pain, shortness of breath, abdominal pain. 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 She is undergoing radiation therapy for this and missed her therapy today 06/20. Last dose of chemotherapy was 2 weeks ago. Patient is very concerned about her bowel regimen as she got constipated with previous admissions. She did not take any of her home medications today, she is on Lantus 26 units which she takes around noon. She wishes to be DNR/DNI. She denies any nicotine or alcohol use. Discharge Exam General: Elderly female in no acute distress Vital Signs: Requiring 2 L by nasal cannula to maintain O2 saturation greater than 95% HEENT: Moist mucous membranes; pupils equally round reactive to light, extraocular motion intact Pulmonary: Symmetric chest wall excursion without restriction; clear to auscu ltation bilaterally Cardiovascular: Regular rate and rhythm without murmurs, rubs, or gallops; S1 and S2 normal; left radial pulse 2+ with brisk capillary refill; trace pitting edema of the left upper extremity compared to right Gastrointestinal: Soft, nontender Neurologic: Cranial nerves II through XII grossly intact Discharge Plan Discharge Items Patient Disposition: Transfer [facility] Reason For Visit: TRAUMA, RIGHT FEMORAL NECK FX Discharge Diagnosis: Right femoral neck fracture secondary to mechanical fall Condition on Discharge: Fair Activity: Per Instructions section Bathing: No limitations Weightbearing: Full weightbearing Non-emergency contact: Primary Care Provider and Surgeon Call non-emergency contact if: you have any medication questions, your pain is not controlled and you have a fever Follow-up/Referrals: Lisseth Coburn PA-C [Physician Master In [facility]cery] - 10/11/25 2:00 pm (Post radiation follow up appt. If you are unable to keep this appt, please phone Radiation Oncology at [phone].) Eric Box PA-C [Physician Master In [facility]cery] - 07/04/25 11:45 am Tyson Hernandez MD [Primary Care Provider] - Diet: Carb Count or DM1 Fluids: 1800ml (7 cups) Addtl Attending Provider Instructions: You were admitted to [facility] after ground-level fall res ulting in a right femoral neck fracture for which you underwent surgical fixation on 06/21. There were no intraoperative complications though you were noted to enter into atrial fibrillation with rapid ventricular response postoperatively, this resolved with pharmacologic intervention and has not recurred. You were started back on your home medication to control your heart rate called bisoprolol. It is important you maintain a bowel regimen of stool softeners and laxatives to keep your bowels moving. Please continue adequate nutrition and hydration to aid in your recovery from hip surgery. You also have had some nausea off and on while in the hospital. We did X-rays to confirm you did not have a bowel blockage. Zofran to take as needed will be supplied to you and you have been starting on daily Protonix to help with your frequent belching. Please make sure you follow up with your oncologist, orthopedic surgeon, and family doctor. Thank you for allowing us to participate in your care. 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 medication DVT prophylaxis with her Eliquis and SHAKIRA stockings Keep Silverlon dressing in place Abduction pillow use x 6 weeks Total hip precautions reviewed Weightbearing as tolerated with walker assistance Patient will most likely need to go to either a [place] [facility] facility or inpatient rehab upon discharge Patient will need a 2-week postoperative follow-up visit in our clinic. A message will be sent to teams for this. (07/04/25 @ 11:45 with Brynn Box PA-C) With questions contact our clinic at [phone] Pending Studies at Discharge: Yes Studies:: Surgical pathology, right femoral head specimen, urine culture Stand-Alone Forms: My [facility] Skilled Items Patient informed of condition?: Yes DNR: Yes Discharge Level of Care: Skilled Communicable Disease: No Discharge Prognosis: Improving Lines: None Urinary Catheter: No Medications and DC Order Prescriptions: New cephalexin 250 mg capsule 250 mg PO BID 3 Days Qty: 6 0RF polyethylene glycol 3350 17 gram/dose powder 17 g PO DAILY Qty: 119 0RF bisacodyl 5 mg tablet 5 mg PO DAILY PRN (Reason: constipation) Qty: 30 0RF pantoprazole [Protonix] 40 mg tablet,delayed release (DR/EC) 40 mg PO DAILY Qty: 30 0RF ondansetron 4 mg tablet,disintegrating 4 mg PO Q6H PRN (Reason: nausea and vomiting) Qty: 30 0RF Continued Eliquis 2.5 mg tablet 2.5 mg PO BID bumetanide 1 mg tablet 1 mg PO DAILY colchicine 0.6 mg tablet 0.6 mg PO .QOD celecoxib [Celebrex] 200 mg capsule 200 mg PO BID (DME) Accu-Chek Guide test strips Strip See Rx Instructions .Route Qty: 100 1RF Rx Instructions: TESTING 1 TIME DAILY bisoprolol fumarate 5 mg tablet 5 mg PO QAM Qty: 90 3RF (DME) pen needle, diabetic [BD Shante 2nd Gen Pen Needle] 32 gauge x 5/32" needle See Rx Instructions .ROUTE .MEDSUPPLY Qty: 100 3RF Rx Instructions: As directed insulin glargine [Lantus Solostar U-100 Insulin] 100 unit/mL (3 mL) insulin pen 25 unit subcut QDL Qty: 15 11RF potassium chloride 10 mEq capsule, extended release 10 meq PO DAILY Qty: 30 2RF cholecalciferol (vitamin D3) 50 mcg (2,000 unit) capsule 50 mcg PO DAILY acetaminophen-codeine 300-30 mg tablet 1 tab PO Q4H PRN [employer] 45-4-50 mg Tablet,Chewable 1 tab PO BID allopurinol 100 mg tablet 100 mg PO QAM Discharge Orders: Discharge Order (Routine); Ordered 07/04/25 Ordered By: Niles Bobo/Other Patient Handouts: Hip Precautions, Hip Replace Post Op, Hip Replace Resuming Activity Admission Data Admit Date/Time: 06/20/25 19:56 Attending Provider: Niles Garcia Admit Provider: Bong Heaton Primary Care Provider: Tyson Hernandez Other Providers: [facility] [place]; Bong Heaton; Vidhi Avitia; Trupti Saeed; Felisa Berrios; Priscilla Alexis.; Jacek Arana; Steven Blevins; Harjinder Noonan; Jluis Mason; Nataliya Hammond; Joao Buchanan; Alireza Cameron; Jose Murray; Toshia Diamond; Go Santos; Tanvi Kimball; Hi Levine; Daylin Caceres; Morales Dolan; Beth Romero; Luann Aceves; Fernando Ponce; Tammy Us; Hailey Hopper; Cesilia Arevalo; Valeria Amor; Ottoniel Amor V; Lukasz Carver; Trupti Rodriguez; Pasquale Riojas; Pita Sanchez; Ottoniel Nagy; Michele Diamond; Niles Anderson; Katelynn James; Vandana Bender; Ottoniel Byrne; Tarun Weber; Vashti Aragon; Kevin Phelan; Katie Samuel; Massiel Arboleda; Jc Black; Mendez Cárdenas; Susi Dominique; Harjinder Jackson; Shira Greenwood; Carlos Pat; Taj Medina; Jacek Deleon Jr; Liv Lyons; Robina Elias; Fernanda Morrell; Fernando Lowery; Judson Pena; Robina Ramírez; Chet Mota; Brandon Morrow; Tyson Vizcarra; Bandar Galloway; Paula Thakur; Maddie Quinn; Jen Chavarria; Belia Stratton; Martina Meeks; Kevyn Ramirez Jr; Aliza Mckoy; Tammy Mccollum; Martin Gutierrez; Eri Brandt; Jillian Spring; Dorothy Santacruz; Jeanna Diamond; Ollie Sherman Other Interventions: Discharge Summary Assessment (RN) Last Done: 07/04/25 12:55 Hospital Stay Data Consultations 06/20/25 18:39 ED Decision to Admit Stat 06/20/25 19:59 Consult Anesthesiology Routine 06/29/25 15:06 Consult Palliative Care Routine Procedures Performed Operation Date: 06/21/25 08:20 Actual Procedures p Right Hip Hemiarthroplasty(Right) - Momo Brown MD Diagnostic Imagining Performed 07/02/25 08:47 US venous duplex leg [US venous doppler LE RT] Urgent Pending Results Patient Have Any Pending Studies at Discharge: Yes Discharge Instructions Given to Patient (Per Discharging Provider) You were admitted to [facility] after ground-level fall resulting in a right femoral neck fracture for which you underwent surgical fixation on 06/21. There were no intraoperative complications though you were noted to enter into atrial fibrillation with rapid ventricular response postoperatively, this resolved with pharmacologic intervention and has not recurred. You were started back on your home medication to control your heart rate called bisoprolol. It is important you maintain a bowel regimen of stool softeners and laxatives to keep your bowels moving. Please continue adequate nutrition and hydration to aid in your recovery from hip surgery. You also have had some nausea off and on while in the hospital. We did X-rays to confirm you did not have a bowel blockage. Zofran to take as needed will be supplied to you and you have been starting on daily Protonix to help with your frequent belching. Please make sure you follow up with your oncologist, orthopedic surgeon, and family doctor. Thank you for allowing us to participate in your care. Total Time Total Time Spent Total Time Spent (In Minutes): I personally spent 50 minutes in coordination of the patient's discharge with bedside consultation, physical exam, medication reconciliation, and review of their medical record Coding Level of Care Code 83303 INP/OBS DISCH >30 MIN Diagnoses Status post hemiarthroplasty of right hip Z96.641 Metastatic melanoma C43.9 Cancer related pain G89.3
== END 2025-07-04 13:49 | DRG 522 ==
LOC: ED 13:35 → SUATTDRO 19:56 → 4W 19:56 → 3E 06-30 15:51

== ENCOUNTER 2025-08-08 14:45 | Inpatient (IN) ==
--- NOTE | 2025-08-08 14:51 | Emergency Department Note ---
Impression & Plan GIB (gastrointestinal bleeding), Metastatic melanoma, Atrial fibrillation ED Provider Note NAME: ELEAZAR MISTRY AGE: 89 SEX: F : 1935 ARRIVES VIA: Ambulance INFORMANT: Patient, ED PROVIDER(S): Sanya Carrasquillo MD CHIEF COMPLAINT: Abdominal pain, dark stools MEDICAL DECISION MAKING: Patient presents due to concern for abdominal pain and dark stools. Patient is GCS of 14 to taking pain medication prior to arrival. Review of the chart does show the patient has a history of metastatic melanoma and does take oxycodone for cancer-related pain. Has been on Eliquis in the past and that recently may have stopped although unclear patient is unsure so that she is taking blood thinner. IV was established and blood work was obtained. BSG was obtained at the bedside was 123. [id number] obtained along with 2 IVs and a type and screen. CT abdomen pelvis ordered. The patient's blood work shows a white count of 13 with a hemoglobin of 8.8 which is relatively stable. PPI bolus and drip ordered. The patient with BUN of 70 and a creatinine of 2.5. The patient does have ANJANA. Type and screen ordered. There was difficulty in obtaining an IV. CT abdomen pelvis performed noncontrast given the patient's ANJANA. Patient was ordered 500 of IV fluids. No additional fluids ordered at this time given the patient's prior history of CHF. Patient was noted to have increased widespread metastatic disease and new trace pleural effusions but no other acute findings. Patient subsequently did have a PIV placed. I did speak the on-call hospitalist service Dr. Chavez and the patient was admitted to the medicine service. Discussion w/ other healthcare providers: Dr. Chavez inpatient medicine service Prior /Outside records reviewed: I reviewed reviewed part of a primary care visit note from Dr. Dobbs from August 02. Patient with a known history of cancer related pain secondary to metastatic melanoma is continuing treatments with [facility]. Patient with a history of DVT. Also cardiomyopathy on Bumex. Also history of A-fib recently stopped bisoprolol. Based on this note seems to intimate that the patient was going to be off of Eliquis. Did have a recent hip fracture while traveling to the hospital for radiation therapy was discharged on the and transferred to [facility] and subsequently to home on July 26. I did review part of a palliative consultation from Robina Arzate which noted that the patient was not wanting to continue with her hospitalizations and nursing homes but he has been was hoping that the patient would continue with treatment. Differential diagnosis: Diverticulitis, AVM, coagulopathy, colitis, inflammatory bowel disease, malignancy, esophagitis, peptic ulcer disease, variceal bleed, gastritis, fissure, hemorrhoids, as well as other pathologies. Diagnostics, as interpreted by me: ECG: A-fib, ventricular rate of 89, normal QRS, normal axis no ST elevations. Cardiac monitoring: An order was placed for continuous cardiac monitoring. The monitor shows a rate of 89 with irregularly irregular rhythm. Patient was placed on pulse oximetry Medical decision rules: None Imaging studies: I informally interpreted the patient's CT abdomen pelvis does not show evidence of obvious of obstruction with formal report to follow. HPI: Patient presents due to concern for abdominal pain and reported dark tarry stools. This was noted this morning. Family did call EMS due to concerns for the abdominal pain. The patient did reportedly take oxycodone prior to arrival. No reported syncope. Patient denies any current abdominal pain. Patient is had nausea but no vomiting. Patient is unsure whether or not she takes any blood thinning medications. Eliquis although the patient's most recent note had commented about potentially taking the patient off of it due to bleeding concerns. PAST MEDICAL HISTORY: See Below PAST SURGICAL HISTORY: See Below SOCIAL HISTORY: See Below HOME MEDICATIONS: See Below ALLERGIES: See Below VITALS: See Below PHYSICAL EXAMINATION: GENERAL: NAD, non-toxic. EYE EXAM: Normal conjunctiva. PERRL, no anisocoria and EOM's grossly intact w/o pain. OROPHARYNX: Moist mucus membranes, grossly normal dentition. NECK: Trachea midline, no stridor. LUNGS: Clear to auscultation. Normal chest wall mechanics. HEART: Irregular irregular, no MRG. ABDOMEN: Abdomen soft, non-tender, no masses, no rebound or guarding. BACK: No CVA TTP. SKIN: No rashes and no bruising. UPPER EXTREMITIES: Upper extremities are grossly normal. LOWER EXTREMITIES: Grossly normal, 1+ symmetric lower extremity edema without calf pain or erythema, compression stockings in place.. NEURO EXAM: opens eyes to voice, follows commands, no obvious facial asymmetry, normal speech, moves all 4 extremities. Past Med/Surg History Problem List (Updated 08/08/25 @ 23:31 by Sanya Carrasquillo MD) GIB (gastrointestinal bleeding) (Acute) GIB (gastrointestinal bleeding) Orthostasis Pain from bone metastases Cancer related pain Status post hemiarthroplasty of right hip Parotid tumor Metastatic melanoma (Acute) Nocturnal leg cramps Lumbar pain Leg pain Sinusitis Dysuria Gout Hematuria Gross hematuria Cardiomyopathy Dyspnea Migraine headache with aura Balance disorder Left rotator cuff tear Impingement of both shoulders Migraine aura occurring with and without headache Shoulder pain Abdominal pain Stage 3b chronic kidney disease (CKD) Diabetes mellitus with neuropathy Hyperlipidemia Renal mass Osteoarthritis of right knee Recurrent left knee instability Dysphagia Esophageal cancer diagnosed 2019--chemo/radiation in [place] Atrial fibrillation (Chronic) on eliquis daily--follows with Dr. Eckert Hypertension (Chronic) Arthritis (Chronic) Scoliosis (Chronic) Medical History Fracture of femoral neck, right, closed Bronchitis Upper respiratory disease Deep vein thrombosis (DVT) of left lower extremity DVT of axillary vein, acute left Hematuria Near syncope Fractured sternum Encounter for pre-operative examination Hospice care patient [facility] for esophageal ca Hematuria reason for upcoming procedure Cramping of hands fingers per pt Neuropathy hands / feet Balance disorder Stage 3b chronic kidney disease follows with Dr. Ramirez Scoliosis Renal mass reason for upcoming procedure Diabetes mellitus, type 2 HTN (hypertension) History of esophageal cancer diagnosed 2019--chemo/radiation in [place] > 2023 reoccurance, had 4-5 doses of immunotherapy > pt on hospice group ([facility]) Cardiomyopathy Gout DVT (deep venous thrombosis) LLE > dx early 2024 > Eliquis > (had been on Eliquis for Afib in the past, but had stopped it approx 6 mos or more, then resumed due to DVT) Atrial fibrillation dx approx 2019 > no pacer > Eliquis History of TIA (transient ischemic attack) prior to 2019 pt thinks, pt thinks it was related to ocular migraines Hx of bronchitis no recent issues Rotator cuff (capsule) sprain no sx > healed on own Verruca vulgaris Osteoarthritis On anticoagulant therapy eliquis daily Ocular migraine gets aura, gets several x per week in AM Diabetes mellitus IDDM Surgical History H/O transurethral resection of bladder tumor (TURBT) 12/15/24 History of tooth extraction Hx of melanoma excision Left shoulder - wide excision 01/14/25 History of colonoscopy History of total left knee replacement (TKR) History of esophagogastroduodenoscopy (EGD) History of root canal procedure History of bilateral cataract extraction Family History Mother Diabetes Sister Diabetes Father Myocardial infarction Other Family history non-contributory No family history of adverse response to anesthesia Denies family history of Ovarian cancer Prostate cancer Breast cancer Colorectal cancer Social History Smoking Status: Unknown if ever smoked Tobacco Type: Cigarettes Age Started Using Tobacco: 17; Age Quit Using Tobacco: 34; packs per day: 1.5; Second Hand Exposure: No; Do You Dip or Chew Tobacco: No; Hx Alcohol Use: Yes Alcohol type: other Alcohol Intake Frequency: 2-4 x/Month Hx Substance Use: No Preferred Language: Yoruba Communication Ability: Effective Visual Impairment: No Limitations Hearing Ability: Normal Hand Sander Required: No Beliefs That Will Affect Care: None marital status: Current Living Situation: Spouse current occupational status: retired How many Children do You have: 6 Feels Safe at Home: Yes Diet: regular caffeine: Yes during the past year weight has: increased > 10 lbs Dental Care, Regularly: No Physical Activity Frequency: Does not Exercise Seatbelt Use: always Sunscreen Use: Yes Assistive Devices: None Allergies Allergies Allergy/AdvReac Type Severity Reaction Status Date / Time No Known Drug Allergies Allergy Verified 08/02/25 13:54 Home Meds Home Medications Medication Instructions Recorded Confirmed cholecalciferol (vitamin D3) 50 50 mcg PO DAILY 10/14/22 08/08/25 mcg (2,000 unit) capsule vitamin C 45 mg-zinc citrate 4 1 tab PO BID 12/07/24 08/08/25 mg-elderberry 50 mg chewable tablet (Press About Us) acetaminophen 300 mg-codeine 30 mg 1 tab PO Q4H PRN Pain 04/05/25 08/08/25 tablet apixaban 2.5 mg tablet (Eliquis) 2.5 mg PO BID 05/24/25 08/08/25 bumetanide 1 mg tablet 1 mg PO DAILY 05/24/25 08/08/25 Previous Rx's Medication Instructions Recorded blood sugar diagnostic (Accu-Chek #100 ea 04/03/24 Guide test strips) pen needle, diabetic 32 gauge x #100 ea 06/28/24" (BD Shante 2nd Gen Pen Needle) insulin glargine 100 unit/mL (3 25 unit (0.25 mL) subcut QDL #15 mL 01/11/25 mL) subcutaneous pen (Lantus Solostar U-100 Insulin) potassium chloride 10 mEq 10 meq PO DAILY #30 caps 04/03/25 capsule,extended release bisacodyl 5 mg tablet 5 mg PO DAILY PRN constipation #30 06/29/25 tabs ondansetron 4 mg disintegrating 4 mg PO Q6H PRN nausea and 06/29/25 tablet vomiting #30 tabs pantoprazole 40 mg tablet,delayed 40 mg PO DAILY #30 tabs 06/29/25 release (Protonix) polyethylene glycol 3350 17 17 g PO DAILY #119 grams 06/29/25 gram/dose oral powder celecoxib 200 mg capsule (Celebrex) 200 mg PO BID PRN pain #60 caps 08/02/25 compr.stocking,knee,long,large #2 ea 08/02/25 oxycodone 5 mg tablet 2.5 mg (1/2 x 5 mg) PO BID PRN 08/02/25 pain #30 tabs Results & Data (ED) Vital Signs Vital Signs - 24 hr 08/08/25 15:05 08/08/25 15:09 08/08/25 17:12 Temperature 36.5 C Temperature Source Oral Pulse Rate 83 92 H 87 Pulse Rate from SpO2 Sensor 84 Respiratory Rate 22 18 Blood Pressure 101/68 101/43 L Blood Pressure Mean 79 62 Pulse Oximetry 99 95 Oxygen Delivery Method Room Air Room Air Sepsis Recent Fever Within 48 Hours No Sepsis New/Unexplained Change in Mental Status N/A Sepsis Action Taken by Nursing No Action Required 08/08/25 17:15 08/08/25 17:30 08/08/25 18:00 Temperature Temperature Source Pulse Rate 80 90 84 Pulse Rate from SpO2 Sensor 85 85 90 Respiratory Rate 23 15 19 Blood Pressure 101/43 L 93/50 L 96/58 L Blood Pressure Mean 62 64 70 Pulse Oximetry 93 100 92 Oxygen Delivery Method Room Air Room Air Room Air Sepsis Recent Fever Within 48 Hours Sepsis New/Unexplained Change in Mental Status Sepsis Action Taken by Nursing 08/08/25 18:15 08/08/25 18:30 08/08/25 19:00 Temperature Temperature Source Pulse Rate 83 79 Pulse Rate from SpO2 Sensor 86 Respiratory Rate 20 18 Blood Pressure 88/55 L 95/69 L 95/56 L Blood Pressure Mean 66 77 69 Pulse Oximetry 91 Oxygen Delivery Method Room Air Sepsis Recent Fever Within 48 Hours Sepsis New/Unexplained Change in Mental Status Sepsis Action Taken by Nursing 08/08/25 19:09 08/08/25 19:30 Temperature Temperature Source Pulse Rate 81 82 Pulse Rate from SpO2 Sensor Respiratory Rate 24 Blood Pressure 95/43 L Blood Pressure Mean 60 Pulse Oximetry Oxygen Delivery Method Sepsis Recent Fever Within 48 Hours Sepsis New/Unexplained Change in Mental Status Sepsis Action Taken by Jail Medications Current Medication List: was personally reviewed by me Laboratory Data Attestation: I reviewed the patient's lab results. 08/08/25 15:06 08/08/25 15:06 Lab Results 08/08/25 08/08/25 08/08/25 Range/Units 14:59 15:06 15:29 WBC 13.11 H (4.8-10.8) K/ul RBC 2.91 L (4.20-5.40) M/uL Hgb 8.8 L (12.0-16.0) g/dL POC Hgb 9.5 L (12.0-16.0) g/dl Hct 26.7 L (37.0-47.0) % POC Hct 28 L (37-47) % MCV 91.8 (80.0-100.0) fL MCH 30.2 (25.0-34.0) pg MCHC 33.0 (32.0-36.0) g/dL RDW Std Deviation 55.0 H (36.4-46.3) fL RDW Coeff of Marlene 16.5 H (11.5-14.5) % Plt Count 436 H (130-400) K/uL MPV 9.3 L (9.4-12.4) fL Immature Gran % (Auto) 0.7 % Neut % (Auto) 81.0 % Lymph % (Auto) 9.1 % [place] % (Auto) 8.5 % Eos % (Auto) 0.5 % Baso % (Auto) 0.2 % Neut # (Auto) 10.63 H (1.40-6.50) K/uL Lymph # (Auto) 1.19 L (1.20-3.40) K/uL [place] # (Auto) 1.12 H (0.11-0.59) K/uL Eos # (Auto) 0.06 (0.00-0.50) K/uL Baso # (Auto) 0.02 (0.00-0.20) K/uL Immature Gran # (Auto) 0.09 (0.01-0.20) K/uL PT 11.4 (9.0-12.0) Seconds INR 1.1 (0.9-1.1) APTT 29 (21-31) Seconds PTT Ratio 1.1 POC Sodium 132 L (135-144) mmol/L Sodium 134 L (136-145) mmol/L POC Potassium 4.6 (3.3-5.0) mmol/L Potassium 4.6 (3.5-5.1) mmol/L POC Chloride 96 L (101-112) mmol/L Chloride 96 L (98-107) mmol/L Carbon Dioxide 26 (21-32) mmol/L POC Total CO2 25 (24-31) mmol/L Anion Gap 12 H (3-11) POC Anion Gap 17.0 (16-25) mmol/L POC BUN 56 H (7-18) mg/dl BUN 70 H (6-23) mg/dl Creatinine 2.57 H (0.6-1.2) mg/dl POC Creatinine 2.8 H (0.6-1.3) mg/dl Est Cr Clr Drug Dosing 16.2 ml/min eGFR 17.35 BUN/Creatinine Ratio 27.2 H (10-20) Glucose 135 H (70-99(Fasting)) mg/dl POC Glucose 123 H (70-99) mg/dl POC Glucose (other) 129 H (70-99) mg/dl Calcium 9.3 (8.6-10.3) mg/dl POC Ioniz Calcium Anna 1.15 (1.12-1.32) mmol/l Total Bilirubin 0.6 (0.2-1.0) mg/dl AST 18 (13-39) U/L ALT 9 (7-52) U/L Alkaline Phosphatase 171 H (34-104) U/L Total Protein 5.2 L (6.0-8.3) gm/dl Albumin 2.3 L (3.4-5.0) gm/dl Globulin 2.9 (2.5-4.0) gm/dl Albumin/Globulin Ratio 0.8 L (0.9-2) Blood Type O Positive Antibody Screen NEGATIVE Administered Medications Sodium Chloride (Nss) 1,000 mls @ 999 mls/hr IV .Q1H1M ONE Stop: 08/09/25 00:11 Last Admin: 08/08/25 23:16 Dose: 999 mls/hr Documented By: JERRY Discontinued Medications Sodium Chloride (Nss) 500 mls @ 999 mls/hr IV .Q31M ONE Stop: 08/08/25 18:04 Last Infusion: 08/08/25 20:40 Dose: Infused Documented By: Admin: 08/08/25 17:51 Dose: 999 mls/hr Documented By: AMADEO Pantoprazole Sodium 40 mg/ (Dextrose) 100 mls @ 20 mls/hr IV Q5H KATARINA Stop: 09/07/25 17:59 Last Admin: 08/08/25 22:30 Dose: 8 mg/hr, 20 mls/hr Documented By: Infusion: 08/08/25 22:30 Dose: Infused Documented By: Infusion: 08/08/25 18:00 Dose: 8 mg/hr, 20 mls/hr Documented By: Admin: 08/08/25 17:51 Dose: 8 mg/hr, 20 mls/hr Documented By: AMADEO Pantoprazole Sodium 80 mg/ (Dextrose) 120 mls @ 480 mls/hr IV NOW ONE Stop: 08/08/25 17:48 Last Infusion: 08/08/25 18:13 Dose: Infused Documented By: Admin: 08/08/25 17:59 Dose: 480 mls/hr Documented By: AMADEO Sodium Chloride (Nss) 500 mls @ 999 mls/hr IV .Q31M ONE Stop: 08/08/25 20:53 Last Infusion: 08/08/25 21:11 Dose: Infused Documented By: Admin: 08/08/25 20:23 Dose: 999 mls/hr Documented By: EZIO Sodium Chloride (Nss) 1,000 mls @ 999 mls/hr IV .Q1H1M KATARINA Stop: 08/08/25 22:21 Last Admin: 08/08/25 21:32 Dose: 999 mls/hr Documented By: KECIA Pantoprazole Sodium (Pantoprazole Bolus/Drip) 1 each IV NOW STA Stop: 08/08/25 17:35 Last Admin: 08/08/25 17:51 Dose: Not Given Documented By: AMADEO Imaging Data Radiologist's Impression: Abdomen/Pelvis CT 08/08/25 15:32 EXAMINATION: CT of the abdomen and pelvis performed without contrast TECHNIQUE: Helical CT images from the lung bases through the symphysis pubis were obtained without contrast. Coronal and sagittal reformatted images were generated at a workstation for further assessment. Dose reduction techniques were achieved by using automatic exposure control and/or adjustment of mA and/or kV according to patient size and/or use of iterative reconstruction technique. COMPARISON: PET/CT 05/16/2025 HISTORY: Abdominal pain FINDINGS: Innumerable soft tissue lesions are seen throughout the body wall, including the right abdominal wall on image 32 measuring 36 mm, on image 25 measuring 36 mm, in the left groin, on image 73 measuring 59 mm, have all increased. A mass in the left lower quadrant of the abdomen is increased measuring 89 x 73 mm, previously 57 x 46 mm. A right adrenal lesion on image 18 measures 45 mm, previously 41 mm. Similar metastatic nodule in the left lower lobe of the lung measuring 11 mm. A lesion in the fundus of the gallbladder on image 29 measuring 23 mm, previously 18 mm is unchanged. New trace pleural effusions. The unenhanced liver, spleen, kidneys, and pancreas are unremarkable. Uterus is present. No bowel obstruction. No inflammatory bowel changes. Normal appendix. No acute bony abnormality. Chronic compression deformities of the lumbar spine. IMPRESSION: Increased widespread metastatic disease. New trace pleural effusions. No other acute finding. Electronically signed by Jose R Boles 08-08-2025 5:16 PM Discharge Plan Visit Data Chief Complaint: Abdominal Pain Stated Complaint: Abdominal Pain ED Provider: Sanya Carrasquillo Discharge Problem: GIB (gastrointestinal bleeding), Metastatic melanoma, Atrial fibrillation Patient Disposition: Admitted As Inpatient Condition: Fair Discharge Instructions Interventions: ED Discharge Assessment Last Done: 08/08/25 20:50 Discharge Problem: GIB (gastrointestinal bleeding) Qualifiers: GI bleed type/associated pathology: unspecified gastrointestinal hemorrhage type Qualified Code(s): K92.2 - Gastrointestinal hemorrhage, unspecified
[2025-08-08 15:46] LABS: Hematocrit (blood only) 26.7 % (37.0-47.0); Hemoglobin 8.8 g/dL (12.0-16.0); Immature Granulocytes # (auto) 0.09 K/uL (0.01-0.20); Immature Granulocytes % (auto) 0.7 %; Mean Corpuscular Hemoglobin 30.2 pg (25.0-34.0); Mean Corpuscular Volume 91.8 fL (80.0-100.0); Platelet Count 436 K/uL (130-400); RDW Standard Deviation 55.0 fL (36.4-46.3); Red Blood Count 2.91 M/uL (4.20-5.40); White Blood Count 13.11 K/ul (4.8-10.8)
[2025-08-08 16:03] LABS: Alanine Aminotransferase 9.0 U/L (7-52); Albumin Globulin Ratio 0.8 (0.9-2); Albumin Level 2.3 gm/dl (3.4-5.0); Alkaline Phosphatase 171.0 U/L (34-104); Anion Gap 12.0 (3-11); Bilirubin,Total 0.6 mg/dl (0.2-1.0); Blood Urea Nitrogen 70.0 mg/dl (6-23); Calcium 9.3 mg/dl (8.6-10.3); Carbon Dioxide 26.0 mmol/L (21-32); Chloride 96.0 mmol/L (98-107); Creatinine Clr Calc Pharmacy 16.2 ml/min; Globulin 2.9 gm/dl (2.5-4.0); Glucose 135.0 mg/dl (70-99(Fasting)); Potassium 4.6 mmol/L (3.5-5.1); Sodium 134.0 mmol/L (136-145); Total Protein 5.2 gm/dl (6.0-8.3)
[2025-08-08 16:10] LABS: INR 1.1 (0.9-1.1); Partial Thromboplastin Time 29 Seconds (21-31); Prothrombin Time 11.4 Seconds (9.0-12.0)
--- NOTE | 2025-08-08 17:16 | CT Scan Report ---
EXAMINATION: CT of the abdomen and pelvis performed without contrast TECHNIQUE: Helical CT images from the lung bases through the symphysis pubis were obtained without contrast. Coronal and sagittal reformatted images were generated at a workstation for further assessment. Dose reduction techniques were achieved by using automatic exposure control and/or adjustment of mA and/or kV according to patient size and/or use of iterative reconstruction technique. COMPARISON: PET/CT 05/16/2025 HISTORY: Abdominal pain FINDINGS: Innumerable soft tissue lesions are seen throughout the body wall, including the right abdominal wall on image 32 measuring 36 mm, on image 25 measuring 36 mm, in the left groin, on image 73 measuring 59 mm, have all increased. A mass in the left lower quadrant of the abdomen is increased measuring 89 x 73 mm, previously 57 x 46 mm. A right adrenal lesion on image 18 measures 45 mm, previously 41 mm. Similar metastatic nodule in the left lower lobe of the lung measuring 11 mm. A lesion in the fundus of the gallbladder on image 29 measuring 23 mm, previously 18 mm is unchanged. New trace pleural effusions. The unenhanced liver, spleen, kidneys, and pancreas are unremarkable. Uterus is present. No bowel obstruction. No inflammatory bowel changes. Normal appendix. No acute bony abnormality. Chronic compression deformities of the lumbar spine. IMPRESSION: Increased widespread metastatic disease. New trace pleural effusions. No other acute finding. Electronically signed by Jose R Boles 08-08-2025 5:16 PM
[2025-08-08] MEDS: PANTOprazole 40 MG in DEXTROSE 5% MINI-B 100 ML IV SCH (17:51)
[2025-08-08] MEDS: PANTOPRAZOLE BOLUS/DRIP IV STA (17:51)
[2025-08-08] MEDS: SODIUM CHLORIDE 0.9% 500 ML IV ONE ×2 (17:51→20:23)
--- NOTE | 2025-08-08 21:01 | History & Physical Report ---
Date of Service August 08, 2025 Assessment & Plan (1) Orthostasis: (2) Pain from bone metastases: (3) GIB (gastrointestinal bleeding): (4) Metastatic melanoma: (5) Cardiomyopathy: (6) Stage 3b chronic kidney disease (CKD): (7) Diabetes mellitus with neuropathy: (8) Hyperlipidemia: (9) Dysphagia: (10) Atrial fibrillation: (11) DVT of axillary vein, acute left: (12) Hospice care patient: Plan #GI bleed -patient on a number of medications with increased risk factor for ulceration/upper GI bleeding. -Admit PCU, telemetry, Protonix loading dose in the emergency department to twice daily dosing -Hold NSAID medications, hold apixaban -Type and screen sent with additional labs - Current hemoglobin 8.8, check every 6 hours through the night continue to transfuse 2 units of packed red blood cells with acute decline in hemoglobin, decrease in vital signs or signs of active bleeding - Reviewed consent for transfusion with the patient and her at the bedside at the time of admission and they are okay with transfusion. Close monitor #Hypotension -mild, hypovolemic, gentle fluid resuscitation and 500 cc bolus given history of dysphagia and underlying cardiomyopathy with ongoing and extensive lower extremity edema - Hold antihypertensives, hold Bumex - Telemetry monitoring as above -No indication for pressors at this time, patient would not want aggressive regular cares. We did not specifically discuss pressors, consideration for midodrine if needed for bridge to additional fluid resuscitation - Normal saline +20 8K at 100 cc/h through the night once initial fluid boluses are complete - admit PCU as above #Underlying cardiomyopathy - Gentle fluid resuscitation as above, 2+ lower extremity edema noted but has been chronic since hospitalization for hip replacement - Monitor closely with telemetry #History of DVT - Hold Eliquis given bleeding as above #Stage III CKD - ANJANA based on initial labs, likely hypovolemic/prerenal in the setting of volume depletion - Volume resuscitation as above, recheck in the morning #Widespread metastatic disease - Ongoing treatment with Dr. Arredondo at the [facility], no active interventions planned at this point. She has been enrolled with hospice, will consult palliative care it does not sound as though there are additional treatments available for her at this time #Atrial fibrillation - rate controlled at this time, continue to monitor telemetry #FEN - N.p.o. during initial hospitalization #CODE STATUS - DNR/DNI per her wishes discussed with the patient and her at time of admission History of Present Illness Chief Complaint: Weakness, SOB, Tarry Stools Primary Care Provider: Tyson Hernandez MD 89-year-old female with a past medical history including metastatic melanoma with mets to bone and bladder, type II DM on insulin, DVT on Eliquis, A-fib, cardiomyopathy, stage IIIb CKD. Recent on palliative radiation therapy and chemotherapy prior status post right hip replacement about 6 weeks prior with brief stay in nursing home back home for the last 3 weeks. According the patient and her that she has had decreased oral intake, decreased fluid intake. Has had quite a bit of pain from cancer in her hip. Has been using NSAID based medications for such. Over the last several days has had increasing loose dark and tarry stools. May have been 2 to 3/day. reports that establish she has been increasingly somnolent. She has a brief episode of abdominal pain this morning secondary to this patient was transferred to the emergency department for evaluation. Initial evaluation emergency department revealed clinical diagnosis of hypokalemia. No obvious hematochezia or folacin melanotic stool. CT of the abdomen showed widespread and progressive metastatic disease. Secondary to presumed history hemoglobin 8.8 which is about her recent baseline however in combination with the volume contraction likely represents an acute decline. She was modestly hypotensive. Referred for admission for serial hemoglobin, supportive cares, volume resuscitation. Recent pertinent past medical history: Patient with a known history of cancer related pain secondary to metastatic melanoma is continuing treatments with [facility]. Patient with a history of chronic back DVT. Also cardiomyopathy on Bumex. Also history of A-fib recently stopped bisoprolol. Based on this note seems to intimate that the patient was going to be off of Eliquis. Did have a recent hip fracture while traveling to the hospital for radiation therapy was discharged on the and transferred to [facility] and subsequently to home on July 26. Allergies Allergy/AdvReac Type Severity Reaction Status Date / Time No Known Drug Allergies Allergy Verified 08/02/25 13:54 Home Medications Medication Instructions Recorded Confirmed Type cholecalciferol (vitamin D3) 50 50 mcg PO DAILY 10/14/22 08/08/25 History mcg (2,000 unit) capsule blood sugar diagnostic (Accu-Chek #100 ea 04/03/24 08/02/25 Rx Guide test strips) pen needle, diabetic 32 gauge x #100 ea 06/28/24 08/02/25 Rx 5/32" (BD Shante 2nd Gen Pen Needle) vitamin C 45 mg-zinc citrate 4 1 tab PO BID 12/07/24 08/08/25 History mg-elderberry 50 mg chewable tablet (Animoto) insulin glargine 100 unit/mL (3 25 unit (0.25 mL) subcut QDL #15 mL 01/11/25 08/08/25 Rx mL) subcutaneous pen (Lantus Solostar U-100 Insulin) potassium chloride 10 mEq 10 meq PO DAILY #30 caps 04/03/25 08/08/25 Rx capsule,extended release acetaminophen 300 mg-codeine 30 mg 1 tab PO Q4H PRN Pain 04/05/25 08/08/25 History tablet apixaban 2.5 mg tablet (Eliquis) 2.5 mg PO BID 05/24/25 08/08/25 History bumetanide 1 mg tablet 1 mg PO DAILY 05/24/25 08/08/25 History bisacodyl 5 mg tablet 5 mg PO DAILY PRN constipation #30 06/29/25 08/08/25 Rx tabs ondansetron 4 mg disintegrating 4 mg PO Q6H PRN nausea and 06/29/25 08/08/25 Rx tablet vomiting #30 tabs pantoprazole 40 mg tablet,delayed 40 mg PO DAILY #30 tabs 06/29/25 08/08/25 Rx release (Protonix) polyethylene glycol 3350 17 17 g PO DAILY #119 grams 06/29/25 08/08/25 Rx gram/dose oral powder celecoxib 200 mg capsule (Celebrex) 200 mg PO BID PRN pain #60 caps 08/02/25 08/08/25 Rx compr.stocking,knee,long,large #2 ea 08/02/25 08/02/25 Rx oxycodone 5 mg tablet 2.5 mg (1/2 x 5 mg) PO BID PRN 08/02/25 08/08/25 Rx pain #30 tabs Past Med/Surg History Problem List (Updated 08/08/25 @ 21:01 by Eric Chavez MD) GIB (gastrointestinal bleeding) Orthostasis Pain from bone metastases Cancer related pain Status post hemiarthroplasty of right hip Parotid tumor Metastatic melanoma Nocturnal leg cramps Lumbar pain Leg pain Sinusitis Dysuria Gout Hematuria Gross hematuria Cardiomyopathy Dyspnea Migraine headache with aura Balance disorder Left rotator cuff tear Impingement of both shoulders Migraine aura occurring with and without headache Shoulder pain Abdominal pain Stage 3b chronic kidney disease (CKD) Diabetes mellitus with neuropathy Hyperlipidemia Renal mass Osteoarthritis of right knee Recurrent left knee instability Dysphagia Esophageal cancer diagnosed 2019--chemo/radiation in [place] Atrial fibrillation (Chronic) on eliquis daily--follows with Dr. Eckert Hypertension (Chronic) Arthritis (Chronic) Scoliosis (Chronic) Medical History Fracture of femoral neck, right, closed Bronchitis Upper respiratory disease Deep vein thrombosis (DVT) of left lower extremity DVT of axillary vein, acute left Hematuria Near syncope Fractured sternum Encounter for pre-operative examination Hospice care patient Hematuria Cramping of hands Neuropathy Balance disorder Stage 3b chronic kidney disease Scoliosis Renal mass Diabetes mellitus, type 2 HTN (hypertension) History of esophageal cancer Cardiomyopathy Gout DVT (deep venous thrombosis) Atrial fibrillation History of TIA (transient ischemic attack) Hx of bronchitis Rotator cuff (capsule) sprain Verruca vulgaris Osteoarthritis On anticoagulant therapy Ocular migraine Diabetes mellitus Surgical History H/O transurethral resection of bladder tumor (TURBT) History of tooth extraction Hx of melanoma excision History of colonoscopy History of total left knee replacement (TKR) History of esophagogastroduodenoscopy (EGD) History of root canal procedure History of bilateral cataract extraction Family History Mother Diabetes Sister Diabetes Father Myocardial infarction Other Family history non-contributory No family history of adverse response to anesthesia Denies family history of Ovarian cancer Prostate cancer Breast cancer Colorectal cancer Social History Smoking Status: Unknown if ever smoked Tobacco Type: Cigarettes Age Started Using Tobacco: 17; Age Quit Using Tobacco: 34; packs per day: 1.5; Second Hand Exposure: No; Do You Dip or Chew Tobacco: No; Hx Alcohol Use: Yes Alcohol type: other Alcohol Intake Frequency: 2-4 x/Month Hx Substance Use: No Preferred Language: Mohawk Communication Ability: Effective Visual Impairment: No Limitations Hearing Ability: Normal Slate Cutter Operator Required: No Beliefs That Will Affect Care: None marital status: Current Living Situation: Spouse current occupational status: retired How many Children do You have: 6 Feels Safe at Home: Yes Diet: regular caffeine: Yes during the past year weight has: increased > 10 lbs Dental Care, Regularly: No Physical Activity Frequency: Does not Exercise Seatbelt Use: always Sunscreen Use: Yes Assistive Devices: None Review of Systems Review of Systems: Aside from that noted lateral to left flank clinically review of systems was conducted and negative Physical Exam Physical Exam: General: A&Ox3. NAD. Cooperative. HEENT: Atraumatic, normocephalic. Vision and hearing grossly intact. Pupils equal and reactive to light, sclera clear and anicteric Pulm: CTAB A&P. -wheezes, -rales, -rhonchi. No increased work of breathing. No respiratory distress. Cardiac: tachycardic. -mrg. Radial pulses intact and symmetrical. Abdominal: Nontender, nondistended, soft. BS present. Ext: 3+ Edema R>L in the lower extremities bilaterally, Moves all extremities equally NEURO: A&O as above, no focal deficits Skin: warm, moist. No evident pallor discoloration or rash. Results & Data Results & Data Vital Signs (Past 12 Hours) Vital Signs Temp Pulse Resp BP Pulse Ox O2 Del Method 08/08/25 20:25 77/49 L 08/08/25 20:23 72/46 L 08/08/25 20:14 80/47 L 08/08/25 20:13 78/53 L 08/08/25 20:12 81 16 70/40 L 85 L 08/08/25 20:10 81/46 L 08/08/25 20:05 81/39 L 08/08/25 20:02 79/53 L 08/08/25 20:00 80 26 H 80/55 L 08/08/25 19:30 82 24 95/43 L 08/08/25 19:09 81 08/08/25 19:00 79 18 95/56 L 08/08/25 18:30 95/69 L 08/08/25 18:15 83 20 88/55 L 91 Room Air 08/08/25 18:00 84 19 96/58 L 92 Room Air 08/08/25 17:30 90 15 93/50 L 100 Room Air 08/08/25 17:15 80 23 101/43 L 93 Room Air 08/08/25 17:12 87 18 101/43 L 95 Room Air 08/08/25 15:09 92 H 08/08/25 15:05 36.5 C 83 22 101/68 99 Room Air Laboratory Results 08/08/25 08/08/25 08/08/25 15:29 15:06 14:59 WBC 13.11 H RBC 2.91 L Hgb 8.8 L POC Hgb 9.5 L Hct 26.7 L POC Hct 28 L MCV 91.8 MCH 30.2 MCHC 33.0 RDW Std Deviation 55.0 H RDW Coeff of Marlene 16.5 H Plt Count 436 H MPV 9.3 L Immature Gran % (Auto) 0.7 Neut % (Auto) 81.0 Lymph % (Auto) 9.1 [place] % (Auto) 8.5 Eos % (Auto) 0.5 Baso % (Auto) 0.2 Neut # (Auto) 10.63 H Lymph # (Auto) 1.19 L [place] # (Auto) 1.12 H Eos # (Auto) 0.06 Baso # (Auto) 0.02 Immature Gran # (Auto) 0.09 PT 11.4 INR 1.1 APTT 29 PTT Ratio 1.1 POC Sodium 132 L Sodium 134 L POC Potassium 4.6 Potassium 4.6 POC Chloride 96 L Chloride 96 L Carbon Dioxide 26 POC Total CO2 25 Anion Gap 12 H POC Anion Gap 17.0 POC BUN 56 H BUN 70 H Creatinine 2.57 H POC Creatinine 2.8 H Est Cr Clr Drug Dosing 16.2 eGFR 17.35 BUN/Creatinine Ratio 27.2 H Glucose 135 H POC Glucose 123 H POC Glucose (other) 129 H Calcium 9.3 POC Ioniz Calcium Anna 1.15 Total Bilirubin 0.6 AST 18 ALT 9 Alkaline Phosphatase 171 H Total Protein 5.2 L Albumin 2.3 L Globulin 2.9 Albumin/Globulin Ratio 0.8 L Blood Type O Positive Antibody Screen NEGATIVE Diagnostic Findings Abdomen/Pelvis CT 08/08/25 15:32 EXAMINATION: CT of the abdomen and pelvis performed without contrast TECHNIQUE: Helical CT images from the lung bases through the symphysis pubis were obtained without contrast. Coronal and sagittal reformatted images were generated at a workstation for further assessment. Dose reduction techniques were achieved by using automatic exposure control and/or adjustment of mA and/or kV according to patient size and/or use of iterative reconstruction technique. COMPARISON: PET/CT 05/16/2025 HISTORY: Abdominal pain FINDINGS: Innumerable soft tissue lesions are seen throughout the body wall, including the right abdominal wall on image 32 measuring 36 mm, on image 25 measuring 36 mm, in the left groin, on image 73 measuring 59 mm, have all increased. A mass in the left lower quadrant of the abdomen is increased measuring 89 x 73 mm, previously 57 x 46 mm. A right adrenal lesion on image 18 measures 45 mm, previously 41 mm. Similar metastatic nodule in the left lower lobe of the lung measuring 11 mm. A lesion in the fundus of the gallbladder on image 29 measuring 23 mm, previously 18 mm is unchanged. New trace pleural effusions. The unenhanced liver, spleen, kidneys, and pancreas are unremarkable. Uterus is present. No bowel obstruction. No inflammatory bowel changes. Normal appendix. No acute bony abnormality. Chronic compression deformities of the lumbar spine. IMPRESSION: Increased widespread metastatic disease. New trace pleural effusions. No other acute finding. Electronically signed by Jose R Boles 08-08-2025 5:16 PM Code Status & VTE Plan VTE Prophylaxis Plan VTE Prophylaxis will be ordered: Yes PG Care Time/CCT Total # of Minutes Spent Total Time Spent with Patient: Total time spent is greater than 50% in coordination of care (as documented) at patient's floor/unit and/or counseling patient: Coding Level of Care Code 50837 INT INP/OBS CARE 3/75MIN Diagnoses Orthostasis I95.1 Pain from bone metastases G89.3; C79.51 GIB (gastrointestinal bleeding) K92.2 Metastatic melanoma C43.9 Cardiomyopathy I42.9 Stage 3b chronic kidney disease (CKD) N18.32 Diabetes mellitus with neuropathy E11.40 Hyperlipidemia, unspecified hyperlipidemia type E78.5 Hyperlipidemia type: unspecified Dysphagia R13.10 Permanent atrial fibrillation I48.21 Atrial fibrillation type: permanent DVT of axillary vein, acute left I82.A12 Hospice care patient Z51.5 (8) Hyperlipidemia Hyperlipidemia type: unspecified Qualified Code(s): E78.5 - Hyperlipidemia, unspecified (10) Atrial fibrillation Atrial fibrillation type: permanent Qualified Code(s): I48.21 - Permanent atrial fibrillation
[2025-08-08] MEDS: SODIUM CHLORIDE 0.9% 1,000 ML IV SCH (21:32)
[2025-08-08] MEDS ORDERED: ONDANSETRON INJ 2 MG/ML 2 ML VIAL IV PRN (23:01)
[2025-08-08] MEDS: SODIUM CHLORIDE 0.9% 1,000 ML IV ONE (23:16)
[2025-08-08] MEDS: D5NSS + 20MEQ KCL 20 MEQ/1,000 ML BAG IV SCH (23:37)
[2025-08-09 00:18] LABS: Hematocrit (blood only) 23.3 % (37.0-47.0); Hemoglobin 7.7 g/dL (12.0-16.0); Immature Granulocytes # (auto) 0.08 K/uL (0.01-0.20); Immature Granulocytes % (auto) 0.7 %; Mean Corpuscular Hemoglobin 30.2 pg (25.0-34.0); Mean Corpuscular Volume 91.4 fL (80.0-100.0); Platelet Count 400 K/uL (130-400); RDW Standard Deviation 53.8 fL (36.4-46.3); Red Blood Count 2.55 M/uL (4.20-5.40); White Blood Count 11.74 K/ul (4.8-10.8)
[2025-08-09 00:35] LABS: Anion Gap 12.0 (3-11); Blood Urea Nitrogen 63.0 mg/dl (6-23); Calcium 8.5 mg/dl (8.6-10.3); Carbon Dioxide 23.0 mmol/L (21-32); Chloride 101.0 mmol/L (98-107); Creatinine Clr Calc Pharmacy 16.9 ml/min; Glucose 128.0 mg/dl (70-99(Fasting)); Potassium 3.9 mmol/L (3.5-5.1); Sodium 136.0 mmol/L (136-145)
[2025-08-09 00:40] LABS: Polychromasia 1+; Target Cells 1+
[2025-08-09 01:00] LABS: INR 1.1 (0.9-1.1); Partial Thromboplastin Time 31 Seconds (21-31); Prothrombin Time 11.9 Seconds (9.0-12.0)
[2025-08-09 06:10] LABS: Alanine Aminotransferase 5.0 U/L (7-52); Albumin Globulin Ratio 0.8 (0.9-2); Albumin Level 1.9 gm/dl (3.4-5.0); Alkaline Phosphatase 118.0 U/L (34-104); Anion Gap 8.0 (3-11); Bilirubin,Total 0.5 mg/dl (0.2-1.0); Blood Urea Nitrogen 61.0 mg/dl (6-23); Calcium 8.3 mg/dl (8.6-10.3); Carbon Dioxide 25.0 mmol/L (21-32); Chloride 104.0 mmol/L (98-107); Creatinine Clr Calc Pharmacy 17.4 ml/min; Globulin 2.4 gm/dl (2.5-4.0); Glucose 173.0 mg/dl (70-99(Fasting)); Potassium 4.2 mmol/L (3.5-5.1); Sodium 137.0 mmol/L (136-145); Total Protein 4.3 gm/dl (6.0-8.3)
[2025-08-09 06:30] LABS: Hematocrit (blood only) 20.9 % (37.0-47.0); Hemoglobin 7.0 g/dL (12.0-16.0); Mean Corpuscular Hemoglobin 30.6 pg (25.0-34.0); Mean Corpuscular Volume 91.3 fL (80.0-100.0); Platelet Count 353 K/uL (130-400); RDW Standard Deviation 53.5 fL (36.4-46.3); Red Blood Count 2.29 M/uL (4.20-5.40); White Blood Count 10.11 K/ul (4.8-10.8)
[2025-08-09 06:32] LABS: Hypochromasia Present; Immature Granulocytes # (auto) 0.07 K/uL (0.01-0.20); Immature Granulocytes % (auto) 0.7 %; Polychromasia 1+
[2025-08-09] MEDS ORDERED: SODIUM CHLORIDE 0.9% 100 ML IV PRN ×2 (06:34→08:31)
[2025-08-09] MEDS: PANTOprazole 40 MG/10 ML SYR IV SCH (09:27)
[2025-08-09] MEDS: FUROSEMIDE INJ 20 MG/2 ML VIAL IV ONE (12:13)
[2025-08-09] MEDS ORDERED: MoRPHine SULFATE 2 MG/ML CARP IV PRN (13:03)
--- NOTE | 2025-08-09 16:04 | Hospitalist Progress Note ---
Date of Service August 09, 2025 Assessment & Plan (1) Orthostasis: (2) Pain from bone metastases: (3) GIB (gastrointestinal bleeding): (4) Metastatic melanoma: (5) Cardiomyopathy: (6) Stage 3b chronic kidney disease (CKD): (7) Diabetes mellitus with neuropathy: (8) Hyperlipidemia: (9) Dysphagia: (10) Atrial fibrillation: (11) DVT of axillary vein, acute left: (12) Hospice care patient: Plan #GI bleed -patient on a number of medications with increased risk factor for ulceration/upper GI bleeding. -Admit PCU, telemetry, Protonix loading dose in the emergency department to twice daily dosing -Hold NSAID medications, hold apixaban -Type and screen sent with additional labs - Current hemoglobin 8.8, check every 6 hours through the night continue to transfuse 2 units of packed red blood cells with acute decline in hemoglobin, decrease in vital signs or signs of active bleeding - hemoglobin from 8.8-7.0, transfuse 1 packed red blood cells - Continue with Protonix - Consult to check gastroenterology - Continue to monitor H&H every 8 hours overnight, continue telemetry #Hypotension -mild, hypovolemic, gentle fluid resuscitation and 500 cc bolus given history of dysphagia and underlying cardiomyopathy with ongoing and extensive lower extremity edema - Hold antihypertensives, hold Bumex - Telemetry monitoring as above -No indication for pressors at this time, patient would not want aggressive regular cares. We did not specifically discuss pressors, consideration for midodrine if needed for bridge to additional fluid resuscitation - Normal saline +20 8K at 100 cc/h through the night once initial fluid boluses are complete - admit PCU as above responded well to volume expansion. Continue with NS at 75 cc/h or she was given blood. I do think there is some element of risk for volume overload. Gentle Lasix 10 mg IV to be given with the 10 units of packed red blood cells and will monitor closely - #Underlying cardiomyopathy - Gentle fluid resuscitation as above, 2+ lower extremity edema noted but has been chronic since hospitalization for hip replacement - Monitor closely with telemetry #History of DVT - Hold Eliquis given bleeding as above #Stage III CKD - ANJANA based on initial labs, likely hypovolemic/prerenal in the setting of volume depletion - Volume resuscitation as above, recheck in the morning #Widespread metastatic disease - Ongoing treatment with Dr. Arredondo at the [facility], no active interventions planned at this point. She has been enrolled with hospice, will consult palliative care it does not sound as though there are additional treatments available for her at this time - Family present bedside head requested evaluation with palliative care. It had been discussed previously in the outpatient setting given the increasing complexities request was made. Consult placed #Atrial fibrillation - rate controlled at this time, continue to monitor telemetry #FEN - N.p.o. during initial hospitalization #CODE STATUS - DNR/DNI per her wishes discussed with the patient and her at time of admission Admission and Anticipated Discharge Date Admission Date: August 08, 2025 Subjective More somnolent this morning. Appropriate per nursing staff. is not at the bedside adult daughter present. We discussed transfusion for the decrease in hemoglobin. Reviewed risks benefits alternatives ultimately consent was obtained for transfusion of 1 unit packed red blood cells. Otherwise no significant stool or hematochezia. No nausea or vomiting but has been NPO. Continue with IV fluids. Blood pressure is a little on the low side. But otherwise not tachycardic. Physical Exam Physical Exam: General: A&Ox3. NAD. Cooperative. HEENT: Atraumatic, normocephalic. Vision and hearing grossly intact. Pupils equal and reactive to light, sclera clear and anicteric Pulm: CTAB A&P. -wheezes, -rales, -rhonchi. No increased work of breathing. No respiratory distress. Cardiac: tachycardic. -mrg. Radial pulses intact and symmetrical. Abdominal: Nontender, nondistended, soft. BS present. Ext: 3+ Edema R>L in the lower extremities bilaterally, Moves all extremities equally NEURO: A&O as above, no focal deficits Skin: warm, moist. No evident pallor discoloration or rash. Results & Data Results & Data Vital Signs (Past 12 Hours) Vital Signs Temp Pulse Pulse Resp BP BP Pulse Ox 08/09/25 11:58 36.4 C L 87 18 90/61 L 97 08/09/25 11:46 36.4 C L 87 18 90/61 L 97 08/09/25 11:09 36.3 C L 87 16 88/60 L 97 08/09/25 10:09 36.4 C L 87 18 76/54 L 99 08/09/25 09:39 36.4 C L 83 18 82/56 L 98 08/09/25 09:24 36.2 C L 79 16 72/46 L 97 08/09/25 09:06 36.4 C L 80 16 86/56 L 97 08/09/25 09:00 08/09/25 07:30 36.5 C 79 18 71/47 L 97 08/09/25 07:29 85 08/09/25 06:21 80 101/66 O2 Del Method 08/09/25 11:58 08/09/25 11:46 08/09/25 11:09 08/09/25 10:09 08/09/25 09:39 08/09/25 09:24 08/09/25 09:06 08/09/25 09:00 Room Air 08/09/25 07:30 Room Air 08/09/25 07:29 08/09/25 06:21 Laboratory Results 08/09/25 08/09/25 08/08/25 05:35 00:03 15:06 WBC 10.11 11.74 H RBC 2.29 L 2.55 L Hgb 7.0 L 7.7 L Hct 20.9 L* 23.3 L MCV 91.3 91.4 MCH 30.6 30.2 MCHC 33.5 33.0 RDW Std Deviation 53.5 H 53.8 H RDW Coeff of Marlene 16.4 H 16.3 H Plt Count 353 400 MPV 9.5 9.3 L Immature Gran % (Auto) 0.7 0.7 Neut % (Auto) 77.9 81.4 Lymph % (Auto) 8.9 6.6 [place] % (Auto) 11.0 10.2 Eos % (Auto) 1.3 0.9 Baso % (Auto) 0.2 0.2 Neut # (Auto) 7.88 H 9.56 H Lymph # (Auto) 0.90 L 0.77 L [place] # (Auto) 1.11 H 1.20 H Eos # (Auto) 0.13 0.11 Baso # (Auto) 0.02 0.02 Immature Gran # (Auto) 0.07 0.08 Polychromasia 1+ 1+ Hypochromasia Present Target Cells 1+ PT 11.9 11.4 INR 1.1 1.1 APTT 31 29 PTT Ratio 1.1 1.1 Sodium 137 136 134 L Potassium 4.2 3.9 4.6 Chloride 104 101 96 L Carbon Dioxide 25 23 26 Anion Gap 8 12 H 12 H BUN 61 H 63 H 70 H Creatinine 2.38 H 2.45 H 2.57 H Est Cr Clr Drug Dosing 17.4 16.9 16.2 eGFR 19.02 18.37 17.35 BUN/Creatinine Ratio 25.6 H 25.7 H 27.2 H Glucose 173 H 128 H 135 H Calcium 8.3 L 8.5 L 9.3 Total Bilirubin 0.5 0.6 AST 15 18 ALT 5 L 9 Alkaline Phosphatase 118 H 171 H C-Reactive Protein 19.81 H Total Protein 4.3 L 5.2 L Albumin 1.9 L 2.3 L Globulin 2.4 L 2.9 Albumin/Globulin Ratio 0.8 L 0.8 L Blood Type O Positive Antibody Screen NEGATIVE Crossmatch See Detail PG Care Time/CCT Total # of Minutes Spent Total Time Spent with Patient: Total time spent is greater than 50% in coordination of care (as documented) at patient's floor/unit and/or counseling patient: Coding Level of Care Code 77212 SUB INP/OBS CARE 3/50MIN Diagnoses Orthostasis I95.1 Pain from bone metastases G89.3; C79.51 GIB (gastrointestinal bleeding) K92.2 Metastatic melanoma C43.9 Cardiomyopathy I42.9 Stage 3b chronic kidney disease (CKD) N18.32 Diabetes mellitus with neuropathy E11.40 Hyperlipidemia, unspecified hyperlipidemia type E78.5 Hyperlipidemia type: unspecified Dysphagia R13.10 Permanent atrial fibrillation I48.91 DVT of axillary vein, acute left I82.A12 Hospice care patient Z51.5 (8) Hyperlipidemia Hyperlipidemia type: unspecified Qualified Code(s): E78.5 - Hyperlipidemia, unspecified
[2025-08-09 17:40] LABS: Hematocrit (blood only) 28.8 % (37.0-47.0); Hemoglobin 10.0 g/dL (12.0-16.0)
[2025-08-09 23:36] LABS: Hematocrit (blood only) 27.8 % (37.0-47.0); Hemoglobin 9.5 g/dL (12.0-16.0)
[2025-08-10 06:12] LABS: Hematocrit (blood only) 27.2 % (37.0-47.0); Hemoglobin 9.3 g/dL (12.0-16.0)
[2025-08-10 06:36] LABS: Alanine Aminotransferase 6.0 U/L (7-52); Albumin Globulin Ratio 0.9 (0.9-2); Albumin Level 2.2 gm/dl (3.4-5.0); Alkaline Phosphatase 130.0 U/L (34-104); Anion Gap 10.0 (3-11); Bilirubin,Total 0.8 mg/dl (0.2-1.0); Blood Urea Nitrogen 52.0 mg/dl (6-23); Calcium 9.1 mg/dl (8.6-10.3); Carbon Dioxide 23.0 mmol/L (21-32); Chloride 107.0 mmol/L (98-107); Creatinine Clr Calc Pharmacy 20.3 ml/min; Globulin 2.5 gm/dl (2.5-4.0); Glucose 167.0 mg/dl (70-99(Fasting)); Potassium 4.2 mmol/L (3.5-5.1); Sodium 140.0 mmol/L (136-145); Total Protein 4.7 gm/dl (6.0-8.3)
--- NOTE | 2025-08-10 09:28 | Electrocardiogram Report ---
Test Reason : Blood Pressure : */* mmHG Vent. Rate : 89 BPM Atrial Rate : * BPM P-R Int : * ms QRS Dur : 78 ms QT Int : 382 ms P-R-T Axes : * 16 123 degrees QTcB Int : 464 ms Atrial fibrillation Low voltage QRS Nonspecific T wave abnormality Abnormal ECG When compared with ECG of 20-Jun-2025 20:17, Nonspecific T wave abnormality now evident in Anterior leads Confirmed by Lizandro Love ([id number]) on 08/10/2025 9:28:01 AM Referred By: Confirmed By: Lizandro Love
--- NOTE | 2025-08-10 09:39 | Palliative Care Consultation ---
Date of Consultation August 10, 2025 History of Present Illness Reason for Consultation: symptom mgmt/GOC Requesting Physician: Eric Chavez MD Attending Physician: Eric Chavez MD History of Present Illness "Chemo Schaffer is a 89-year-old female with a past medical history including metastatic melanoma with mets to bone and bladder, type II DM on insulin, DVT on Eliquis, A-fib, cardiomyopathy, stage IIIb CKD. Recent on palliative radiation therapy and chemotherapy prior status post right hip replacement about 6 weeks prior with brief stay in detention back home for the last 3 weeks. According the patient and her that she has had decreased oral intake, decreased fluid intake. Has had quite a bit of pain from cancer in her hip. Has been using NSAID based medications for such. Over the last several days has had increasing loose dark and tarry stools. May have been 2 to 3/day. reports that establish she has been increasingly somnolent. She was sent to ED after a brief episode of abdominal pain on 08/08/25. Initial evaluation emergency department revealed clinical diagnosis of hypokal emia. CT of the abdomen showed widespread and progressive metastatic disease. Admitted for serial hemoglobin, supportive cares, volume resuscitation. Allergies Allergy/AdvReac Type Severity Reaction Status Date / Time No Known Drug Allergies Allergy Verified 08/02/25 13:54 Home Medications Medication Instructions Recorded Confirmed Type cholecalciferol (vitamin D3) 50 50 mcg PO DAILY 10/14/22 08/08/25 History mcg (2,000 unit) capsule blood sugar diagnostic (Accu-Chek #100 ea 04/03/24 08/02/25 Rx Guide test strips) pen needle, diabetic 32 gauge x #100 ea 06/28/24 08/02/25 Rx 5/32" (BD Shante 2nd Gen Pen Needle) vitamin C 45 mg-zinc citrate 4 1 tab PO BID 12/07/24 08/08/25 History mg-elderberry 50 mg chewable tablet (Equipboard) insulin glargine 100 unit/mL (3 25 unit (0.25 mL) subcut QDL #15 mL 01/11/2509/20 Rx mL) subcutaneous pen (Lantus Solostar U-100 Insulin) potassium chloride 10 mEq 10 meq PO DAILY #30 caps 04/03/25 08/08/25 Rx capsule,extended release acetaminophen 300 mg-codeine 30 mg 1 tab PO Q4H PRN Pain 04/05/25 08/08/25 History tablet apixaban 2.5 mg tablet (Eliquis) 2.5 mg PO BID 05/24/25 08/08/25 History bumetanide 1 mg tablet 1 mg PO DAILY 05/24/25 08/08/25 History bisacodyl 5 mg tablet 5 mg PO DAILY PRN constipation #30 06/29/25 08/08/25 Rx tabs ondansetron 4 mg disintegrating 4 mg PO Q6H PRN nausea and 06/29/25 08/08/25 Rx tablet vomiting #30 tabs pantoprazole 40 mg tablet,delayed 40 mg PO DAILY #30 tabs 06/29/25 08/08/25 Rx release (Protonix) polyethylene glycol 3350 17 17 g PO DAILY #119 grams 06/29/25 08/08/25 Rx gram/dose oral powder celecoxib 200 mg capsule (Celebrex) 200 mg PO BID PRN pain #60 caps 08/02/25 08/08/25 Rx compr.stocking,knee,long,large #2 ea 08/02/25 08/02/25 Rx oxycodone 5 mg tablet 2.5 mg (1/2 x 5 mg) PO BID PRN 08/02/25 08/08/25 Rx pain #30 tabs Patient History Medical History Fracture of femoral neck, right, closed Bronchitis Upper respiratory disease Deep vein thrombosis (DVT) of left lower extremity DVT of axillary vein, acute left Hematuria Near syncope Fractured sternum Encounter for pre-operative examination Hospice care patient [facility] for esophageal ca Hematuria reason for upcoming procedure Cramping of hands fingers per pt Neuropathy hands / feet Balance disorder Stage 3b chronic kidney disease follows with Dr. Ramirez Scoliosis Renal mass reason for upcoming procedure Diabetes mellitus, type 2 HTN (hypertension) History of esophageal cancer diagnosed 2019--chemo/radiation in [place] > 2023 reoccurance, had 4-5 doses of immunotherapy > pt on hospice group ([facility]) Cardiomyopathy Gout DVT (deep venous thrombosis) LLE > dx early 2024 > Eliquis > (had been on Eliquis for Afib in the past, but had stopped it approx 6 mos or more, then resumed due to DVT) Atrial fibrillation dx approx 2019 > no pacer > Eliquis History of TIA (transient ischemic attack) prior to 2019 pt thinks, pt thinks it was related to ocular migraines Hx of bronchitis no recent issues Rotator cuff (capsule) sprain no sx > healed on own Verruca vulgaris Osteoarthritis On anticoagulant therapy eliquis daily Ocular migraine gets aura, gets several x per week in AM Diabetes mellitus IDDM Surgical History H/O transurethral resection of bladder tumor (TURBT) 12/15/24 History of tooth extraction Hx of melanoma excision Left shoulder - wide excision 01/14/25 History of colonoscopy History of total left knee replacement (TKR) History of esophagogastroduodenoscopy (EGD) History of root canal procedure History of bilateral cataract extraction Family History Mother Diabetes Sister Diabetes Father Myocardial infarction Other Family history non-contributory No family history of adverse response to anesthesia Denies family history of Ovarian cancer Prostate cancer Breast cancer Colorectal cancer Social History Smoking Status: Former smoker Tobacco Type: Cigarettes Age Started Using Tobacco: 17; Age Quit Using Tobacco: 34; packs per day: 1.5; Second Hand Exposure: No; Do You Dip or Chew Tobacco: No; Hx Alcohol Use: Yes Alcohol type: other Alcohol Intake Frequency: 2-4 x/Month Hx Substance Use: No Preferred Language: German Communication Ability: Impaired Visual Impairment: No Limitations Hearing Ability: Normal General Inspector Required: No Beliefs That Will Affect Care: None marital status: Current Living Situation: Spouse Current Living Situation Comment: Lives at home with current occupational status: retired How many Children do You have: 6 Feels Safe at Home: Yes Diet: regular caffeine: Yes during the past year weight has: increased > 10 lbs Dental Care, Regularly: No Physical Activity Frequency: Does not Exercise Seatbelt Use: always Sunscreen Use: Yes Assistive Devices: Hospital Bed, Lift Chair and Walker Results & Data Vital Signs (Past 12 Hours) Vital Signs Temp Pulse Pulse Resp BP Pulse Ox O2 Del Method 08/10/25 07:40 83 08/10/25 07:38 36.3 C L 86 18 93/59 L 96 Room Air 08/10/25 04:13 36.5 C 94 H 20 92/63 L 95 Room Air 08/09/25 23:59 36.9 C 85 18 87/58 L 96 Room Air 08/09/25 23:22 89 Laboratory Results Abnormal lab results 08/08/25 08/09/25 08/09/25 Range/Units 15:06 16:43 22:58 Hgb 10.0 L D 9.5 L (12.0-16.0) g/dL Hct 28.8 L 27.8 L (37.0-47.0) % BUN (6-23) mg/dl Creatinine (0.6-1.2) mg/dl BUN/Creatinine Ratio (10-20) Glucose (70-99(Fasting)) mg/dl ALT (7-52) U/L Alkaline Phosphatase (34-104) U/L Total Protein (6.0-8.3) gm/dl Albumin (3.4-5.0) gm/dl Crossmatch See Detail 08/10/25 Range/Units 05:32 Hgb 9.3 L (12.0-16.0) g/dL Hct 27.2 L (37.0-47.0) % BUN 52 H (6-23) mg/dl Creatinine 2.04 H D (0.6-1.2) mg/dl BUN/Creatinine Ratio 25.5 H (10-20) Glucose 167 H (70-99(Fasting)) mg/dl ALT 6 L (7-52) U/L Alkaline Phosphatase 130 H (34-104) U/L Total Protein 4.7 L (6.0-8.3) gm/dl Albumin 2.2 L (3.4-5.0) gm/dl Crossmatch Diagnostic Findings Abdomen/Pelvis CT 08/08/25 15:32 EXAMINATION: CT of the abdomen and pelvis performed without contrast TECHNIQUE: Helical CT images from the lung bases through the symphysis pubis were obtained without contrast. Coronal and sagittal reformatted images were generated at a workstation for further assessment. Dose reduction techniques were achieved by using automatic exposure control and/or adjustment of mA and/or kV according to patient size and/or use of iterative reconstruction technique. COMPARISON: PET/CT 05/16/2025 HISTORY: Abdominal pain FINDINGS: Innumerable soft tissue lesions are seen throughout the body wall, including the right abdominal wall on image 32 measuring 36 mm, on image 25 measuring 36 mm, in the left groin, on image 73 measuring 59 mm, have all increased. A mass in the left lower quadrant of the abdomen is increased measuring 89 x 73 mm, previously 57 x 46 mm. A right adrenal lesion on image 18 measures 45 mm, previously 41 mm. Similar metastatic nodule in the left lower lobe of the lung measuring 11 mm. A lesion in the fundus of the gallbladder on image 29 measuring 23 mm, previously 18 mm is unchanged. New trace pleural effusions. The unenhanced liver, spleen, kidneys, and pancreas are unremarkable. Uterus is present. No bowel obstruction. No inflammatory bowel changes. Normal appendix. No acute bony abnormality. Chronic compression deformities of the lumbar spine. IMPRESSION: Increased widespread metastatic disease. New trace pleural effusions. No other acute finding. Electronically signed by Jose R Boles 08-08-2025 5:16 PM Medications Administered Current Inpatient Medications Potassium Chloride/Dextrose/Sod Cl (D5nss + 20meq Kcl) 20 meq in 1,000 mls @ 75 mls/hr IV .[id number] KATARINA Stop: 08/11/25 23:14 Last Infusion: 08/10/25 09:15 Dose: Infused Pantoprazole Sodium (Protonix) 40 mg in 10 mls @ 5 mls/min IV BID KATARINA Stop: 09/08/25 08:59 Last Admin: 08/09/25 20:52 Dose: 5 mls/min Morphine Sulfate (Morphine Sulfate 2 Mg/Ml Carp) 1 - 2 mg IV Q3H PRN PRN Reason: Pain Stop: 08/23/25 13:02 Ondansetron HCl (Ondansetron Inj 2 Mg/Ml 2 Ml Vial) 4 mg IV Q6H PRN PRN Reason: Nausea Stop: 09/07/25 23:00 PG Care Time/CCT Total # of Minutes Spent Total Time Spent with Patient: Total time spent is greater than 50% in coordination of care (as documented) at patient's floor/unit and/or counseling patient: Coding
[2025-08-10 11:29] VITALS: BP 89/53; PULSE 93; RESP 19; TEMP 97.7; O2SAT 97
--- NOTE | 2025-08-10 13:21 | Discharge Summary ---
Discharge Summary Date of Service August 10, 2025 Principal Dx & Hospital Course #1 = Principal Diagnosis (1) Orthostasis: (2) Pain from bone metastases: (3) GIB (gastrointestinal bleeding): (4) Metastatic melanoma: (5) Cardiomyopathy: (6) Stage 3b chronic kidney disease (CKD): (7) Diabetes mellitus with neuropathy: (8) Hyperlipidemia: (9) Dysphagia: (10) Atrial fibrillation: (11) DVT of axillary vein, acute left: (12) Hospice care patient: Plan #GI bleed -patient on a number of medications with increased risk factor for ulceration/upper GI bleeding. -Admit PCU, telemetry, Protonix loading dose in the emergency department to twice daily dosing -Hold NSAID medications, hold apixaban -Type and screen sent with additional labs - Current hemoglobin 8.8, check every 6 hours through the night continue to transfuse 2 units of packed red blood cells with acute decline in hemoglobin, decrease in vital signs or signs of active bleeding - No ongoing hematochezia from time of admission. Initial hemoglobin readings consistent with hemoconcentration in setting of severe dehydration. After volume expansion hemoglobin dropped to 7. Transfusion increases level to 9.5. No ongoing additional bleeding. Hemoglobin stable x 3 checks. Patient felt clinically significant better than she has even in weeks. We discussed ongoing follow-up. Held anticoagulants that should be held for at least a week. Discontinued all NSAID type medications for pain management. Advised patient and family if there are any dark/melanotic or recurrent bloody stools she should return to the emergency department reason for recheck otherwise follow-up in primary clinic in 5 to 7 days for recheck CBC. Iron studies and potentially ongoing transfusion - Patient with great appetite #Hypotension -mild, hypovolemic, gentle fluid resuscitation and 500 cc bolus given history of dysphagia and underlying cardiomyopathy with ongoing and extensive lower extremity edema -Chronic, stable with no evidence of orthostasis at the time of discharge. Volume expansion as noted above. #Stage III CKD - ANJANA based on initial labs, likely hypovolemic/prerenal in the setting of volume depletion - Volume resuscitation as above, baseline creatinine 1.2, peak 2.8, 2.0 at the time of DC, recheck int he outpatient setting in follow-up #Severe Dehydration -Status post 3 L volume expansion plus walking with blood. Tolerated volume expansion very well. Feeling much better. Less thirst. Actually had improvement in her lower extremity edema secondary to blood products and volume expansion. Advised family to keep close tabs on Daily weight and oral intake to ensure that she is not getting further behind at home. Otherwise resolved at the time of discharge #Underlying cardiomyopathy - Gentle fluid resuscitation as above, 2+ lower extremity edema noted but has been chronic since hospitalization for hip replacement - Monitor closely with telemetry #History of DVT - Hold Eliquis given bleeding as above, resume after 7 days #Widespread metastatic disease - Ongoing treatment with Dr. Arredondo at the [facility], no active interventions planned at this point. She has been enrolled with hospice, will consult palliative care it does not sound as though there are additional treatments available for her at this time - Family present bedside head requested evaluation with palliative care. It had been discussed previously in the outpatient setting given the increasing complexities request was made. Consult placed #Atrial fibrillation - rate controlled at this time, continue to monitor telemetry #FEN - N.p.o. during initial hospitalization #CODE STATUS - DNR/DNI per her wishes discussed with the patient and her at time of admission Admission HPI Per Admitting Provider 89-year-old female with a past medical history including metastatic melanoma with mets to bone and bladder, type II DM on insulin, DVT on Eliquis, A-fib, cardiomyopathy, stage IIIb CKD. Recent on palliative radiation therapy and chemotherapy prior status post right hip replacement about 6 weeks prior with brief stay in long term back home for the last 3 weeks. According the patient and her that she has had decreased oral intake, decreased fluid intake. Has had quite a bit of pain from cancer in her hip. Has been using NSAID based medications for such. Over the last several days has had increasing loose dark and tarry stools. May have been 2 to 3/day. reports that establish she has been increasingly somnolent. She has a brief episode of abdominal pain this morning secondary to this patient was transferred to the emergency department for evaluation. Initial evaluation emergency department revealed clinical diagnosis of hypokalemia. No obvious hematochezia or folacin melanotic stool. CT of the abdomen showed widespread and progressive metastatic disease. Secondary to pre sumed history hemoglobin 8.8 which is about her recent baseline however in combination with the volume contraction likely represents an acute decline. She was modestly hypotensive. Referred for admission for serial hemoglobin, supportive cares, volume resuscitation. Recent pertinent past medical history: Patient with a known history of cancer related pain secondary to metastatic melanoma is continuing treatments with [facility]. Patient with a history of chronic back DVT. Also cardiomyopathy on Bumex. Also history of A-fib recently stopped bisoprolol. Based on this note seems to intimate that the patient was going to be off of Eliquis. Did have a recent hip fracture while traveling to the hospital for radiation therapy was discharged on the and transferred to [facility] and subsequently to home on July 26. Discharge Exam General: A&Ox3. NAD. Cooperative. HEENT: Atraumatic, normocephalic. Vision and hearing grossly intact. Pupils equal and reactive to light, sclera clear and anicteric Pulm: CTAB A&P. -wheezes, -rales, -rhonchi. No increased work of breathing. No respiratory distress. Cardiac: RRR. -mrg. Radial pulses intact and symmetrical. Abdominal: Nontender, nondistended, soft. BS present. Ext:2+ Edema R>L in the lower extremities bilaterally, Moves all extremities equally NEURO: A&O as above, no focal deficits Skin: warm, moist. No evident pallor discoloration or rash. Discharge Plan Discharge Items Patient Disposition: Home - Home Health Services Reason For Visit: HYPOTENSION/GIB Discharge Diagnosis: Severe Dehydration, Acute gastrointestinal bleed Condition on Discharge: Fair Health Concerns: -You had an acute GI bleed at the time of admission. On discharge please hold apixaban 2.5 mg twice daily for an additional 3 days, stop taking the celecoxib 200 mg tablet and do not resume, avoid NSAID based medications. Continue with the Protonix, oxycodone as needed for pain, Zofran for nausea. - If possible check daily weight on a scale at home in the morning as frequently as possible. If your weight should increase or decrease by [address] please call the clinic for follow-up in person for recheck. This could be a sign of recurrent dehydration or excess fluid intake. - Follow-up with your primary doctor in 5 to 7 days for recheck of your kidney function and potassium levels Activity: Resume your previous activity Non-emergency contact: Primary Care Provider Call non-emergency contact if: you have any medication questions, your symptoms worsen, your pain is unusual for you and you have a fever Follow-up/Referrals: Tyson Hernandez MD [Primary Care Provider] - 08/15/25 2:15 pm (08/15/25 at 2:15 with Tyson Hernandez) Diet: Regular Addtl Attending Provider Instructions: Recheck CBC and renal function and potassium level within a week, coordinate care and discussion with hospice as an outpatient, discuss resumption of Eliquis Pending Studies at Discharge: No Stand-Alone Forms: My [facility], Smoking Cessation Medications and DC Order Prescriptions: Continued bumetanide 1 mg tablet 1 mg PO DAILY (DME) Accu-Chek Guide test strips Strip See Rx Instructions .Route Qty: 100 1RF Rx Instructions: TESTING 1 TIME DAILY (DME) pen needle, diabetic [BD Shante 2nd Gen Pen Needle] 32 gauge x 5/32" needle See Rx Instructions .ROUTE .MEDSUPPLY Qty: 100 3RF Rx Instructions: As directed insulin glargine [Lantus Solostar U-100 Insulin] 100 unit/mL (3 mL) insulin pen 25 unit subcut QDL Qty: 15 11RF potassium chloride 10 mEq capsule, extended release 10 meq PO DAILY Qty: 30 2RF cholecalciferol (vitamin D3) 50 mcg (2,000 unit) capsule 50 mcg PO DAILY acetaminophen-codeine 300-30 mg tablet 1 tab PO Q4H PRN (Reason: Pain) (DME) compr.stocking,knee,long,large Misc See Rx Instructions .Route Qty: 2 1RF Rx Instructions: As directed length of need 99 months oxycodone 5 mg tablet 2.5 mg PO BID PRN (Reason: pain) Qty: 30 0RF polyethylene glycol 3350 17 gram/dose powder 17 g PO DAILY Qty: 119 0RF bisacodyl 5 mg tablet 5 mg PO DAILY PRN (Reason: constipation) Qty: 30 0RF pantoprazole [Protonix] 40 mg tablet,delayed release (DR/EC) 40 mg PO DAILY Qty: 30 0RF ondansetron 4 mg tablet,disintegrating 4 mg PO Q6H PRN (Reason: nausea and vomiting) Qty: 30 0RF Elder[facility] 45-4-50 mg Tablet,Chewable 1 tab PO BID Held Eliquis 2.5 mg tablet 2.5 mg PO BID Hold Instructions: Resume on 08/14/25. Discontinued celecoxib [Celebrex] 200 mg capsule 200 mg PO BID PRN (Reason: pain) Qty: 60 6RF Discharge Orders: Discharge Order (Routine); Ordered 08/10/25 Ordered By: Eric Bobo/Other Patient Handouts: GI Bleeding Causes and Tests, GI Bleeding Ch Admission Data Admit Date/Time: 08/08/25 19:50 Attending Provider: Eric Chavez Admit Provider: Eric Chavez Primary Care Provider: Tyson Hernandez Other Providers: Eric Chavez Other Interventions: Discharge Summary Assessment (RN) Last Done: 08/10/25 13:35 Hospital Stay Data Consultations 08/08/25 17:57 ED Decision to Admit Stat 08/09/25 15:27 Consult Palliative Care Routine 08/09/25 16:00 Consult Palliative Care Routine Diagnostic Imagining Performed 08/08/25 15:32 CT abd pelvis wo con Stat Pending Results Patient Have Any Pending Studies at Discharge: No Discharge Instructions Given to Patient (Per Discharging Provider) Recheck CBC and renal function and potassium level within a week, coordinate care and discussion with hospice as an outpatient, discuss resumption of Eliquis Total Time Total Time Spent Total Time Spent (In Minutes): 35 minutes spent in discharge planning, prescription management, conversation with specialist and arrangements with follow-up with family for recheck of CBC and kidney function Coding Level of Care Code 13546 INP/OBS DISCH >30 MIN Diagnoses Orthostasis I95.1 Pain from bone metastases G89.3; C79.51 GIB (gastrointestinal bleeding) K92.2 Metastatic melanoma C43.9 Cardiomyopathy I42.9 Stage 3b chronic kidney disease (CKD) N18.32 Diabetes mellitus with neuropathy E11.40 Hyperlipidemia, unspecified hyperlipidemia type E78.5 Hyperlipidemia type: unspecified Dysphagia R13.10 Permanent atrial fibrillation I48.91 DVT of axillary vein, acute left I82.A12 Hospice care patient Z51.5
== END 2025-08-10 14:45 | disposition home health service (06) | DRG 378 ==
LOC: ED 14:45 → 4W 19:50